=== PATIENT | male | born 1935 | race Caucasian/White ===

== ENCOUNTER 2016-06-03 16:39 | Inpatient (IN) | payer MEDICARE, OTHER ==
[2016-06-03] MEDS ORDERED: IPRATROPIUM-ALBUTEROL 3 ML NEB INHALATION STA (17:32)
[2016-06-03] MEDS ORDERED: methylPREDNISolone SOD SUCCI 125 MG/2 ML VIAL IV STA (17:32)
[2016-06-03] MEDS ORDERED: SODIUM CHLORIDE 0.9% 1,000 ML IV STA (17:32)
--- NOTE | 2016-06-03 17:37 | ED ---
General Adult HPI - General Chief complaint: Recheck/Abnormal Lab/Rx Stated complaint: ABNORMAL LABS Time Seen by Provider: 06/03/16 17:05 Source: patient, family, RN notes reviewed Mode of arrival: wheelchair Limitations: no limitations - History of Present Illness Initial comments: Patient is a pleasant 81-year-old male presenting to the emergency Department with dyspnea. Family did receive a call stating recent blood work showed abnormal potassium and red cells. Patient admits to being short of breath. Shortness of breath has been for some time however worse the past few days. Patient was recently discharged from [facility] with multiple breathing problems including COPD, CHF. Patient states symptoms are mild at rest but severe with exertion. Occasional cough. Patient does have leg swelling which is somewhat improved. Patient has been on Lasix. - Related Data Home Medications Medication Instructions Recorded Confirmed Metoprolol Tartrate [Metoprolol 50 mg PO BID 01/25/14 06/03/16 Tartrate] Ferrous Sulfate [Feosol] 325 mg PO DAILY 04/15/14 06/03/16 Glimepiride [Amaryl] 4 mg PO BID 10/07/15 06/03/16 Albuterol Inhaler [Ventolin Hfa 2 puff INHALATION RT-Q6H PRN 06/03/16 06/03/16 Inhaler] Aspirin 81 mg PO DAILY 06/03/16 06/03/16 Atorvastatin Calcium [Lipitor] 40 mg PO DAILY 06/03/16 06/03/16 Budesonide-Formot 160-4.5 Mcg 2 puff INHALATION RT-BID 06/03/16 06/03/16 [Symbicort 160-4.5 Mcg Inhaler] Cholecalciferol (Vitamin D3) 10,000 unit PO DAILY 06/03/16 06/03/16 [Vitamin D3] Ciprofloxacin HCl [Cipro] 500 mg PO Q12HR 06/03/16 06/03/16 Multivitamins, Thera [Multivitamin 1 tab PO DAILY 06/03/16 06/03/16 (formulary)] [place]-3 Acid Ethyl Esters [Lovaza] 2 gm PO BID 06/03/16 06/03/16 Oxybutynin Chloride [Ditropan] 5 mg PO BID 06/03/16 06/03/16 Pantoprazole Sodium [Protonix] 40 mg PO DAILY 06/03/16 06/03/16 Psyllium Husk 100% [Metamucil] 6 gm PO DAILY 06/03/16 06/03/16 hydrALAZINE HCL [Apresoline] 50 mg PO Q12H 06/03/16 06/03/16 sitaGLIPtin [Januvia] 25 mg PO DAILY 06/03/16 06/03/16 Allergies Allergy/AdvReac Type Severity Reaction Status Date / Time No Known Allergies Allergy Verified 06/03/16 17:57 Review of Systems ROS Statement: Those systems with pertinent positive or pertinent negative responses have been documented in the HPI. ROS Other: All systems not noted in ROS Statement are negative. Constitutional: Denies: fever Eyes: Denies: eye pain ENT: Denies: ear pain Respiratory: Reports: dyspnea Cardiovascular: Denies: chest pain Endocrine: Reports: fatigue Gastrointestinal: Denies: abdominal pain Genitourinary: Denies: dysuria Musculoskeletal: Denies: back pain Skin: Denies: rash Neurological: Denies: headache Past Medical History Past Medical History: Coronary Artery Disease (CAD), Heart Failure, COPD, Hyperlipidemia Additional Past Medical History / Comment(s): macular degeneration History of Any Multi-Drug Resistant Organisms: None Reported Past Surgical History: Bowel Resection Additional Past Surgical History / Comment(s): CABG-triple bypass, lt hip with cristina and 3 screws Past Anesthesia/Blood Transfusion Reactions: No Reported Reaction Past Psychological History: No Psychological Hx Reported Smoking Status: Former smoker Past Alcohol Use History: None Reported Past Drug Use History: None Reported - Past Family History Mother Additional Family Medical History / Comment(s): bowel obstruction Father Family Medical History: Liver Disease General Exam Limitations: no limitations General appearance: alert, in no apparent distress Head exam: Present: atraumatic Eye exam: Present: normal appearance, PERRL ENT exam: Present: normal oropharynx Neck exam: Present: normal inspection Respiratory exam: Present: decreased breath sounds Cardiovascular Exam: Present: regular rate, normal rhythm GI/Abdominal exam: Present: soft. Absent: tenderness Extremities exam: Present: pedal edema. Absent: calf tenderness Neurological exam: Present: alert Psychiatric exam: Present: normal affect, normal mood Skin exam: Absent: rash Course Vital Signs 06/03/16 06/03/16 06/03/16 16:48 17:48 17:59 Temperature 97.9 F 97.8 F Pulse Rate 86 84 76 Respiratory 24 26 H Rate Blood Pressure 150/67 161/75 O2 Sat by Pulse 74 L 86 L Oximetry 06/03/16 06/03/16 18:09 18:15 Temperature Pulse Rate 79 80 Respiratory 25 H Rate Blood Pressure 159/73 O2 Sat by Pulse 91 L Oximetry Medical Decision Making - Medical Decision Making Patient reevaluated and improved with BiPAP. Patient updated on results and plan. Case discussed with practitioner Pooja, covering with Dr. Burgos, covering for Dr. Mercado who will admit. - Lab Data Result diagrams: 06/03/16 17:36 06/03/16 17:36 Lab Results 06/03/16 06/03/16 06/03/16 Range/Units 17:36 17:36 17:36 WBC 16.0 H (3.8-10.6) k/uL RBC 3.69 L (4.30-5.90) m/uL Hgb 8.6 L (13.0-17.5) gm/dL Hct 29.0 L (39.0-53.0) % MCV 78.7 L (80.0-100.0) fL MCH 23.4 L (25.0-35.0) pg MCHC 29.7 L (31.0-37.0) g/dL RDW 19.6 H (11.5-15.5) % Plt Count 301 (150-450) k/uL Neutrophils % 89 % Lymphocytes % 2 % Monocytes % 5 % Eosinophils % 0 % Basophils % 1 % Neutrophils # 14.2 H (1.3-7.7) k/uL Lymphocytes # 0.3 L (1.0-4.8) k/uL Monocytes # 0.8 (0-1.0) k/uL Eosinophils # 0.0 (0-0.7) k/uL Basophils # 0.1 (0-0.2) k/uL Hypochromasia Marked Poikilocytosis Slight Anisocytosis Slight Microcytosis Slight PT (9.0-12.0) sec INR (<1.1) APTT (22.0-30.0) sec Sample Site ABG pH (7.35-7.45) ABG pCO2 (35-45) mmHg ABG pO2 (83-108) mmHg ABG HCO3 (21-25) mmol/L ABG Total CO2 (19-24) mmol/L ABG O2 Saturation (94-97) % ABG Base Excess mmol/L FiO2 % Sodium 142 (137-145) mmol/L Potassium 5.2 H (3.5-5.1) mmol/L Chloride 109 H (98-107) mmol/L Carbon Dioxide 23 (22-30) mmol/L Anion Gap 10 mmol/L BUN 75 H (9-20) mg/dL Creatinine 1.70 H (0.66-1.25) mg/dL Est GFR (MDRD) Af Amer 47 (>60 ml/min/1.73 sqM) Est GFR (MDRD) Non-Af 39 (>60 ml/min/1.73 sqM) Glucose 161 H (74-99) mg/dL Calcium 8.4 (8.4-10.2) mg/dL Total Bilirubin 0.7 (0.2-1.3) mg/dL AST 47 (17-59) U/L ALT 88 H (21-72) U/L Alkaline Phosphatase 113 (38-126) U/L Total Creatine Kinase 41 L (55-170) U/L CK-MB (CK-2) 2.3 (0.0-2.4) ng/mL CK-MB (CK-2) Rel Index 5.6 Troponin I 0.148 H* (0.000-0.034) ng/mL NT-Pro-B Natriuret Pep pg/mL Total Protein 6.0 L (6.3-8.2) g/dL Albumin 3.3 L (3.5-5.0) g/dL 06/03/16 06/03/16 06/03/16 Range/Units 17:36 17:36 17:44 WBC (3.8-10.6) k/uL RBC (4.30-5.90) m/uL Hgb (13.0-17.5) gm/dL Hct (39.0-53.0) % MCV (80.0-100.0) fL MCH (25.0-35.0) pg MCHC (31.0-37.0) g/dL RDW (11.5-15.5) % Plt Count (150-450) k/uL Neutrophils % % Lymphocytes % % Monocytes % % Eosinophils % % Basophils % % Neutrophils # (1.3-7.7) k/uL Lymphocytes # (1.0-4.8) k/uL Monocytes # (0-1.0) k/uL Eosinophils # (0-0.7) k/uL Basophils # (0-0.2) k/uL Hypochromasia Poikilocytosis Anisocytosis Microcytosis PT 11.4 (9.0-12.0) sec INR 1.1 (<1.1) APTT 23.7 (22.0-30.0) sec Sample Site rrad ABG pH 7.40 (7.35-7.45) ABG pCO2 35 (35-45) mmHg ABG pO2 56 L (83-108) mmHg ABG HCO3 21 (21-25) mmol/L ABG Total CO2 22 (19-24) mmol/L ABG O2 Saturation 89.0 L (94-97) % ABG Base Excess -3.2 mmol/L FiO2 36 % Sodium (137-145) mmol/L Potassium (3.5-5.1) mmol/L Chloride (98-107) mmol/L Carbon Dioxide (22-30) mmol/L Anion Gap mmol/L BUN (9-20) mg/dL Creatinine (0.66-1.25) mg/dL Est GFR (MDRD) Af Amer (>60 ml/min/1.73 sqM) Est GFR (MDRD) Non-Af (>60 ml/min/1.73 sqM) Glucose (74-99) mg/dL Calcium (8.4-10.2) mg/dL Total Bilirubin (0.2-1.3) mg/dL AST (17-59) U/L ALT (21-72) U/L Alkaline Phosphatase (38-126) U/L Total Creatine Kinase (55-170) U/L CK-MB (CK-2) (0.0-2.4) ng/mL CK-MB (CK-2) Rel Index Troponin I (0.000-0.034) ng/mL NT-Pro-B Natriuret Pep 03060 pg/mL Total Protein (6.3-8.2) g/dL Albumin (3.5-5.0) g/dL - Radiology Data Interpreted by me: Chest x-ray shows cardiomegaly, postoperative changes and CHF. Critical Care Time Critical Care Time: Yes Total Critical Care Time: 33 Disposition Clinical Impression: CHF (congestive heart failure), Respiratory failure Disposition: ADMITTED IP TO THIS HOSP Condition: Serious
[2016-06-03 17:51] LABS: Anisocytosis Slight; Basophils # (A) 0.1 k/uL (0-0.2); Basophils % (A) 1 %; CH 23.7; CHCM 30.4; Eosinophils % (A) 0 %; HDW 3.53; HGB 8.6 gm/dL (13.0-17.5); Hypochromasia Marked; Luc # (Auto) 0.48; Luc % (Auto) 3; Lymphocytes # (A) 0.3 k/uL (1.0-4.8); Lymphocytes % (A) 2 %; MCH 23.4 pg (25.0-35.0); MCHC 29.7 g/dL (31.0-37.0); MCV 78.7 fL (80.0-100.0); Mean Platelet Volume 9.7; Microcytosis Slight; Monocytes # (A) 0.8 k/uL (0-1.0); Monocytes % (A) 5 %; Neutrophils # (A) 14.2 k/uL (1.3-7.7); Neutrophils % (A) 89 %; Poikilocytosis Slight; RBC 3.69 m/uL (4.30-5.90); RDW 19.6 % (11.5-15.5); WBC (Perox) 16.34
[2016-06-03 17:55] LABS: Calcium 8.4 mg/dL (8.4-10.2); INR 1.1 (<1.1); Partial Thromboplastin Time 23.7 sec (22.0-30.0); Potassium 5.2 mmol/L (3.5-5.1); Prothrombin Time 11.4 sec (9.0-12.0); Total Bilirubin 0.7 mg/dL (0.2-1.3)
[2016-06-03 18:09] LABS: ABG PCO2 35 mmHg (35-45); ABG PO2 56 mmHg (83-108)
[2016-06-03 18:10] LABS: ABG Base Excess -3.2 mmol/L; ABG HCO3 21 mmol/L (21-25); ABG TCO2 22 mmol/L (19-24)
[2016-06-03 18:17] LABS: Creatine Kinase MB 2.3 ng/mL (0.0-2.4)
[2016-06-03 18:21] LABS: Troponin I 0.148 ng/mL (0.000-0.034)
[2016-06-03] MEDS ORDERED: ASPIRIN 325 MG TAB PO STA (18:51)
[2016-06-03] MEDS ORDERED: HEPARIN SODIUM,PORCINE 5,000 UNIT/ML 1 ML VIAL IV ONE (18:55)
[2016-06-03] MEDS ORDERED: IPRATROPIUM-ALBUTEROL 3 ML NEB INHALATION PRN (18:55)
[2016-06-03] MEDS ORDERED: HEPARIN SODIUM,PORCINE 5,000 UNIT/ML 1 ML VIAL IV PRN (18:55)
[2016-06-03] MEDS ORDERED: HEPARIN SODIUM,PORCINE/D5W PMX 25,000 UNIT in DEXTROSE/WATER 1 500ML.BAG IV SCH (19:00)
--- NOTE | 2016-06-03 19:31 | XR ---
EXAMINATION TYPE: XR chest 1V portable DATE OF EXAM: 06/03/2016 6:32 PM COMPARISON: February 03, 2016 HISTORY: Cough and dyspnea TECHNIQUE: Single frontal view of the chest is obtained. FINDINGS: There is marked obscuration of the pulmonary vasculature bilaterally and symmetrically, by a fine reticular pattern of increased density reaching the periphery of septal lines and with zones of coalescent opacity in the lung bases, and with a relatively small right pleural effusion tracking upward into the interlobar fissure. No abnormal gas collections. Mild moderately enlarged critics silhouette with sternal sutures and mediastinal clips noted. IMPRESSION: RADIOGRAPHIC FINDINGS ARE CONSISTENT WITH ADVANCED CARDIOGENIC INTERSTITIAL PHASE PULMONARY EDEMA WIT H AREAS OF ALVEOLAR PHASE PULMONARY EDEMA. ASSOCIATED RIGHT PLEURAL EFFUSION.
[2016-06-03] MEDS: IPRATROPIUM-ALBUTEROL 3 ML NEB INHALATION SCH (22:48)
[2016-06-03] MEDS: FUROSEMIDE 10 MG/ML 4 ML VIAL IV SCH (23:41)
[2016-06-04] MEDS: NITROGLYCERIN OINT 1 INCH/GM PACKET TOPICAL SCH ×4 (00:09→11:37)
[2016-06-04] MEDS: FUROSEMIDE 10 MG/ML 4 ML VIAL IV SCH ×3 (03:07→19:50)
[2016-06-04 06:16] LABS: Glucose,Whole Blood 349 mg/dL (75-99)
[2016-06-04] MEDS: INSULIN LISPRO (humaLOG) 300 UNIT/3 ML VIAL SQ SCH ×4 (06:17→21:10)
[2016-06-04 06:21] LABS: Anisocytosis Slight; Basophils % (A) 0 %; CHCM 28.5; Eosinophils % (A) 0 %; HCT 25.9 % (39.0-53.0); HDW 3.22; HGB 7.6 gm/dL (13.0-17.5); Hypochromasia Marked; Luc # (Auto) 0.06; Luc % (Auto) 1; Lymphocytes # (A) 0.2 k/uL (1.0-4.8); Lymphocytes % (A) 3 %; MCH 23.9 pg (25.0-35.0); MCHC 29.4 g/dL (31.0-37.0); MCV 81.2 fL (80.0-100.0); Mean Platelet Volume 8.8; Microcytosis Slight; Monocytes # (A) 0.2 k/uL (0-1.0); Monocytes % (A) 3 %; Neutrophils # (A) 8.1 k/uL (1.3-7.7); Neutrophils % (A) 94 %; RBC 3.19 m/uL (4.30-5.90); RDW 18.7 % (11.5-15.5); WBC 8.7 k/uL (3.8-10.6); WBC (Perox) 9.36
[2016-06-04] MEDS: IPRATROPIUM-ALBUTEROL 3 ML NEB INHALATION SCH ×4 (08:19→20:40)
[2016-06-04] MEDS ORDERED: ASPIRIN 325 MG TAB PO SCH (09:00)
--- NOTE | 2016-06-04 11:49 | P.CRDCN ---
History of Present Illness Consult date: 06/04/16 Requesting physician: Stevo Mercado Consult reason: congestive heart failure Chief complaint: Shortness of breath History of present illness: This is a pleasant 81-year-old gentleman who follows regularly with Dr. Schwartz in the office. He has a known history of diabetes, hypertension, hyperlipidemia, coronary artery disease with prior bypass surgery in 2007 where he underwent a COLLINS to the LAD, saphenous vein graft to the RCA, saphenous vein graft to the diagonal. Most recent Jennifer scan was performed in June of last year which was reported to be normal. Most of the history was obtained from the medical record, patient is unsure of where he is alone why he is here. According to the chart, patient was admitted to the hospital with symptoms of shortness of breath, he had apparently just recently been at [facility] with similar symptoms. Chest x-ray on admission here revealed findings consistent with advanced cardiogenic interstitial pulmonary edema with areas of alveolar pulmonary edema and a right sided pleural effusion. White blood cell count on admission 16,000, 8.7 this morning. Hemoglobin on admission 8.6, 7.6 this morning. Potassium 5.2, BUN 75, creatinine 1.7, BNP level 17, 800.Troponins 0.14, 0.18, .14. Blood pressure 150/60, heart rate in the 80s, 74 % on 4 L on admission. He is currently on a Ventimask satting 93%. Blood pressure this morning 176/82. EKG on admission shows a normal sinus rhythm with right bundle branch block pattern. The patient was initiated on IV Lasix in the emergency room, continues to diurese. He is also on a heparin drip because of mildly abnormal troponins. Past Medical History Past Medical History: Coronary Artery Disease (CAD), Heart Failure, COPD, Diabetes Mellitus, Hyperlipidemia, Hypertension Additional Past Medical History / Comment(s): macular degeneration History of Any Multi-Drug Resistant Organisms: None Reported Past Surgical History: Bowel Resection, Coronary Bypass/CABG, Heart Catheterization Additional Past Surgical History / Comment(s): CABG-triple bypass, lt hip with cristina and 3 screws Past Anesthesia/Blood Transfusion Reactions: No Reported Reaction Past Psychological History: No Psychological Hx Reported Smoking Status: Former smoker Past Alcohol Use History: None Reported Past Drug Use History: None Reported - Past Family History Mother Additional Family Medical History / Comment(s): bowel obstruction Father Family Medical History: Liver Disease Medications and Allergies Home Medications Medication Instructions Recorded Confirmed Type Metoprolol Tartrate [Metoprolol 50 mg PO BID 01/25/14 06/03/16 History Tartrate] Ferrous Sulfate [Feosol] 325 mg PO DAILY 04/15/14 06/03/16 History Glimepiride [Amaryl] 4 mg PO BID 10/07/15 06/03/16 History Albuterol Inhaler [Ventolin Hfa 2 puff INHALATION RT-Q6H PRN 06/03/16 06/03/16 History Inhaler] Aspirin 81 mg PO DAILY 06/03/16 06/03/16 History Atorvastatin Calcium [Lipitor] 40 mg PO DAILY 06/03/16 06/03/16 History Budesonide-Formot 160-4.5 Mcg 2 puff INHALATION RT-BID 06/03/16 06/03/16 History [Symbicort 160-4.5 Mcg Inhaler] Cholecalciferol (Vitamin D3) 10,000 unit PO DAILY 06/03/16 06/03/16 History [Vitamin D3] Ciprofloxacin HCl [Cipro] 500 mg PO Q12HR 06/03/16 06/03/16 History Multivitamins, Thera [Multivitamin 1 tab PO DAILY 06/03/16 06/03/16 History (formulary)] [place]-3 Acid Ethyl Esters [Lovaza] 2 gm PO BID 06/03/16 06/03/16 History Oxybutynin Chloride [Ditropan] 5 mg PO BID 06/03/16 06/03/16 History Pantoprazole Sodium [Protonix] 40 mg PO DAILY 06/03/16 06/03/16 History Psyllium Husk 100% [Metamucil] 6 gm PO DAILY 06/03/16 06/03/16 History hydrALAZINE HCL [Apresoline] 50 mg PO Q12H 06/03/16 06/03/16 History sitaGLIPtin [Januvia] 25 mg PO DAILY 06/03/16 06/03/16 History Allergies Allergy/AdvReac Type Severity Reaction Status Date / Time No Known Allergies Allergy Verified 06/03/16 17:57 Physical Exam Vitals: Vital Signs Temp Pulse Pulse Resp BP BP Pulse Ox 06/04/16 08:30 96 06/04/16 08:19 91 06/04/16 08:00 97.6 F 72 20 176/82 93 L 06/04/16 04:00 97.7 F 82 18 129/63 90 L 06/03/16 22:50 96.9 F L 80 22 171/74 95 06/03/16 22:27 98.3 F 76 23 153/72 96 06/03/16 21:46 96.8 F L 83 18 183/79 95 Intake and Output 06/03/16 06/04/16 06/04/16 22:59 06:59 14:59 Intake Total 246.824 Output Total 700 1600 Balance -453.176 -1600 Intake: Intake, IV Titration 246.824 Amount Heparin Sodium,Porcine/ 126.824 D5w Pmx 25,000 unit In Dextrose/Water 1 500ml. bag @ 12 UNITS/KG/HR 19. 92 mls/hr IV .Q24H JENA Rx #:[id number] Sodium Chloride 0.9% 1, 120 000 ml @ 20 mls/hr IV . Q24H STA Rx#:[id number] Oral 0 Output: Urine 700 1600 Other: Weight 88.8 kg 88.9 kg 88.9 kg Patient Weight 06/05/16 06:59 Weight 88.9 kg PHYSICAL EXAMINATION: HEENT: Head is atraumatic, normocephalic. Pupils equal, round. Neck is supple. There is no elevated jugular venous pressure. HEART EXAMINATION: Heart S1 and S2 systolic ejection murmur is heard. CHEST EXAMINATION: Lungs reveal scattered coarse wheezes and rhonchi throughout ABDOMEN: Soft, nontender. Bowel sounds are heard. No organomegaly noted. EXTREMITIES: 1+ peripheral pulses with 1+ evidence of peripheral edema and no calf tenderness noted. Evidence of chronic venous stasis NEUROLOGIC patient is awake, confused . Results 06/04/16 05:24 06/03/16 17:36 Cardiac Enzymes 06/04/16 06/04/16 Range/Units 00:31 05:24 Troponin I 0.180 H* 0.145 H* (0.000-0.034) ng/mL Coagulation 06/04/16 06/04/16 Range/Units 00:31 07:18 APTT 31.2 H 34.0 H (22.0-30.0) sec CBC 06/04/16 Range/Units 05:24 WBC 8.7 (3.8-10.6) k/uL RBC 3.19 L (4.30-5.90) m/uL Hgb 7.6 L (13.0-17.5) gm/dL Hct 25.9 L (39.0-53.0) % Plt Count 228 (150-450) k/uL Current Medications Generic Name Dose Route Start Last Admin Trade Name Freq PRN Reason Stop Dose Admin Albuterol/Ipratropium 3 ml 06/03/16 20:00 06/04/16 08:19 Duoneb 0.5 Mg-3 Mg/3 Ml Soln INHALATION 3 ml RT-QID JENA Administration Albuterol/Ipratropium 3 ml 06/03/16 18:55 Duoneb 0.5 Mg-3 Mg/3 Ml Soln INHALATION RT-QID PRN Shortness Of Breath Or Wheezing Aspirin 325 mg 06/04/16 09:00 06/04/16 08:10 Aspirin PO 325 mg DAILY JENA Administration Furosemide 40 mg 06/03/16 19:00 06/04/16 03:07 Lasix IV 40 mg Q8H JENA Administration Heparin Sodium (Porcine) 0 unit 06/03/16 18:55 06/04/16 01:46 Heparin IV 4,000 unit PER PROTOCOL PRN Administration Low PTT Protocol Sodium Chloride 1,000 mls @ 20 mls/hr 06/03/16 17:32 06/03/16 18:05 Saline 0.9% IV 06/04/16 17:31 20 mls/hr .Q24H STA Administration Heparin Sodium/Dextrose 25,000 500 mls @ 19.92 mls/hr 06/03/16 19:00 01:46 unit/ IV Solution IV 15 units/kg/hr .Q24H JENA 24.9 mls/hr Protocol Titration 12 UNITS/KG/HR Insulin Human Lispro 0 unit 06/04/16 07:30 06/04/16 06:17 Humalog SQ 6 unit ACHS JENA Administration Protocol Nitroglycerin 1 inch 06/03/16 19:00 06/04/16 08:10 Nitro-Bid Oint TOPICAL 1 inch QID JENA Administration Sodium Chloride 10 ml 06/03/16 21:00 06/04/16 08:10 Saline Flush IV 10 ml BID JENA Administration Intake and Output 06/03/16 06/04/16 06/04/16 22:59 06:59 14:59 Intake Total 246.824 Output Total 700 1600 Balance -453.176 -1600 Intake: Intake, IV Titration 246.824 Amount Heparin Sodium,Porcine/ 126.824 D5w Pmx 25,000 unit In Dextrose/Water 1 500ml. bag @ 12 UNITS/KG/HR 19. 92 mls/hr IV .Q24H JENA Rx #:[id number] Sodium Chloride 0.9% 1, 120 000 ml @ 20 mls/hr IV . Q24H STA Rx#:[id number] Oral 0 Output: Urine 700 1600 Other: Weight 88.8 kg 88.9 kg 88.9 kg Patient Weight 06/05/16 06:59 Weight 88.9 kg 06/04/16 05:24 EKG Interpretations (text) EKG shows a normal sinus rhythm with a right bundle branch block pattern. Assessment and Plan Plan: Assessment and Plan #1 ingested heart failure, likely diastolic in nature, patient's most recent echo was performed in the office in 2013 which revealed an ejection fraction at that time of 50% #2 known history of coronary artery disease with prior coronary artery bypass grafting surgery in 2007 at which time patient underwent the LAD, saphenous vein graft to the right coronary artery, saphenous vein graft to the diuretic. #3 diabetes #4 hypertension #5 hyperlipidemia #6 COPD #7 dementia Plan We will obtain an echocardiogram with Doppler study. Decrease aspirin to 81 mg daily. Continue IV Lasix. Discontinue IV heparin. Discontinue Nitropaste. Resume metoprolol tartrate, resume hydralazine, add Imdur, resume Lipitor. Obtain records from recent visit to [facility]. Further recommendations to follow. DNP note has been reviewed, I agree with a documented findings and plan of care. Patient was seen and examined.
[2016-06-04 11:57] LABS: Glucose,Whole Blood 217 mg/dL (75-99)
[2016-06-04] MEDS ORDERED: LEVOFLOXACIN 500MG-D5W PMX 500 MG in DEXTROSE/WATER 1 100ML.BAG IVPB ONE (13:45)
[2016-06-04] MEDS: PANTOPRAZOLE 40 MG TABLET PO SCH (14:09)
[2016-06-04] MEDS: OXYBUTYNIN CHLORIDE 5 MG TAB PO SCH ×2 (14:09→21:21)
[2016-06-04] MEDS: LINAGLIPTIN 5 MG TABLET PO SCH (14:09)
[2016-06-04] MEDS: hydrALAZINE HCL 50 MG TAB PO SCH ×2 (14:10→21:21)
[2016-06-04] MEDS: GLIMEPIRIDE 4 MG TAB PO SCH ×2 (14:10→21:19)
[2016-06-04] MEDS: ISOSORBIDE MONONITRATE ER 30 MG TAB.ER.24H PO SCH (14:10)
[2016-06-04 14:53] LABS: Hemoglobin A1C 6.4 % (4.2-6.1)
--- NOTE | 2016-06-04 16:14 | HP ---
DATE OF ADMISSION: I am covering for Dr. Stevo Mercado. This 81-year-old gentleman with a past medical history of multiple medical problems including CAD, history of COPD, CHF, diabetes mellitus, hypertension, hyperlipidemia, macular degeneration, history of CAD, CABG being followed by Dr. Stevo Mercado in the outpatient setting was admitted to [facility] with complaints of shortness of breath. The shortness of breath was thought to be multifactorial because of COPD and more of CHF. The patient is also seen by Cardiology on a regular basis. The most recent stress test on the outpatient setting was found to be negative. The patient also had change in mental status, patient confused and unable to offer a coherent history. Most of the history of taken from my discussed with staff and as well as review of the chart at this time. Patient apparently was admitted to [facility] recently with the same problems including shortness of breath, again thought to be multifactorial secondary to COPD and CHF. There is no history of trauma. PAST MEDICAL HISTORY: History of CAD, CHF, COPD, diabetes mellitus, hypertension, hyperlipidemia, macular degeneration, bowel resection, CAD, CABG. Medications prior to admission include: 1. Cipro 500 mg p.o. b.i.d. 2. Januvia 25 mg p.o. daily. 3. Apresoline 50 mg b.i.d. 4. Metamucil 6 grams p.o. daily. 5. Protonix 40 mg p.o. daily. 6. Ditropan 5 mg p.o. b.i.d. 7. Lovaza 2 grams p.o. b.i.d. 8. Multivitamins 1 p.o. daily. 9. Metoprolol 50 mg p.o. b.i.d. 10. Amaryl 4 mg p.o. b.i.d. 11. Iron sulfate 325 mg p.o. daily. 12. Vitamin D3, 10,000 daily. 13. Symbicort 160/4.5 two puffs b.i.d. 14. Lipitor 40 mg daily. 15. Aspirin 81 mg daily. 16. Albuterol 2 puffs q.6 p.r.n. ALLERGIES: None. FAMILY HISTORY: History of liver disease and bowel obstruction in the family. SOCIAL HISTORY: Previous history of smoking, No history of alcohol intake. REVIEW OF SYSTEMS: Could not be taken because the patient is confused at this time. PHYSICAL EXAMINATION: Patient is conscious, confused, oriented x1. Pulse 91, blood pressure 163/74, respirations 20, temperature 96.6, pulse ox 92% on 15 Ventimask. HEENT: Conjunctivae normal. Oral mucosa moist. NECK: No jugular venous distention. No carotid bruit. No lymph node enlargement. CARDIOVASCULAR: S1 and S2, muffled. No S3, no S4. RESPIRATORY: Breath sounds diminished at the bases. Bilateral scattered rhonchi, expiratory wheezing and crackles were heard. ABDOMEN: Soft, nontender. No mass palpable. LEGS: No edema, no swelling. NERVOUS SYSTEM: Diffusely weak. LABS: WBC 8.7, hemoglobin 7.6. Troponin 0.145. Accu-Cheks 217. WBC was 16. ASSESSMENT: 1. Shortness of breath, possibly multifactorial. 2. Congestive heart failure, acute exacerbation, ejection fraction unknown with chronic obstructive pulmonary disease acute exacerbation, with acute purulent tracheobronchitis. 3. Increased WBC. 4. Anemia, microcytic. 5. Change in mental status, metabolic encephalopathy, multifactorial. 6. Increased potassium. 7. Increased creatinine with possibly chronic kidney disease, stage III. 8. Diabetes mellitus type 2. 9. Increased ALT, possible mild hepatitis. 10. Troponin 0.148, indeterminate. 11. Hypoalbuminemia with mild to moderate protein calorie malnutrition. 12. Gait dysfunction. 13. History of chronic obstructive pulmonary disease. 14. History of coronary artery disease, coronary artery bypass grafting. 15. Hypertension. 16. Hyperlipidemia. 17. History of macular degeneration. 18. History of bowel obstruction and resection. 19. Remote history of nicotine dependence. 20. FULL CODE. 21. Acute hypoxic respiratory failure. The ABG showed pH of 7.40, pCO2 of 35 and pO2 of 56. RECOMMENDATIONS AND DISCUSSION: This 81-year-old gentleman who presented with multiple complex medical issues as mentioned earlier. At this time, will monitor the patient closely. Continue the current medications. Continue symptomatic treatment. Patient was started on IV Lasix. I would recommend cardiology and pulmonology consultations and monitor fluid electrolyte balance closely. Otherwise, continue with bronchodilators. I would also use empiric antibiotics also this time. Other than that, we will continue with mental status monitoring, which could be multifactorial. Would also recommend a social service consultation, PT, OT evaluation once the patient is slightly better to evaluate the home situation. A 2-D echo has been ordered. Further recommendations to follow. MTDD
[2016-06-04 17:19] LABS: Glucose,Whole Blood 129 mg/dL (75-99)
--- NOTE | 2016-06-04 18:16 | ECHOF ---
Referral Reason:chf MEASUREMENTS -------- HEIGHT: 182.9 cm WEIGHT: 88.5 kg BP: RVIDd: 3.2 cm (< 3.3) IVSd: 1.3 cm (0.6 - 1.1) LVIDd: 4.2 cm (3.9 - 5.3) LVPWd: 1.2 cm (0.6 - 1.1) IVSs: 1.6 cm LVIDs: 3.3 cm LVPWs: 1.6 cm LA Diam: 4.3 cm (2.7 - 3.8) LAESV Index (A-L): 35.25 ml/m Ao Diam: 3.5 cm (2.0 - 3.7) AV Cusp: 1.7 cm (1.5 - 2.6) LA Diam: 4.4 cm (2.7 - 3.8) MV EXCURSION: 19.089 mm (> 18.000) MV EF SLOPE: 116 mm/s (70 - 150) EPSS: 0.4 cm MV E Niko: 0.96 m/s MV DecT: 176 ms MV A Niko: 0.82 m/s MV E/A Ratio: 1.17 RAP: 5.00 mmHg RVSP: 51.92 mmHg FINDINGS -------- Undetermined rhythm. This was a technically adequate study. The left ventricular size is normal. There is mild concentric left ventricular hypertrophy. Overall left ventricular systolic function is normal with, an EF between 55 - 60 %. The right ventricle is normal in size. LA is moderately dilated 34-39 ml/m2 The right atrial size is normal. There is mild aortic valve sclerosis. There is no evidence of aortic regurgitation. Mild mitral annular calcification present. [id number] mitral regurgitation is present. Mild tricuspid regurgitation present. There is moderate pulmonary hypertension. The right ventricular systolic pressure, as measured by Doppler, is 51.92mmHg. Trace/mild (physiologic) pulmonic regurgitation. The aortic root size is normal. There is no pericardial effusion. CONCLUSIONS -------- 1. This was a technically adequate study. 2. There is no pericardial effusion. 3. There is mild concentric left ventricular hypertrophy. 4. LA is moderately dilated 34-39 ml/m2 5. There is mild aortic valve sclerosis. 6. Mild mitral annular calcification present. 7. Mild tricuspid regurgitation present. 8. There is moderate pulmonary hypertension. 9. The right ventricular systolic pressure, as measured by Doppler, is 51.92mmHg. 10. Trace/mild (physiologic) pulmonic regurgitation. SNACK BAR CASHIER: Alem Zamora RDCS
[2016-06-04] MEDS: BUDESONIDE 1 MG/2 ML NEBU INHALATION SCH (20:40)
[2016-06-04] MEDS: FORMOTEROL FUMARATE 20 MCG/2 ML NEBU INHALATION SCH (20:40)
[2016-06-04 21:10] LABS: Glucose,Whole Blood 118 mg/dL (75-99)
[2016-06-04] MEDS: METOPROLOL TARTRATE 50 MG TAB PO SCH (21:21)
[2016-06-05] MEDS: FUROSEMIDE 10 MG/ML 4 ML VIAL IV SCH ×3 (03:05→18:29)
[2016-06-05 05:53] LABS: Glucose,Whole Blood 139 mg/dL (75-99)
[2016-06-05] MEDS: PANTOPRAZOLE 40 MG TABLET PO SCH (06:35)
[2016-06-05] MEDS: INSULIN LISPRO (humaLOG) 300 UNIT/3 ML VIAL SQ SCH ×4 (06:35→21:10)
[2016-06-05 06:52] LABS: Anisocytosis Slight; Basophils % (A) 0 %; CH 23.2; Eosinophils % (A) 0 %; HCT 27.2 % (39.0-53.0); HDW 3.39; HGB 8.1 gm/dL (13.0-17.5); Hypochromasia Marked; Luc # (Auto) 0.46; Luc % (Auto) 3; Lymphocytes # (A) 0.5 k/uL (1.0-4.8); Lymphocytes % (A) 3 %; MCH 23.9 pg (25.0-35.0); MCHC 29.6 g/dL (31.0-37.0); MCV 80.6 fL (80.0-100.0); Mean Platelet Volume 7.5; Microcytosis Slight; Monocytes % (A) 7 %; Neutrophils # (A) 12.1 k/uL (1.3-7.7); Neutrophils % (A) 86 %; RBC 3.37 m/uL (4.30-5.90); RDW 19.4 % (11.5-15.5); WBC 14.1 k/uL (3.8-10.6); WBC (Perox) 14.16
[2016-06-05 07:05] LABS: Calcium 9.1 mg/dL (8.4-10.2); Potassium 5.2 mmol/L (3.5-5.1)
[2016-06-05] MEDS: LINAGLIPTIN 5 MG TABLET PO SCH (08:18)
[2016-06-05] MEDS: METOPROLOL TARTRATE 50 MG TAB PO SCH ×2 (08:18→21:12)
[2016-06-05] MEDS: hydrALAZINE HCL 50 MG TAB PO SCH ×2 (08:18→21:12)
[2016-06-05] MEDS: GLIMEPIRIDE 4 MG TAB PO SCH ×2 (08:18→21:12)
[2016-06-05] MEDS: FERROUS SULFATE 325 MG TAB PO SCH (08:19)
[2016-06-05] MEDS: ASPIRIN 81 MG CHEW PO SCH (08:19)
[2016-06-05] MEDS: OXYBUTYNIN CHLORIDE 5 MG TAB PO SCH ×2 (08:19→21:12)
[2016-06-05] MEDS: ISOSORBIDE MONONITRATE ER 30 MG TAB.ER.24H PO SCH (08:19)
[2016-06-05] MEDS: ATORVASTATIN 40 MG TAB PO SCH (08:19)
[2016-06-05] MEDS: LEVOFLOXACIN 250MG-D5W PMX 250 MG in DEXTROSE/WATER 1 50ML.BAG IVPB SCH (08:24)
[2016-06-05] MEDS ORDERED: ASPIRIN 81 MG CHEW PO SCH (09:00)
[2016-06-05 11:32] LABS: Glucose,Whole Blood 220 mg/dL (75-99)
[2016-06-05] MEDS: FORMOTEROL FUMARATE 20 MCG/2 ML NEBU INHALATION SCH (12:06)
[2016-06-05] MEDS: IPRATROPIUM-ALBUTEROL 3 ML NEB INHALATION SCH ×4 (12:06→21:02)
[2016-06-05] MEDS: BUDESONIDE 1 MG/2 ML NEBU INHALATION SCH (12:06)
[2016-06-05] MEDS: THIAMINE 100 MG TAB PO SCH (12:08)
[2016-06-05] MEDS: FOLIC ACID 1 MG TAB PO SCH (12:08)
[2016-06-05] MEDS: MULTIVITAMINS, THERA 1 EACH TAB PO SCH (12:08)
--- NOTE | 2016-06-05 12:46 | P.CNPUL ---
History of Present Illness Consult date: 06/05/16 Reason for consult: dyspnea, pleural effusion, abnormal CXR/CT Chief complaint: Shortness of breath History of present illness: 81-year-old male who was admitted with complaints of shortness of breath. The patient has been having shortness of breath for at least a couple days prior to admission. It been getting worse. Recently discharged from [facility] with a COPD exacerbation as well as CHF exacerbation. Shortness of breath at rest. Worse with exertion. Minimal cough. No phlegm production. Weight gain. Orthopnea. Lower extremity edema. The patient is a very poor historian. Mostly sleepy. Did not want to wake up to speak to me. Review of Systems ROS unobtainable: due to mental status (The patient was a very poor historian and did not want to really wake up to speak to me. I had to drag the information out from him.) Past Medical History Past Medical History: Coronary Artery Disease (CAD), Heart Failure, COPD, Diabetes Mellitus, Hyperlipidemia, Hypertension Additional Past Medical History / Comment(s): macular degeneration History of Any Multi-Drug Resistant Organisms: None Reported Past Surgical History: Bowel Resection, Coronary Bypass/CABG, Heart Catheterization Additional Past Surgical History / Comment(s): CABG-triple bypass, lt hip with cristina and 3 screws Past Anesthesia/Blood Transfusion Reactions: No Reported Reaction Past Psychological History: No Psychological Hx Reported Smoking Status: Former smoker Past Alcohol Use History: None Reported Past Drug Use History: None Reported - Past Family History Mother Additional Family Medical History / Comment(s): bowel obstruction Father Family Medical History: Liver Disease Medications and Allergies Home Medications Medication Instructions Recorded Confirmed Type Metoprolol Tartrate [Metoprolol 50 mg PO BID 01/25/14 06/03/16 History Tartrate] Ferrous Sulfate [Feosol] 325 mg PO DAILY 04/15/14 06/03/16 History Glimepiride [Amaryl] 4 mg PO BID 10/07/15 06/03/16 History Albuterol Inhaler [Ventolin Hfa 2 puff INHALATION RT-Q6H PRN 06/03/16 06/03/16 History Inhaler] Aspirin 81 mg PO DAILY 06/03/16 06/03/16 History Atorvastatin Calcium [Lipitor] 40 mg PO DAILY 06/03/16 06/03/16 History Budesonide-Formot 160-4.5 Mcg 2 puff INHALATION RT-BID 06/03/16 06/03/16 History [Symbicort 160-4.5 Mcg Inhaler] Cholecalciferol (Vitamin D3) 10,000 unit PO DAILY 06/03/16 06/03/16 History [Vitamin D3] Ciprofloxacin HCl [Cipro] 500 mg PO Q12HR 06/03/16 06/03/16 History Multivitamins, Thera [Multivitamin 1 tab PO DAILY 06/03/16 06/03/16 History (formulary)] [place]-3 Acid Ethyl Esters [Lovaza] 2 gm PO BID 06/03/16 06/03/16 History Oxybutynin Chloride [Ditropan] 5 mg PO BID 06/03/16 06/03/16 History Pantoprazole Sodium [Protonix] 40 mg PO DAILY 06/03/16 06/03/16 History Psyllium Husk 100% [Metamucil] 6 gm PO DAILY 06/03/16 06/03/16 History hydrALAZINE HCL [Apresoline] 50 mg PO Q12H 06/03/16 06/03/16 History sitaGLIPtin [Januvia] 25 mg PO DAILY 06/03/16 06/03/16 History Allergies Allergy/AdvReac Type Severity Reaction Status Date / Time No Known Allergies Allergy Verified 06/03/16 17:57 Physical Exam Osteopathic Statement: *. No significant issues noted on an osteopathic structural exam other than those noted in the History and Physical/Consult. Vitals: Vital Signs Temp Pulse Pulse Resp BP Pulse Ox 06/05/16 11:04 76 20 06/05/16 11:03 97.0 F L 76 20 143/66 94 L 06/05/16 08:00 96.6 F L 93 22 179/73 97 06/05/16 04:00 97.7 F 84 18 142/64 93 L 06/04/16 23:55 96.9 F L 92 20 133/58 93 L 06/04/16 21:05 98 06/04/16 20:52 98 06/04/16 20:51 98 06/04/16 20:40 98 06/04/16 20:00 96.8 F L 98 20 155/70 95 06/04/16 17:16 100 06/04/16 17:01 100 92 L 06/04/16 16:00 96.2 F L 98 20 160/72 98 Intake and Output 06/04/16 06/05/16 06/05/16 22:59 06:59 14:59 Intake Total 370 0 Output Total 2290 1150 400 Balance -[id number] Intake: Intake, IV Titration 250 Amount Levofloxacin 250Mg-D5w 50 Pmx 250 mg In Dextrose/ Water 1 50ml.bag @ 50 mls /hr IVPB Q24HR JENA Rx#: [id number] Sodium Chloride 0.9% 1, 200 000 ml @ 20 mls/hr IV . Q24H STA Rx#:[id number] Oral 120 0 Output: Urine 2290 1150 400 Other: # Voids 2 Weight 83.3 kg No acute distress, laying nearly flat. No respiratory distress. O2 in place. H EENT HEENT examination is grossly unremarkable. Neck supple. Full range of motion. No adenopathy. No comment neck vein distention. Cardiovascular examination reveals distant heart sounds. S1-S2 normal. No distinct murmur noted. Lungs reveal some bibasilar crackles. No wheezes. No rhonchi. Breath sounds are diminished. Abdomen soft bowel sounds are heard. Extremities reveal some mild edema. Results - Laboratory Findings CBC and BMP: 06/05/16 06:11 06/05/16 06:11 ABG ABG pH 7.40 (7.35-7.45) 06/03/16 17:44 ABG pCO2 35 mmHg (35-45) 06/03/16 17:44 ABG pO2 56 mmHg (83-108) L 06/03/16 17:44 ABG O2 Saturation 89.0 % (94-97) L 06/03/16 17:44 PT/INR, D-dimer PT 11.4 sec (9.0-12.0) 06/03/16 17:36 INR 1.1 (<1.1) 06/03/16 17:36 Abnormal lab findings: Abnormal Labs 06/04/16 06/04/16 06/04/16 00:31 00:31 05:24 WBC RBC Hgb Hct MCH MCHC RDW Neutrophils # Lymphocytes # APTT 31.2 H Potassium Chloride BUN Creatinine Glucose POC Glucose (mg/dL) Hemoglobin A1c Troponin I 0.180 H* 0.145 H* 06/04/16 06/04/16 06/04/16 05:24 05:24 06:10 WBC RBC 3.19 L Hgb 7.6 L Hct 25.9 L MCH 23.9 L MCHC 29.4 L RDW 18.7 H Neutrophils # 8.1 H Lymphocytes # 0.2 L APTT Potassium Chloride BUN Creatinine Glucose POC Glucose (mg/dL) 349 H Hemoglobin A1c 6.4 H Troponin I 06/04/16 06/04/16 06/04/16 07:18 11:51 17:14 WBC RBC Hgb Hct MCH MCHC RDW Neutrophils # Lymphocytes # APTT 34.0 H Potassium Chloride BUN Creatinine Glucose POC Glucose (mg/dL) 217 H 129 H Hemoglobin A1c Troponin I 06/04/16 06/05/16 06/05/16 21:03 05:51 06:11 WBC 14.1 H RBC 3.37 L Hgb 8.1 L Hct 27.2 L MCH 23.9 L MCHC 29.6 L RDW 19.4 H Neutrophils # 12.1 H Lymphocytes # 0.5 L APTT Potassium Chloride BUN Creatinine Glucose POC Glucose (mg/dL) 118 H 139 H Hemoglobin A1c Troponin I 06/05/16 06/05/16 06:11 11:31 WBC RBC Hgb Hct MCH MCHC RDW Neutrophils # Lymphocytes # APTT Potassium 5.2 H Chloride 108 H BUN 66 H Creatinine 1.50 H Glucose 129 H POC Glucose (mg/dL) 220 H Hemoglobin A1c Troponin I - Diagnostic Findings Chest x-ray: image reviewed (Chest x-ray labs and medications are reviewed.) Assessment and Plan (1) COPD (chronic obstructive pulmonary disease) Status: Acute (2) CAD (coronary artery disease) Status: Acute (3) Hyperlipidemia Status: Acute (4) CHF (congestive heart failure) Status: Acute (5) Respiratory failure Status: Acute (6) Diabetes Status: Acute Plan: Plan dated 06/05/2016 Patient's chest x-ray labs and medications are reviewed. I'll focus on his pulmonary issues. The patient seemed relatively stable this time. Chest x-ray was reviewed and showed evidence of heart failure. Additional recommendations suggestions are forthcoming. His home medications are reviewed Time with Patient: Greater than 30
--- NOTE | 2016-06-05 15:13 | PN ---
Mr. Wang Caba is an 81-year-old male with a known history of heart disease, status post coronary artery bypass grafting, who presented with symptoms of progressive dyspnea as well as peripheral edema. He is feeling better today. He is denying any chest pain. He is diuresing nicely. He denies any dizziness, palpitation. He denies any nausea. He denies any cough. He continues to be at this time on Lasix 40 mg IV q.8 hours, aspirin once a day, Lipitor 40 mg daily, insulin, isosorbide mononitrate 30 mg daily, metoprolol tartrate 50 mg twice and hydralazine 50 mg q.12 hours. PHYSICAL EXAMINATION: Blood pressure 140/60 with a heart in the 70s. LUNGS: No rales or wheezes. HEART: Regular rate and rhythm. S1, S2, no S3, with systolic murmur at the base. ABDOMEN: Soft, nontender. EXTREMITIES: With 1+ edema, nabila wrapping in place. Lab data revealed a hemoglobin of 8.1. BUN and creatinine 66 and 1.5, improved compared with yesterday. Potassium 5.2. IMPRESSION: 1. Symptoms of congestive heart failure with severe diastolic dysfunction. 2. History of coronary artery disease, status post coronary artery bypass grafting. 3. Chronic kidney disease. 4. Chronic obstructive lung disease. RECOMMENDATION: We will continue IV diuretic for another 24 hours, follow his renal function and depending on his progress, probably switch him to oral diuretics tomorrow.
--- NOTE | 2016-06-05 16:08 | PN ---
I am covering for Dr. Stevo Mercado. This 81-year-old gentleman who was admitted with shortness of breath, possible multifactorial, CHF acute exacerbation, history of COPD exacerbation is being closely monitored. The breathing appears to be slightly better. The patient is still confused, slightly more alert today. Multiple consultants are following the patient closely. PAST MEDICAL HISTORY: Reviewed. REVIEW OF SYSTEMS: CARDIOVASCULAR: No angina or palpitations. RESPIRATORY: As mentioned earlier. GASTROINTESTINAL: As mentioned earlier. GENITOURINARY: No dysuria. CENTRAL NERVOUS SYSTEM: As mentioned earlier. Current medications are reviewed and include: 1. DuoNeb q.i.d. and p.r.n. 2. Aspirin 81 mg daily. 3. Lipitor 40 mg daily. 4. Symbicort 160/4.5 two puffs b.i.d. 5. Iron sulfate 320 mg daily. 6. Folic acid 1 mg daily. 7. Lasix 40 mg IV q.8. 8. Amaryl 4 mg p.o. b.i.d. 9. Apresoline 50 mg b.i.d. 10. Imdur 30 mg p.o. daily. 11. Levaquin 500 mg q.24h. 12. Tradjenta 5 mg p.o. daily. 13. Lopressor 50 mg p.o. b.i.d. 14. Multivitamins. 15. Ditropan 5 mg p.o. b.i.d. 16. Protonix 40 mg daily. PHYSICAL EXAMINATION: The patient is alert and oriented times two. Pulse 88, blood pressure is 143/66, respirations 20, temperature 97 degrees, pulse ox 94% on 15 liters. HEENT: Conjunctivae normal. Oral mucosa moist. NECK: No jugular venous distention. No carotid bruit. No lymph node enlargement. CARDIOVASCULAR: S1, S2 muffled. RESPIRATORY: Breath sounds diminished at the bases. A few scattered rhonchi and crackles. ABDOMEN: Soft, nontender. No mass palpable. LEGS: No edema. No swelling. CENTRAL NERVOUS SYSTEM: Higher functions as mentioned earlier. Moves all four limbs. Mild diffuse weakness. LYMPHATICS: No lymph nodes palpable in the neck, axillae or groin. SKIN: No ulcer, rash or bleeding. LABS: WBC 14.1, hemoglobin is 8.1 and creatinine is 1.50. ASSESSMENT: 1. Shortness of breath, possible multifactorial with congestive heart failure, acute exacerbation, ejection fraction unknown with chronic obstructive pulmonary disease acute exacerbation, with acute purulent tracheobronchitis. 2. Increased WBC. 3. Anemia, microcytic. 4. Change in mental status, metabolic encephalopathy multifactorial. 5. Gait dysfunction. 6. Increased potassium. 7. Increased creatinine with possible chronic kidney disease stage III. 8. Diabetes type 2. 9. Increased ALT, possible mild hepatitis. 10. Troponin 0.142, indeterminate. 11. Hypoalbuminemia with mild to moderate protein calorie malnutrition. 12. Gait dysfunction. 13. History of chronic obstructive pulmonary disease. 14. History of coronary artery disease, coronary artery bypass grafting. 15. Hypertension, essential. 16. Hyperlipidemia. 17. History of macular degeneration. 18. History of bowel obstruction and resection. 19. Remote history of nicotine dependence. 20. Acute hypoxic respiratory failure. ABG showed pH of 7.4, pCO2 35, pO2 56. 21. FULL CODE. RECOMMENDATIONS AND DISCUSSION: In this 81-year-old gentleman who presented with multiple complex medical issues, we will monitor the patient closely. Otherwise, I would recommend continue the intensive bronchodilator treatment, as well as continue the rest of medications, bronchodilators. Monitor blood sugars closely. Guarded prognosis because of multiple complex medical issues. Closely follow with Dr. Gomez. Further recommendations to follow. Dr. Stevo Mercado is the primary physician. ELISA
[2016-06-05 16:51] LABS: Glucose,Whole Blood 195 mg/dL (75-99)
[2016-06-05] MEDS: SYMBICORT 160-4.5 MCG INHALER INHALATION SCH (21:02)
[2016-06-05 21:12] LABS: Glucose,Whole Blood 74 mg/dL (75-99)
[2016-06-06] MEDS: FUROSEMIDE 10 MG/ML 4 ML VIAL IV SCH ×3 (04:39→17:57)
[2016-06-06] MEDS: PANTOPRAZOLE 40 MG TABLET PO SCH (06:44)
[2016-06-06] MEDS: INSULIN LISPRO (humaLOG) 300 UNIT/3 ML VIAL SQ SCH ×4 (06:45→20:50)
[2016-06-06 06:55] LABS: Calcium 8.7 mg/dL (8.4-10.2); Potassium 5.3 mmol/L (3.5-5.1)
[2016-06-06 07:00] LABS: Glucose,Whole Blood 145 mg/dL (75-99)
[2016-06-06 07:52] LABS: Anisocytosis Slight; Basophils % (A) 0 %; CH 23.1; CHCM 28.5; Eosinophils # (A) 0.1 k/uL (0-0.7); Eosinophils % (A) 1 %; HDW 3.24; HGB 7.7 gm/dL (13.0-17.5); Hypochromasia Marked; Luc # (Auto) 0.49; Luc % (Auto) 4; Lymphocytes # (A) 0.4 k/uL (1.0-4.8); Lymphocytes % (A) 4 %; MCH 23.4 pg (25.0-35.0); MCHC 28.7 g/dL (31.0-37.0); MCV 81.6 fL (80.0-100.0); Mean Platelet Volume 9.5; Microcytosis Slight; Monocytes # (A) 0.9 k/uL (0-1.0); Monocytes % (A) 8 %; Neutrophils # (A) 9.5 k/uL (1.3-7.7); Neutrophils % (A) 84 %; RBC 3.31 m/uL (4.30-5.90); RDW 18.9 % (11.5-15.5); WBC 11.4 k/uL (3.8-10.6); WBC (Perox) 11.97
[2016-06-06] MEDS: ASPIRIN 81 MG CHEW PO SCH (08:13)
[2016-06-06] MEDS: LEVOFLOXACIN 250MG-D5W PMX 250 MG in DEXTROSE/WATER 1 50ML.BAG IVPB SCH (08:13)
[2016-06-06] MEDS: FERROUS SULFATE 325 MG TAB PO SCH (08:13)
[2016-06-06] MEDS: hydrALAZINE HCL 50 MG TAB PO SCH ×2 (08:13→20:52)
[2016-06-06] MEDS: OXYBUTYNIN CHLORIDE 5 MG TAB PO SCH ×2 (08:13→20:51)
[2016-06-06] MEDS: ATORVASTATIN 40 MG TAB PO SCH (08:14)
[2016-06-06] MEDS: METOPROLOL TARTRATE 50 MG TAB PO SCH ×2 (08:14→20:52)
[2016-06-06] MEDS: GLIMEPIRIDE 4 MG TAB PO SCH ×2 (08:14→20:51)
[2016-06-06] MEDS: LINAGLIPTIN 5 MG TABLET PO SCH (08:14)
[2016-06-06] MEDS: ISOSORBIDE MONONITRATE ER 30 MG TAB.ER.24H PO SCH (08:14)
[2016-06-06] MEDS: IPRATROPIUM-ALBUTEROL 3 ML NEB INHALATION SCH ×4 (08:45→20:26)
[2016-06-06] MEDS: SYMBICORT 160-4.5 MCG INHALER INHALATION SCH ×2 (08:45→20:27)
[2016-06-06] MEDS: THIAMINE 100 MG TAB PO SCH (10:37)
[2016-06-06] MEDS: MULTIVITAMINS, THERA 1 EACH TAB PO SCH (10:37)
[2016-06-06] MEDS: FOLIC ACID 1 MG TAB PO SCH (10:38)
[2016-06-06 11:51] LABS: Anisocytosis Slight; CH 23.3; CHCM 28.9; HDW 3.31; HGB 7.2 gm/dL (13.0-17.5); Hypochromasia Marked; MCH 23.5 pg (25.0-35.0); MCV 80.9 fL (80.0-100.0); Mean Platelet Volume 8.8; Microcytosis Slight; RBC 3.08 m/uL (4.30-5.90); RDW 18.8 % (11.5-15.5)
[2016-06-06 12:05] LABS: Glucose,Whole Blood 129 mg/dL (75-99)
--- NOTE | 2016-06-06 14:20 | XR ---
EXAMINATION TYPE: XR chest 2V DATE OF EXAM: 06/06/2016 2:14 PM COMPARISON: Prior chest x-ray June 03, 2016 HISTORY: History of COPD and CHF presents with shortness of breath TECHNIQUE: Frontal and lateral views of the chest are obtained. FINDINGS: Sternal wires are redemonstrated. There is cardiomegaly with bilateral hilar prominence sug gesting underlying pulmonary artery hypertension. There is chronic reticular interstitial changes yovana aterally. Underlying emphysematous change is present. There are tiny bilateral pleural effusions. The re is more patchy right basilar atelectasis and/or infiltrate. Upper lungs are clear without pneumoth orax. Osseous structures are demineralized. IMPRESSION: Cardiomegaly and chronic emphysematous change with reticular interstitial fibrosis and/ or edema and tiny bilateral pleural effusions with more patchy right basilar atelectasis and/or infil trate all redemonstrated. No new infiltrate is seen.
--- NOTE | 2016-06-06 15:43 | P.PN ---
Subjective Principal diagnosis: Shortness of breath This is a pleasant 81-year-old gentleman with known history of coronary artery disease and prior bypass grafting, hypertension, diabetes, hyperlipidemia, who presented to the hospital with symptoms of progressively worsening dyspnea as well as peripheral edema. Patient was seen and examined today, feeling much better overall. Continues to diurese well. His weight today is down 2 pounds, creatinine is 1.4. Edema has improved significantly, he still has approximately one plus edema bilaterally. He continues to be on IV Lasix. Objective - Vital Signs Vital signs: Vital Signs Temp 98.3 F 06/06/16 11:49 Pulse 78 06/06/16 12:00 Resp 20 06/06/16 12:00 BP 138/62 06/06/16 11:49 Pulse Ox 95 06/06/16 11:49 Intake & Output 06/05/16 06/06/16 06/06/16 18:59 06:59 18:59 Intake Total 650 240 Output Total 625 475 Balance 25 -235 Weight 81.3 kg 81.3 kg Intake: Intake, IV Titration 290 Amount Levofloxacin 250Mg-D5w 50 Pmx 250 mg In Dextrose/ Water 1 50ml.bag @ 50 mls /hr IVPB Q24HR JENA Rx#: [id number] Sodium Chloride 0.9% 1, 240 000 ml @ 20 mls/hr IV . Q24H STA Rx#:[id number] Oral 360 240 Output: Urine 625 475 Other: Voiding Method Toilet Toilet # Voids 1 1 4 # Bowel Movements 1 1 - Exam PHYSICAL EXAMINATION: HEENT: Head is atraumatic, normocephalic. Pupils equal, round. Neck is supple. There is no elevated jugular venous pressure. HEART EXAMINATION: S1 and S2 systolic murmur is heard. CHEST EXAMINATION: reveal coarse crackles bilaterally. ABDOMEN: Soft, nontender. Bowel sounds are heard. No organomegaly noted. EXTREMITIES: 2+ peripheral pulses with trace to 1+ evidence of peripheral edema , no calf tenderness noted. NEUROLOGIC patient is awake, alert and oriented -3. . - Labs CBC & Chem 7: 06/06/16 11:13 06/06/16 05:50 Labs: Abnormal Lab Results - Last 24 Hours (Table) 06/05/16 06/05/16 06/06/16 Range/Units 16:43 20:54 05:50 WBC 11.4 H (3.8-10.6) k/uL RBC 3.31 L (4.30-5.90) m/uL Hgb 7.7 L (13.0-17.5) gm/dL Hct 27.0 L (39.0-53.0) % MCH 23.4 L (25.0-35.0) pg MCHC 28.7 L (31.0-37.0) g/dL RDW 18.9 H (11.5-15.5) % Neutrophils # 9.5 H (1.3-7.7) k/uL Lymphocytes # 0.4 L (1.0-4.8) k/uL Potassium (3.5-5.1) mmol/L BUN (9-20) mg/dL Creatinine (0.66-1.25) mg/dL Glucose (74-99) mg/dL POC Glucose (mg/dL) 195 H 74 L (75-99) mg/dL 06/06/16 06/06/16 06/06/16 Range/Units 05:50 06:43 11:13 WBC (3.8-10.6) k/uL RBC 3.08 L (4.30-5.90) m/uL Hgb 7.2 L (13.0-17.5) gm/dL Hct 25.0 L (39.0-53.0) % MCH 23.5 L (25.0-35.0) pg MCHC 29.0 L (31.0-37.0) g/dL RDW 18.8 H (11.5-15.5) % Neutrophils # (1.3-7.7) k/uL Lymphocytes # (1.0-4.8) k/uL Potassium 5.3 H (3.5-5.1) mmol/L BUN 61 H (9-20) mg/dL Creatinine 1.40 H (0.66-1.25) mg/dL Glucose 132 H (74-99) mg/dL POC Glucose (mg/dL) 145 H (75-99) mg/dL 06/06/16 Range/Units 11:41 WBC (3.8-10.6) k/uL RBC (4.30-5.90) m/uL Hgb (13.0-17.5) gm/dL Hct (39.0-53.0) % MCH (25.0-35.0) pg MCHC (31.0-37.0) g/dL RDW (11.5-15.5) % Neutrophils # (1.3-7.7) k/uL Lymphocytes # (1.0-4.8) k/uL Potassium (3.5-5.1) mmol/L BUN (9-20) mg/dL Creatinine (0.66-1.25) mg/dL Glucose (74-99) mg/dL POC Glucose (mg/dL) 129 H (75-99) mg/dL Assessment and Plan Plan: Assessment and Plan #1 diastolic congestive heart failure acute on chronic #2 known history of coronary artery disease with prior coronary artery bypass grafting surgery in 2007 at which time patient underwent the LAD, saphenous vein graft to the right coronary artery, saphenous vein graft to the diuretic. #3 diabetes #4 hypertension #5 hyperlipidemia #6 COPD #7 dementia Plan Cardiology's perspective, we'll continue current dose of IV Lasix. We will also repeat a chest x-ray today. Check lytes BUN and creatinine in the morning. DNP note has been reviewed, I agree with a documented findings and plan of care. Patient was seen and examined.
[2016-06-06 16:30] LABS: Glucose,Whole Blood 189 mg/dL (75-99)
--- NOTE | 2016-06-06 17:41 | P.PN ---
Subjective This is a pleasant 81-year-old gentleman who has a known history of diabetes, hypertension, hyperlipidemia, coronary artery disease with prior bypass surgery in 2007 where he underwent a COLLINS to the LAD, saphenous vein graft to the RCA, saphenous vein graft to the diagonal. Most recent Jennifer scan was performed in June of last year which was reported to be normal. Most of the history was obtained from the medical record, patient is unsure of where he is alone why he is here. According to the chart, patient was admitted to the hospital with symptoms of shortness of breath, he had apparently just recently been at [facility] with similar symptoms. Chest x-ray on admission here revealed findings consistent with advanced cardiogenic interstitial pulmonary edema with areas of alveolar pulmonary edema and a right sided pleural effusion. White blood cell count on admission 16,000, 8.7 this morning. Hemoglobin on admission 8.6, 7.6 this morning. Potassium 5.2, BUN 75 , creatinine 1.7, BNP level 17,800.Troponins 0.14, 0.18, .14. Blood pressure 150/60, heart rate in the 80s, 74% on 4 L on admission.The patient was initially on a Ventimask and he was admitted to the telemetry unit for further monitoring and treatment. Over the past 24 hours, the patient was treated for a combination of COPD and CHF exacerbation. I think is predominantly in CHF. He is still making good urine output. He is on 40 mg of IV Lasix every 8 hours and he is in a negative fluid balance. They lower extremity edema is improving. The patient is currently on oral Levaquin to 50 mg by mouth daily. He is also receiving DuoNeb about treatments around the clock and Symbicort maintenance. The echocardiogram was completed and showed a left ventricle systolic ejection fraction of around 55-60%. The LAD was moderately dilated. The patient had a right ventricular systolic pressure of 51 mmHg. This was consistent with moderate to severe pulmonary hypertension. He also has a mild concentric left ventricular hypertrophy. Objective - Vital Signs Vital signs: Vital Signs Temp 98.8 F 06/06/16 16:00 Pulse 72 06/06/16 16:00 Resp 18 06/06/16 16:00 BP 140/65 06/06/16 16:00 Pulse Ox 94 L 06/06/16 16:00 Intake & Output 04/04/2206/06/16 06/06/16 18:59 06:59 18:59 Intake Total 650 240 Output Total 625 475 Balance 25 -235 Weight 81.3 kg 81.3 kg Intake: Intake, IV Titration 290 Amount Levofloxacin 250Mg-D5w 50 Pmx 250 mg In Dextrose/ Water 1 50ml.bag @ 50 mls /hr IVPB Q24HR JENA Rx#: [id number] Sodium Chloride 0.9% 1, 240 000 ml @ 20 mls/hr IV . Q24H STA Rx#:[id number] Oral 360 240 Output: Urine 625 475 Other: Voiding Method Toilet Toilet # Voids 1 1 4 # Bowel Movements 1 1 - Exam Head exam was generally normal. There was no scleral icterus or corneal arcus. Mucous membranes were moist.Neck was supple and without jugular venous distension, thyromegaly, or carotid bruits. Carotids were easily palpable bilaterally. There was no adenopathy. Lung sounds are diminished bilaterally along with some bibasilar crackles. Few scattered external wheeze.Cardiac exam revealed the PMI to be normally situated and sized. The rhythm was regular and no extrasystoles were noted during several minutes of auscultation. The first and second heart sounds were normal and physiologic splitting of the second heart sound was noted. There were no murmurs, rubs, clicks, or gallops.Abdominal exam revealed normal bowel sounds. The abdomen was soft, non- tender, and without masses, organomegaly, or appreciable enlargement of the abdominal aorta.Examination of the extremities revealed easily palpable radial, femoral and pedal pulses. There was no cyanosis, clubbing or edema. - Labs CBC & Chem 7: 06/06/16 11:13 06/06/16 05:50 Labs: Abnormal Lab Results - Last 24 Hours (Table) 06/05/16 06/06/16 06/06/16 Range/Units 20:54 05:50 05:50 WBC 11.4 H (3.8-10.6) k/uL RBC 3.31 L (4.30-5.90) m/uL Hgb 7.7 L (13.0-17.5) gm/dL Hct 27.0 L (39.0-53.0) % MCH 23.4 L (25.0-35.0) pg MCHC 28.7 L (31.0-37.0) g/dL RDW 18.9 H (11.5-15.5) % Neutrophils # 9.5 H (1.3-7.7) k/uL Lymphocytes # 0.4 L (1.0-4.8) k/uL Potassium 5.3 H (3.5-5.1) mmol/L BUN 61 H (9-20) mg/dL Creatinine 1.40 H (0.66-1.25) mg/dL Glucose 132 H (74-99) mg/dL POC Glucose (mg/dL) 74 L (75-99) mg/dL 06/06/16 06/06/16 06/06/16 Range/Units 06:43 11:13 11:41 WBC (3.8-10.6) k/uL RBC 3.08 L (4.30-5.90) m/uL Hgb 7.2 L (13.0-17.5) gm/dL Hct 25.0 L (39.0-53.0) % MCH 23.5 L (25.0-35.0) pg MCHC 29.0 L (31.0-37.0) g/dL RDW 18.8 H (11.5-15.5) % Neutrophils # (1.3-7.7) k/uL Lymphocytes # (1.0-4.8) k/uL Potassium (3.5-5.1) mmol/L BUN (9-20) mg/dL Creatinine (0.66-1.25) mg/dL Glucose (74-99) mg/dL POC Glucose (mg/dL) 145 H 129 H (75-99) mg/dL 06/06/16 Range/Units 16:29 WBC (3.8-10.6) k/uL RBC (4.30-5.90) m/uL Hgb (13.0-17.5) gm/dL Hct (39.0-53.0) % MCH (25.0-35.0) pg MCHC (31.0-37.0) g/dL RDW (11.5-15.5) % Neutrophils # (1.3-7.7) k/uL Lymphocytes # (1.0-4.8) k/uL Potassium (3.5-5.1) mmol/L BUN (9-20) mg/dL Creatinine (0.66-1.25) mg/dL Glucose (74-99) mg/dL POC Glucose (mg/dL) 189 H (75-99) mg/dL Assessment and Plan Plan: Assessment 1 acute hypoxic respiratory failure/shortness of breath, multifactorial 2 acute CHF exacerbation. The patient has a component of diastolic heart failure with acute decompensation with secondary pulmonary edema 3 COPD 4 coronary artery disease with previous bypass surgery 2007 5 diabetes mellitus 6 hypertension 7 hyperlipidemia 8 pulmonary hypertension which is essentially of a secondary in nature with moderately elevated PA pressures 9 chronic normocytic/microcytic anemia 10 chronic renal insufficiency Plan The patient is currently on diuretics. He is improving significantly. He is off the BiPAP he has the FiO2 has been weaned down. Continue Lasix 40 mg IV every 8 hours. Continue Levaquin as an empiric antibiotic coverage. Monitor renal function. Monitor sugars. Wean off FiO2 as tolerated. Echocardiogram was noted. We'll continue to follow.
--- NOTE | 2016-06-06 18:36 | PN ---
DATE OF SERVICE: 06/06/2016 This 81-year-old gentleman who was admitted with shortness of breath which is secondary to CHF and COPD is being closely monitored at this time. The most recent chest x-ray shows changes. The patient is still significantly hypoxic. Seen and evaluated the patient along with the nurse practitioner. Please refer to the nurse practitioner's notes and impressions documented as a scribe for further information. Prognosis guarded. PT and OT evaluation also recommended. Possible ECF rehab. Further recommendations to follow. MTDD
--- NOTE | 2016-06-06 18:37 | P.PN ---
Subjective Date of service 06/06/2016. Progress note being dictated for Dr. Valentin. Interval history: This is an 81-year-old gentleman admitted with acute shortness of breath, multifactorial, acute exacerbation CHF, in a patient with history of COPD and multiple other medical issues. Maintained on IV push Lasix with 24-hour I&O reflecting a negative fluid balance. Edema improving, creatinine 1.4. Mild confusion, persists. Oxygen weaned down to 10 m, maintaining O2 sats of 96% .Hemoglobin 7.7, potassium 5.3. Review of systems: HEENT: Denies headache or focal deficits. Denies any dizziness or lightheadedness. Respiratory: shortness of breath with exertion. Cardiac: Denies any chest pain, palpitations. GI: Denies any nausea, vomiting, or diarrhea. Denies any abdominal tenderness. : Denies any dysuria. Psychiatry: Denies any anxiety or depression. Active Medications Albuterol/Ipratropium (Duoneb 0.5 Mg-3 Mg/3 Ml Soln) 3 ml INHALATION RT-QID [facility] Last Admin: 06/06/16 14:01 Dose: Not Given Albuterol/Ipratropium (Duoneb 0.5 Mg-3 Mg/3 Ml Soln) 3 ml INHALATION RT-QID PRN PRN Reason: Shortness Of Breath Or Wheezing Aspirin (Aspirin) 81 mg PO DAILY [facility] Last Admin: 06/06/16 08:13 Dose: 81 mg Atorvastatin Calcium (Lipitor) 40 mg PO DAILY [facility] Last Admin: 06/06/16 08:14 Dose: 40 mg Budesonide/Formoterol Fumarate (Symbicort 160-4.5 Mcg Inhaler) 2 puff INHALATION RT-BID [facility] Last Admin: 06/06/16 08:45 Dose: 2 puff Ferrous Sulfate (Feosol) 325 mg PO DAILY [facility] Last Admin: 06/06/16 08:13 Dose: 325 mg Folic Acid (Folic Acid) 1 mg PO DAILY@1200 [facility] Last Admin: 06/06/16 10:38 Dose: 1 mg Furosemide (Lasix) 40 mg IV Q8H [facility] Last Admin: 06/06/16 17:57 Dose: 40 mg Glimepiride (Amaryl) 4 mg PO BID [facility] Last Admin: 06/06/16 08:14 Dose: 4 mg Hydralazine HCl (Apresoline) 50 mg PO Q12HR [facility] Last Admin: 06/06/16 08:13 Dose: 50 mg Insulin Human Lispro (Humalog) 0 unit SQ ACHS [facility] PRN Reason: Protocol Last Admin: 06/06/16 17:17 Dose: 2 unit Isosorbide Mononitrate (Imdur) 30 mg PO DAILY [facility] Last Admin: 06/06/16 08:14 Dose: 30 mg Levofloxacin (Levaquin) 250 mg PO DAILY [facility] Linagliptin (Tradjenta) 5 mg PO DAILY [facility] Last Admin: 06/06/16 08:14 Dose: 5 mg Metoprolol Tartrate (Lopressor) 50 mg PO BID [facility] Last Admin: 06/06/16 08:14 Dose: 50 mg Multivitamins (Theragran) 1 each PO DAILY@1200 [facility] Last Admin: 06/06/16 10:37 Dose: 1 each Oxybutynin Chloride (Ditropan) 5 mg PO BID [facility] Last Admin: 06/06/16 08:13 Dose: 5 mg Pantoprazole Sodium (Protonix) 40 mg PO DAILY@0730 [facility] Last Admin: 06/06/16 06:44 Dose: 40 mg Sodium Chloride (Saline Flush) 10 ml IV BID [facility] Last Admin: 06/06/16 08:12 Dose: 10 ml Thiamine HCl (Vitamin B-1) 100 mg PO DAILY@1200 [facility] Last Admin: 06/06/16 10:37 Dose: 100 mg Objective - Vital Signs Vital signs: Vital Signs Temp 98.8 F 06/06/16 16:00 Pulse 72 06/06/16 16:00 Resp 18 06/06/16 16:00 BP 140/65 06/06/16 16:00 Pulse Ox 94 L 06/06/16 16:00 Intake & Output 06/05/16 06/06/16 06/06/16 18:59 06:59 18:59 Intake Total 650 240 Output Total 625 1075 Balance 25 -835 Weight 81.3 kg 81.3 kg Intake: Intake, IV Titration 290 Amount Levofloxacin 250Mg-D5w 50 Pmx 250 mg In Dextrose/ Water 1 50ml.bag @ 50 mls /hr IVPB Q24HR [facility] Rx#: [id number] Sodium Chloride 0.9% 1, 240 000 ml @ 20 mls/hr IV . Q24H [facility] Rx#:[id number] Oral 360 240 Output: Urine 625 1075 Other: Voiding Method Toilet Toilet # Voids 1 1 2 # Bowel Movements 1 1 - Exam PHYSICAL EXAM: VITAL SIGNS: As above GENERAL: [Sitting up in bed, pleasantly confused, On 10 L nasal cannula HEENT: [Pupils equal conjunctiva normal. Oral mucosa moist] NECK: [Supple, no JVD, no lymph node enlargement] RESPIRATORY EFFORT:[Increased] LUNGS: [Bilateral bases diminished, scattered rhonchi and crackles, and fine expiratory wheezing] CARDIOVASCULAR[regular S1 and S2, positive systolic murmur, mild edema ,] GI: [Abdomen soft, nontender, positive bowel sounds.] PSYCH: [Alert and oriented -2, pleasantly confused, cooperative] NEURO: No focal deficits, moves all 4 extremities with generalized diffuse weakness. - Labs CBC & Chem 7: 06/06/16 11:13 06/06/16 05:50 Labs: Abnormal Lab Results - Last 24 Hours (Table) 06/05/16 06/06/16 06/06/16 Range/Units 20:54 05:50 05:50 WBC 11.4 H (3.8-10.6) k/uL RBC 3.31 L (4.30-5.90) m/uL Hgb 7.7 L (13.0-17.5) gm/dL Hct 27.0 L (39.0-53.0) % MCH 23.4 L (25.0-35.0) pg MCHC 28.7 L (31.0-37.0) g/dL RDW 18.9 H (11.5-15.5) % Neutrophils # 9.5 H (1.3-7.7) k/uL Lymphocytes # 0.4 L (1.0-4.8) k/uL Potassium 5.3 H (3.5-5.1) mmol/L BUN 61 H (9-20) mg/dL Creatinine 1.40 H (0.66-1.25) mg/dL Glucose 132 H (74-99) mg/dL POC Glucose (mg/dL) 74 L (75-99) mg/dL 06/06/16 06/06/16 06/06/16 Range/Units 06:43 11:13 11:41 WBC (3.8-10.6) k/uL RBC 3.08 L (4.30-5.90) m/uL Hgb 7.2 L (13.0-17.5) gm/dL Hct 25.0 L (39.0-53.0) % MCH 23.5 L (25.0-35.0) pg MCHC 29.0 L (31.0-37.0) g/dL RDW 18.8 H (11.5-15.5) % Neutrophils # (1.3-7.7) k/uL Lymphocytes # (1.0-4.8) k/uL Potassium (3.5-5.1) mmol/L BUN (9-20) mg/dL Creatinine (0.66-1.25) mg/dL Glucose (74-99) mg/dL POC Glucose (mg/dL) 145 H 129 H (75-99) mg/dL 06/06/16 Range/Units 16:29 WBC (3.8-10.6) k/uL RBC (4.30-5.90) m/uL Hgb (13.0-17.5) gm/dL Hct (39.0-53.0) % MCH (25.0-35.0) pg MCHC (31.0-37.0) g/dL RDW (11.5-15.5) % Neutrophils # (1.3-7.7) k/uL Lymphocytes # (1.0-4.8) k/uL Potassium (3.5-5.1) mmol/L BUN (9-20) mg/dL Creatinine (0.66-1.25) mg/dL Glucose (74-99) mg/dL POC Glucose (mg/dL) 189 H (75-99) mg/dL Assessment and Plan Plan: 1. Shortness of breath, multifactorial with acute on chronic exacerbation of CHF, diastolic dysfunction EF 55-60% with secondary pulmonary edema, acute COPD exacerbation with acute purulent tracheobronchitis. 2. [Leukocytosis]. 3. [Anemia, microcytic]. 4. [Change in mental status, acute metabolic encephalopathy, multifactorial]. 5. [Gait dysfunction]. 6. [Hyperkalemia]. 7. [Acute on chronic kidney disease, stage III]. 8. Diabetes mellitus type 2 9. Possible mild hepatitis with increased ALT 10. Troponin 0.142, indeterminate 11. Hypoalbuminemia with mild to moderate protein calorie malnutrition 12. Gait dysfunction 13. History of COPD 14. CAD with history of CABG 15. Essential hypertension 16. Hyperlipidemia 17. Macular degeneration 18. Remote history of nicotine dependence 19. Acute hypoxic respiratory failure 20. Moderate pulmonary hypertension 21. Mild to moderate mitral regurgitation Plan: Continue with current medication regime , Levaquin, nebulized bronchodilators monitoring and symptomatic treatment. Close monitoring of hemoglobin, electrolytes and renal function with repeat labs ordered for a.m. diet modified to low potassium. Follow closely with multiple consults. Continue PT/OT. Subacute rehab recommended at discharge as per PT. prognosis guarded given multiple complex medical issues. Further recommendations to follow. The impression and plan of care has been dictated as directed. : I performed a H&P examination of this patient and discussed the same with the dictator. I agree with the dictator's note. Any additional findings/opinions/ etc. will be noted.
[2016-06-06 20:50] LABS: Glucose,Whole Blood 71 mg/dL (75-99)
[2016-06-07] MEDS: FUROSEMIDE 10 MG/ML 4 ML VIAL IV SCH ×3 (03:30→18:35)
[2016-06-07 06:17] LABS: Anisocytosis Slight; Basophils % (A) 0 %; CH 23.3; CHCM 29.3; Eosinophils # (A) 0.1 k/uL (0-0.7); Eosinophils % (A) 1 %; HCT 26.5 % (39.0-53.0); HDW 3.36; HGB 7.8 gm/dL (13.0-17.5); Hypochromasia Marked; Luc # (Auto) 0.36; Luc % (Auto) 4; Lymphocytes # (A) 0.4 k/uL (1.0-4.8); Lymphocytes % (A) 5 %; MCH 23.5 pg (25.0-35.0); MCHC 29.4 g/dL (31.0-37.0); Mean Platelet Volume 9.5; Microcytosis Slight; Monocytes # (A) 0.8 k/uL (0-1.0); Monocytes % (A) 10 %; Neutrophils # (A) 6.7 k/uL (1.3-7.7); Neutrophils % (A) 80 %; RBC 3.31 m/uL (4.30-5.90); RDW 18.8 % (11.5-15.5); WBC 8.4 k/uL (3.8-10.6)
[2016-06-07 06:27] LABS: Glucose,Whole Blood 88 mg/dL (75-99)
[2016-06-07] MEDS: INSULIN LISPRO (humaLOG) 300 UNIT/3 ML VIAL SQ SCH ×4 (06:42→21:22)
[2016-06-07] MEDS: PANTOPRAZOLE 40 MG TABLET PO SCH (06:46)
[2016-06-07 07:09] LABS: Calcium 8.4 mg/dL (8.4-10.2); Potassium 4.8 mmol/L (3.5-5.1)
[2016-06-07] MEDS: IPRATROPIUM-ALBUTEROL 3 ML NEB INHALATION SCH ×4 (07:59→20:01)
[2016-06-07] MEDS: SYMBICORT 160-4.5 MCG INHALER INHALATION SCH ×2 (08:03→20:01)
[2016-06-07] MEDS: FERROUS SULFATE 325 MG TAB PO SCH (09:00)
[2016-06-07] MEDS: LEVOFLOXACIN 250 MG TAB PO SCH (09:00)
[2016-06-07] MEDS: THIAMINE 100 MG TAB PO SCH (09:00)
[2016-06-07] MEDS: FOLIC ACID 1 MG TAB PO SCH (09:00)
[2016-06-07] MEDS: ATORVASTATIN 40 MG TAB PO SCH (09:00)
[2016-06-07] MEDS: hydrALAZINE HCL 50 MG TAB PO SCH ×2 (09:00→22:03)
[2016-06-07] MEDS: LINAGLIPTIN 5 MG TABLET PO SCH (09:00)
[2016-06-07] MEDS: ISOSORBIDE MONONITRATE ER 30 MG TAB.ER.24H PO SCH (09:01)
[2016-06-07] MEDS: ASPIRIN 81 MG CHEW PO SCH (09:01)
[2016-06-07] MEDS: METOPROLOL TARTRATE 50 MG TAB PO SCH ×2 (09:01→22:02)
[2016-06-07] MEDS: OXYBUTYNIN CHLORIDE 5 MG TAB PO SCH ×2 (09:01→22:03)
[2016-06-07] MEDS: GLIMEPIRIDE 4 MG TAB PO SCH ×2 (09:02→22:00)
[2016-06-07 11:36] LABS: Glucose,Whole Blood 91 mg/dL (75-99)
--- NOTE | 2016-06-07 11:52 | P.PN ---
Subjective This is a pleasant 81-year-old gentleman who has a known history of diabetes, hypertension, hyperlipidemia, coronary artery disease with prior bypass surgery in 2007 where he underwent a COLLINS to the LAD, saphenous vein graft to the RCA, saphenous vein graft to the diagonal. Most recent Jennifer scan was performed in June of last year which was reported to be normal. Most of the history was obtained from the medical record, patient is unsure of where he is alone why he is here. According to the chart, patient was admitted to the hospital with symptoms of shortness of breath, he had apparently just recently been at [facility] with similar symptoms. Chest x-ray on admission here revealed findings consistent with advanced cardiogenic interstitial pulmonary edema with areas of alveolar pulmonary edema and a right sided pleural effusion. White blood cell count on admission 16,000, 8.7 this morning. Hemoglobin on admission 8.6, 7.6 this morning. Potassium 5.2, BUN 75 , creatinine 1.7, BNP level 17,800.Troponins 0.14, 0.18, .14. Blood pressure 150/60, heart rate in the 80s, 74% on 4 L on admission.The patient was initially on a Ventimask and he was admitted to the telemetry unit for further monitoring and treatment. Over the past 24 hours, the patient was treated for a combination of COPD and CHF exacerbation. I think is predominantly in CHF. He is still making good urine output. He is on 40 mg of IV Lasix every 8 hours and he is in a negative fluid balance. They lower extremity edema is improving. The patient is currently on oral Levaquin to 50 mg by mouth daily. He is also receiving DuoNeb about treatments around the clock and Symbicort maintenance. The echocardiogram was completed and showed a left ventricle systolic ejection fraction of around 55-60%. The LAD was moderately dilated. The patient had a right ventricular systolic pressure of 51 mmHg. This was consistent with moderate to severe pulmonary hypertension. He also has a mild concentric left ventricular hypertrophy. On 06/07/2016 the patient is feeling better. The patient is less short of breath. We were able to wean down the FiO2 down to 6 L of oxygen nasal cannula and when the process of weaning it further as long as the pulse ox remained above 90%. He has no chest pain. No significant cough or sputum production. Lower extremity edema is also improving. Objective - Vital Signs Vital signs: Vital Signs Temp 96.7 F L 06/07/16 08:00 Pulse 77 06/07/16 08:11 Resp 18 06/07/16 08:00 BP 133/63 06/07/16 08:00 Pulse Ox 100 06/07/16 08:00 Intake & Output 06/06/16 06/07/16 06/07/16 18:59 06:59 18:59 Intake Total 240 Output Total 1075 840 300 Balance -835 -840 -300 Weight 81.3 kg 87.3 kg 87.3 kg Intake: Oral 240 Output: Urine 1075 840 300 Other: Voiding Method Toilet Toilet Toilet Urinal Urinal # Voids 2 1 1 # Bowel Movements 1 1 - Exam Head exam was generally normal. There was no scleral icterus or corneal arcus. Mucous membranes were moist.Neck was supple and without jugular venous distension, thyromegaly, or carotid bruits. Carotids were easily palpable bilaterally. There was no adenopathy. Lung sounds are diminished bilaterally along with some bibasilar crackles. Few scattered external wheeze.Cardiac exam revealed the PMI to be normally situated and sized. The rhythm was regular and no extrasystoles were noted during several minutes of auscultation. The first and second heart sounds were normal and physiologic splitting of the second heart sound was noted. There were no murmurs, rubs, clicks, or gallops.Abdominal exam revealed normal bowel sounds. The abdomen was soft, non- tender, and without masses, organomegaly, or appreciable enlargement of the abdominal aorta.Examination of the extremities revealed easily palpable radial, femoral and pedal pulses. There was no cyanosis, clubbing or edema. - Labs CBC & Chem 7: 06/07/16 06:00 06/07/16 06:00 Labs: Abnormal Lab Results - Last 24 Hours (Table) 06/06/16 06/06/16 06/06/16 Range/Units 11:13 11:41 16:29 RBC 3.08 L (4.30-5.90) m/uL Hgb 7.2 L (13.0-17.5) gm/dL Hct 25.0 L (39.0-53.0) % MCH 23.5 L (25.0-35.0) pg MCHC 29.0 L (31.0-37.0) g/dL RDW 18.8 H (11.5-15.5) % Lymphocytes # (1.0-4.8) k/uL BUN (9-20) mg/dL Creatinine (0.66-1.25) mg/dL POC Glucose (mg/dL) 129 H 189 H (75-99) mg/dL 06/06/16 06/07/16 06/07/16 Range/Units 20:40 06:00 06:00 RBC 3.31 L (4.30-5.90) m/uL Hgb 7.8 L (13.0-17.5) gm/dL Hct 26.5 L (39.0-53.0) % MCH 23.5 L (25.0-35.0) pg MCHC 29.4 L (31.0-37.0) g/dL RDW 18.8 H (11.5-15.5) % Lymphocytes # 0.4 L (1.0-4.8) k/uL BUN 56 H (9-20) mg/dL Creatinine 1.49 H (0.66-1.25) mg/dL POC Glucose (mg/dL) 71 L (75-99) mg/dL Assessment and Plan Plan: Assessment 1 acute hypoxic respiratory failure/shortness of breath, multifactorial, improving and the patient's oxygenation has improved and the FiO2 is down to 6 L of oxygen nasal cannula 2 acute CHF exacerbation. The patient has a component of diastolic heart failure with acute decompensation with secondary pulmonary edema 3 COPD 4 coronary artery disease with previous bypass surgery 2007 5 diabetes mellitus 6 hypertension 7 hyperlipidemia 8 pulmonary hypertension which is essentially of a secondary in nature with moderately elevated PA pressures 9 chronic normocytic/microcytic anemia 10 chronic renal insufficiency Plan Weaned FiO2. Diuretics. Bronchodilators. Action therapy. We'll follow. S x- ray from yesterday showed cardiomegaly and COPD along with some increased interstitial markings and small bilateral pleural effusions. We'll repeat a chest x-ray in a.m.
[2016-06-07 13:01] LABS: Anisocytosis Slight; CHCM 29.7; HCT 24.9 % (39.0-53.0); HDW 3.34; HGB 7.6 gm/dL (13.0-17.5); Hypochromasia Marked; MCH 23.9 pg (25.0-35.0); MCHC 30.7 g/dL (31.0-37.0); MCV 77.8 fL (80.0-100.0); Mean Platelet Volume 8.2; Microcytosis Slight; RDW 18.6 % (11.5-15.5); WBC 8.1 k/uL (3.8-10.6)
--- NOTE | 2016-06-07 14:10 | P.PN ---
Subjective Principal diagnosis: Shortness of breath This is a pleasant 81-year-old gentleman with known history of coronary artery disease and prior bypass grafting, hypertension, diabetes, hyperlipidemia, who presented to the hospital with symptoms of progressively worsening dyspnea as well as peripheral edema. Patient was seen and examined today, feeling much better overall. Continues to diurese well. A shunt is putting out good urine, weight an accurate today. Hemoglobin 7.6 today, creatinine 1.4, BUN 56. Patient has been up ambulating in the room, we will have physical therapy ambulate him in the hallway today. Objective - Vital Signs Vital signs: Vital Signs Temp 98.6 F 06/07/16 11:35 Pulse 80 06/07/16 11:50 Resp 16 06/07/16 11:35 BP 134/66 06/07/16 11:35 Pulse Ox 98 06/07/16 11:35 Intake & Output 06/06/16 06/07/16 06/07/16 18:59 06:59 18:59 Intake Total 240 120 Output Total 1075 840 300 Balance -835 -840 -180 Weight 81.3 kg 87.3 kg 87.3 kg Intake: Oral 240 120 Output: Urine 1075 840 300 Other: Voiding Method Toilet Toilet Toilet Urinal Urinal # Voids 2 1 1 # Bowel Movements 1 1 - Exam PHYSICAL EXAMINATION: HEENT: Head is atraumatic, normocephalic. Pupils equal, round. Neck is supple. There is no elevated jugular venous pressure. HEART EXAMINATION: S1 and S2 systolic murmur is heard. CHEST EXAMINATION: reveal coarse crackles bilaterally. ABDOMEN: Soft, nontender. Bowel sounds are heard. No organomegaly noted. EXTREMITIES: 2+ peripheral pulses with trace to evidence of peripheral edema, no calf tenderness noted. NEUROLOGIC patient is awake, alert and oriented -3. . - Labs CBC & Chem 7: 06/07/16 12:29 06/07/16 06:00 Labs: Abnormal Lab Results - Last 24 Hours (Table) 06/06/16 06/06/16 06/07/16 Range/Units 16:29 20:40 06:00 RBC 3.31 L (4.30-5.90) m/uL Hgb 7.8 L (13.0-17.5) gm/dL Hct 26.5 L (39.0-53.0) % MCV (80.0-100.0) fL MCH 23.5 L (25.0-35.0) pg MCHC 29.4 L (31.0-37.0) g/dL RDW 18.8 H (11.5-15.5) % Lymphocytes # 0.4 L (1.0-4.8) k/uL BUN (9-20) mg/dL Creatinine (0.66-1.25) mg/dL POC Glucose (mg/dL) 189 H 71 L (75-99) mg/dL 06/07/16 06/07/16 Range/Units 06:00 12:29 RBC 3.20 L (4.30-5.90) m/uL Hgb 7.6 L (13.0-17.5) gm/dL Hct 24.9 L (39.0-53.0) % MCV 77.8 L (80.0-100.0) fL MCH 23.9 L (25.0-35.0) pg MCHC 30.7 L (31.0-37.0) g/dL RDW 18.6 H (11.5-15.5) % Lymphocytes # (1.0-4.8) k/uL BUN 56 H (9-20) mg/dL Creatinine 1.49 H (0.66-1.25) mg/dL POC Glucose (mg/dL) (75-99) mg/dL Assessment and Plan Plan: Assessment and Plan #1 diastolic congestive heart failure acute on chronic #2 known history of coronary artery disease with prior coronary artery bypass grafting surgery in 2007 at which time patient underwent the LAD, saphenous vein graft to the right coronary artery, saphenous vein graft to the diuretic. #3 diabetes #4 hypertension #5 hyperlipidemia #6 COPD #7 dementia Plan Cardiology's perspective, we'll continue current dose of IV Lasix. Check lytes BUN and creatinine in the morning. DNP note has been reviewed, I agree with a documented findings and plan of care. Patient was seen and examined.
--- NOTE | 2016-06-07 15:26 | XR ---
EXAMINATION TYPE: XR chest 2V DATE OF EXAM: 06/07/2016 1:54 PM COMPARISON: 06/06/2016 HISTORY: 81-year-old male follow-up CHF TECHNIQUE: Frontal and lateral views FINDINGS: The heart remains upper limits of normal in size. Atherosclerotic arch calcifications. Diffuse inters titial densities show some interval improvement. Hyperinflation with flattening of the hemidiaphragms . Patchy right lower lung opacity remains but also shows some improvement. Median sternotomy wires wi th post-CABG changes along the mediastinum. IMPRESSION: 1. Correlate for COPD with improving CHF now with residual interstitial pulmonary edema. 2. Confluent edema or infiltrate at the right base also shows partial improvement.
[2016-06-07 17:00] LABS: Glucose,Whole Blood 101 mg/dL (75-99)
--- NOTE | 2016-06-07 17:15 | P.PN ---
Subjective Patient sitting at bedside on visit. States of improvement. Noted to be discerning time Objective - Vital Signs Vital signs: Vital Signs Temp 96.8 F L 06/07/16 15:56 Pulse 84 06/07/16 16:41 Resp 16 06/07/16 15:56 BP 129/63 06/07/16 15:56 Pulse Ox 99 06/07/16 15:56 Intake & Output 06/06/16 06/07/16 06/07/16 18:59 06:59 18:59 Intake Total 240 900 Output Total 1075 840 300 Balance -835 -840 600 Weight 81.3 kg 87.3 kg 87.3 kg Intake: Oral 240 900 Output: Urine 1075 840 300 Other: Voiding Method Toilet Toilet Toilet Urinal Urinal # Voids 2 1 3 # Bowel Movements 1 1 - Constitutional General appearance: Present: mild distress - EENT Eyes: Present: PERRLA Ears: bilateral: normal - Respiratory Respiratory: bilateral: rales - Cardiovascular Rhythm: regular - Gastrointestinal General gastrointestinal: Present: soft - Integumentary Integumentary: Present: normal - Neurologic Neurologic: Present: CNII-XII intact - Psychiatric Psychiatric Comment(s): Patient assigned at the time. States he is in the hospital - Labs CBC & Chem 7: 06/07/16 12:29 06/07/16 06:00 Labs: Abnormal Lab Results - Last 24 Hours (Table) 06/06/16 06/07/16 06/07/16 Range/Units 20:40 06:00 06:00 RBC 3.31 L (4.30-5.90) m/uL Hgb 7.8 L (13.0-17.5) gm/dL Hct 26.5 L (39.0-53.0) % MCV (80.0-100.0) fL MCH 23.5 L (25.0-35.0) pg MCHC 29.4 L (31.0-37.0) g/dL RDW 18.8 H (11.5-15.5) % Lymphocytes # 0.4 L (1.0-4.8) k/uL BUN 56 H (9-20) mg/dL Creatinine 1.49 H (0.66-1.25) mg/dL POC Glucose (mg/dL) 71 L (75-99) mg/dL 06/07/16 06/07/16 Range/Units 12:29 16:53 RBC 3.20 L (4.30-5.90) m/uL Hgb 7.6 L (13.0-17.5) gm/dL Hct 24.9 L (39.0-53.0) % MCV 77.8 L (80.0-100.0) fL MCH 23.9 L (25.0-35.0) pg MCHC 30.7 L (31.0-37.0) g/dL RDW 18.6 H (11.5-15.5) % Lymphocytes # (1.0-4.8) k/uL BUN (9-20) mg/dL Creatinine (0.66-1.25) mg/dL POC Glucose (mg/dL) 101 H (75-99) mg/dL - Imaging and Cardiology Chest x-ray: report reviewed Assessment and Plan Plan: Assessment congestive heart failure diastolic dysfunction pulmonary edema pulmonary hypertension leukocytosis acute hypoxic respiratory failure anemia macrocytic metabolic encephalopathy multifactorial change in mental status gait dysfunction hyperkalemia chronic kidney disease stage III diabetes type II mild moderate protein calorie malnutrition hypo LB anemia history of COPD history of coronary disease hypertension hyperlipidemia Plan continue consultation with cardiology and pulmonology continue bronchodilators Levaquin
[2016-06-07 21:12] LABS: Glucose,Whole Blood 69 mg/dL (75-99)
[2016-06-07 22:10] LABS: Glucose,Whole Blood 93 mg/dL (75-99)
[2016-06-08] MEDS: FUROSEMIDE 10 MG/ML 4 ML VIAL IV SCH ×2 (03:34→10:42)
[2016-06-08 06:13] LABS: Glucose,Whole Blood 53 mg/dL (75-99)
[2016-06-08 06:13] LABS: Glucose,Whole Blood 49 mg/dL (75-99)
[2016-06-08] MEDS: INSULIN LISPRO (humaLOG) 300 UNIT/3 ML VIAL SQ SCH ×4 (06:21→20:07)
[2016-06-08] MEDS: PANTOPRAZOLE 40 MG TABLET PO SCH (06:23)
[2016-06-08 06:30] LABS: Glucose,Whole Blood 50 mg/dL (75-99)
[2016-06-08] MEDS ORDERED: DEXTROSE 50%-WATER 50 ML SYRINGE IVP ONE (06:33)
[2016-06-08 06:52] LABS: Anisocytosis Slight; Basophils % (A) 0 %; CH 22.9; CHCM 28.8; Eosinophils # (A) 0.1 k/uL (0-0.7); Eosinophils % (A) 1 %; HCT 24.6 % (39.0-53.0); HDW 3.32; HGB 7.5 gm/dL (13.0-17.5); Hypochromasia Marked; Luc # (Auto) 0.31; Luc % (Auto) 4; Lymphocytes # (A) 0.4 k/uL (1.0-4.8); Lymphocytes % (A) 6 %; MCH 24.5 pg (25.0-35.0); MCHC 30.6 g/dL (31.0-37.0); Mean Platelet Volume 7.5; Microcytosis Slight; Monocytes # (A) 0.6 k/uL (0-1.0); Monocytes % (A) 8 %; Neutrophils # (A) 6.2 k/uL (1.3-7.7); Neutrophils % (A) 82 %; RBC 3.07 m/uL (4.30-5.90); RDW 18.6 % (11.5-15.5); WBC 7.7 k/uL (3.8-10.6); WBC (Perox) 8.04
[2016-06-08 06:57] LABS: Glucose,Whole Blood 117 mg/dL (75-99)
[2016-06-08 07:05] LABS: Calcium 8.3 mg/dL (8.4-10.2); Potassium 4.8 mmol/L (3.5-5.1)
[2016-06-08] MEDS: ASPIRIN 81 MG CHEW PO SCH (08:12)
[2016-06-08] MEDS: ATORVASTATIN 40 MG TAB PO SCH (08:12)
[2016-06-08] MEDS: LEVOFLOXACIN 250 MG TAB PO SCH (08:13)
[2016-06-08] MEDS: ISOSORBIDE MONONITRATE ER 30 MG TAB.ER.24H PO SCH (08:13)
[2016-06-08] MEDS: FERROUS SULFATE 325 MG TAB PO SCH (08:13)
[2016-06-08] MEDS: hydrALAZINE HCL 50 MG TAB PO SCH ×2 (08:13→20:07)
[2016-06-08] MEDS: GLIMEPIRIDE 4 MG TAB PO SCH ×2 (08:14→20:07)
[2016-06-08] MEDS: OXYBUTYNIN CHLORIDE 5 MG TAB PO SCH ×2 (08:14→20:07)
[2016-06-08] MEDS: LINAGLIPTIN 5 MG TABLET PO SCH (08:14)
[2016-06-08] MEDS: METOPROLOL TARTRATE 50 MG TAB PO SCH ×2 (08:15→20:07)
[2016-06-08] MEDS: SYMBICORT 160-4.5 MCG INHALER INHALATION SCH ×2 (09:08→20:29)
[2016-06-08] MEDS: IPRATROPIUM-ALBUTEROL 3 ML NEB INHALATION SCH ×4 (09:08→20:29)
[2016-06-08 10:28] LABS: Glucose,Whole Blood 173 mg/dL (75-99)
[2016-06-08] MEDS ORDERED: FUROSEMIDE 10 MG/ML 2 ML VIAL IV ONE (12:13)
--- NOTE | 2016-06-08 12:22 | P.PN ---
Subjective Principal diagnosis: patient sitting at side of bed states his improvement. Hemoglobin noted to be 7.5 Dr. Mercado is ordered 2 units for transfusion. Discussed with cardiology Objective - Vital Signs Vital signs: Vital Signs Temp 97.6 F 06/08/16 11:58 Pulse 73 06/08/16 11:58 Resp 16 06/08/16 11:58 BP 134/60 06/08/16 11:58 Pulse Ox 93 L 06/08/16 11:58 Intake & Output 06/07/16 06/08/16 06/08/16 18:59 06:59 18:59 Intake Total 900 300 460 Output Total 300 150 Balance 600 150 460 Weight 81.3 kg 82.2 kg Intake: Oral 900 300 460 Blood Product 0 Rc As-1 Unit 0 [id number] Output: Urine 300 150 Other: Voiding Method Toilet Toilet Toilet Urinal Urinal Urinal # Voids 1 1 2 # Bowel Movements 1 - Constitutional General appearance: Present: obese - EENT Eyes: Present: PERRLA Ears: bilateral: normal - Neck Neck: Present: normal ROM - Respiratory Respiratory: bilateral: CTA - Cardiovascular Rhythm: regular - Integumentary Integumentary: Present: normal - Neurologic Neurologic: Present: CNII-XII intact - Musculoskeletal Musculoskeletal: Present: generalized weakness - Psychiatric Psychiatric: Present: appropriate affect - Labs CBC & Chem 7: 06/08/16 06:04 06/08/16 06:04 Labs: Abnormal Lab Results - Last 24 Hours (Table) 06/07/16 06/07/16 06/07/16 Range/Units 12:29 16:53 21:09 RBC 3.20 L (4.30-5.90) m/uL Hgb 7.6 L (13.0-17.5) gm/dL Hct 24.9 L (39.0-53.0) % MCV 77.8 L (80.0-100.0) fL MCH 23.9 L (25.0-35.0) pg MCHC 30.7 L (31.0-37.0) g/dL RDW 18.6 H (11.5-15.5) % Lymphocytes # (1.0-4.8) k/uL BUN (9-20) mg/dL Creatinine (0.66-1.25) mg/dL Glucose (74-99) mg/dL POC Glucose (mg/dL) 101 H 69 L (75-99) mg/dL Calcium (8.4-10.2) mg/dL Crossmatch 06/08/16 06/08/16 06/08/16 Range/Units 06:04 06:04 06:08 RBC 3.07 L (4.30-5.90) m/uL Hgb 7.5 L (13.0-17.5) gm/dL Hct 24.6 L (39.0-53.0) % MCV (80.0-100.0) fL MCH 24.5 L (25.0-35.0) pg MCHC 30.6 L (31.0-37.0) g/dL RDW 18.6 H (11.5-15.5) % Lymphocytes # 0.4 L (1.0-4.8) k/uL BUN 56 H (9-20) mg/dL Creatinine 1.59 H (0.66-1.25) mg/dL Glucose 42 L* (74-99) mg/dL POC Glucose (mg/dL) 49 L (75-99) mg/dL Calcium 8.3 L (8.4-10.2) mg/dL Crossmatch 06/08/16 06/08/16 06/08/16 Range/Units 06:10 06:28 06:54 RBC (4.30-5.90) m/uL Hgb (13.0-17.5) gm/dL Hct (39.0-53.0) % MCV (80.0-100.0) fL MCH (25.0-35.0) pg MCHC (31.0-37.0) g/dL RDW (11.5-15.5) % Lymphocytes # (1.0-4.8) k/uL BUN (9-20) mg/dL Creatinine (0.66-1.25) mg/dL Glucose (74-99) mg/dL POC Glucose (mg/dL) 53 L 50 L 117 H (75-99) mg/dL Calcium (8.4-10.2) mg/dL Crossmatch 06/08/16 06/08/16 Range/Units 08:46 10:25 RBC (4.30-5.90) m/uL Hgb (13.0-17.5) gm/dL Hct (39.0-53.0) % MCV (80.0-100.0) fL MCH (25.0-35.0) pg MCHC (31.0-37.0) g/dL RDW (11.5-15.5) % Lymphocytes # (1.0-4.8) k/uL BUN (9-20) mg/dL Creatinine (0.66-1.25) mg/dL Glucose (74-99) mg/dL POC Glucose (mg/dL) 173 H (75-99) mg/dL Calcium (8.4-10.2) mg/dL Crossmatch See Detail Assessment and Plan Plan: assessment Congestive heart failure diastolic with pulmonary edema pulmonary hypertension Acute hypoxic respiratory failure with purulent tracheobronchitis Leukocytosis Anemia microcytic Change in mental status metabolic encephalopathy multifactorial Gait dysfunction weakness Elevated potassium Possible chronic renal disease stage III diabetes type 2 Hypoalbuminemia with mild to moderate protein calorie malnutrition History of COPD History of coronary diseaseWith bypass Hypertension Hyperlipidemia Macular degeneration Plan Continue bronchodilators Levaquin Continue consultation with cardiology and pulmonology Transferred to units of packed red blood cells
[2016-06-08 12:23] LABS: Glucose,Whole Blood 177 mg/dL (75-99)
[2016-06-08] MEDS: FOLIC ACID 1 MG TAB PO SCH (12:23)
[2016-06-08] MEDS: THIAMINE 100 MG TAB PO SCH (12:23)
[2016-06-08] MEDS: MULTIVITAMINS, THERA 1 EACH TAB PO SCH (12:23)
--- NOTE | 2016-06-08 13:54 | P.PN ---
Subjective Principal diagnosis: Shortness of breath This is a pleasant 81-year-old gentleman with known history of coronary artery disease and prior bypass grafting, hypertension, diabetes, hyperlipidemia, who presented to the hospital with symptoms of progressively worsening dyspnea as well as peripheral edema. Patient was seen and examined today, feeling much better overall. Continues to diurese well. Patient is putting out good urine, weight down. Hemoglobin 7.5 today, creatinine 1.5, BUN 56. we will discontinue the IV Lasix today. Patient is also scheduled to receive 2 units of packed red blood cells today. Objective - Vital Signs Vital signs: Vital Signs Temp 97.8 F 06/08/16 12:27 Pulse 74 06/08/16 12:27 Resp 16 06/08/16 12:27 BP 154/64 06/08/16 12:27 Pulse Ox 92 L 06/08/16 12:27 Intake & Output 06/07/16 06/08/16 06/08/16 18:59 06:59 18:59 Intake Total 900 300 460 Output Total 300 150 Balance 600 150 460 Weight 81.3 kg 82.2 kg Intake: Oral 900 300 460 Blood Product 0 Rc As-1 Unit 0 [id number] Output: Urine 300 150 Other: Voiding Method Toilet Toilet Toilet Urinal Urinal Urinal # Voids 1 1 2 # Bowel Movements 1 - Exam PHYSICAL EXAMINATION: HEENT: Head is atraumatic, normocephalic. Pupils equal, round. Neck is supple. There is no elevated jugular venous pressure. HEART EXAMINATION: S1 and S2 systolic murmur is heard. CHEST EXAMINATION: reveal coarse crackles bilaterally. ABDOMEN: Soft, nontender. Bowel sounds are heard. No organomegaly noted. EXTREMITIES: 2+ peripheral pulses with trace evidence of peripheral edema, no calf tenderness noted. NEUROLOGIC patient is awake, alert and oriented -3. . - Labs CBC & Chem 7: 06/08/16 06:04 06/08/16 06:04 Labs: Abnormal Lab Results - Last 24 Hours (Table) 06/07/16 06/07/16 06/08/16 Range/Units 16:53 21:09 06:04 RBC 3.07 L (4.30-5.90) m/uL Hgb 7.5 L (13.0-17.5) gm/dL Hct 24.6 L (39.0-53.0) % MCH 24.5 L (25.0-35.0) pg MCHC 30.6 L (31.0-37.0) g/dL RDW 18.6 H (11.5-15.5) % Lymphocytes # 0.4 L (1.0-4.8) k/uL BUN (9-20) mg/dL Creatinine (0.66-1.25) mg/dL Glucose (74-99) mg/dL POC Glucose (mg/dL) 101 H 69 L (75-99) mg/dL Calcium (8.4-10.2) mg/dL Crossmatch 06/08/16 06/08/16 06/08/16 Range/Units 06:04 06:08 06:10 RBC (4.30-5.90) m/uL Hgb (13.0-17.5) gm/dL Hct (39.0-53.0) % MCH (25.0-35.0) pg MCHC (31.0-37.0) g/dL RDW (11.5-15.5) % Lymphocytes # (1.0-4.8) k/uL BUN 56 H (9-20) mg/dL Creatinine 1.59 H (0.66-1.25) mg/dL Glucose 42 L* (74-99) mg/dL POC Glucose (mg/dL) 49 L 53 L (75-99) mg/dL Calcium 8.3 L (8.4-10.2) mg/dL Crossmatch 06/08/16 06/08/16 06/08/16 Range/Units 06:28 06:54 08:46 RBC (4.30-5.90) m/uL Hgb (13.0-17.5) gm/dL Hct (39.0-53.0) % MCH (25.0-35.0) pg MCHC (31.0-37.0) g/dL RDW (11.5-15.5) % Lymphocytes # (1.0-4.8) k/uL BUN (9-20) mg/dL Creatinine (0.66-1.25) mg/dL Glucose (74-99) mg/dL POC Glucose (mg/dL) 50 L 117 H (75-99) mg/dL Calcium (8.4-10.2) mg/dL Crossmatch See Detail 06/08/16 06/08/16 Range/Units 10:25 12:21 RBC (4.30-5.90) m/uL Hgb (13.0-17.5) gm/dL Hct (39.0-53.0) % MCH (25.0-35.0) pg MCHC (31.0-37.0) g/dL RDW (11.5-15.5) % Lymphocytes # (1.0-4.8) k/uL BUN (9-20) mg/dL Creatinine (0.66-1.25) mg/dL Glucose (74-99) mg/dL POC Glucose (mg/dL) 173 H 177 H (75-99) mg/dL Calcium (8.4-10.2) mg/dL Crossmatch Assessment and Plan Plan: Assessment and Plan #1 diastolic congestive heart failure acute on chronic #2 known history of coronary artery disease with prior coronary artery bypass grafting surgery in 2007 at which time patient underwent the LAD, saphenous vein graft to the right coronary artery, saphenous vein graft to the diuretic. #3 diabetes #4 hypertension #5 hyperlipidemia #6 COPD #7 dementia #8 anemia Plan we will discontinue the IV Lasix today and start the patient on oral diuretics. Patient also will receive blood transfusion today. We will check lytes BUN creatinine CBC in the morning. We will also add losartan 25 mg one tablet by mouth daily to the medication regime. DNP note has been reviewed, I agree with a documented findings and plan of care. Patient was seen and examined.
[2016-06-08] MEDS ORDERED: FUROSEMIDE 40 MG TAB PO SCH (16:00)
--- NOTE | 2016-06-08 18:52 | CT ---
EXAMINATION TYPE: CT chest wo con DATE OF EXAM: 06/08/2016 6:03 PM COMPARISON: NONE HISTORY: Patient complains of difficulty breathing. CT DLP: 677 mGycm Automated exposure control for dose reduction was used. FINDINGS: There are moderate bilateral pleural effusions. Heart is enlarged. Thoracic aorta is atheromatous. Th ere is coarse reticular interstitial pulmonary infiltrate throughout the lungs. There are emphysemato us changes in the upper lobes. Interstitial infiltrates are worse in the upper lobes. There is some m ild coalescent density at the lung bases. There are mediastinal multiple lymph nodes that measure up to 1.5 cm. There are no hilar masses. The bony thorax is intact. There is degenerative spurring in the thoracic spine. There is no compression fracture. IMPRESSION: CARDIOMEGALY AND BILATERAL PLEURAL EFFUSIONS. THIS COULD RELATE TO CONGESTIVE HEART FAILURE. EXTENSIVE PULMONARY INTERSTITIAL INFILTRATES AND EMPHYSEMA. THE INFILTRATES ARE NOT THE TYPICAL PATTE RN OF INTERSTITIAL IdiopathIC FIBROSIS. SOME OF THE INTERSTITIAL INFILTRATES COULD RELATE TO EDEMA DU E TO HEART FAILURE. THERE IS MILD MEDIASTINAL ADENOPATHY. ATHEROSCLEROTIC VASCULAR DISEASE.
--- NOTE | 2016-06-08 19:48 | P.PN ---
Subjective This is a pleasant 81-year-old gentleman who has a known history of diabetes, hypertension, hyperlipidemia, coronary artery disease with prior bypass surgery in 2007 where he underwent a COLLINS to the LAD, saphenous vein graft to the RCA, saphenous vein graft to the diagonal. Most recent Jennifer scan was performed in June of last year which was reported to be normal. Most of the history was obtained from the medical record, patient is unsure of where he is alone why he is here. According to the chart, patient was admitted to the hospital with symptoms of shortness of breath, he had apparently just recently been at [facility] with similar symptoms. Chest x-ray on admission here revealed findings consistent with advanced cardiogenic interstitial pulmonary edema with areas of alveolar pulmonary edema and a right sided pleural effusion. White blood cell count on admission 16,000, 8.7 this morning. Hemoglobin on admission 8.6, 7.6 this morning. Potassium 5.2, BUN 75 , creatinine 1.7, BNP level 17,800.Troponins 0.14, 0.18, .14. Blood pressure 150/60, heart rate in the 80s, 74% on 4 L on admission.The patient was initially on a Ventimask and he was admitted to the telemetry unit for further monitoring and treatment. Over the past 24 hours, the patient was treated for a combination of COPD and CHF exacerbation. I think is predominantly in CHF. He is still making good urine output. He is on 40 mg of IV Lasix every 8 hours and he is in a negative fluid balance. They lower extremity edema is improving. The patient is currently on oral Levaquin to 50 mg by mouth daily. He is also receiving DuoNeb about treatments around the clock and Symbicort maintenance. The echocardiogram was completed and showed a left ventricle systolic ejection fraction of around 55-60%. The LAD was moderately dilated. The patient had a right ventricular systolic pressure of 51 mmHg. This was consistent with moderate to severe pulmonary hypertension. He also has a mild concentric left ventricular hypertrophy. On 06/07/2016 the patient is feeling better. The patient is less short of breath. We were able to wean down the FiO2 down to 6 L of oxygen nasal cannula and when the process of weaning it further as long as the pulse ox remained above 90%. He has no chest pain. No significant cough or sputum production. Lower extremity edema is also improving. The patient is seen again today 2016 in follow-up on the regular medical floor. He is awake and alert in no acute distress. He is still having issues with oxygen desaturations. He had been on 4 L throughout the evening until earlier this morning he had dropped his sats in the 70s just while sitting at rest. He is currently on 8 L of high flow nasal cannula again. A computed tomography scan of the chest was ordered and revealed extensive pulmonary interstitial infiltrates and emphysema. Most likely congestive heart failure versus fibrosis as his previous chest x-ray did not reveal any evidence of fibrosis. Objective - Vital Signs Vital signs: Vital Signs Temp 97.6 F 06/08/16 16:04 Pulse 69 06/08/16 16:04 Resp 16 06/08/16 16:04 BP 151/68 06/08/16 16:04 Pulse Ox 98 06/08/16 16:04 Intake & Output 06/08/16 06/08/16 06/09/16 06:59 18:59 06:59 Intake Total 300 1260 Output Total 150 Balance 150 1260 Weight 82.2 kg Intake: Oral 300 640 Blood Product 620 Rc As-1 Unit 310 [id number] Rc As-1 Unit 310 [id number] Output: Urine 150 Other: Voiding Method Toilet Toilet Urinal Urinal # Voids 1 2 - Exam Head exam was generally normal. There was no scleral icterus or corneal arcus. Mucous membranes were moist.Neck was supple and without jugular venous distension, thyromegaly, or carotid bruits. Carotids were easily palpable bilaterally. There was no adenopathy. Lung sounds are diminished bilaterally along with some bibasilar crackles. Few scattered external wheeze.Cardiac exam revealed the PMI to be normally situated and sized. The rhythm was regular and no extrasystoles were noted during several minutes of auscultation. The first and second heart sounds were normal and physiologic splitting of the second heart sound was noted. There were no murmurs, rubs, clicks, or gallops.Abdominal exam revealed normal bowel sounds. The abdomen was soft, non- tender, and without masses, organomegaly, or appreciable enlargement of the abdominal aorta.Examination of the extremities revealed easily palpable radial, femoral and pedal pulses. There was no cyanosis, clubbing or edema. - Labs CBC & Chem 7: 06/08/16 06:04 06/08/16 06:04 Labs: Abnormal Lab Results - Last 24 Hours (Table) 06/07/16 06/08/16 06/08/16 Range/Units 21:09 06:04 06:04 RBC 3.07 L (4.30-5.90) m/uL Hgb 7.5 L (13.0-17.5) gm/dL Hct 24.6 L (39.0-53.0) % MCH 24.5 L (25.0-35.0) pg MCHC 30.6 L (31.0-37.0) g/dL RDW 18.6 H (11.5-15.5) % Lymphocytes # 0.4 L (1.0-4.8) k/uL BUN 56 H (9-20) mg/dL Creatinine 1.59 H (0.66-1.25) mg/dL Glucose 42 L* (74-99) mg/dL POC Glucose (mg/dL) 69 L (75-99) mg/dL Calcium 8.3 L (8.4-10.2) mg/dL Crossmatch 06/08/16 06/08/16 06/08/16 Range/Units 06:08 06:10 06:28 RBC (4.30-5.90) m/uL Hgb (13.0-17.5) gm/dL Hct (39.0-53.0) % MCH (25.0-35.0) pg MCHC (31.0-37.0) g/dL RDW (11.5-15.5) % Lymphocytes # (1.0-4.8) k/uL BUN (9-20) mg/dL Creatinine (0.66-1.25) mg/dL Glucose (74-99) mg/dL POC Glucose (mg/dL) 49 L 53 L 50 L (75-99) mg/dL Calcium (8.4-10.2) mg/dL Crossmatch 06/08/16 06/08/16 06/08/16 Range/Units 06:54 08:46 10:25 RBC (4.30-5.90) m/uL Hgb (13.0-17.5) gm/dL Hct (39.0-53.0) % MCH (25.0-35.0) pg MCHC (31.0-37.0) g/dL RDW (11.5-15.5) % Lymphocytes # (1.0-4.8) k/uL BUN (9-20) mg/dL Creatinine (0.66-1.25) mg/dL Glucose (74-99) mg/dL POC Glucose (mg/dL) 117 H 173 H (75-99) mg/dL Calcium (8.4-10.2) mg/dL Crossmatch See Detail 06/08/16 Range/Units 12:21 RBC (4.30-5.90) m/uL Hgb (13.0-17.5) gm/dL Hct (39.0-53.0) % MCH (25.0-35.0) pg MCHC (31.0-37.0) g/dL RDW (11.5-15.5) % Lymphocytes # (1.0-4.8) k/uL BUN (9-20) mg/dL Creatinine (0.66-1.25) mg/dL Glucose (74-99) mg/dL POC Glucose (mg/dL) 177 H (75-99) mg/dL Calcium (8.4-10.2) mg/dL Crossmatch Assessment and Plan Plan: Assessment 1 acute hypoxic respiratory failure/shortness of breath, multifactorial, improving and the patient's oxygenation has improved and the FiO2 is down to 8 L of oxygen nasal cannula 2 acute CHF exacerbation. The patient has a component of diastolic heart failure with acute decompensation with secondary pulmonary edema 3 COPD 4 coronary artery disease with previous bypass surgery 2007 5 diabetes mellitus 6 hypertension 7 hyperlipidemia 8 pulmonary hypertension which is essentially of a secondary in nature with moderately elevated PA pressures 9 chronic normocytic/microcytic anemia 10 chronic renal insufficiency Plan: The patient was seen and evaluated by Dr. Gaona. The computed tomography scan of the chest was reviewed. There is evidence of significant emphysema along with extensive interstitial edema most likely secondary to diastolic congestive heart failure. There is also bilateral pleural effusions. Doubt pulmonary fibrosis as the patient's previous chest x-rays did not reveal any evidence of IPF. We will increase the patient's diuretics. We'll repeat a chest x-ray in the a.m. We'll continue to follow.
[2016-06-08 20:07] LABS: Glucose,Whole Blood 91 mg/dL (75-99)
[2016-06-09] MEDS: FUROSEMIDE 10 MG/ML 4 ML VIAL IV SCH ×4 (00:59→23:45)
[2016-06-09 07:31] LABS: Glucose,Whole Blood 138 mg/dL (75-99)
[2016-06-09 07:58] LABS: Anion Gap 11 mmol/L; Blood Urea Nitrogen 48 mg/dL (9-20); Calcium 8.2 mg/dL (8.4-10.2); Carbon Dioxide 31 mmol/L (22-30); Chloride 100 mmol/L (98-107); Glucose 125 mg/dL (74-99); Non-African American GFR(MDRD) 50 (>60 ml/min/1.73 sqM); Potassium 4.7 mmol/L (3.5-5.1); Sodium 142 mmol/L (137-145)
[2016-06-09] MEDS: PANTOPRAZOLE 40 MG TABLET PO SCH (08:08)
[2016-06-09] MEDS: OXYBUTYNIN CHLORIDE 5 MG TAB PO SCH ×2 (08:08→20:33)
[2016-06-09] MEDS: METOPROLOL TARTRATE 50 MG TAB PO SCH ×2 (08:08→20:33)
[2016-06-09] MEDS: GLIMEPIRIDE 4 MG TAB PO SCH ×2 (08:08→20:33)
[2016-06-09] MEDS: ASPIRIN 81 MG CHEW PO SCH (08:08)
[2016-06-09] MEDS: hydrALAZINE HCL 50 MG TAB PO SCH ×2 (08:08→20:33)
[2016-06-09] MEDS: FERROUS SULFATE 325 MG TAB PO SCH (08:08)
[2016-06-09] MEDS: LEVOFLOXACIN 250 MG TAB PO SCH (08:08)
[2016-06-09] MEDS: LOSARTAN 25 MG TAB PO SCH (08:08)
[2016-06-09] MEDS: LINAGLIPTIN 5 MG TABLET PO SCH (08:08)
[2016-06-09] MEDS: ATORVASTATIN 40 MG TAB PO SCH (08:08)
[2016-06-09] MEDS: INSULIN LISPRO (humaLOG) 300 UNIT/3 ML VIAL SQ SCH ×4 (08:10→20:46)
[2016-06-09] MEDS: ISOSORBIDE MONONITRATE ER 30 MG TAB.ER.24H PO SCH (08:12)
[2016-06-09 08:29] LABS: Anisocytosis Slight; CH 24.2; CHCM 29.8; HCT 28.9 % (39.0-53.0); HDW 3.81; Hypochromasia Marked; MCH 26.1 pg (25.0-35.0); MCV 81.6 fL (80.0-100.0); Mean Platelet Volume 8.1; Poikilocytosis Slight; RBC 3.55 m/uL (4.30-5.90); RDW 18.1 % (11.5-15.5); WBC 8.2 k/uL (3.8-10.6); WBC (Perox) 8.64
[2016-06-09] MEDS: SYMBICORT 160-4.5 MCG INHALER INHALATION SCH ×2 (08:33→20:36)
[2016-06-09] MEDS: IPRATROPIUM-ALBUTEROL 3 ML NEB INHALATION SCH ×4 (08:33→20:36)
[2016-06-09 08:35] LABS: HGB 9.3 gm/dL (13.0-17.5)
--- NOTE | 2016-06-09 08:39 | XR ---
EXAMINATION TYPE: XR chest 1V portable DATE OF EXAM: 06/09/2016 8:32 AM HISTORY: CHF. REFERENCE: Previous study dated 06/07/2016. FINDINGS: There has been a midline sternotomy. The lungs are overinflated. Heart size is upper limits of normal. There is diffuse interstitial rojas e. There is mild vascular congestion. There are small bilateral effusions. IMPRESSION: RESOLVING CHANGES OF PULMONARY EDEMA.
[2016-06-09 08:58] LABS: Add Differential Manual Differential
[2016-06-09 09:01] LABS: Nucleated Red Blood Cells 0 /100 WBC (0-0); Total Cells Counted 200
[2016-06-09 09:02] LABS: Manual Review Performed
[2016-06-09 11:40] LABS: Glucose,Whole Blood 162 mg/dL (75-99)
[2016-06-09] MEDS: THIAMINE 100 MG TAB PO SCH (11:44)
[2016-06-09] MEDS: MULTIVITAMINS, THERA 1 EACH TAB PO SCH (11:44)
[2016-06-09] MEDS: FOLIC ACID 1 MG TAB PO SCH (11:44)
--- NOTE | 2016-06-09 12:44 | P.PN ---
Subjective Principal diagnosis: Noted improvement. Hemoglobin 9.3 posttransfusion Objective - Vital Signs Vital signs: Vital Signs Temp 97.6 F 06/09/16 07:00 Pulse 82 06/09/16 11:31 Resp 16 06/09/16 07:19 BP 148/69 06/09/16 07:00 Pulse Ox 96 06/09/16 08:35 Intake & Output 06/08/16 06/09/16 06/09/16 18:59 06:59 18:59 Intake Total 1260 200 Output Total 3 Balance 1260 197 Weight 82.2 kg Intake: Oral 640 200 Blood Product 620 Rc As-1 Unit 310 [id number] Rc As-1 Unit 310 [id number] Output: Urine 3 Other: Voiding Method Toilet Toilet Toilet Urinal Urinal Urinal # Voids 2 280 - Constitutional General appearance: Present: obese - EENT Eyes: Present: PERRLA Ears: bilateral: normal - Neck Neck: Present: normal ROM - Respiratory Respiratory: bilateral: diminished - Cardiovascular Rhythm: regular - Gastrointestinal General gastrointestinal: Present: soft - Integumentary Integumentary: Present: normal - Neurologic Neurologic: Present: CNII-XII intact - Musculoskeletal Musculoskeletal: Present: generalized weakness - Psychiatric Psychiatric: Present: A&O x's 3, appropriate affect, intact judgment & insight - Labs CBC & Chem 7: 06/09/16 07:02 06/09/16 07:02 Labs: Abnormal Lab Results - Last 24 Hours (Table) 06/08/16 06/09/16 06/09/16 Range/Units 08:46 07:02 07:02 RBC 3.55 L (4.30-5.90) m/uL Hgb 9.3 L D (13.0-17.5) gm/dL Hct 28.9 L (39.0-53.0) % RDW 18.1 H (11.5-15.5) % Plt Count 143 L (150-450) k/uL Lymphocytes # (Manual) 0.2 L (1.0-4.8) k/uL Carbon Dioxide 31 H (22-30) mmol/L BUN 48 H (9-20) mg/dL Creatinine 1.38 H (0.66-1.25) mg/dL Glucose 125 H (74-99) mg/dL POC Glucose (mg/dL) (75-99) mg/dL Calcium 8.2 L (8.4-10.2) mg/dL Crossmatch See Detail 06/09/16 06/09/16 Range/Units 07:10 11:21 RBC (4.30-5.90) m/uL Hgb (13.0-17.5) gm/dL Hct (39.0-53.0) % RDW (11.5-15.5) % Plt Count (150-450) k/uL Lymphocytes # (Manual) (1.0-4.8) k/uL Carbon Dioxide (22-30) mmol/L BUN (9-20) mg/dL Creatinine (0.66-1.25) mg/dL Glucose (74-99) mg/dL POC Glucose (mg/dL) 138 H 162 H (75-99) mg/dL Calcium (8.4-10.2) mg/dL Crossmatch - Imaging and Cardiology Chest x-ray: report reviewed Assessment and Plan Plan: Assessment Shortness of breath multifactorial with congestive heart failure acute on chronic diastolic dysfunction pulmonary edema pulmonary hypertension Acute on chronic COPD with exacerbation acute hypoxic respiratory failure Anemia microcytic Posttransfusion 2 units Mental status changes metabolic encephalopathy multifactorial Gait dysfunction Diabetes type 2 Hypoalbuminemia mild to moderate protein calorie malnutrition Coronary artery disease with history of bypass Hypertension Macular degeneration Plan Continue consultation with pulmonology patient on Levaquin continue consultation with cardiology
[2016-06-09 16:48] LABS: Glucose,Whole Blood 120 mg/dL (75-99)
--- NOTE | 2016-06-09 17:30 | P.PN ---
Subjective This is a pleasant 81-year-old gentleman who has a known history of diabetes, hypertension, hyperlipidemia, coronary artery disease with prior bypass surgery in 2007 where he underwent a COLLINS to the LAD, saphenous vein graft to the RCA, saphenous vein graft to the diagonal. Most recent Jennifer scan was performed in June of last year which was reported to be normal. Most of the history was obtained from the medical record, patient is unsure of where he is alone why he is here. According to the chart, patient was admitted to the hospital with symptoms of shortness of breath, he had apparently just recently been at [facility] with similar symptoms. Chest x-ray on admission here revealed findings consistent with advanced cardiogenic interstitial pulmonary edema with areas of alveolar pulmonary edema and a right sided pleural effusion. White blood cell count on admission 16,000, 8.7 this morning. Hemoglobin on admission 8.6, 7.6 this morning. Potassium 5.2, BUN 75 , creatinine 1.7, BNP level 17,800.Troponins 0.14, 0.18, .14. Blood pressure 150/60, heart rate in the 80s, 74% on 4 L on admission.The patient was initially on a Ventimask and he was admitted to the telemetry unit for further monitoring and treatment. Over the past 24 hours, the patient was treated for a combination of COPD and CHF exacerbation. I think is predominantly in CHF. He is still making good urine output. He is on 40 mg of IV Lasix every 8 hours and he is in a negative fluid balance. They lower extremity edema is improving. The patient is currently on oral Levaquin to 50 mg by mouth daily. He is also receiving DuoNeb about treatments around the clock and Symbicort maintenance. The echocardiogram was completed and showed a left ventricle systolic ejection fraction of around 55-60%. The LAD was moderately dilated. The patient had a right ventricular systolic pressure of 51 mmHg. This was consistent with moderate to severe pulmonary hypertension. He also has a mild concentric left ventricular hypertrophy. On 06/07/2016 the patient is feeling better. The patient is less short of breath. We were able to wean down the FiO2 down to 6 L of oxygen nasal cannula and when the process of weaning it further as long as the pulse ox remained above 90%. He has no chest pain. No significant cough or sputum production. Lower extremity edema is also improving. The patient is seen again today 2016 in follow-up on the regular medical floor. He is awake and alert in no acute distress. He is still having issues with oxygen desaturations. He had been on 4 L throughout the evening until earlier this morning he had dropped his sats in the 70s just while sitting at rest. He is currently on 8 L of high flow nasal cannula again. A computed tomography scan of the chest was ordered and revealed extensive pulmonary interstitial infiltrates and emphysema. Most likely congestive heart failure versus fibrosis as his previous chest x-ray did not reveal any evidence of fibrosis. The patient is seen again today 06/09/2016 in follow-up. His chest x-ray shows improvement of the pulmonary edema. He was maintained on Lasix 40 mg IV every 8 hours the past 24 hours. He is more awake and alert in no acute distress. He is down to 6 L of high flow nasal cannula to maintain O2 saturations in the 90s. He is afebrile. His creatinine is stable at 1.38. His hemoglobin is stable at 9.3. Objective - Vital Signs Vital signs: Vital Signs Temp 97.8 F 06/09/16 15:00 Pulse 78 06/09/16 16:40 Resp 16 06/09/16 16:00 BP 149/68 06/09/16 15:00 Pulse Ox 90 L 06/09/16 15:00 Intake & Output 06/08/16 06/09/16 06/09/16 18:59 06:59 18:59 Intake Total 1260 200 500 Output Total 3 3 Balance 1260 197 497 Weight 82.2 kg Intake: Oral 640 200 500 Blood Product 620 As-1 Unit 310 [id number] As-1 Unit 310 [id number] Output: Urine 3 3 Other: Voiding Method Toilet Toilet Toilet Urinal Urinal Urinal # Voids 2 280 2 # Bowel Movements 1 - Exam Head exam was generally normal. There was no scleral icterus or corneal arcus. Mucous membranes were moist.Neck was supple and without jugular venous distension, thyromegaly, or carotid bruits. Carotids were easily palpable bilaterally. There was no adenopathy. Lung sounds are diminished bilaterally along with some bibasilar crackles. Few scattered external wheeze.Cardiac exam revealed the PMI to be normally situated and sized. The rhythm was regular and no extrasystoles were noted during several minutes of auscultation. The first and second heart sounds were normal and physiologic splitting of the second heart sound was noted. There were no murmurs, rubs, clicks, or gallops.Abdominal exam revealed normal bowel sounds. The abdomen was soft, non- tender, and without masses, organomegaly, or appreciable enlargement of the abdominal aorta.Examination of the extremities revealed easily palpable radial, femoral and pedal pulses. There was no cyanosis, clubbing or edema. - Labs CBC & Chem 7: 06/09/16 07:02 06/09/16 07:02 Labs: Abnormal Lab Results - Last 24 Hours (Table) 06/09/16 06/09/16 06/09/16 Range/Units 07:02 07:02 07:10 RBC 3.55 L (4.30-5.90) m/uL Hgb 9.3 L D (13.0-17.5) gm/dL Hct 28.9 L (39.0-53.0) % RDW 18.1 H (11.5-15.5) % Plt Count 143 L (150-450) k/uL Lymphocytes # (Manual) 0.2 L (1.0-4.8) k/uL Carbon Dioxide 31 H (22-30) mmol/L BUN 48 H (9-20) mg/dL Creatinine 1.38 H (0.66-1.25) mg/dL Glucose 125 H (74-99) mg/dL POC Glucose (mg/dL) 138 H (75-99) mg/dL Calcium 8.2 L (8.4-10.2) mg/dL 06/09/16 06/09/16 Range/Units 11:21 16:43 RBC (4.30-5.90) m/uL Hgb (13.0-17.5) gm/dL Hct (39.0-53.0) % RDW (11.5-15.5) % Plt Count (150-450) k/uL Lymphocytes # (Manual) (1.0-4.8) k/uL Carbon Dioxide (22-30) mmol/L BUN (9-20) mg/dL Creatinine (0.66-1.25) mg/dL Glucose (74-99) mg/dL POC Glucose (mg/dL) 162 H 120 H (75-99) mg/dL Calcium (8.4-10.2) mg/dL Assessment and Plan Plan: Assessment 1 acute hypoxic respiratory failure/shortness of breath, multifactorial, improving and the patient's oxygenation has improved and the FiO2 is down to 6 L of oxygen nasal cannula 2 acute exacerbation of diastolic CHF. He was resumed on IV Lasix yesterday and today's chest x-ray shows improvement of the pulmonary edema. 3 COPD 4 coronary artery disease with previous bypass surgery 2007 5 diabetes mellitus 6 hypertension 7 hyperlipidemia 8 pulmonary hypertension which is essentially of a secondary in nature with moderately elevated PA pressures 9 chronic normocytic/microcytic anemia 10 chronic renal insufficiency Plan: The patient was seen and evaluated by Dr. Gaona. His chest x-ray and labs were reviewed. We'll continue with diuretics another 24 hours. We'll continue his other medications. We'll continue to titrate down the FiO2 well maintaining O2 saturations greater than 90% We'll increase his activity as tolerated. We'll continue to follow.
[2016-06-09 20:47] LABS: Glucose,Whole Blood 150 mg/dL (75-99)
[2016-06-10 06:53] LABS: Glucose,Whole Blood 183 mg/dL (75-99)
[2016-06-10] MEDS: INSULIN LISPRO (humaLOG) 300 UNIT/3 ML VIAL SQ SCH ×4 (08:08→21:25)
[2016-06-10] MEDS: LOSARTAN 25 MG TAB PO SCH (08:09)
[2016-06-10] MEDS: OXYBUTYNIN CHLORIDE 5 MG TAB PO SCH ×2 (08:09→21:25)
[2016-06-10] MEDS: ATORVASTATIN 40 MG TAB PO SCH (08:09)
[2016-06-10] MEDS: LINAGLIPTIN 5 MG TABLET PO SCH (08:09)
[2016-06-10] MEDS: METOPROLOL TARTRATE 50 MG TAB PO SCH ×2 (08:09→21:27)
[2016-06-10] MEDS: ASPIRIN 81 MG CHEW PO SCH (08:09)
[2016-06-10] MEDS: GLIMEPIRIDE 4 MG TAB PO SCH ×2 (08:10→21:26)
[2016-06-10] MEDS: FUROSEMIDE 10 MG/ML 4 ML VIAL IV SCH ×3 (08:10→23:43)
[2016-06-10] MEDS: hydrALAZINE HCL 50 MG TAB PO SCH ×2 (08:10→21:27)
[2016-06-10] MEDS: LEVOFLOXACIN 250 MG TAB PO SCH (08:10)
[2016-06-10] MEDS: PANTOPRAZOLE 40 MG TABLET PO SCH (08:10)
[2016-06-10] MEDS: FERROUS SULFATE 325 MG TAB PO SCH (08:10)
[2016-06-10] MEDS: ISOSORBIDE MONONITRATE ER 30 MG TAB.ER.24H PO SCH (08:10)
[2016-06-10] MEDS: FOLIC ACID 1 MG TAB PO SCH (08:11)
[2016-06-10] MEDS: THIAMINE 100 MG TAB PO SCH (08:11)
[2016-06-10] MEDS: MULTIVITAMINS, THERA 1 EACH TAB PO SCH (08:11)
[2016-06-10] MEDS: SYMBICORT 160-4.5 MCG INHALER INHALATION SCH ×2 (09:00→18:54)
[2016-06-10] MEDS: IPRATROPIUM-ALBUTEROL 3 ML NEB INHALATION SCH ×4 (09:00→18:54)
[2016-06-10 11:22] LABS: Glucose,Whole Blood 86 mg/dL (75-99)
[2016-06-10 12:40] LABS: Potassium 4.4 mmol/L (3.5-5.1)
[2016-06-10 13:39] VITALS: BMI 24.5
--- NOTE | 2016-06-10 14:02 | P.PN ---
Subjective This is a pleasant 81-year-old gentleman who has a known history of diabetes, hypertension, hyperlipidemia, coronary artery disease with prior bypass surgery in 2007 where he underwent a COLLINS to the LAD, saphenous vein graft to the RCA, saphenous vein graft to the diagonal. Most recent Jennifer scan was performed in June of last year which was reported to be normal. Most of the history was obtained from the medical record, patient is unsure of where he is alone why he is here. According to the chart, patient was admitted to the hospital with symptoms of shortness of breath, he had apparently just recently been at [facility] with similar symptoms. Chest x-ray on admission here revealed findings consistent with advanced cardiogenic interstitial pulmonary edema with areas of alveolar pulmonary edema and a right sided pleural effusion. White blood cell count on admission 16,000, 8.7 this morning. Hemoglobin on admission 8.6, 7.6 this morning. Potassium 5.2, BUN 75 , creatinine 1.7, BNP level 17,800.Troponins 0.14, 0.18, .14. Blood pressure 150/60, heart rate in the 80s, 74% on 4 L on admission.The patient was initially on a Ventimask and he was admitted to the telemetry unit for further monitoring and treatment. Over the past 24 hours, the patient was treated for a combination of COPD and CHF exacerbation. I think is predominantly in CHF. He is still making good urine output. He is on 40 mg of IV Lasix every 8 hours and he is in a negative fluid balance. They lower extremity edema is improving. The patient is currently on oral Levaquin to 50 mg by mouth daily. He is also receiving DuoNeb about treatments around the clock and Symbicort maintenance. The echocardiogram was completed and showed a left ventricle systolic ejection fraction of around 55-60%. The LAD was moderately dilated. The patient had a right ventricular systolic pressure of 51 mmHg. This was consistent with moderate to severe pulmonary hypertension. He also has a mild concentric left ventricular hypertrophy. On 06/07/2016 the patient is feeling better. The patient is less short of breath. We were able to wean down the FiO2 down to 6 L of oxygen nasal cannula and when the process of weaning it further as long as the pulse ox remained above 90%. He has no chest pain. No significant cough or sputum production. Lower extremity edema is also improving. The patient is seen again today 2016 in follow-up on the regular medical floor. He is awake and alert in no acute distress. He is still having issues with oxygen desaturations. He had been on 4 L throughout the evening until earlier this morning he had dropped his sats in the 70s just while sitting at rest. He is currently on 8 L of high flow nasal cannula again. A computed tomography scan of the chest was ordered and revealed extensive pulmonary interstitial infiltrates and emphysema. Most likely congestive heart failure versus fibrosis as his previous chest x-ray did not reveal any evidence of fibrosis. The patient is seen again today 06/09/2016 in follow-up. His chest x-ray shows improvement of the pulmonary edema. He was maintained on Lasix 40 mg IV every 8 hours the past 24 hours. He is more awake and alert in no acute distress. He is down to 6 L of high flow nasal cannula to maintain O2 saturations in the 90s. He is afebrile. His creatinine is stable at 1.38. His hemoglobin is stable at 9.3. The patient is seen again today 06/10/2016 in follow-up on the regular medical floor. He is resting comfortably in bed. He was actually laying flat without any acute pulmonary distress. He is still requiring 6 L of high flow nasal cannula. Once it was decreased to 5 or 4 he was into the 70s on his saturations. His x-ray did show resolving changes of pulmonary edema. Labs are pending. Objective - Vital Signs Vital signs: Vital Signs Temp 97.0 F L 06/10/16 07:00 Pulse 76 06/10/16 12:06 Resp 18 06/10/16 08:00 BP 172/78 06/10/16 07:00 Pulse Ox 92 L 06/10/16 09:02 Intake & Output 06/09/16 06/10/16 06/10/16 18:59 06:59 18:59 Intake Total 500 240 Output Total 3 1800 100 Balance 497 -1560 -100 Weight 82.2 kg 82.2 kg Intake: Oral 500 240 Output: Urine 3 1800 100 Other: Voiding Method Toilet Toilet Toilet Urinal Urinal Urinal # Voids 2 2 # Bowel Movements 1 - Exam Head exam was generally normal. There was no scleral icterus or corneal arcus. Mucous membranes were moist.Neck was supple and without jugular venous distension, thyromegaly, or carotid bruits. Carotids were easily palpable bilaterally. There was no adenopathy. Lung sounds are diminished bilaterally along with some bibasilar crackles. Few scattered external wheeze.Cardiac exam revealed the PMI to be normally situated and sized. The rhythm was regular and no extrasystoles were noted during several minutes of auscultation. The first and second heart sounds were normal and physiologic splitting of the second heart sound was noted. There were no murmurs, rubs, clicks, or gallops.Abdominal exam revealed normal bowel sounds. The abdomen was soft, non- tender, and without masses, organomegaly, or appreciable enlargement of the abdominal aorta.Examination of the extremities revealed easily palpable radial, femoral and pedal pulses. There was no cyanosis, clubbing or edema. - Labs CBC & Chem 7: 06/09/16 07:02 06/10/16 12:17 Labs: Abnormal Lab Results - Last 24 Hours (Table) 06/09/16 06/09/16 06/10/16 Range/Units 16:43 20:45 06:51 Carbon Dioxide (22-30) mmol/L POC Glucose (mg/dL) 120 H 150 H 183 H (75-99) mg/dL 06/10/16 Range/Units 12:17 Carbon Dioxide 31 H (22-30) mmol/L POC Glucose (mg/dL) (75-99) mg/dL Assessment and Plan Plan: Assessment 1 acute hypoxic respiratory failure/shortness of breath, multifactorial, improving and the patient's oxygenation has improved and the FiO2 is down to 6 L of oxygen nasal cannula 2 acute exacerbation of diastolic CHF. He was resumed on IV Lasix yesterday and today's chest x-ray shows improvement of the pulmonary edema. 3 COPD 4 coronary artery disease with previous bypass surgery 2007 5 diabetes mellitus 6 hypertension 7 hyperlipidemia 8 pulmonary hypertension which is essentially of a secondary in nature with moderately elevated PA pressures 9 chronic normocytic/microcytic anemia 10 chronic renal insufficiency Plan: The patient was seen and evaluated by Dr. Gaona. The patient's chest x-ray did receive by mouth resolving congestive heart failure. However, the patient still requires at least 6 L of high flow nasal cannula to maintain O2 saturations greater than 90%. We'll continue with IV diuretics another 24 hours. We'll repeat his chest x-ray and labs in the a.m. We'll continue to follow.
[2016-06-10 14:26] LABS: Blood Urea Nitrogen 44 mg/dL (9-20); Non-African American GFR(MDRD) 51 (>60 ml/min/1.73 sqM)
[2016-06-10 17:08] LABS: Glucose,Whole Blood 126 mg/dL (75-99)
--- NOTE | 2016-06-10 19:35 | PN ---
DATE OF SERVICE: 06/10/2016 I am covering for Dr. Stevo Mercado. This 81-year-old gentleman was admitted with shortness of breath, possible multifactorial with congestive heart failure, acute exacerbation as well as acute on chronic diastolic dysfunction, pulmonary edema and COPD acute exacerbation complains of generalized tiredness and weakness also. The patient also had a chest CT. Pulmonary is following the patient closely. Chest CT showed extensive pulmonary interstitial infiltrate and emphysema and as well as possibly idiopathic fibrosis as well as mild mediastinal adenopathy, cardiomegaly with bilateral pleural effusion also noted. The patient was also seen by Dr. Gaona as mentioned earlier and Dr. Gaona thought the shortness of breath was possibly multifactorial and recommended continue with bronchodilators and high flow nasal cannula and the patient is also complaining of tiredness and weakness. Past medical history reviewed. REVIEW OF SYSTEMS: ENT: Diminishing hearing, diminished vision. CARDIOVASCULAR: As mentioned earlier. RESPIRATORY: As mentioned earlier. GI: No nausea. : No dysuria. Nervous system: No numbness or weakness. Current medications are reviewed and include: 1. DuoNeb q.i.d. and p.r.n. 2. Aspirin 81 mg daily. 3. Lipitor 40 mg daily. 4. Symbicort 160/4.5 2 puffs. 5. Iron sulfate 320 mg daily. 6. Folic acid 1 mg daily. 7. Lasix 40 mg IV q.8. 8. Amaryl 4 mg p.o. b.i.d. 9. Humalog. 10. Imdur. 11. Levaquin. 12. Tradjenta. 13. Cozaar. 14. Lopressor. 15. Multivitamins. 16. Ditropan 5 mg p.o. b.i.d. 17. Protonix 40 mg daily. 18. Thiamine 100 mg daily. PHYSICAL EXAMINATION: The patient is alert and oriented times three. Pulse is 99, blood pressure 117/74, respirations 18, temperature 98.2, pulse ox 87% on 10 liters. HEENT: Conjunctivae normal. Oral mucosal moist. NECK: No jugular venous distention. No carotid bruit. No lymph node enlargement. CARDIOVASCULAR: S1, S2 muffled. RESPIRATORY: Breath sounds diminished at the bases. Bilateral scattered rhonchi and crackles. ABDOMEN: Soft, nontender. Legs: Minimal edema and erythema. CENTRAL NERVOUS SYSTEM: Diffusely weak. Labs at this time shows: Sodium 140, potassium 4.4, creatinine is 1.35. ASSESSMENT: 1. Shortness of breath multifactorial, possible chronic obstructive pulmonary disease exacerbation as well as congestive heart failure acute exacerbation, with acute on chronic diastolic dysfunction, ejection fraction about 55 to 60%. 2. Mild valvular abnormalities. 3. History of chronic obstructive pulmonary disease. 4. History of CAPD chronic obstructive pulmonary disease. 5. History of coronary artery disease, coronary artery bypass grafting. 6. History of diabetes type 2. 7. Hypertension. 8. Hyperlipidemia. 9. Macular degeneration. 10. Bowel obstruction. 11. Remote history of nicotine dependence. 12. Change in mental status, metabolic encephalopathy, multifactorial. 13. Increased creatinine with renal failure. 14. Anemia, normocytic anemia of chronic disease. 15. Hypoglycemia. RECOMMENDATIONS AND DISCUSSION: In this 81-year-old gentleman who presented with multiple complex medical issues, we will monitor the patient closely, continue the current medications. Continue symptomatic treatment. Continue bronchodilators. Continue the rest of the medications. I would also get PT/OT evaluation. Continue antibiotics. Evaluate for possible ECF rehab. Guarded prognosis because of multiple complex medical issues. Further recommendations to follow. MTDD
[2016-06-10 21:15] LABS: Glucose,Whole Blood 220 mg/dL (75-99)
--- NOTE | 2016-06-11 07:28 | XR ---
EXAMINATION TYPE: XR chest 1V portable DATE OF EXAM: 06/11/2016 6:58 AM Comparison: 06/09/2016 Clinical History: 81-year-old male CHF Findings: Median sternotomy wires. Heart remains upper limits of normal in size. Interstitial opacities and yevgeniy e Chay B lines. Some areas of opacity are slightly more confluent as compared to prior exam such as at the left base and peripheral right mid lung. There may be a trace left pleural effusion. Impression: Findings suggest CHF with interstitial pulmonary edema, stable to slightly worsened.
[2016-06-11 07:31] LABS: Anisocytosis Slight; Basophils % (A) 0 %; CH 24.5; Eosinophils % (A) 0 %; HCT 27.3 % (39.0-53.0); HDW 3.46; HGB 8.6 gm/dL (13.0-17.5); Hypochromasia Marked; Luc # (Auto) 0.23; Luc % (Auto) 3; Lymphocytes # (A) 0.3 k/uL (1.0-4.8); Lymphocytes % (A) 4 %; MCH 25.8 pg (25.0-35.0); MCHC 31.5 g/dL (31.0-37.0); MCV 81.9 fL (80.0-100.0); Mean Platelet Volume 9.6; Microcytosis Slight; Monocytes # (A) 0.5 k/uL (0-1.0); Monocytes % (A) 7 %; Neutrophils % (A) 85 %; Poikilocytosis Slight; RBC 3.34 m/uL (4.30-5.90); RDW 18.5 % (11.5-15.5); WBC 7.1 k/uL (3.8-10.6); WBC (Perox) 7.01
[2016-06-11 07:51] LABS: Calcium 8.1 mg/dL (8.4-10.2); Potassium 4.1 mmol/L (3.5-5.1)
[2016-06-11 08:04] LABS: Glucose,Whole Blood 155 mg/dL (75-99)
[2016-06-11] MEDS: INSULIN LISPRO (humaLOG) 300 UNIT/3 ML VIAL SQ SCH ×4 (08:28→21:28)
[2016-06-11] MEDS: LOSARTAN 25 MG TAB PO SCH (08:29)
[2016-06-11] MEDS: FUROSEMIDE 10 MG/ML 4 ML VIAL IV SCH ×3 (08:29→22:59)
[2016-06-11] MEDS: hydrALAZINE HCL 50 MG TAB PO SCH ×2 (08:29→21:22)
[2016-06-11] MEDS: PANTOPRAZOLE 40 MG TABLET PO SCH (08:29)
[2016-06-11] MEDS: ASPIRIN 81 MG CHEW PO SCH (08:29)
[2016-06-11] MEDS: GLIMEPIRIDE 4 MG TAB PO SCH ×2 (08:30→21:21)
[2016-06-11] MEDS: LINAGLIPTIN 5 MG TABLET PO SCH (08:30)
[2016-06-11] MEDS: LEVOFLOXACIN 250 MG TAB PO SCH (08:30)
[2016-06-11] MEDS: FERROUS SULFATE 325 MG TAB PO SCH (08:30)
[2016-06-11] MEDS: ISOSORBIDE MONONITRATE ER 30 MG TAB.ER.24H PO SCH (08:30)
[2016-06-11] MEDS: ATORVASTATIN 40 MG TAB PO SCH (08:30)
[2016-06-11] MEDS: METOPROLOL TARTRATE 50 MG TAB PO SCH ×2 (08:31→21:21)
[2016-06-11] MEDS: OXYBUTYNIN CHLORIDE 5 MG TAB PO SCH ×2 (08:31→21:22)
[2016-06-11] MEDS: IPRATROPIUM-ALBUTEROL 3 ML NEB INHALATION SCH ×4 (09:13→21:40)
[2016-06-11] MEDS: SYMBICORT 160-4.5 MCG INHALER INHALATION SCH ×2 (09:13→21:40)
[2016-06-11 12:16] LABS: Glucose,Whole Blood 137 mg/dL (75-99)
--- NOTE | 2016-06-11 13:07 | P.PN ---
Subjective This is a pleasant 81-year-old gentleman who has a known history of diabetes, hypertension, hyperlipidemia, coronary artery disease with prior bypass surgery in 2007 where he underwent a COLLINS to the LAD, saphenous vein graft to the RCA, saphenous vein graft to the diagonal. Most recent Jennifer scan was performed in June of last year which was reported to be normal. Most of the history was obtained from the medical record, patient is unsure of where he is alone why he is here. According to the chart, patient was admitted to the hospital with symptoms of shortness of breath, he had apparently just recently been at [facility] with similar symptoms. Chest x-ray on admission here revealed findings consistent with advanced cardiogenic interstitial pulmonary edema with areas of alveolar pulmonary edema and a right sided pleural effusion. White blood cell count on admission 16,000, 8.7 this morning. Hemoglobin on admission 8.6, 7.6 this morning. Potassium 5.2, BUN 75 , creatinine 1.7, BNP level 17,800.Troponins 0.14, 0.18, .14. Blood pressure 150/60, heart rate in the 80s, 74% on 4 L on admission.The patient was initially on a Ventimask and he was admitted to the telemetry unit for further monitoring and treatment. Over the past 24 hours, the patient was treated for a combination of COPD and CHF exacerbation. I think is predominantly in CHF. He is still making good urine output. He is on 40 mg of IV Lasix every 8 hours and he is in a negative fluid balance. They lower extremity edema is improving. The patient is currently on oral Levaquin to 50 mg by mouth daily. He is also receiving DuoNeb about treatments around the clock and Symbicort maintenance. The echocardiogram was completed and showed a left ventricle systolic ejection fraction of around 55-60%. The LAD was moderately dilated. The patient had a right ventricular systolic pressure of 51 mmHg. This was consistent with moderate to severe pulmonary hypertension. He also has a mild concentric left ventricular hypertrophy. On 06/07/2016 the patient is feeling better. The patient is less short of breath. We were able to wean down the FiO2 down to 6 L of oxygen nasal cannula and when the process of weaning it further as long as the pulse ox remained above 90%. He has no chest pain. No significant cough or sputum production. Lower extremity edema is also improving. The patient is seen again today 2016 in follow-up on the regular medical floor. He is awake and alert in no acute distress. He is still having issues with oxygen desaturations. He had been on 4 L throughout the evening until earlier this morning he had dropped his sats in the 70s just while sitting at rest. He is currently on 8 L of high flow nasal cannula again. A computed tomography scan of the chest was ordered and revealed extensive pulmonary interstitial infiltrates and emphysema. Most likely congestive heart failure versus fibrosis as his previous chest x-ray did not reveal any evidence of fibrosis. The patient is seen again today 06/09/2016 in follow-up. His chest x-ray shows improvement of the pulmonary edema. He was maintained on Lasix 40 mg IV every 8 hours the past 24 hours. He is more awake and alert in no acute distress. He is down to 6 L of high flow nasal cannula to maintain O2 saturations in the 90s. He is afebrile. His creatinine is stable at 1.38. His hemoglobin is stable at 9.3. The patient is seen again today 06/10/2016 in follow-up on the regular medical floor. He is resting comfortably in bed. He was actually laying flat without any acute pulmonary distress. He is still requiring 6 L of high flow nasal cannula. Once it was decreased to 5 or 4 he was into the 70s on his saturations. His x-ray did show resolving changes of pulmonary edema. Labs are pending. The patient was seen again today 06/11/2016 in follow-up on the regular medical floor. Upon our arrival to the room the patient's oxygen was off and he was quite hypoxic. His saturation was 42% on room air. He was quickly placed back on high flow nasal cannula at 4 L and his saturations were is back up in the 90s. He does get quite dyspneic on minimal exertion. He has a dry nonproductive cough. His chest x-ray continues to show evidence of interstitial edema though an atypical pneumonia is not entirely excluded nor is postinfectious ARDS. He has been slow to improve but is now tolerating less oxygen requirements. He remains on diuretics. Current creatinine 1.51. Objective - Vital Signs Vital signs: Vital Signs Temp 98.7 F 06/11/16 07:00 Pulse 98 06/11/16 09:26 Resp 20 06/11/16 07:00 BP 132/73 06/11/16 07:00 Pulse Ox 93 L 06/11/16 09:13 Intake & Output 06/10/16 06/11/16 06/11/16 18:59 06:59 18:59 Intake Total 650 240 Output Total 700 Balance -50 240 Weight 82.2 kg Intake: Oral 650 240 Output: Urine 700 Other: Voiding Method Toilet Toilet Urinal Urinal # Voids 600 3 # Bowel Movements 0 - Exam Head exam was generally normal. There was no scleral icterus or corneal arcus. Mucous membranes were moist.Neck was supple and without jugular venous distension, thyromegaly, or carotid bruits. Carotids were easily palpable bilaterally. There was no adenopathy. Lung sounds are diminished bilaterally along with some bibasilar crackles. Few scattered external wheeze.Cardiac exam revealed the PMI to be normally situated and sized. The rhythm was regular and no extrasystoles were noted during several minutes of auscultation. The first and second heart sounds were normal and physiologic splitting of the second heart sound was noted. There were no murmurs, rubs, clicks, or gallops.Abdominal exam revealed normal bowel sounds. The abdomen was soft, non- tender, and without masses, organomegaly, or appreciable enlargement of the abdominal aorta.Examination of the extremities revealed easily palpable radial, femoral and pedal pulses. There was no cyanosis, clubbing or edema. - Labs CBC & Chem 7: 06/11/16 06:55 06/11/16 06:55 Labs: Abnormal Lab Results - Last 24 Hours (Table) 06/10/16 06/10/16 06/10/16 Range/Units 12:17 17:03 21:14 RBC (4.30-5.90) m/uL Hgb (13.0-17.5) gm/dL Hct (39.0-53.0) % RDW (11.5-15.5) % Plt Count (150-450) k/uL Lymphocytes # (1.0-4.8) k/uL Carbon Dioxide (22-30) mmol/L BUN 44 H (9-20) mg/dL Creatinine 1.35 H (0.66-1.25) mg/dL Glucose (74-99) mg/dL POC Glucose (mg/dL) 126 H 220 H (75-99) mg/dL Calcium (8.4-10.2) mg/dL 06/11/16 06/11/16 06/11/16 Range/Units 06:55 06:55 07:31 RBC 3.34 L (4.30-5.90) m/uL Hgb 8.6 L (13.0-17.5) gm/dL Hct 27.3 L (39.0-53.0) % RDW 18.5 H (11.5-15.5) % Plt Count 116 L (150-450) k/uL Lymphocytes # 0.3 L (1.0-4.8) k/uL Carbon Dioxide 31 H (22-30) mmol/L BUN 46 H (9-20) mg/dL Creatinine 1.51 H (0.66-1.25) mg/dL Glucose 151 H (74-99) mg/dL POC Glucose (mg/dL) 155 H (75-99) mg/dL Calcium 8.1 L (8.4-10.2) mg/dL 06/11/16 Range/Units 12:12 RBC (4.30-5.90) m/uL Hgb (13.0-17.5) gm/dL Hct (39.0-53.0) % RDW (11.5-15.5) % Plt Count (150-450) k/uL Lymphocytes # (1.0-4.8) k/uL Carbon Dioxide (22-30) mmol/L BUN (9-20) mg/dL Creatinine (0.66-1.25) mg/dL Glucose (74-99) mg/dL POC Glucose (mg/dL) 137 H (75-99) mg/dL Calcium (8.4-10.2) mg/dL Assessment and Plan Plan: Assessment 1 acute hypoxic respiratory failure/shortness of breath, multifactorial, improving and the patient's oxygenation has improved and the FiO2 is down to 4 L of oxygen nasal cannula 2 acute exacerbation of diastolic CHF. He was resumed on IV Lasix yesterday and today's chest x-ray shows improvement of the pulmonary edema. 3 COPD 4 coronary artery disease with previous bypass surgery 2007 5 diabetes mellitus 6 hypertension 7 hyperlipidemia 8 pulmonary hypertension which is essentially of a secondary in nature with moderately elevated PA pressures 9 chronic normocytic/microcytic anemia 10 chronic renal insufficiency Plan: The patient was seen and evaluated by Dr. Gaona. Chest x-ray does show continued interstitial edema however atypical pneumonia and post infectious ARDS remains in the differential. However, the patient still requires at least 4 L of high flow nasal cannula to maintain O2 saturations greater than 90%. We' ll continue with IV diuretics another 24 hours. We'll continue to follow.
[2016-06-11] MEDS: FOLIC ACID 1 MG TAB PO SCH (13:20)
[2016-06-11] MEDS: THIAMINE 100 MG TAB PO SCH (13:20)
[2016-06-11] MEDS: MULTIVITAMINS, THERA 1 EACH TAB PO SCH (13:20)
[2016-06-11 17:25] LABS: Glucose,Whole Blood 74 mg/dL (75-99)
[2016-06-11 21:43] LABS: Glucose,Whole Blood 65 mg/dL (75-99)
[2016-06-11 22:02] LABS: Glucose,Whole Blood 65 mg/dL (75-99)
[2016-06-11 22:02] LABS: Glucose,Whole Blood 97 mg/dL (75-99)
[2016-06-12] MEDS: IPRATROPIUM-ALBUTEROL 3 ML NEB INHALATION SCH ×4 (07:10→19:59)
[2016-06-12] MEDS: SYMBICORT 160-4.5 MCG INHALER INHALATION SCH ×2 (07:10→19:59)
[2016-06-12 07:21] LABS: Anisocytosis Slight; Aty Lym Flag Slight; Basophils % (A) 0 %; CH 24.8; CHCM 30.1; Eosinophils % (A) 1 %; HCT 27.3 % (39.0-53.0); HDW 3.34; HGB 8.1 gm/dL (13.0-17.5); Hypochromasia Marked; Luc % (Auto) 5; Lymphocytes # (A) 0.4 k/uL (1.0-4.8); Lymphocytes % (A) 7 %; MCH 24.7 pg (25.0-35.0); MCHC 29.8 g/dL (31.0-37.0); MCV 82.8 fL (80.0-100.0); Mean Platelet Volume 9.7; Monocytes # (A) 0.6 k/uL (0-1.0); Monocytes % (A) 9 %; Neutrophils % (A) 79 %; RBC 3.29 m/uL (4.30-5.90); RDW 18.7 % (11.5-15.5); WBC 6.3 k/uL (3.8-10.6); WBC (Perox) 6.63
[2016-06-12 07:31] LABS: Glucose,Whole Blood 51 mg/dL (75-99)
[2016-06-12 07:52] LABS: Glucose,Whole Blood 69 mg/dL (75-99)
[2016-06-12 07:54] LABS: Calcium 7.9 mg/dL (8.4-10.2); Potassium 4.2 mmol/L (3.5-5.1)
[2016-06-12 08:18] LABS: Ovalocytes Present; Polychromasia Present; Stomatocytes Present
[2016-06-12 08:33] LABS: Glucose,Whole Blood 130 mg/dL (75-99)
[2016-06-12 08:33] LABS: Glucose,Whole Blood 148 mg/dL (75-99)
[2016-06-12] MEDS: ISOSORBIDE MONONITRATE ER 30 MG TAB.ER.24H PO SCH (08:51)
[2016-06-12] MEDS: LEVOFLOXACIN 250 MG TAB PO SCH (08:51)
[2016-06-12] MEDS: hydrALAZINE HCL 50 MG TAB PO SCH ×2 (08:51→21:47)
[2016-06-12] MEDS: LINAGLIPTIN 5 MG TABLET PO SCH (08:51)
[2016-06-12] MEDS: OXYBUTYNIN CHLORIDE 5 MG TAB PO SCH ×2 (08:51→21:47)
[2016-06-12] MEDS: METOPROLOL TARTRATE 50 MG TAB PO SCH ×2 (08:51→21:48)
[2016-06-12] MEDS: FERROUS SULFATE 325 MG TAB PO SCH (08:52)
[2016-06-12] MEDS: PANTOPRAZOLE 40 MG TABLET PO SCH (08:52)
[2016-06-12] MEDS: FUROSEMIDE 10 MG/ML 4 ML VIAL IV SCH (08:52)
[2016-06-12] MEDS: ASPIRIN 81 MG CHEW PO SCH (08:52)
[2016-06-12] MEDS: INSULIN LISPRO (humaLOG) 300 UNIT/3 ML VIAL SQ SCH ×4 (08:52→20:49)
[2016-06-12] MEDS: GLIMEPIRIDE 4 MG TAB PO SCH (08:52)
[2016-06-12] MEDS: ATORVASTATIN 40 MG TAB PO SCH (08:53)
[2016-06-12] MEDS: LOSARTAN 25 MG TAB PO SCH (08:53)
--- NOTE | 2016-06-12 10:27 | PN ---
DATE OF SERVICE: 06/11/2016 I am covering for Dr. Stevo Mercado. This 81-year-old gentleman who was admitted with shortness of breath as well as congestive heart failure acute exacerbation is being closely monitored. The most recent chest x-ray done today showed congestive heart failure with interstitial pulmonary edema possibly slightly worsen. Pulmonary is following the patient closely. IV Lasix resumed today and the patient being closely monitored at this time. Patient is mildly confused. The patient also weak and tired and ECF rehab is also an option. Patient is being worked up for the same. PT/OT is following the patient. Past medical history reviewed. REVIEW OF SYSTEMS: CARDIOVASCULAR: No angina or palpitations. RESPIRATORY: As mentioned earlier. GI: No nausea. : No dysuria. CENTRAL NERVOUS SYSTEM: No numbness, weakness. Current medications are reviewed and include: 1. Duoneb q.i.d. and p.r.n. 2. Aspirin 81 mg daily. 3. Lipitor 40 mg daily. 4. Symbicort 160/4.5 2 puffs b.i.d. 5. Iron sulfate 320 mg. 6. Folic acid 1 mg p.o. daily. 7. Lasix 40 mg IV every 8 hours. 8. Amaryl 4 mg p.o. b.i.d. 9. Apresoline 50 mg b.i.d. 11. Imdur 30 mg daily. 12. Levaquin 250 mg p.o. daily. 13. Tradjenta 5 mg p.o. daily. 14. Cozaar 25 mg p.o. daily. 15. Lopressor 50 mg p.o. daily. 16. Multivitamins one p.o. daily. 17. Ditropan 5 mg p.o. b.i.d. 18. Protonix 40 mg p.o. daily. 19. Vitamin B 100 mg p.o. daily. PHYSICAL EXAMINATION: The patient is alert and oriented x3, pulse 76, blood pressure 110/59 and respiratory rate 16, temperature 97.4, pulse ox 100% on 15 L high flow. HEENT: Conjunctivae normal. NECK: No jugular venous distention. CARDIOVASCULAR: S1, S2 muffled. RESPIRATORY: Breath sounds diminished at the bases. Bilateral scattered rhonchi and wheezing. ABDOMEN: Soft, nontender. EXTREMITIES: Legs no edema. CLINICAL TRIAL EDUCATOR: Diffusely weak. LABS: CO2 31, creatinine is 1.51. ASSESSMENT: 1. Shortness of breath possibly multifactorial congestive heart failure acute exacerbation with acute on chronic diastolic dysfunction, ejection fraction 50% to 60% with chronic obstructive pulmonary disease acute exacerbation, with acute hypoxic hypercarbic respiratory failure. 2. Mild valvular abnormalities. 3. History of chronic obstructive pulmonary disease. 4. History of coronary artery disease, coronary artery bypass grafting. 5. Diabetes mellitus type 2. 6. Hypertension. 7. Hyperlipidemia. 8. History of macular degeneration. 9. History of bowel obstruction. 11. Nicotine dependence. 12. Change in mental status, metabolic encephalopathy, multifactorial, acute on chronic. 13. Increased creatinine with renal failure. 14. Anemia, normocytic anemia of chronic disease. 15. Hypoglycemia. 16. FULL CODE. RECOMMENDATIONS AND DISCUSSION: In this 81-year-old gentleman who presented with multiple complex medical issues, we will monitor the patient closely, continue the current medications, continue symptomatic treatment. Otherwise, continue with IV diuretics. Monitor fluid and electrolytes balance closely. Continue the rest of the medications. Bronchodilators and empiric antibiotics. Closely follow with Dr. Gaona. PT/OT evaluation. Further recommendations to follow. MTDD
[2016-06-12 11:46] LABS: Glucose,Whole Blood 176 mg/dL (75-99)
[2016-06-12] MEDS: THIAMINE 100 MG TAB PO SCH (13:56)
[2016-06-12] MEDS: FOLIC ACID 1 MG TAB PO SCH (13:56)
[2016-06-12] MEDS: methylPREDNISolone SOD SUCCI 40 MG/ML 1 ML VIAL IV SCH ×3 (13:56→23:17)
[2016-06-12] MEDS: MULTIVITAMINS, THERA 1 EACH TAB PO SCH (13:56)
[2016-06-12 14:31] LABS: Hemoglobin A1C 6.1 % (4.2-6.1)
--- NOTE | 2016-06-12 15:57 | P.PN ---
Subjective This is a pleasant 81-year-old gentleman who has a known history of diabetes, hypertension, hyperlipidemia, coronary artery disease with prior bypass surgery in 2007 where he underwent a COLLINS to the LAD, saphenous vein graft to the RCA, saphenous vein graft to the diagonal. Most recent Jennifer scan was performed in June of last year which was reported to be normal. Most of the history was obtained from the medical record, patient is unsure of where he is alone why he is here. According to the chart, patient was admitted to the hospital with symptoms of shortness of breath, he had apparently just recently been at [facility] with similar symptoms. Chest x-ray on admission here revealed findings consistent with advanced cardiogenic interstitial pulmonary edema with areas of alveolar pulmonary edema and a right sided pleural effusion. White blood cell count on admission 16,000, 8.7 this morning. Hemoglobin on admission 8.6, 7.6 this morning. Potassium 5.2, BUN 75 , creatinine 1.7, BNP level 17,800.Troponins 0.14, 0.18, .14. Blood pressure 150/60, heart rate in the 80s, 74% on 4 L on admission.The patient was initially on a Ventimask and he was admitted to the telemetry unit for further monitoring and treatment. Over the past 24 hours, the patient was treated for a combination of COPD and CHF exacerbation. I think is predominantly in CHF. He is still making good urine output. He is on 40 mg of IV Lasix every 8 hours and he is in a negative fluid balance. They lower extremity edema is improving. The patient is currently on oral Levaquin to 50 mg by mouth daily. He is also receiving DuoNeb about treatments around the clock and Symbicort maintenance. The echocardiogram was completed and showed a left ventricle systolic ejection fraction of around 55-60%. The LAD was moderately dilated. The patient had a right ventricular systolic pressure of 51 mmHg. This was consistent with moderate to severe pulmonary hypertension. He also has a mild concentric left ventricular hypertrophy. On 06/07/2016 the patient is feeling better. The patient is less short of breath. We were able to wean down the FiO2 down to 6 L of oxygen nasal cannula and when the process of weaning it further as long as the pulse ox remained above 90%. He has no chest pain. No significant cough or sputum production. Lower extremity edema is also improving. The patient is seen again today 2016 in follow-up on the regular medical floor. He is awake and alert in no acute distress. He is still having issues with oxygen desaturations. He had been on 4 L throughout the evening until earlier this morning he had dropped his sats in the 70s just while sitting at rest. He is currently on 8 L of high flow nasal cannula again. A computed tomography scan of the chest was ordered and revealed extensive pulmonary interstitial infiltrates and emphysema. Most likely congestive heart failure versus fibrosis as his previous chest x-ray did not reveal any evidence of fibrosis. The patient is seen again today 06/09/2016 in follow-up. His chest x-ray shows improvement of the pulmonary edema. He was maintained on Lasix 40 mg IV every 8 hours the past 24 hours. He is more awake and alert in no acute distress. He is down to 6 L of high flow nasal cannula to maintain O2 saturations in the 90s. He is afebrile. His creatinine is stable at 1.38. His hemoglobin is stable at 9.3. The patient is seen again today 06/10/2016 in follow-up on the regular medical floor. He is resting comfortably in bed. He was actually laying flat without any acute pulmonary distress. He is still requiring 6 L of high flow nasal cannula. Once it was decreased to 5 or 4 he was into the 70s on his saturations. His x-ray did show resolving changes of pulmonary edema. Labs are pending. The patient was seen again today 06/11/2016 in follow-up on the regular medical floor. Upon our arrival to the room the patient's oxygen was off and he was quite hypoxic. His saturation was 42% on room air. He was quickly placed back on high flow nasal cannula at 4 L and his saturations were is back up in the 90s. He does get quite dyspneic on minimal exertion. He has a dry nonproductive cough. His chest x-ray continues to show evidence of interstitial edema though an atypical pneumonia is not entirely excluded nor is postinfectious ARDS. He has been slow to improve but is now tolerating less oxygen requirements. He remains on diuretics. Current creatinine 1.51. On 06/12/2016 the patient continues to be hypoxic. After some ability to wean down the FiO2, the patient overnight became hypoxic again and this morning was placed on 15 L. The chest x-ray is showing increased pulmonary vascular markings although I'm suspicious that this may be also a noncardiogenic pulmonary edema and this raises the suspicion for a postinfectious ARDS and for that reason I'm going to add systemic steroids. I noted the patient may becoming prerenal and for that reason I'm going to drop down his IV Lasix dose. Objective - Vital Signs Vital signs: Vital Signs Temp 97.3 F L 06/12/16 15:00 Pulse 90 06/12/16 15:00 Resp 20 06/12/16 15:00 BP 120/54 06/12/16 15:00 Pulse Ox 93 L 06/12/16 15:00 Intake & Output 06/11/16 06/12/16 06/12/16 18:59 06:59 18:59 Intake Total 400 240 Output Total 250 1275 1000 Balance 150 -1275 -760 Weight 82.2 kg Intake: Oral 400 240 Output: Urine 250 1275 1000 Other: Voiding Method Toilet Toilet Toilet Urinal Urinal Urinal # Voids 1 1 - Exam Head exam was generally normal. There was no scleral icterus or corneal arcus. Mucous membranes were moist.Neck was supple and without jugular venous distension, thyromegaly, or carotid bruits. Carotids were easily palpable bilaterally. There was no adenopathy. Lung sounds are diminished bilaterally along with some bibasilar crackles. Few scattered external wheeze.Cardiac exam revealed the PMI to be normally situated and sized. The rhythm was regular and no extrasystoles were noted during several minutes of auscultation. The first and second heart sounds were normal and physiologic splitting of the second heart sound was noted. There were no murmurs, rubs, clicks, or gallops.Abdominal exam revealed normal bowel sounds. The abdomen was soft, non- tender, and without masses, organomegaly, or appreciable enlargement of the abdominal aorta.Examination of the extremities revealed easily palpable radial, femoral and pedal pulses. There was no cyanosis, clubbing or edema. - Labs CBC & Chem 7: 06/12/16 07:03 06/12/16 07:03 Labs: Abnormal Lab Results - Last 24 Hours (Table) 06/11/16 06/11/16 06/11/16 Range/Units 17:23 21:26 21:44 RBC (4.30-5.90) m/uL Hgb (13.0-17.5) gm/dL Hct (39.0-53.0) % MCH (25.0-35.0) pg MCHC (31.0-37.0) g/dL RDW (11.5-15.5) % Plt Count (150-450) k/uL Lymphocytes # (1.0-4.8) k/uL BUN (9-20) mg/dL Creatinine (0.66-1.25) mg/dL Glucose (74-99) mg/dL POC Glucose (mg/dL) 74 L 65 L 65 L (75-99) mg/dL Calcium (8.4-10.2) mg/dL 06/12/16 06/12/16 06/12/16 Range/Units 07:03 07:03 07:29 RBC 3.29 L (4.30-5.90) m/uL Hgb 8.1 L (13.0-17.5) gm/dL Hct 27.3 L (39.0-53.0) % MCH 24.7 L (25.0-35.0) pg MCHC 29.8 L (31.0-37.0) g/dL RDW 18.7 H (11.5-15.5) % Plt Count 104 L (150-450) k/uL Lymphocytes # 0.4 L (1.0-4.8) k/uL BUN 45 H (9-20) mg/dL Creatinine 1.54 H (0.66-1.25) mg/dL Glucose 45 L* (74-99) mg/dL POC Glucose (mg/dL) 51 L (75-99) mg/dL Calcium 7.9 L (8.4-10.2) mg/dL 06/12/16 06/12/16 06/12/16 Range/Units 07:50 08:18 08:32 RBC (4.30-5.90) m/uL Hgb (13.0-17.5) gm/dL Hct (39.0-53.0) % MCH (25.0-35.0) pg MCHC (31.0-37.0) g/dL RDW (11.5-15.5) % Plt Count (150-450) k/uL Lymphocytes # (1.0-4.8) k/uL BUN (9-20) mg/dL Creatinine (0.66-1.25) mg/dL Glucose (74-99) mg/dL POC Glucose (mg/dL) 69 L 130 H 148 H (75-99) mg/dL Calcium (8.4-10.2) mg/dL 06/12/16 Range/Units 11:45 RBC (4.30-5.90) m/uL Hgb (13.0-17.5) gm/dL Hct (39.0-53.0) % MCH (25.0-35.0) pg MCHC (31.0-37.0) g/dL RDW (11.5-15.5) % Plt Count (150-450) k/uL Lymphocytes # (1.0-4.8) k/uL BUN (9-20) mg/dL Creatinine (0.66-1.25) mg/dL Glucose (74-99) mg/dL POC Glucose (mg/dL) 176 H (75-99) mg/dL Calcium (8.4-10.2) mg/dL Assessment and Plan Plan: Assessment 1 acute hypoxic respiratory failure/shortness of breath, multifactorial, After some limited improvement in the patient's oxygenation, we are back to high flow oxygen 10 L per minute nasal cannula. Earlier this morning he was on 15 L. As such I'm considering noncardiogenic pulmonary edema causing diffuse breath and pulmonary infiltrates and increased interstitial pulmonary markings. This may be potentially postinfectious in nature. The patient also has small bilateral pleural effusions for which she was diuresed aggressively without much improvement in his oxygenation. As such, cut down the IV Lasix and start the patient IV Solu Medrol. Keep same antibiotic coverage. Monitor the oxygenation. 2 acute CHF exacerbation. The patient has a component of diastolic heart failure 3 COPD 4 coronary artery disease with previous bypass surgery 2007 5 diabetes mellitus 6 hypertension 7 hyperlipidemia 8 pulmonary hypertension which is essentially of a secondary in nature with moderately elevated PA pressures 9 chronic normocytic/microcytic anemia 10 chronic renal insufficiency , creatinine stable at 1.5 Plan Weaned FiO2. Diuretics and cut down the Lasix dose to 40 mg IV every 24 hours.. Bronchodilators. Use incentive spirometer. Start the patient on systemic steroids. Keep same antibiotic coverage. Repeat chest x-ray with the next 24 hours. We'll continue to follow.
[2016-06-12 17:00] LABS: Glucose,Whole Blood 84 mg/dL (75-99)
[2016-06-12 20:21] LABS: Glucose,Whole Blood 100 mg/dL (75-99)
[2016-06-13] MEDS: methylPREDNISolone SOD SUCCI 40 MG/ML 1 ML VIAL IV SCH ×4 (05:15→23:22)
[2016-06-13 07:21] LABS: Glucose,Whole Blood 281 mg/dL (75-99)
[2016-06-13] MEDS: SYMBICORT 160-4.5 MCG INHALER INHALATION SCH ×2 (07:36→19:15)
[2016-06-13] MEDS: IPRATROPIUM-ALBUTEROL 3 ML NEB INHALATION SCH ×4 (07:36→19:15)
[2016-06-13 08:20] LABS: Potassium 4.7 mmol/L (3.5-5.1)
[2016-06-13 08:42] LABS: Anisocytosis Slight; Basophils % (A) 0 %; CH 24.1; CHCM 29.9; Eosinophils % (A) 0 %; HCT 28.9 % (39.0-53.0); HDW 3.44; HGB 9.1 gm/dL (13.0-17.5); Hypochromasia Marked; Luc # (Auto) 0.06; Luc % (Auto) 1; Lymphocytes # (A) 0.3 k/uL (1.0-4.8); Lymphocytes % (A) 5 %; MCH 25.5 pg (25.0-35.0); MCHC 31.5 g/dL (31.0-37.0); Mean Platelet Volume 9.9; Microcytosis Slight; Monocytes # (A) 0.2 k/uL (0-1.0); Monocytes % (A) 3 %; Neutrophils # (A) 5.5 k/uL (1.3-7.7); Neutrophils % (A) 91 %; Poikilocytosis Slight; RBC 3.57 m/uL (4.30-5.90); RDW 18.2 % (11.5-15.5); WBC 6.1 k/uL (3.8-10.6); WBC (Perox) 6.33
--- NOTE | 2016-06-13 08:48 | XR ---
EXAMINATION TYPE: XR chest 2V DATE OF EXAM: 06/13/2016 7:16 AM COMPARISON: 06/11/2016 INDICATION: Hypoxia previous abnormal chest TECHNIQUE: Single frontal view of the chest is obtained. FINDINGS: The heart size is normal. The pulmonary vasculature is prominent. There is increasing infiltrate present bilaterally. Correlate for pulmonary edema. Small left pleural effusion is present. Minimal right pleural effusion is likely present. Sternotomy wires are in the midline. IMPRESSION: 1. Clinical correlation recommended for pulmonary edema. Findings are worsening from yesterday.
[2016-06-13] MEDS: ISOSORBIDE MONONITRATE ER 30 MG TAB.ER.24H PO SCH (08:56)
[2016-06-13] MEDS: ASPIRIN 81 MG CHEW PO SCH (08:56)
[2016-06-13] MEDS: FERROUS SULFATE 325 MG TAB PO SCH (08:56)
[2016-06-13] MEDS: hydrALAZINE HCL 50 MG TAB PO SCH ×2 (08:56→20:33)
[2016-06-13] MEDS: LEVOFLOXACIN 250 MG TAB PO SCH (08:56)
[2016-06-13] MEDS: OXYBUTYNIN CHLORIDE 5 MG TAB PO SCH ×2 (08:56→20:33)
[2016-06-13] MEDS: PANTOPRAZOLE 40 MG TABLET PO SCH (08:57)
[2016-06-13] MEDS: METOPROLOL TARTRATE 50 MG TAB PO SCH ×2 (08:57→20:33)
[2016-06-13] MEDS: LOSARTAN 25 MG TAB PO SCH (08:57)
[2016-06-13] MEDS: ATORVASTATIN 40 MG TAB PO SCH (08:57)
[2016-06-13] MEDS: PSYLLIUM HUSK 100% 6 GM PACKET PO SCH (08:59)
[2016-06-13] MEDS ORDERED: FUROSEMIDE 10 MG/ML 4 ML VIAL IV SCH (09:00)
[2016-06-13] MEDS: INSULIN LISPRO (humaLOG) 300 UNIT/3 ML VIAL SQ SCH ×4 (09:02→20:33)
[2016-06-13 10:44] LABS: Manual Review Performed
--- NOTE | 2016-06-13 12:02 | PN ---
This 81-year-old gentleman admitted with congestive heart failure exacerbation had some worsening failure on the most recent chest x-ray. The patient is on IV diuretics. The patient is being closely monitored. No chest pain. No palpitations. On exam, alert and oriented times two. Pulse 90, blood pressure 122/( ). Respiratory rate 20. Temperature 97.3. Pulse ox 93% on 15 L nasal cannula high flow. HEENT: Conjunctivae normal. NECK: No jugular venous distention. CARDIOVASCULAR: S1, S2 muffled. RESPIRATORY: Breath sounds diminished at the bases. Bilateral scattered rhonchi and crackles. ABDOMEN: Soft, nontender. LEGS: No edema. No swelling. CENTRAL NERVOUS SYSTEM: No focal deficit. LABS: Hemoglobin 8.1. Glucose 45. ASSESSMENT: 1. Shortness of breath with possibly multifactorial with congestive heart failure exacerbation, acute on chronic diastolic dysfunction, ejection fraction 50 to 60% with chronic obstructive pulmonary disease acute exacerbation, with acute hypoxic hypercarbic respiratory failure. 2. History of multiple mild valvular abnormalities. 3. History of chronic obstructive pulmonary disease. 4. History of coronary artery disease, coronary artery bypass grafting. 5. Diabetes mellitus type 2. 6. Hypertension. 7. Hypoglycemic episodes. 8. Hyperlipidemia. 9. History of macular degeneration. 10. History of bowel obstruction. 11. Change in mental status metabolic encephalopathy, multifactorial, acute on chronic. 12. History of nicotine dependence. 13. Increased creatinine with renal failure. 14. Anemia, normocytic anemia of chronic disease. 15. FULL CODE. RECOMMENDATIONS AND DISCUSSION: In this 81-year-old gentleman who presented with multiple complex medical issues, we will monitor the patient closely. Continue the current medications and continue symptomatic treatment. Continue with IV diuresis. Otherwise, I would recommend hold the diabetic medications and ensure p.o. food and Accu-Cheks a.c. and at bedtime scale. Otherwise, continue to monitor. Guarded prognosis. Further recommendations to follow. IV steroids. Closely follow with Dr. Gaona. Guarded prognosis. Further recommendations to follow.
[2016-06-13 12:10] LABS: Glucose,Whole Blood 274 mg/dL (75-99)
[2016-06-13] MEDS: MULTIVITAMINS, THERA 1 EACH TAB PO SCH (13:04)
[2016-06-13] MEDS: THIAMINE 100 MG TAB PO SCH (13:04)
[2016-06-13] MEDS: FOLIC ACID 1 MG TAB PO SCH (13:04)
--- NOTE | 2016-06-13 14:44 | P.PN ---
Subjective Principal diagnosis: Acute hypoxic respiratory failure secondary to noncardiogenic pulmonary edema. This is a pleasant 81-year-old gentleman who has a known history of diabetes, hypertension, hyperlipidemia, coronary artery disease with prior bypass surgery in 2007 where he underwent a COLLINS to the LAD, saphenous vein graft to the RCA, saphenous vein graft to the diagonal. Most recent Jennifer scan was performed in June of last year which was reported to be normal. Most of the history was obtained from the medical record, patient is unsure of where he is alone why he is here. According to the chart, patient was admitted to the hospital with symptoms of shortness of breath, he had apparently just recently been at [facility] with similar symptoms. Chest x-ray on admission here revealed findings consistent with advanced cardiogenic interstitial pulmonary edema with areas of alveolar pulmonary edema and a right sided pleural effusion. White blood cell count on admission 16,000, 8.7 this morning. Hemoglobin on admission 8.6, 7.6 this morning. Potassium 5.2, BUN 75 , creatinine 1.7, BNP level 17,800.Troponins 0.14, 0.18, .14. Blood pressure 150/60, heart rate in the 80s, 74% on 4 L on admission.The patient was initially on a Ventimask and he was admitted to the telemetry unit for further monitoring and treatment. Over the past 24 hours, the patient was treated for a combination of COPD and CHF exacerbation. I think is predominantly in CHF. He is still making good urine output. He is on 40 mg of IV Lasix every 8 hours and he is in a negative fluid balance. They lower extremity edema is improving. The patient is currently on oral Levaquin to 50 mg by mouth daily. He is also receiving DuoNeb about treatments around the clock and Symbicort maintenance. The echocardiogram was completed and showed a left ventricle systolic ejection fraction of around 55-60%. The LAD was moderately dilated. The patient had a right ventricular systolic pressure of 51 mmHg. This was consistent with moderate to severe pulmonary hypertension. He also has a mild concentric left ventricular hypertrophy. On 06/07/2016 the patient is feeling better. The patient is less short of breath. We were able to wean down the FiO2 down to 6 L of oxygen nasal cannula and when the process of weaning it further as long as the pulse ox remained above 90%. He has no chest pain. No significant cough or sputum production. Lower extremity edema is also improving. The patient is seen again today 2016 in follow-up on the regular medical floor. He is awake and alert in no acute distress. He is still having issues with oxygen desaturations. He had been on 4 L throughout the evening until earlier this morning he had dropped his sats in the 70s just while sitting at rest. He is currently on 8 L of high flow nasal cannula again. A computed tomography scan of the chest was ordered and revealed extensive pulmonary interstitial infiltrates and emphysema. Most likely congestive heart failure versus fibrosis as his previous chest x-ray did not reveal any evidence of fibrosis. The patient is seen again today 06/09/2016 in follow-up. His chest x-ray shows improvement of the pulmonary edema. He was maintained on Lasix 40 mg IV every 8 hours the past 24 hours. He is more awake and alert in no acute distress. He is down to 6 L of high flow nasal cannula to maintain O2 saturations in the 90s. He is afebrile. His creatinine is stable at 1.38. His hemoglobin is stable at 9.3. The patient is seen again today 06/10/2016 in follow-up on the regular medical floor. He is resting comfortably in bed. He was actually laying flat without any acute pulmonary distress. He is still requiring 6 L of high flow nasal cannula. Once it was decreased to 5 or 4 he was into the 70s on his saturations. His x-ray did show resolving changes of pulmonary edema. Labs are pending. The patient was seen again today 06/11/2016 in follow-up on the regular medical floor. Upon our arrival to the room the patient's oxygen was off and he was quite hypoxic. His saturation was 42% on room air. He was quickly placed back on high flow nasal cannula at 4 L and his saturations were is back up in the 90s. He does get quite dyspneic on minimal exertion. He has a dry nonproductive cough. His chest x-ray continues to show evidence of interstitial edema though an atypical pneumonia is not entirely excluded nor is postinfectious ARDS. He has been slow to improve but is now tolerating less oxygen requirements. He remains on diuretics. Current creatinine 1.51. On 06/12/2016 the patient continues to be hypoxic. After some ability to wean down the FiO2, the patient overnight became hypoxic again and this morning was placed on 15 L. The chest x-ray is showing increased pulmonary vascular markings although I'm suspicious that this may be also a noncardiogenic pulmonary edema and this raises the suspicion for a postinfectious ARDS and for that reason I'm going to add systemic steroids. I noted the patient may becoming prerenal and for that reason I'm going to drop down his IV Lasix dose. On 06/13/2016, patient remains hypoxic, however we were able to taper down the FiO2 to 5 L nasal cannula. Chest x-ray continues to show evidence of interstitial edema, and the patient remains on steroids and on diuretics as well as antibiotics. He is feeling better, and he is wondering if he could be discharged home anytime soon. Objective - Vital Signs Vital signs: Vital Signs Temp 97.6 F 06/13/16 07:00 Pulse 84 06/13/16 11:22 Resp 16 06/13/16 07:00 BP 154/72 06/13/16 07:00 Pulse Ox 98 06/13/16 10:27 Intake & Output 06/12/16 06/13/16 06/13/16 18:59 06:59 18:59 Intake Total 240 240 Output Total 1800 300 Balance -1560 240 -300 Weight 82.2 kg 82.2 kg Intake: Oral 240 240 Output: Urine 1800 300 Other: Voiding Method Toilet Toilet Urinal Urinal # Voids 1 2 - Exam Head exam was generally normal. There was no scleral icterus or corneal arcus. Mucous membranes were moist.Neck was supple and without jugular venous distension, thyromegaly, or carotid bruits. Carotids were easily palpable bilaterally. There was no adenopathy. Lung sounds are diminished bilaterally along with some bibasilar crackles. Few scattered external wheeze.Cardiac exam revealed the PMI to be normally situated and sized. The rhythm was regular and no extrasystoles were noted during several minutes of auscultation. The first and second heart sounds were normal and physiologic splitting of the second heart sound was noted. There were no murmurs, rubs, clicks, or gallops.Abdominal exam revealed normal bowel sounds. The abdomen was soft, non- tender, and without masses, organomegaly, or appreciable enlargement of the abdominal aorta.Examination of the extremities revealed easily palpable radial, femoral and pedal pulses. There was no cyanosis, clubbing or edema. - Labs CBC & Chem 7: 06/13/16 07:19 06/13/16 07:19 Labs: Abnormal Lab Results - Last 24 Hours (Table) 06/12/16 06/13/16 06/13/16 Range/Units 20:19 07:19 07:19 RBC 3.57 L (4.30-5.90) m/uL Hgb 9.1 L (13.0-17.5) gm/dL Hct 28.9 L (39.0-53.0) % RDW 18.2 H (11.5-15.5) % Plt Count 98 L (150-450) k/uL Lymphocytes # 0.3 L (1.0-4.8) k/uL BUN 49 H (9-20) mg/dL Creatinine 1.45 H (0.66-1.25) mg/dL Glucose 254 H (74-99) mg/dL POC Glucose (mg/dL) 100 H (75-99) mg/dL Calcium 8.0 L (8.4-10.2) mg/dL 06/13/16 06/13/16 Range/Units 07:19 12:09 RBC (4.30-5.90) m/uL Hgb (13.0-17.5) gm/dL Hct (39.0-53.0) % RDW (11.5-15.5) % Plt Count (150-450) k/uL Lymphocytes # (1.0-4.8) k/uL BUN (9-20) mg/dL Creatinine (0.66-1.25) mg/dL Glucose (74-99) mg/dL POC Glucose (mg/dL) 281 H 274 H (75-99) mg/dL Calcium (8.4-10.2) mg/dL Assessment and Plan Plan: 1 acute hypoxic respiratory failure/shortness of breath, multifactorial, After some limited improvement in the patient's oxygenation, we are back to high flow oxygen 10 L per minute nasal cannula. Earlier this morning he was on 15 L. As such I'm considering noncardiogenic pulmonary edema causing diffuse breath and pulmonary infiltrates and increased interstitial pulmonary markings. This may be potentially postinfectious in nature. The patient also has small bilateral pleural effusions for which she was diuresed aggressively without much improvement in his oxygenation. As such, cut down the IV Lasix and start the patient IV Solu Medrol. Keep same antibiotic coverage. Monitor the oxygenation. 2 acute CHF exacerbation. The patient has a component of diastolic heart failure 3 COPD 4 coronary artery disease with previous bypass surgery 2007 5 diabetes mellitus 6 hypertension 7 hyperlipidemia 8 pulmonary hypertension which is essentially of a secondary in nature with moderately elevated PA pressures 9 chronic normocytic/microcytic anemia 10 chronic renal insufficiency , creatinine stable at 1.5 Recommendation: Continue diuretics, steroids, bronchodilators, continue to taper the FiO2 down, and hopefully consider discharge planning in the next 24- 48 hours. Time with Patient: Less than 30
[2016-06-13 16:55] LABS: Glucose,Whole Blood 189 mg/dL (75-99)
[2016-06-13] MEDS: FUROSEMIDE 10 MG/ML 4 ML VIAL IV SCH (17:33)
[2016-06-13 20:03] LABS: Glucose,Whole Blood 259 mg/dL (75-99)
--- NOTE | 2016-06-13 23:29 | PN ---
DATE OF SERVICE: 06/13/2016 This 81-year-old gentleman who was admitted with CHF, acute exacerbation, also worsening on the chest x-ray. The most recent chest x-ray shows bilateral CHF. Dr. Garcia is following the patient closely. Lasix dose has been increased. The patient complains of tiredness and weakness. ECF rehab is also a possibility. PHYSICAL EXAMINATION: Patient is alert and oriented x2. Pulse 84, blood pressure 150/73, respiration 18, temperature 97.3, pulse ox 100% on 6 L. HEENT: Conjunctivae normal. NECK: No jugular venous distention. CARDIOVASCULAR SYSTEM: S1, S2 muffled. RESPIRATORY SYSTEM: Breath sounds diminished at the bases. Bilateral scattered rhonchi and crackles. ABDOMEN: Soft, non-tender. No mass palpable. LEGS: No edema. No swelling. NERVOUS SYSTEM: Diffusely weak. LABS: WBC 6.1, hemoglobin 9.1. Creatinine is 1.45. ASSESSMENT: 1. Shortness of breath which is probably multifactorial with congestive heart failure, acute exacerbation, with acute on chronic diastolic dysfunction, ejection fraction 50% to 60% with chronic obstructive pulmonary disease, acute exacerbation, with acute hypoxic hypercarbic respiratory failure. 2. History of multiple mild valvular abnormalities. 3. History of chronic obstructive pulmonary disease. 4. History of coronary artery disease, coronary artery bypass grafting. 5. Diabetes mellitus, type 2. 6. Hypertension. 7. Hypoglycemic episode. 8. Hyperlipidemia. 9. History of macular degeneration. 10. History of bowel obstruction. 11. Change in mental status, metabolic encephalopathy, multifactorial, acute on chronic, present on admission. 12. History of nicotine dependence. 13. Increased creatinine with chronic kidney disease, stage III. 14. Anemia, normocytic; anemia of chronic disease. 15. FULL CODE. RECOMMENDATIONS AND DISCUSSION: I recommend to continue with the current medications. I recommend increasing the Lasix to twice and continue to monitor. Otherwise, closely follow with Dr. Garcia. Monitor fluid/electrolyte balance closely. Further recommendations to follow. Prognosis guarded. Dr. Stevo Mercado will follow.
[2016-06-14] MEDS: methylPREDNISolone SOD SUCCI 40 MG/ML 1 ML VIAL IV SCH ×4 (05:30→23:12)
[2016-06-14 07:09] LABS: Glucose,Whole Blood 323 mg/dL (75-99)
[2016-06-14] MEDS: IPRATROPIUM-ALBUTEROL 3 ML NEB INHALATION SCH ×4 (07:26→21:30)
[2016-06-14] MEDS: SYMBICORT 160-4.5 MCG INHALER INHALATION SCH ×2 (07:26→21:30)
[2016-06-14] MEDS: PANTOPRAZOLE 40 MG TABLET PO SCH (07:43)
[2016-06-14] MEDS: INSULIN LISPRO (humaLOG) 300 UNIT/3 ML VIAL SQ SCH ×4 (07:44→21:43)
[2016-06-14] MEDS: FERROUS SULFATE 325 MG TAB PO SCH (07:44)
[2016-06-14] MEDS: ATORVASTATIN 40 MG TAB PO SCH (07:44)
[2016-06-14] MEDS: ASPIRIN 81 MG CHEW PO SCH (07:44)
[2016-06-14] MEDS: FUROSEMIDE 10 MG/ML 4 ML VIAL IV SCH ×2 (07:44→16:26)
[2016-06-14] MEDS: LEVOFLOXACIN 250 MG TAB PO SCH (07:45)
[2016-06-14] MEDS: hydrALAZINE HCL 50 MG TAB PO SCH ×2 (07:45→21:41)
[2016-06-14] MEDS: ISOSORBIDE MONONITRATE ER 30 MG TAB.ER.24H PO SCH (07:45)
[2016-06-14] MEDS: LOSARTAN 25 MG TAB PO SCH (07:45)
[2016-06-14] MEDS: OXYBUTYNIN CHLORIDE 5 MG TAB PO SCH ×2 (07:46→21:43)
[2016-06-14] MEDS: METOPROLOL TARTRATE 50 MG TAB PO SCH ×2 (07:46→21:42)
[2016-06-14] MEDS: PSYLLIUM HUSK 100% 6 GM PACKET PO SCH (07:47)
[2016-06-14 08:53] LABS: Anisocytosis Slight; Basophils % (A) 0 %; CH 24.2; CHCM 29.2; Eosinophils % (A) 0 %; HCT 28.1 % (39.0-53.0); HDW 3.29; HGB 8.6 gm/dL (13.0-17.5); Hypochromasia Marked; Luc # (Auto) 0.04; Luc % (Auto) 1; Lymphocytes # (A) 0.3 k/uL (1.0-4.8); Lymphocytes % (A) 8 %; MCH 25.4 pg (25.0-35.0); MCHC 30.6 g/dL (31.0-37.0); Mean Platelet Volume 10.3; Monocytes # (A) 0.1 k/uL (0-1.0); Monocytes % (A) 3 %; Neutrophils % (A) 88 %; RBC 3.38 m/uL (4.30-5.90); RDW 18.2 % (11.5-15.5); WBC 3.4 k/uL (3.8-10.6); WBC (Perox) 3.55
[2016-06-14 09:12] LABS: Calcium 8.5 mg/dL (8.4-10.2); Potassium 4.6 mmol/L (3.5-5.1)
[2016-06-14] MEDS ORDERED: INSULIN LISPRO (humaLOG) 300 UNIT/3 ML VIAL SQ ONE ×3 (09:31→19:46)
[2016-06-14 10:59] LABS: Glucose,Whole Blood 325 mg/dL (75-99)
--- NOTE | 2016-06-14 12:02 | P.PN ---
Subjective Principal diagnosis: Patient up ambulating to the bathroom without difficulty patient states he wants to go home and does have home O2 set up. We'll discuss with family on able and willing to assist him with activities of daily living. Patient does become hypoxic with pulse oximetry of 70% without oxygen awaiting continue consultation with Dr. aGrcia regarding safety of him going home Objective - Vital Signs Vital signs: Vital Signs Temp 98.1 F 06/14/16 07:00 Pulse 86 06/14/16 11:52 Resp 18 06/14/16 07:00 BP 144/72 06/14/16 07:00 Pulse Ox 98 06/14/16 07:28 Intake & Output 06/13/16 06/14/16 06/14/16 18:59 06:59 18:59 Intake Total 200 Output Total 300 375 Balance -300 -175 Intake: Oral 200 Output: Urine 300 375 Other: Voiding Method Toilet Toilet Urinal Urinal - Constitutional General appearance: Present: obese - EENT Eyes: Present: PERRLA Ears: bilateral: normal - Neck Neck: Present: normal ROM - Respiratory Respiratory: bilateral: CTA - Cardiovascular Rhythm: regular - Gastrointestinal General gastrointestinal: Present: soft - Neurologic Neurologic: Present: CNII-XII intact - Musculoskeletal Musculoskeletal: Present: gait normal - Psychiatric Psychiatric: Present: A&O x's 3, appropriate affect, intact judgment & insight - Labs CBC & Chem 7: 06/14/16 08:15 06/14/16 08:15 Labs: Abnormal Lab Results - Last 24 Hours (Table) 06/13/16 06/13/16 06/13/16 Range/Units 12:09 16:54 20:01 WBC (3.8-10.6) k/uL RBC (4.30-5.90) m/uL Hgb (13.0-17.5) gm/dL Hct (39.0-53.0) % MCHC (31.0-37.0) g/dL RDW (11.5-15.5) % Plt Count (150-450) k/uL Lymphocytes # (1.0-4.8) k/uL BUN (9-20) mg/dL Creatinine (0.66-1.25) mg/dL Glucose (74-99) mg/dL POC Glucose (mg/dL) 274 H 189 H 259 H (75-99) mg/dL 06/14/16 06/14/16 06/14/16 Range/Units 07:01 08:15 08:15 WBC 3.4 L (3.8-10.6) k/uL RBC 3.38 L (4.30-5.90) m/uL Hgb 8.6 L (13.0-17.5) gm/dL Hct 28.1 L (39.0-53.0) % MCHC 30.6 L (31.0-37.0) g/dL RDW 18.2 H (11.5-15.5) % Plt Count 100 L (150-450) k/uL Lymphocytes # 0.3 L (1.0-4.8) k/uL BUN 62 H (9-20) mg/dL Creatinine 1.48 H (0.66-1.25) mg/dL Glucose 316 H (74-99) mg/dL POC Glucose (mg/dL) 323 H (75-99) mg/dL 06/14/16 Range/Units 10:58 WBC (3.8-10.6) k/uL RBC (4.30-5.90) m/uL Hgb (13.0-17.5) gm/dL Hct (39.0-53.0) % MCHC (31.0-37.0) g/dL RDW (11.5-15.5) % Plt Count (150-450) k/uL Lymphocytes # (1.0-4.8) k/uL BUN (9-20) mg/dL Creatinine (0.66-1.25) mg/dL Glucose (74-99) mg/dL POC Glucose (mg/dL) 325 H (75-99) mg/dL - Imaging and Cardiology Chest x-ray: report reviewed Assessment and Plan Plan: Assessment 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
[2016-06-14] MEDS: FOLIC ACID 1 MG TAB PO SCH (12:51)
[2016-06-14] MEDS: MULTIVITAMINS, THERA 1 EACH TAB PO SCH (12:51)
[2016-06-14] MEDS: THIAMINE 100 MG TAB PO SCH (12:52)
--- NOTE | 2016-06-14 13:07 | P.PN ---
Subjective This is a pleasant 81-year-old gentleman who has a known history of diabetes, hypertension, hyperlipidemia, coronary artery disease with prior bypass surgery in 2007 where he underwent a COLLINS to the LAD, saphenous vein graft to the RCA, saphenous vein graft to the diagonal. Most recent Jennifer scan was performed in June of last year which was reported to be normal. Most of the history was obtained from the medical record, patient is unsure of where he is alone why he is here. According to the chart, patient was admitted to the hospital with symptoms of shortness of breath, he had apparently just recently been at [facility] with similar symptoms. Chest x-ray on admission here revealed findings consistent with advanced cardiogenic interstitial pulmonary edema with areas of alveolar pulmonary edema and a right sided pleural effusion. White blood cell count on admission 16,000, 8.7 this morning. Hemoglobin on admission 8.6, 7.6 this morning. Potassium 5.2, BUN 75 , creatinine 1.7, BNP level 17,800.Troponins 0.14, 0.18, .14. Blood pressure 150/60, heart rate in the 80s, 74% on 4 L on admission.The patient was initially on a Ventimask and he was admitted to the telemetry unit for further monitoring and treatment. Over the past 24 hours, the patient was treated for a combination of COPD and CHF exacerbation. I think is predominantly in CHF. He is still making good urine output. He is on 40 mg of IV Lasix every 8 hours and he is in a negative fluid balance. They lower extremity edema is improving. The patient is currently on oral Levaquin to 50 mg by mouth daily. He is also receiving DuoNeb about treatments around the clock and Symbicort maintenance. The echocardiogram was completed and showed a left ventricle systolic ejection fraction of around 55-60%. The LAD was moderately dilated. The patient had a right ventricular systolic pressure of 51 mmHg. This was consistent with moderate to severe pulmonary hypertension. He also has a mild concentric left ventricular hypertrophy. On 06/07/2016 the patient is feeling better. The patient is less short of breath. We were able to wean down the FiO2 down to 6 L of oxygen nasal cannula and when the process of weaning it further as long as the pulse ox remained above 90%. He has no chest pain. No significant cough or sputum production. Lower extremity edema is also improving. The patient is seen again today 2016 in follow-up on the regular medical floor. He is awake and alert in no acute distress. He is still having issues with oxygen desaturations. He had been on 4 L throughout the evening until earlier this morning he had dropped his sats in the 70s just while sitting at rest. He is currently on 8 L of high flow nasal cannula again. A computed tomography scan of the chest was ordered and revealed extensive pulmonary interstitial infiltrates and emphysema. Most likely congestive heart failure versus fibrosis as his previous chest x-ray did not reveal any evidence of fibrosis. The patient is seen again today 06/09/2016 in follow-up. His chest x-ray shows improvement of the pulmonary edema. He was maintained on Lasix 40 mg IV every 8 hours the past 24 hours. He is more awake and alert in no acute distress. He is down to 6 L of high flow nasal cannula to maintain O2 saturations in the 90s. He is afebrile. His creatinine is stable at 1.38. His hemoglobin is stable at 9.3. The patient is seen again today 06/10/2016 in follow-up on the regular medical floor. He is resting comfortably in bed. He was actually laying flat without any acute pulmonary distress. He is still requiring 6 L of high flow nasal cannula. Once it was decreased to 5 or 4 he was into the 70s on his saturations. His x-ray did show resolving changes of pulmonary edema. Labs are pending. The patient was seen again today 06/11/2016 in follow-up on the regular medical floor. Upon our arrival to the room the patient's oxygen was off and he was quite hypoxic. His saturation was 42% on room air. He was quickly placed back on high flow nasal cannula at 4 L and his saturations were is back up in the 90s. He does get quite dyspneic on minimal exertion. He has a dry nonproductive cough. His chest x-ray continues to show evidence of interstitial edema though an atypical pneumonia is not entirely excluded nor is postinfectious ARDS. He has been slow to improve but is now tolerating less oxygen requirements. He remains on diuretics. Current creatinine 1.51. On 06/12/2016 the patient continues to be hypoxic. After some ability to wean down the FiO2, the patient overnight became hypoxic again and this morning was placed on 15 L. The chest x-ray is showing increased pulmonary vascular markings although I'm suspicious that this may be also a noncardiogenic pulmonary edema and this raises the suspicion for a postinfectious ARDS and for that reason I'm going to add systemic steroids. I noted the patient may becoming prerenal and for that reason I'm going to drop down his IV Lasix dose. On 06/13/2016, patient remains hypoxic, however we were able to taper down the FiO2 to 5 L nasal cannula. Chest x-ray continues to show evidence of interstitial edema, and the patient remains on steroids and on diuretics as well as antibiotics. He is feeling better, and he is wondering if he could be discharged home anytime soon. The patient is seen again today 06/14/2016 in follow-up on the regular medical floor. He is awake and alert in no acute distress. He continues to require 4-5 L of high flow nasal cannula to maintain O2 saturations in the 90s. He has been treated with antibiotics, steroids and diuretics without significant change in the chest x-ray. We still feel this may be postinfectious ARDS, possible noncardiogenic pulmonary edema or atypical pneumonia. He is overall improved as far as his activity tolerance and oxygen requirements. There is no leukocytosis. Creatinine stable at 1.48. He is somewhat agitated regarding his fluid restriction and the fact he still in the hospital. His daughter remains at the bedside. Objective - Vital Signs Vital signs: Vital Signs Temp 98.1 F 06/14/16 07:00 Pulse 86 06/14/16 11:52 Resp 18 06/14/16 07:00 BP 144/72 06/14/16 07:00 Pulse Ox 98 06/14/16 07:28 Intake & Output 06/13/16 06/14/16 06/14/16 18:59 06:59 18:59 Intake Total 200 Output Total 300 375 Balance -300 -175 Intake: Oral 200 Output: Urine 300 375 Other: Voiding Method Toilet Toilet Urinal Urinal - Exam Head exam was generally normal. There was no scleral icterus or corneal arcus. Mucous membranes were moist.Neck was supple and without jugular venous distension, thyromegaly, or carotid bruits. Carotids were easily palpable bilaterally. There was no adenopathy. Lung sounds are diminished bilaterally along with some bibasilar crackles. Few scattered external wheeze.Cardiac exam revealed the PMI to be normally situated and sized. The rhythm was regular and no extrasystoles were noted during several minutes of auscultation. The first and second heart sounds were normal and physiologic splitting of the second heart sound was noted. There were no murmurs, rubs, clicks, or gallops.Abdominal exam revealed normal bowel sounds. The abdomen was soft, non- tender, and without masses, organomegaly, or appreciable enlargement of the abdominal aorta.Examination of the extremities revealed easily palpable radial, femoral and pedal pulses. There was no cyanosis, clubbing or edema. - Labs CBC & Chem 7: 06/14/16 08:15 06/14/16 08:15 Labs: Abnormal Lab Results - Last 24 Hours (Table) 06/13/16 06/13/16 06/14/16 Range/Units 16:54 20:01 07:01 WBC (3.8-10.6) k/uL RBC (4.30-5.90) m/uL Hgb (13.0-17.5) gm/dL Hct (39.0-53.0) % MCHC (31.0-37.0) g/dL RDW (11.5-15.5) % Plt Count (150-450) k/uL Lymphocytes # (1.0-4.8) k/uL BUN (9-20) mg/dL Creatinine (0.66-1.25) mg/dL Glucose (74-99) mg/dL POC Glucose (mg/dL) 189 H 259 H 323 H (75-99) mg/dL 06/14/16 06/14/16 06/14/16 Range/Units 08:15 08:15 10:58 WBC 3.4 L (3.8-10.6) k/uL RBC 3.38 L (4.30-5.90) m/uL Hgb 8.6 L (13.0-17.5) gm/dL Hct 28.1 L (39.0-53.0) % MCHC 30.6 L (31.0-37.0) g/dL RDW 18.2 H (11.5-15.5) % Plt Count 100 L (150-450) k/uL Lymphocytes # 0.3 L (1.0-4.8) k/uL BUN 62 H (9-20) mg/dL Creatinine 1.48 H (0.66-1.25) mg/dL Glucose 316 H (74-99) mg/dL POC Glucose (mg/dL) 325 H (75-99) mg/dL Assessment and Plan Plan: Assessment 1 acute hypoxic respiratory failure/shortness of breath, multifactorial, improving and the patient's oxygenation has improved and the FiO2 is down to 4 L of oxygen nasal cannula 2 acute exacerbation of diastolic CHF. He was resumed on IV Lasix yesterday and today's chest x-ray shows improvement of the pulmonary edema. 3 COPD 4 coronary artery disease with previous bypass surgery 2007 5 diabetes mellitus 6 hypertension 7 hyperlipidemia 8 pulmonary hypertension which is essentially of a secondary in nature with moderately elevated PA pressures 9 chronic normocytic/microcytic anemia 10 chronic renal insufficiency Plan: The patient was seen and evaluated by Dr. Garcia. Chest x-ray does show continued interstitial edema however atypical pneumonia and post infectious ARDS remains in the differential. He would benefit from an open lung biopsy for diagnosis however he would not tolerate any procedures or intervention at this point. He still requires at least 4 L of high flow nasal cannula to maintain O2 saturations greater than 90%. We will increase his activity as tolerated. He could possibly be discharged home tomorrow knowing that he needs to have his oxygen on 26/09. He should follow-up in our office in 1 week and we' ll repeat a chest x-ray then. He'll complete his course of antibiotics. He'll remain on bronchodilators and Symbicort along with the prednisone taper. He and his daughter are again educated regarding the importance of his need to continually wear his oxygen as he does desaturate quickly without it. They both verbalized understanding.
[2016-06-14 17:29] LABS: Glucose,Whole Blood 317 mg/dL (75-99)
[2016-06-14 19:49] LABS: Glucose,Whole Blood 295 mg/dL (75-99)
[2016-06-14 21:44] LABS: Glucose,Whole Blood 201 mg/dL (75-99)
[2016-06-15] MEDS: methylPREDNISolone SOD SUCCI 40 MG/ML 1 ML VIAL IV SCH ×2 (05:41→12:43)
[2016-06-15 06:58] LABS: Glucose,Whole Blood 348 mg/dL (75-99)
[2016-06-15] MEDS ORDERED: INSULIN LISPRO (humaLOG) 300 UNIT/3 ML VIAL SQ ONE ×2 (08:09→12:05)
[2016-06-15 08:16] VITALS: BP 151/67; RESP 16; TEMP 97.9
[2016-06-15] MEDS: OXYBUTYNIN CHLORIDE 5 MG TAB PO SCH (08:17)
[2016-06-15] MEDS: METOPROLOL TARTRATE 50 MG TAB PO SCH (08:17)
[2016-06-15] MEDS: hydrALAZINE HCL 50 MG TAB PO SCH (08:18)
[2016-06-15] MEDS: FERROUS SULFATE 325 MG TAB PO SCH (08:18)
[2016-06-15] MEDS: LOSARTAN 25 MG TAB PO SCH (08:18)
[2016-06-15] MEDS: LEVOFLOXACIN 250 MG TAB PO SCH (08:18)
[2016-06-15] MEDS: ISOSORBIDE MONONITRATE ER 30 MG TAB.ER.24H PO SCH (08:18)
[2016-06-15] MEDS: FUROSEMIDE 10 MG/ML 4 ML VIAL IV SCH (08:19)
[2016-06-15] MEDS: PANTOPRAZOLE 40 MG TABLET PO SCH (08:19)
[2016-06-15] MEDS: INSULIN LISPRO (humaLOG) 300 UNIT/3 ML VIAL SQ SCH ×2 (08:19→12:23)
[2016-06-15] MEDS: ATORVASTATIN 40 MG TAB PO SCH (08:19)
[2016-06-15] MEDS: ASPIRIN 81 MG CHEW PO SCH (08:19)
[2016-06-15] MEDS: SYMBICORT 160-4.5 MCG INHALER INHALATION SCH (08:28)
[2016-06-15] MEDS: IPRATROPIUM-ALBUTEROL 3 ML NEB INHALATION SCH ×2 (08:28→12:20)
[2016-06-15 08:52] LABS: Anisocytosis Slight; Basophils % (A) 0 %; CH 24.3; CHCM 28.9; Eosinophils % (A) 0 %; HCT 28.2 % (39.0-53.0); HDW 3.28; HGB 8.3 gm/dL (13.0-17.5); Hypochromasia Marked; Luc # (Auto) 0.07; Luc % (Auto) 2; Lymphocytes # (A) 0.3 k/uL (1.0-4.8); Lymphocytes % (A) 6 %; MCH 24.7 pg (25.0-35.0); MCHC 29.3 g/dL (31.0-37.0); MCV 84.5 fL (80.0-100.0); Mean Platelet Volume 9.7; Monocytes # (A) 0.2 k/uL (0-1.0); Monocytes % (A) 4 %; Neutrophils # (A) 4.1 k/uL (1.3-7.7); Neutrophils % (A) 89 %; RBC 3.34 m/uL (4.30-5.90); RDW 18.1 % (11.5-15.5); WBC 4.6 k/uL (3.8-10.6); WBC (Perox) 5.12
[2016-06-15 09:01] LABS: Calcium 8.7 mg/dL (8.4-10.2); Potassium 4.5 mmol/L (3.5-5.1)
[2016-06-15] MEDS: PSYLLIUM HUSK 100% 6 GM PACKET PO SCH (09:08)
[2016-06-15 11:20] LABS: Glucose,Whole Blood 269 mg/dL (75-99)
--- NOTE | 2016-06-15 12:19 | P.PN ---
Subjective This is a pleasant 81-year-old gentleman who has a known history of diabetes, hypertension, hyperlipidemia, coronary artery disease with prior bypass surgery in 2007 where he underwent a COLLINS to the LAD, saphenous vein graft to the RCA, saphenous vein graft to the diagonal. Most recent Jennifer scan was performed in June of last year which was reported to be normal. Most of the history was obtained from the medical record, patient is unsure of where he is alone why he is here. According to the chart, patient was admitted to the hospital with symptoms of shortness of breath, he had apparently just recently been at [facility] with similar symptoms. Chest x-ray on admission here revealed findings consistent with advanced cardiogenic interstitial pulmonary edema with areas of alveolar pulmonary edema and a right sided pleural effusion. White blood cell count on admission 16,000, 8.7 this morning. Hemoglobin on admission 8.6, 7.6 this morning. Potassium 5.2, BUN 75 , creatinine 1.7, BNP level 17,800.Troponins 0.14, 0.18, .14. Blood pressure 150/60, heart rate in the 80s, 74% on 4 L on admission.The patient was initially on a Ventimask and he was admitted to the telemetry unit for further monitoring and treatment. Over the past 24 hours, the patient was treated for a combination of COPD and CHF exacerbation. I think is predominantly in CHF. He is still making good urine output. He is on 40 mg of IV Lasix every 8 hours and he is in a negative fluid balance. They lower extremity edema is improving. The patient is currently on oral Levaquin to 50 mg by mouth daily. He is also receiving DuoNeb about treatments around the clock and Symbicort maintenance. The echocardiogram was completed and showed a left ventricle systolic ejection fraction of around 55-60%. The LAD was moderately dilated. The patient had a right ventricular systolic pressure of 51 mmHg. This was consistent with moderate to severe pulmonary hypertension. He also has a mild concentric left ventricular hypertrophy. On 06/07/2016 the patient is feeling better. The patient is less short of breath. We were able to wean down the FiO2 down to 6 L of oxygen nasal cannula and when the process of weaning it further as long as the pulse ox remained above 90%. He has no chest pain. No significant cough or sputum production. Lower extremity edema is also improving. The patient is seen again today 2016 in follow-up on the regular medical floor. He is awake and alert in no acute distress. He is still having issues with oxygen desaturations. He had been on 4 L throughout the evening until earlier this morning he had dropped his sats in the 70s just while sitting at rest. He is currently on 8 L of high flow nasal cannula again. A computed tomography scan of the chest was ordered and revealed extensive pulmonary interstitial infiltrates and emphysema. Most likely congestive heart failure versus fibrosis as his previous chest x-ray did not reveal any evidence of fibrosis. The patient is seen again today 06/09/2016 in follow-up. His chest x-ray shows improvement of the pulmonary edema. He was maintained on Lasix 40 mg IV every 8 hours the past 24 hours. He is more awake and alert in no acute distress. He is down to 6 L of high flow nasal cannula to maintain O2 saturations in the 90s. He is afebrile. His creatinine is stable at 1.38. His hemoglobin is stable at 9.3. The patient is seen again today 06/10/2016 in follow-up on the regular medical floor. He is resting comfortably in bed. He was actually laying flat without any acute pulmonary distress. He is still requiring 6 L of high flow nasal cannula. Once it was decreased to 5 or 4 he was into the 70s on his saturations. His x-ray did show resolving changes of pulmonary edema. Labs are pending. The patient was seen again today 06/11/2016 in follow-up on the regular medical floor. Upon our arrival to the room the patient's oxygen was off and he was quite hypoxic. His saturation was 42% on room air. He was quickly placed back on high flow nasal cannula at 4 L and his saturations were is back up in the 90s. He does get quite dyspneic on minimal exertion. He has a dry nonproductive cough. His chest x-ray continues to show evidence of interstitial edema though an atypical pneumonia is not entirely excluded nor is postinfectious ARDS. He has been slow to improve but is now tolerating less oxygen requirements. He remains on diuretics. Current creatinine 1.51. On 06/12/2016 the patient continues to be hypoxic. After some ability to wean down the FiO2, the patient overnight became hypoxic again and this morning was placed on 15 L. The chest x-ray is showing increased pulmonary vascular markings although I'm suspicious that this may be also a noncardiogenic pulmonary edema and this raises the suspicion for a postinfectious ARDS and for that reason I'm going to add systemic steroids. I noted the patient may becoming prerenal and for that reason I'm going to drop down his IV Lasix dose. On 06/13/2016, patient remains hypoxic, however we were able to taper down the FiO2 to 5 L nasal cannula. Chest x-ray continues to show evidence of interstitial edema, and the patient remains on steroids and on diuretics as well as antibiotics. He is feeling better, and he is wondering if he could be discharged home anytime soon. The patient is seen again today 06/14/2016 in follow-up on the regular medical floor. He is awake and alert in no acute distress. He continues to require 4-5 L of high flow nasal cannula to maintain O2 saturations in the 90s. He has been treated with antibiotics, steroids and diuretics without significant change in the chest x-ray. We still feel this may be postinfectious ARDS, possible noncardiogenic pulmonary edema or atypical pneumonia. He is overall improved as far as his activity tolerance and oxygen requirements. There is no leukocytosis. Creatinine stable at 1.48. He is somewhat agitated regarding his fluid restriction and the fact he still in the hospital. His daughter remains at the bedside. The patient is seen again today 06/15/2016 in follow-up on the regular medical floor. He is awake and alert in no acute distress. He is more cooperative and comprehending his situation regards to home oxygen. This is already been arranged as has visiting nurses. The patient is anxious to go home. He denies any worsening shortness of breath, cough or congestion. Objective - Vital Signs Vital signs: Vital Signs Temp 97.9 F 06/15/16 07:00 Pulse 88 06/15/16 08:40 Resp 16 06/15/16 07:00 BP 151/67 06/15/16 07:00 Pulse Ox 94 L 06/15/16 07:00 Intake & Output 06/14/16 06/15/16 06/15/16 18:59 06:59 18:59 Intake Total 240 Output Total 200 Balance 40 Intake: Oral 240 Output: Urine 200 Other: Voiding Method Toilet Toilet Toilet Urinal Urinal Urinal # Voids 2 2 - Exam Head exam was generally normal. There was no scleral icterus or corneal arcus. Mucous membranes were moist.Neck was supple and without jugular venous distension, thyromegaly, or carotid bruits. Carotids were easily palpable bilaterally. There was no adenopathy. Lung sounds are diminished bilaterally with faint crackles in the posterior bases. Cardiac exam revealed the PMI to be normally situated and sized. The rhythm was regular and no extrasystoles were noted during several minutes of auscultation. The first and second heart sounds were normal and physiologic splitting of the second heart sound was noted. There were no murmurs, rubs, clicks, or gallops.Abdominal exam revealed normal bowel sounds. The abdomen was soft, non-tender, and without masses, organomegaly, or appreciable enlargement of the abdominal aorta.Examination of the extremities revealed easily palpable radial, femoral and pedal pulses. There was no cyanosis, clubbing or edema. - Labs CBC & Chem 7: 06/15/16 07:50 06/15/16 07:50 Labs: Abnormal Lab Results - Last 24 Hours (Table) 06/14/16 06/14/16 06/14/16 Range/Units 17:27 19:38 21:42 RBC (4.30-5.90) m/uL Hgb (13.0-17.5) gm/dL Hct (39.0-53.0) % MCH (25.0-35.0) pg MCHC (31.0-37.0) g/dL RDW (11.5-15.5) % Plt Count (150-450) k/uL Lymphocytes # (1.0-4.8) k/uL BUN (9-20) mg/dL Creatinine (0.66-1.25) mg/dL Glucose (74-99) mg/dL POC Glucose (mg/dL) 317 H 295 H 201 H (75-99) mg/dL 06/15/16 06/15/16 06/15/16 Range/Units 06:57 07:50 07:50 RBC 3.34 L (4.30-5.90) m/uL Hgb 8.3 L (13.0-17.5) gm/dL Hct 28.2 L (39.0-53.0) % MCH 24.7 L (25.0-35.0) pg MCHC 29.3 L (31.0-37.0) g/dL RDW 18.1 H (11.5-15.5) % Plt Count 103 L (150-450) k/uL Lymphocytes # 0.3 L (1.0-4.8) k/uL BUN 64 H (9-20) mg/dL Creatinine 1.52 H (0.66-1.25) mg/dL Glucose 333 H (74-99) mg/dL POC Glucose (mg/dL) 348 H (75-99) mg/dL 06/15/16 Range/Units 11:19 RBC (4.30-5.90) m/uL Hgb (13.0-17.5) gm/dL Hct (39.0-53.0) % MCH (25.0-35.0) pg MCHC (31.0-37.0) g/dL RDW (11.5-15.5) % Plt Count (150-450) k/uL Lymphocytes # (1.0-4.8) k/uL BUN (9-20) mg/dL Creatinine (0.66-1.25) mg/dL Glucose (74-99) mg/dL POC Glucose (mg/dL) 269 H (75-99) mg/dL Assessment and Plan Plan: Assessment 1 acute hypoxic respiratory failure/shortness of breath, multifactorial, improving and the patient's oxygenation has improved and the FiO2 is down to 4 L of oxygen nasal cannula 2 acute exacerbation of diastolic CHF. He was resumed on IV Lasix yesterday and today's chest x-ray shows improvement of the pulmonary edema. 3 COPD 4 coronary artery disease with previous bypass surgery 2007 5 diabetes mellitus 6 hypertension 7 hyperlipidemia 8 pulmonary hypertension which is essentially of a secondary in nature with moderately elevated PA pressures 9 chronic normocytic/microcytic anemia 10 chronic renal insufficiency Plan: The patient was seen and evaluated by Dr. Garcia. The patient is cleared for discharge from the pulmonary standpoint. He'll complete his course of antibiotics and prednisone taper. Home oxygen and visiting nurses have been arranged. He'll follow up with Dr. Gaona in our office in 1 week we can repeat a chest x-ray done. He and his family are encouraged however to call sooner with any recurrence of symptoms or other questions or concerns.
[2016-06-15 12:36] VITALS: PULSE 84
[2016-06-15] MEDS: THIAMINE 100 MG TAB PO SCH (12:43)
[2016-06-15] MEDS: MULTIVITAMINS, THERA 1 EACH TAB PO SCH (12:43)
[2016-06-15] MEDS: FOLIC ACID 1 MG TAB PO SCH (12:43)
--- NOTE | 2016-06-15 12:50 | P.DS ---
Providers Date of admission: 06/03/16 18:53 Expected date of discharge: 06/15/16 Attending physician: Stevo Mercado Consults: 06/04/16 13:34 Consult Physician Routine Consulting Provider: Mason Gomez Consult Reason/Comments: resp failure Do you want consulting provider notified?: Yes Primary care physician: Stevo Mercado Hospital Course: 81-year-old male was admitted to the emergency room with complaints of shortness of breath patient was treated for congestive heart failure COPD patient had consultation with cardiology and pulmonology neurology patient was transfused with 2 units of blood for anemia patient is now stabilized. Patient needs to be on home O2 4 L. Assessment Shortness of breath multifactorial with congestive heart failure acute exacerbation diastolic dysfunction Pulmonary hypertension pulmonary edema Acute hypoxic respiratory failure Hyperglycemia secondary to steroid Anemia microcytic Change in mental status metabolic encephalopathy multifactorial Gait dysfunction Chronic kidney disease stage III Diabetes type 2 Hypoalbuminemia anemia with mild to moderate protein calorie malnutrition Hypertension hyperlipidemia Plan Discharged home with home care Family willing to take patient home Needs 24-hour oxygen 4 L Patient Condition at Discharge: Serious Plan - Discharge Summary New Discharge Prescriptions: Furosemide [Lasix] 40 mg PO DAILY #30 tablet Ipratropium-Albuterol Nebulize [Duoneb 0.5 mg-3 mg/3 ml Soln] 3 ml INHALATION RT -QID #120 ampul.neb Isosorbide Mononitrate ER [Imdur] 30 mg PO DAILY #30 tab.er.24h Levofloxacin [Levaquin] 250 mg PO DAILY #2 tab Losartan [Cozaar] 25 mg PO DAILY #30 tab predniSONE 10 mg PO DAILY #40 tab Discharge Medication List Metoprolol Tartrate 50 mg PO BID 01/25/14 [History] Ferrous Sulfate [Feosol] 325 mg PO DAILY 04/15/14 [History] Glimepiride [Amaryl] 4 mg PO BID 10/07/15 [History] Albuterol Inhaler [Ventolin Hfa Inhaler] 2 puff INHALATION RT-Q6H PRN 06/03/16 [ History] Aspirin 81 mg PO DAILY 06/03/16 [History] Atorvastatin Calcium [Lipitor] 40 mg PO DAILY 06/03/16 [History] Budesonide-Formot 160-4.5 Mcg [Symbicort 160-4.5 Mcg Inhaler] 2 puff INHALATION RT-BID 06/03/16 [History] Cholecalciferol (Vitamin D3) [Vitamin D3] 10,000 unit PO DAILY 06/03/16 [History ] Multivitamins, Thera [Multivitamin (formulary)] 1 tab PO DAILY 06/03/16 [History ] [place]-3 Acid Ethyl Esters [Lovaza] 2 gm PO BID 06/03/16 [History] Oxybutynin Chloride [Ditropan] 5 mg PO BID 06/03/16 [History] Pantoprazole Sodium [Protonix] 40 mg PO DAILY 06/03/16 [History] Psyllium Husk 100% [Metamucil Packet] 6 gm PO DAILY 06/03/16 [History] hydrALAZINE HCL [Apresoline] 50 mg PO Q12H 06/03/16 [History] sitaGLIPtin [Januvia] 25 mg PO DAILY 06/03/16 [History] Furosemide [Lasix] 40 mg PO DAILY #30 tablet 06/15/16 [Rx] Ipratropium-Albuterol Nebulize [Duoneb 0.5 mg-3 mg/3 ml Soln] 3 ml INHALATION RT -QID #120 ampul.neb 06/15/16 [Rx] Isosorbide Mononitrate ER [Imdur] 30 mg PO DAILY #30 tab.er.24h 06/15/16 [Rx] Levofloxacin [Levaquin] 250 mg PO DAILY #2 tab 06/15/16 [Rx] Losartan [Cozaar] 25 mg PO DAILY #30 tab 06/15/16 [Rx] predniSONE 10 mg PO DAILY #40 tab 06/15/16 [Rx] Follow up Appointment(s)/Referral(s): Stevo Mercado MD [Primary Care Provider] - 1-2 days [facility] Visiting Nurse, [NON-STAFF] - Activity/Diet/Wound Care/Special Instructions: Home Oxygen/Nebulizer - has at home
== END 2016-06-15 16:05 | disposition home health service (06) | DRG 291 ==
LOC: EC 16:39 → 6SEL 18:53 → 5MS5E 06-08 18:11
PROVIDERS: ADMIT Family Medicine; ATTEND Family Medicine
PROC: 30233N1 Transfusion of Nonautologous Red Blood Cells into Peripheral Vein, Percutaneous Approach (ICD-10-PCS; principal; 2016-06-08)
DX: I13.0 Hypertensive heart and chronic kidney disease with heart failure and stage 1 through stage 4 chronic kidney disease, or unspecified chronic kidney disease (principal); I50.33 Acute on chronic diastolic (congestive) heart failure; J96.01 Acute respiratory failure with hypoxia; G93.41 Metabolic encephalopathy; E44.0 Moderate protein-calorie malnutrition; J96.02 Acute respiratory failure with hypercapnia; J44.0 Chronic obstructive pulmonary disease with (acute) lower respiratory infection; N18.3 Chronic kidney disease, stage 3 (moderate); K75.9 Inflammatory liver disease, unspecified; J44.1 Chronic obstructive pulmonary disease with (acute) exacerbation; I27.2 Other secondary pulmonary hypertension; E87.5 Hyperkalemia; E11.65 Type 2 diabetes mellitus with hyperglycemia; E11.649 Type 2 diabetes mellitus with hypoglycemia without coma; E11.22 Type 2 diabetes mellitus with diabetic chronic kidney disease; I45.10 Unspecified right bundle-branch block; D63.8 Anemia in other chronic diseases classified elsewhere; F03.90 Unspecified dementia, unspecified severity, without behavioral disturbance, psychotic disturbance, mood disturbance, and anxiety; D53.9 Nutritional anemia, unspecified; I34.0 Nonrheumatic mitral (valve) insufficiency; I25.10 Atherosclerotic heart disease of native coronary artery without angina pectoris; T38.0X5A Adverse effect of glucocorticoids and synthetic analogues, initial encounter; H35.30 Unspecified macular degeneration; E78.5 Hyperlipidemia, unspecified; D50.9 Iron deficiency anemia, unspecified; R26.9 Unspecified abnormalities of gait and mobility; Z95.1 Presence of aortocoronary bypass graft; Z79.899 Other long term (current) drug therapy; Z79.51 Long term (current) use of inhaled steroids; Z79.84 Long term (current) use of oral hypoglycemic drugs; Z79.82 Long term (current) use of aspirin
CPT/HCPCS: 36415; 36600; 71010; 71020; 71250; 80048; 80051; 80053; 82272; 82550; 82553; 82565; 82607; 82728; 82746; 82747; 82805; 83036; 83540; 83550; 83880; 84484; 84520; 85025; 85027; 85045; 85610; 85730; 86850; 86900; 86901; 86920; 93306; 94640; 94660; 94760; 96365; 96366; 96375; 96376; 99291

== ENCOUNTER 2016-08-03 08:37 | Inpatient (IN) | payer MEDICARE, OTHER ==
[2016-08-03] MEDS ORDERED: PIPERACILLIN-TAZOBACTAM 3.375 GM in DEXTROSE/WATER 1 50ML.BAG IVPB STA (08:44)
--- NOTE | 2016-08-03 08:48 | ED ---
General Adult HPI - General Stated complaint: Abnormal Labs Time Seen by Provider: 08/03/16 08:37 Source: RN notes reviewed - History of Present Illness Initial comments: This is an 81-year-old male who presents emergency Department from a half-way they sent the patient in because his white count was elevated and he has an open wound in his right inguinal region. That areas erythematous and the patient is already on antibiotics. Patient has a fever according to the half-way staff. Patient himself was not of much help other than to tell me that that area is painful. Patient also has a history of anemia. Patient denies any headache patient denies chest pain or palpitations or difficulty breathing. Patient denies abdominal pain patient denies nausea vomiting diarrhea. Patient denies any recent injury or trauma. Patient is a very poor historian. - Related Data Home Medications Medication Instructions Recorded Confirmed Metoprolol Tartrate 50 mg PO BID 01/25/14 08/03/16 Ferrous Sulfate [Feosol] 325 mg PO DAILY 04/15/14 08/03/16 Aspirin 81 mg PO DAILY 06/03/16 08/03/16 Atorvastatin Calcium [Lipitor] 40 mg PO HS 06/03/16 08/03/16 Cholecalciferol (Vitamin D3) 10,000 unit PO DAILY@1700 06/03/16 08/03/16 [Vitamin D3] Multivitamins, Thera [Multivitamin 1 tab PO DAILY@1700 06/03/16 08/03/16 (formulary)] Oxybutynin Chloride [Ditropan] 5 mg PO BID@0800,1700 06/03/16 08/03/16 Pantoprazole Sodium [Protonix] 40 mg PO DAILY@0600 06/03/16 08/03/16 Psyllium Husk 100% [Metamucil 6 gm PO DAILY 06/03/16 08/03/16 Packet] Acetaminophen Tab [Tylenol] 650 mg PO Q4H PRN 08/03/16 08/03/16 Ammonium Lactate Cream [Lac-Hydrin 1 applic TOPICAL BID 08/03/16 08/03/16 12% Cream] Bisacodyl [Dulcolax] 10 mg RECTAL DAILY PRN 08/03/16 08/03/16 Furosemide [Lasix] 40 mg PO BID@0800,1700 08/03/16 08/03/16 Glucerna Shake 1 can PO TID-W/MEALS 08/03/16 08/03/16 INSULIN LISPRO (humaLOG) [HumaLOG] See Protocol SQ ACHS 08/03/16 08/03/16 Insulin Detemir [Levemir] 25 unit SQ DAILY 08/03/16 08/03/16 Ipratropium-Albuterol Nebulize 3 ml INHALATION RT-Q6H PRN 08/03/16 08/03/16 [Duoneb 0.5 mg-3 mg/3 ml Soln] Losartan [Cozaar] 50 mg PO DAILY 08/03/16 08/03/16 Magnesium Hydroxide [Milk of 2,400 mg PO DAILY PRN 08/03/16 08/03/16 Magnesia] Metolazone [Zaroxolyn] 2.5 mg PO Q48H 08/03/16 08/03/16 Na Phos,M-B/Na Phos,Di-Ba [Fleet 133 ml RECTAL DAILY PRN 08/03/16 08/03/16 Adult] [place]-3 Acid Ethyl Esters [Lovaza] 2 gm PO BID@0800,1700 08/03/16 08/03/16 Potassium Chloride [Klor-Con 10] 10 meq PO DAILY@1700 08/03/16 08/03/16 Sulfamethox-Tmp 800-160Mg [Bactrim 1 tab PO BID@0800,2100 08/03/16 08/03/16 DS 800-160 mg] Zinc Oxide [Desitin] 1 applic TOPICAL BID PRN 08/03/16 08/03/16 Previous Rx's Medication Instructions Recorded Ipratropium-Albuterol Nebulize 3 ml INHALATION RT-QID #120 06/15/16 [Duoneb 0.5 mg-3 mg/3 ml Soln] ampul.neb Isosorbide Mononitrate ER [Imdur] 30 mg PO DAILY #30 tab.er.24h 06/15/16 Levofloxacin [Levaquin] 250 mg PO DAILY #2 tab 06/15/16 Allergies Allergy/AdvReac Type Severity Reaction Status Date / Time No Known Allergies Allergy Verified 08/03/16 09:10 Review of Systems ROS Statement: Those systems with pertinent positive or pertinent negative responses have been documented in the HPI. ROS Other: All systems not noted in ROS Statement are negative. Past Medical History Past Medical History: Coronary Artery Disease (CAD), Heart Failure, COPD, Diabetes Mellitus, Hyperlipidemia, Hypertension Additional Past Medical History / Comment(s): macular degeneration History of Any Multi-Drug Resistant Organisms: None Reported Past Surgical History: Bowel Resection, Coronary Bypass/CABG, Heart Catheterization Additional Past Surgical History / Comment(s): CABG-triple bypass, lt hip with cristina and 3 screws Past Anesthesia/Blood Transfusion Reactions: No Reported Reaction Past Psychological History: No Psychological Hx Reported Smoking Status: Former smoker Past Alcohol Use History: None Reported Past Drug Use History: None Reported - Past Family History Mother Additional Family Medical History / Comment(s): bowel obstruction Father Family Medical History: Liver Disease General Exam - General Exam Comments Initial Comments: GENERAL: Patient is well-developed and well-nourished. Patient is nontoxic and well- hydrated and is in mild distress. ENT: Neck is soft and supple. No significant lymphadenopathy is noted. Oropharynx is clear. Moist mucous membranes. Neck has full range of motion without eliciting any pain. EYES: The sclera were anicteric and conjunctiva were pink and moist. Extraocular movements were intact and pupils were equal round and reactive to light. Eyelids were unremarkable. PULMONARY: Unlabored respirations. Good breath sounds bilaterally. No audible rales rhonchi or wheezing was noted. CARDIOVASCULAR: There is a regular rate and rhythm without any murmurs gallops or rubs. ABDOMEN: Soft and nontender with normal bowel sounds. No palpable organomegaly was noted. There is no palpable pulsatile mass. SKIN: There is a large open wound in the right inguinal region. The wound itself is approximately 6 cm in diameter and erythema reaches out to about 10 cm in diameter. There is very tender to palpation. NEUROLOGIC: Patient is alert and oriented 2. Cranial nerves II through XII are grossly intact. Motor and sensory are also intact. Normal speech, volume and content. Symmetrical smile. MUSCULOSKELETAL: Normal extremities with adequate strength and full range of motion. LYMPHATICS: No significant lymphadenopathy is noted PSYCHIATRIC: Normal psychiatric evaluation. Normal interpersonal interactions appears functionally intact in deals appropriately with others. No signs of depression. No signs of anxiety. Course Vital Signs 08/03/16 08/03/16 08:45 12:18 Temperature 99.7 F H 97.0 F L Pulse Rate 87 82 Respiratory 17 18 Rate Blood Pressure 145/66 155/69 O2 Sat by Pulse 94 L 94 L Oximetry Medical Decision Making - Medical Decision Making EKG shows normal sinus rhythm 82 bpm FL interval is 146 QRS is under 44 QT interval 420 QTC is 490. Patient's EKG shows a right bundle branch block which is consistent with an old EKG. Patient received Zosyn as well as ankle in the emergency department. I spoke with Dr. Becerra admitted the patient for right groin lesion and cellulitis. - Lab Data Result diagrams: 08/03/16 08:58 08/03/16 08:58 Lab Results 08/03/16 08/03/16 08/03/16 Range/Units 08:58 08:58 08:58 WBC 13.3 H (3.8-10.6) k/uL RBC 3.07 L (4.30-5.90) m/uL Hgb 7.4 L (13.0-17.5) gm/dL Hct 24.1 L (39.0-53.0) % MCV 78.6 L (80.0-100.0) fL MCH 24.1 L (25.0-35.0) pg MCHC 30.7 L (31.0-37.0) g/dL RDW 17.5 H (11.5-15.5) % Plt Count 357 (150-450) k/uL Neutrophils % 89 % Lymphocytes % 4 % Monocytes % 4 % Eosinophils % 0 % Basophils % 0 % Neutrophils # 11.8 H (1.3-7.7) k/uL Lymphocytes # 0.5 L (1.0-4.8) k/uL Monocytes # 0.6 (0-1.0) k/uL Eosinophils # 0.0 (0-0.7) k/uL Basophils # 0.0 (0-0.2) k/uL Hypochromasia Moderate Poikilocytosis Slight Anisocytosis Slight Microcytosis Slight PT (9.0-12.0) sec INR (<1.1) APTT (22.0-30.0) sec Sodium 133 L (137-145) mmol/L Potassium 4.3 (3.5-5.1) mmol/L Chloride 94 L (98-107) mmol/L Carbon Dioxide 28 (22-30) mmol/L Anion Gap 11 mmol/L BUN 62 H (9-20) mg/dL Creatinine 2.39 H (0.66-1.25) mg/dL Est GFR (MDRD) Af Amer 32 (>60 ml/min/1.73 sqM) Est GFR (MDRD) Non-Af 26 (>60 ml/min/1.73 sqM) Glucose 181 H (74-99) mg/dL Plasma Lactic Acid Gerhard 1.2 (0.7-2.0) mmol/L Calcium 8.4 (8.4-10.2) mg/dL Total Bilirubin 0.5 (0.2-1.3) mg/dL AST 19 (17-59) U/L ALT 34 (21-72) U/L Alkaline Phosphatase 128 H (38-126) U/L Total Protein 5.4 L (6.3-8.2) g/dL Albumin 2.6 L (3.5-5.0) g/dL Urine Color Urine Appearance (Clear) Urine pH (5.0-8.0) Ur Specific [place] (1.001-1.035) Urine Protein (Negative) Urine Glucose (UA) (Negative) Urine Ketones (Negative) Urine Blood (Negative) Urine Nitrite (Negative) Urine Bilirubin (Negative) Urine Urobilinogen (<2.0) mg/dL Ur Leukocyte Esterase (Negative) 08/03/16 08/03/16 Range/Units 08:58 09:35 WBC (3.8-10.6) k/uL RBC (4.30-5.90) m/uL Hgb (13.0-17.5) gm/dL Hct (39.0-53.0) % MCV (80.0-100.0) fL MCH (25.0-35.0) pg MCHC (31.0-37.0) g/dL RDW (11.5-15.5) % Plt Count (150-450) k/uL Neutrophils % % Lymphocytes % % Monocytes % % Eosinophils % % Basophils % % Neutrophils # (1.3-7.7) k/uL Lymphocytes # (1.0-4.8) k/uL Monocytes # (0-1.0) k/uL Eosinophils # (0-0.7) k/uL Basophils # (0-0.2) k/uL Hypochromasia Poikilocytosis Anisocytosis Microcytosis PT 12.7 H (9.0-12.0) sec INR 1.3 (<1.1) APTT 25.5 (22.0-30.0) sec Sodium (137-145) mmol/L Potassium (3.5-5.1) mmol/L Chloride (98-107) mmol/L Carbon Dioxide (22-30) mmol/L Anion Gap mmol/L BUN (9-20) mg/dL Creatinine (0.66-1.25) mg/dL Est GFR (MDRD) Af Amer (>60 ml/min/1.73 sqM) Est GFR (MDRD) Non-Af (>60 ml/min/1.73 sqM) Glucose (74-99) mg/dL Plasma Lactic Acid Gerhard (0.7-2.0) mmol/L Calcium (8.4-10.2) mg/dL Total Bilirubin (0.2-1.3) mg/dL AST (17-59) U/L ALT (21-72) U/L Alkaline Phosphatase (38-126) U/L Total Protein (6.3-8.2) g/dL Albumin (3.5-5.0) g/dL Urine Color Yellow Urine Appearance Clear (Clear) Urine pH 7.0 (5.0-8.0) Ur Specific [place] 1.014 (1.001-1.035) Urine Protein Trace H (Negative) Urine Glucose (UA) Negative (Negative) Urine Ketones Negative (Negative) Urine Blood Negative (Negative) Urine Nitrite Negative (Negative) Urine Bilirubin Negative (Negative) Urine Urobilinogen <2.0 (<2.0) mg/dL Ur Leukocyte Esterase Negative (Negative) Disposition Clinical Impression: Wound cellulitis, Renal insufficiency, Anemia Disposition: ADMITTED IP TO THIS [facility] Referrals: Melo Carlos DO [Primary Care Provider] - 1-2 days Time of Disposition: 12:35
[2016-08-03] MEDS ORDERED: IV VANCOMYCIN PER PHARMACY 1 EACH MISC MISCELLANE PRN (08:51)
[2016-08-03] MEDS: SODIUM CHLORIDE 0.9% 500 ML IV SCH ×2 (09:00→09:22)
[2016-08-03 09:14] LABS: Anisocytosis Slight; Basophils % (A) 0 %; CH 24.6; CHCM 31.3; Eosinophils % (A) 0 %; HCT 24.1 % (39.0-53.0); HDW 3.41; HGB 7.4 gm/dL (13.0-17.5); Hypochromasia Moderate; Luc # (Auto) 0.34; Luc % (Auto) 3; Lymphocytes # (A) 0.5 k/uL (1.0-4.8); Lymphocytes % (A) 4 %; MCH 24.1 pg (25.0-35.0); MCHC 30.7 g/dL (31.0-37.0); MCV 78.6 fL (80.0-100.0); Mean Platelet Volume 7.8; Microcytosis Slight; Monocytes # (A) 0.6 k/uL (0-1.0); Monocytes % (A) 4 %; Neutrophils # (A) 11.8 k/uL (1.3-7.7); Neutrophils % (A) 89 %; Poikilocytosis Slight; RBC 3.07 m/uL (4.30-5.90); RDW 17.5 % (11.5-15.5); WBC 13.3 k/uL (3.8-10.6); WBC (Perox) 13.37
[2016-08-03 09:24] LABS: Calcium 8.4 mg/dL (8.4-10.2); Potassium 4.3 mmol/L (3.5-5.1); Total Bilirubin 0.5 mg/dL (0.2-1.3); Total Protein 5.4 g/dL (6.3-8.2)
[2016-08-03 09:27] LABS: INR 1.3 (<1.1); Partial Thromboplastin Time 25.5 sec (22.0-30.0); Prothrombin Time 12.7 sec (9.0-12.0)
[2016-08-03] MEDS ORDERED: NITROGLYCERIN OINT 1 INCH/GM PACKET TOPICAL STA (09:27)
[2016-08-03] MEDS ORDERED: ASPIRIN 81 MG CHEW PO STA (09:27)
[2016-08-03 10:01] LABS: Appearance,Urine Clear (Clear); Bilirubin,Urine Negative (Negative); Glucose,Urine (UA) Negative (Negative); Ketones,Urine Negative (Negative); Leukocyte Esterase,Urine Negative (Negative); Nitrite,Urine Negative (Negative); Protein,Urine Trace (Negative); Specific Gravity,Urine 1.014 (1.001-1.035); UA Billing (MACRO vs. MICRO) CHEM; Urobilinogen,Urine <2.0 mg/dL (<2.0)
--- NOTE | 2016-08-03 10:53 | XR ---
EXAMINATION TYPE: XR chest 2V DATE OF EXAM: 08/03/2016 COMPARISON: Prior chest x-ray 06/13/2016 HISTORY: Fever TECHNIQUE: Frontal and lateral views of the chest are obtained on 3 images. FINDINGS: Prominent lung volume could be indicative of COPD. Interstitium is increased. Patient is p ost median sternotomy. Cardiomediastinal silhouette, pulmonary vascularity and eran are stable. No pn eumothorax or pleural effusion. IMPRESSION: There may be a component of pulmonary venous hypertension and interstitial edema, correl ate, follow-up as indicated.
[2016-08-03] MEDS ORDERED: SODIUM CHLORIDE 0.9% 1,000 ML IV ONE (12:36)
[2016-08-03] MEDS ORDERED: FUROSEMIDE 10 MG/ML 2 ML VIAL IV ONE (12:44)
[2016-08-03] MEDS ORDERED: VANCOMYCIN 2,000 MG in SODIUM CHLORIDE 0.9% 500 ML IVPB ONE (14:00)
[2016-08-03] MEDS: PIPERACILLIN-TAZOBACTAM 3.375 GM in DEXTROSE/WATER 1 50ML.BAG IVPB SCH ×2 (16:33→23:03)
[2016-08-03 17:07] LABS: Glucose,Whole Blood 253 mg/dL (75-99)
[2016-08-03] MEDS ORDERED: ACETAMINOPHEN TAB 325 MG TAB PO PRN (18:19)
[2016-08-03] MEDS ORDERED: BISACODYL 10 MG SUPP RECTAL PRN (18:19)
[2016-08-03] MEDS ORDERED: IPRATROPIUM-ALBUTEROL 3 ML NEB INHALATION PRN (18:19)
[2016-08-03] MEDS ORDERED: MELATONIN 5 MG TABLET PO PRN (18:24)
[2016-08-03] MEDS ORDERED: HYDROcodone/APAP 5-325MG 1 EACH TAB PO PRN (18:25)
[2016-08-03 19:56] LABS: Hemoglobin A1C 6.5 % (4.2-6.1)
[2016-08-03] MEDS: ATORVASTATIN 40 MG TAB PO SCH (20:26)
[2016-08-03] MEDS: AMMONIUM LACTATE 12% CREAM 140 GM TUBE TOPICAL SCH (20:26)
[2016-08-03] MEDS: METOPROLOL TARTRATE 50 MG TAB PO SCH (20:26)
[2016-08-03] MEDS: IPRATROPIUM-ALBUTEROL 3 ML NEB INHALATION SCH (20:36)
[2016-08-03 21:03] LABS: Glucose,Whole Blood 255 mg/dL (75-99)
[2016-08-03] MEDS: INSULIN LISPRO (humaLOG) 300 UNIT/3 ML VIAL SQ SCH (21:03)
[2016-08-04 06:23] LABS: Glucose,Whole Blood 211 mg/dL (75-99)
[2016-08-04] MEDS: INSULIN LISPRO (humaLOG) 300 UNIT/3 ML VIAL SQ SCH ×4 (06:28→21:04)
[2016-08-04 07:27] LABS: Anisocytosis Slight; Basophils % (A) 0 %; CH 24.3; CHCM 30.6; Eosinophils % (A) 0 %; HCT 23.5 % (39.0-53.0); HDW 3.41; HGB 7.2 gm/dL (13.0-17.5); Hypochromasia Marked; Luc # (Auto) 0.34; Luc % (Auto) 3; Lymphocytes # (A) 0.5 k/uL (1.0-4.8); Lymphocytes % (A) 4 %; MCH 24.3 pg (25.0-35.0); MCHC 30.5 g/dL (31.0-37.0); MCV 79.5 fL (80.0-100.0); Mean Platelet Volume 7.7; Microcytosis Slight; Monocytes # (A) 0.6 k/uL (0-1.0); Monocytes % (A) 5 %; Neutrophils # (A) 10.4 k/uL (1.3-7.7); Neutrophils % (A) 88 %; Poikilocytosis Slight; RBC 2.95 m/uL (4.30-5.90); RDW 17.4 % (11.5-15.5); WBC 11.8 k/uL (3.8-10.6); WBC (Perox) 13.19
[2016-08-04 07:29] LABS: Calcium 8.2 mg/dL (8.4-10.2)
[2016-08-04] MEDS ORDERED: NON-FORMULARY DRUG (Glucerna Shake 1 CAN) PO SCH (07:30)
[2016-08-04] MEDS: IPRATROPIUM-ALBUTEROL 3 ML NEB INHALATION SCH ×4 (07:36→20:35)
[2016-08-04] MEDS ORDERED: ENOXAPARIN 40 MG/0.4 ML SYRINGE SQ SCH (09:00)
[2016-08-04] MEDS: PIPERACILLIN-TAZOBACTAM 3.375 GM in DEXTROSE/WATER 1 50ML.BAG IVPB SCH ×2 (09:40→16:37)
[2016-08-04] MEDS: ASPIRIN 81 MG CHEW PO SCH (09:42)
[2016-08-04] MEDS: METOPROLOL TARTRATE 50 MG TAB PO SCH ×2 (09:42→21:05)
[2016-08-04] MEDS: FUROSEMIDE 40 MG TAB PO SCH ×3 (09:42→17:15)
[2016-08-04] MEDS: INSULIN DETEMIR 100 UNIT/ML 10 ML VIAL SQ SCH (09:42)
[2016-08-04] MEDS: OXYBUTYNIN CHLORIDE 5 MG TAB PO SCH ×3 (09:42→17:16)
[2016-08-04] MEDS: ISOSORBIDE MONONITRATE ER 30 MG TAB.ER.24H PO SCH (09:42)
[2016-08-04] MEDS: FERROUS SULFATE 325 MG TAB PO SCH (09:42)
[2016-08-04] MEDS: PSYLLIUM HUSK 100% 6 GM PACKET PO SCH (09:42)
[2016-08-04] MEDS: AMMONIUM LACTATE 12% CREAM 140 GM TUBE TOPICAL SCH ×2 (09:50→22:12)
--- NOTE | 2016-08-04 12:03 | CONS ---
DATE OF CONSULTATION: 08/04/16 Reason for consult is fever. HISTORY OF PRESENT ILLNESS: Patient is an 81-year-old male who was admitted to the hospital with complaints of cough, shortness of breath, not feeling well. He resides at the assisted and he was mainly sent over because of an open wound in his right groin area. He is feeling. He denies any nausea or vomiting, no significant urinary symptoms. No history of kidney diseases. Serum creatinine was at 2.04 mg/dL, creatinine yesterday was 2.39 and review of previous labs show serum creatinine about 1.2 to 1.4 mg/dL in the earlier part of July and all the way back to 2016. Blood pressure has not been low. Patient is maintained on IV fluids at 75 mL/h. I also see Lasix on his med list. Empiric antibiotics in the form of vancomycin and Zosyn are noted. PAST MEDICAL HISTORY: Hypertension, coronary artery disease, history of CHF, COPD, type 2 diabetes, hyperlipidemia, macular degeneration. PAST SURGICAL HISTORY: Bowel resection, coronary artery bypass surgery, cardiac catheterization, left hip surgery. SOCIAL HISTORY: Patient is an ex-smoker. No history of drug abuse or alcohol abuse. REVIEW OF SYSTEMS: As per HPI. Other systems negative. Medications at home prior to admission included metoprolol, iron, aspirin, Lipitor, vitamin D3, Ditropan, Protonix, Metamucil, Lasix, insulin, Zaroxolyn, Lovaza, potassium, Bactrim. ALLERGIES: None. ASSESSMENT: 1. Acute kidney injury, possibly acute tubular necrosis, currently nonoliguric. I did see Bactrim on his medications prior to admission. Currently patient is not on Bactrim but on Zosyn and vancomycin. Will need to monitor his levels closely. I will check an ultrasound of the kidneys if an imaging study has not been done recently. 2. Rule out chronic kidney disease. UA shows trace protein. Serum creatinine as low as 1.1 mg/dL early part of last month suggesting possible stage III secondary to nephrosclerosis. 3. Anemia with no active bleeding noted. Check iron studies. 4. Wound in the right inguinal area, maintained on vancomycin and Zosyn. 5. History of congestive heart failure, ejection fraction on an echocardiogram done in June 2016, before that 55% to 60% with moderate pulmonary hypertension. PLAN: May continue off of IV fluids, continue with the Lasix, check iron studies, repeat labs in a.m., monitor vancomycin levels. Currently patient does not appear to be significantly fluid overloaded. We can repeat another chest x-ray in 1 to 2 days' time. Thank you for this consultation. Will continue to follow this patient with you during his hospitalization. ELISA
[2016-08-04 12:10] LABS: Glucose,Whole Blood 249 mg/dL (75-99)
[2016-08-04 12:10] LABS: % Iron Saturation 7.8 % (20-50)
[2016-08-04 16:56] LABS: Glucose,Whole Blood 194 mg/dL (75-99)
[2016-08-04] MEDS: CHOLECALCIFEROL 1,000 UNIT TAB PO SCH ×2 (17:09→17:17)
[2016-08-04] MEDS: MULTIVITAMINS, THERA 1 EACH TAB PO SCH ×2 (17:09→17:17)
[2016-08-04] MEDS: POTASSIUM CHLORIDE ER 10 MEQ TAB.ER.PRT PO SCH ×2 (17:09→17:17)
[2016-08-04] MEDS ORDERED: VANCOMYCIN 1,250 MG in SODIUM CHLORIDE 0.9% 250 ML IVPB SCH (18:00)
[2016-08-04 21:00] LABS: Glucose,Whole Blood 91 mg/dL (75-99)
[2016-08-04] MEDS: VANCOMYCIN 1,250 MG in SODIUM CHLORIDE 0.9% 250 ML IVPB SCH (21:04)
[2016-08-04] MEDS: ATORVASTATIN 40 MG TAB PO SCH (21:05)
[2016-08-05] MEDS: PIPERACILLIN-TAZOBACTAM 3.375 GM in DEXTROSE/WATER 1 50ML.BAG IVPB SCH ×3 (01:03→16:27)
[2016-08-05] MEDS ORDERED: VANCOMYCIN 1,500 MG in SODIUM CHLORIDE 0.9% 250 ML IVPB SCH (06:00)
[2016-08-05] MEDS ORDERED: PANTOPRAZOLE 40 MG TABLET PO SCH (06:00)
[2016-08-05 06:09] LABS: Glucose,Whole Blood 146 mg/dL (75-99)
[2016-08-05] MEDS: INSULIN LISPRO (humaLOG) 300 UNIT/3 ML VIAL SQ SCH ×4 (06:38→20:57)
[2016-08-05 07:09] LABS: Anisocytosis Slight; Basophils % (A) 0 %; CH 24.5; CHCM 31.4; Eosinophils % (A) 0 %; HCT 23.6 % (39.0-53.0); HDW 3.52; HGB 7.4 gm/dL (13.0-17.5); Hypochromasia Moderate; Luc # (Auto) 0.48; Luc % (Auto) 4; Lymphocytes # (A) 0.6 k/uL (1.0-4.8); Lymphocytes % (A) 5 %; MCH 24.5 pg (25.0-35.0); MCHC 31.5 g/dL (31.0-37.0); Mean Platelet Volume 7.3; Microcytosis Slight; Monocytes # (A) 0.7 k/uL (0-1.0); Monocytes % (A) 6 %; Neutrophils # (A) 11.2 k/uL (1.3-7.7); Neutrophils % (A) 86 %; Poikilocytosis Slight; RBC 3.03 m/uL (4.30-5.90); RDW 17.1 % (11.5-15.5); WBC (Perox) 13.34
[2016-08-05 07:22] LABS: Calcium 8.1 mg/dL (8.4-10.2); Potassium 3.5 mmol/L (3.5-5.1)
--- NOTE | 2016-08-05 07:22 | HP ---
DATE OF ADMISSION: ATTENDING PHYSICIAN: Dr. Stevo Mercado REASON FOR ADMISSION: Fever. HISTORY OF PRESENT ILLNESS: This is an 81-year-old gentleman who well known to our service previously seen at [facility] comes into the hospital from a long-term with a fever. Patient apparently has had a wound in his right groin for the last week or so. States that it started as a pustule thereafter progressively got worse. It has been attempted to pursue some packing over the last few days. Patient was apparently given a dose of Bactrim at the other facility. Patient states that he has significant tenderness, has had chills in the recent time, hence was sent in to the hospital from the long-term as he has not been feeling himself in the recent time. Patient was evaluated in the emergency room, was noted to have clinical findings of infection in his groin; hence, was admitted to the hospital for empiric antibiotic coverage with vancomycin and Zosyn. Patient does have a history of diastolic dysfunction and chronic hypoxic respiratory failure, maintained on 4 liters of supplemental oxygen and renal dysfunction, which is close to his baseline. Patient also has a diagnosis of COPD. Currently denies having any diarrhea, urinary urgency or frequency or lower extremity edema. Denies having any chest pain, breathing difficulty, nausea, vomiting, or abdominal pain. Past medical history includes hypertension, CAD, diastolic heart failure, COPD, type 2 diabetes, hypertension, macular degeneration and chronic hypoxic respiratory failure. Past surgical history includes left hip surgery, cardiac catheterization, coronary artery bypass graft and bowel resection. SOCIAL HISTORY: Previous smoker. No ongoing drug use or alcohol use. REVIEW OF SYSTEMS: Fourteen-point review of systems was done; none pertinent than what was mentioned. Medications at home include metoprolol, iron, aspirin, Lipitor, vitamin D3, Ditropan, Protonix, Metamucil, Lasix 40 b.i.d., insulin, Zaroxolyn, Lovaza, potassium, and Bactrim. ALLERGIES: No known drug allergies. FAMILY HISTORY: Not pertinent to the current admission. PHYSICAL EXAM: VITALS: Temperature 97.1, heart rate is 84. Blood pressure is 142/64 and T-max of 99.7. GENERAL APPEARANCE: Alert, oriented x3, some distress is noted. Head is atraumatic, normocephalic. Pupils are equal, round, and react to light and accommodation. Neck is supple. No JVD. LUNGS: Good air movement. Clear to auscultation. No rhonchi, wheezing. HEART: S1, S2 heard. A systolic click is appreciated. ABDOMEN: Soft, nontender, no organomegaly. LOWER EXTREMITIES: Chronic skin changes. No significant edema. SKIN: A large wound is noted in the right inguinal region radiating to his groin with associated cellulitis, roughly measurement would be about 10 cm at the longest over 5 cm in width. No eschar noted. Severely tender to palpation. No expression of pus is appreciated. NEUROLOGIC: No focal motor or sensory deficits noted. Laboratory data include hemoglobin 7.2, hematocrit 23.5, white count of 11.8, platelets of 348. Sodium 135, potassium 4, chloride 100, bicarb 26, BUN 53, creatinine of 2.04. ASSESSMENT AND PLAN: 1. Sepsis likely secondary to cellulitis. 2. Chronic hypoxic respiratory failure secondary to chronic obstructive pulmonary disease. 3. Congestive heart failure with preserved ejection fraction that is chronic in nature. 4. Benign prostatic hypertrophy. 5. Iron deficiency anemia. 6. Vitamin D3 insufficiency. 7. Chronic kidney disease, stage III. 8. Diabetes mellitus, type 2. 9. Hypertension. 10. Coronary artery disease. PLAN: Empiric antibiotic therapy to be maintained. Aquacel will be applied on the right groin. Wound cultures have been sent. Blood cultures have been sent. We will consult infectious diseases. Nephrology has been consulted in the emergency room as well. Continue ongoing care at this time with Lasix 40 mg p.o. b.i.d. Urinalysis will be obtained. Maintain strict I&O. Unsure of the onset of the wound in the right groin. Will continue with the current therapy at this time. In the past admission the patient's CODE STATUS was a DO NOT RESUSCITATE. Will need to readdress the CODE STATUS again. Repeat labs in a.m. DVT prophylaxis to be ensured.
[2016-08-05] MEDS: IPRATROPIUM-ALBUTEROL 3 ML NEB INHALATION SCH ×4 (08:54→18:56)
[2016-08-05] MEDS ORDERED: ENOXAPARIN 30 MG/0.3 ML SYRINGE SQ SCH (09:00)
[2016-08-05] MEDS: POTASSIUM CHLORIDE ER 10 MEQ TAB.ER.PRT PO SCH (09:38)
[2016-08-05] MEDS: FUROSEMIDE 40 MG TAB PO SCH ×2 (09:38→16:28)
[2016-08-05] MEDS: OXYBUTYNIN CHLORIDE 5 MG TAB PO SCH ×2 (09:38→16:28)
[2016-08-05] MEDS: METOPROLOL TARTRATE 50 MG TAB PO SCH ×2 (09:39→20:18)
[2016-08-05] MEDS: ASPIRIN 81 MG CHEW PO SCH (09:40)
[2016-08-05] MEDS: FERROUS SULFATE 325 MG TAB PO SCH (09:40)
[2016-08-05] MEDS: ISOSORBIDE MONONITRATE ER 30 MG TAB.ER.24H PO SCH (09:41)
[2016-08-05] MEDS: INSULIN DETEMIR 100 UNIT/ML 10 ML VIAL SQ SCH (09:58)
[2016-08-05] MEDS: PSYLLIUM HUSK 100% 6 GM PACKET PO SCH (09:59)
[2016-08-05 11:53] LABS: Glucose,Whole Blood 206 mg/dL (75-99)
--- NOTE | 2016-08-05 15:38 | PN ---
Patient is seen for followup for acute kidney injury. He was admitted to the hospital with a right groin wound. Patient's serum creatinine was 2.39 mg/dL on initial admission. It is now down to 1.87. Patient does have CKD; however, his previous creatinine has been as low as 1.1 and 1.0 mg/dL on 07/19/2016. He is currently maintained on Lasix. Patient received IV fluids on initial admission. He has had good urine output. He voids in a urinal and diaper, and it is not accurately charted. Current antibiotics include vancomycin and Zosyn. On examination today, blood pressure is 158/70, heart rate 102 per minute. Patient is afebrile. EXAMINATION OF THE HEART: S1 and S2. EXAMINATION OF THE LUNGS: Decreased breath sounds at the bases. No crackles or wheezing heard. ABDOMEN: Soft, nontender. Draining wound is noted in his right groin. There is erythema noted around it as well. Examination of lower extremities shows trace edema bilaterally, chronic skin changes. [employer] exam is grossly intact. Patient is moving all 4 extremities. Labs reveal sodium 138, potassium 3.5, chloride 100, BUN 51, serum creatinine 1.87. Hemoglobin is 7.4 g/dL. ASSESSMENT: 1. Acute kidney injury, most likely acute tubular necrosis, currently improving. Patient is maintained on Lasix, which we can continue. His x-ray showed evidence of pulmonary venous hypertension and interstitial edema. Clinically, however, patient is fairly comfortable. He is lying flat with no complaints of shortness of breath. As long as his renal function continues to improve, we may continue with the Lasix at the current dose for now. 2. Hypertension, well controlled. 3. Right groin wound with drainage, maintained on vancomycin and Zosyn. His wound culture is presumptive MRSA. 4. Chronic kidney disease, NKF stage III, secondary to nephrosclerosis. Patient's previous creatinine was around 1.0 mg/dL. 5. Anemia with no active bleeding noted. Iron studies were ordered, and iron saturation was only 7.8%. Patient will be started on IV iron. PLAN: Continue current dose of Lasix. Start IV iron. Monitor vancomycin levels. Repeat labs in a.m.
--- NOTE | 2016-08-05 16:15 | P.PN ---
Subjective HISTORY OF PRESENT ILLNESS: This is an 81-year-old gentleman who well known to our service previously seen at [facility] comes into the hospital from a correction with a fever. Patient apparently has had a wound in his right groin for the last week or so. States that it started as a pustule thereafter progressively got worse. It has been attempted to pursue some packing over the last few days. Patient was apparently given a dose of Bactrim at the other facility. Patient states that he has significant tenderness, has had chills in the recent time, hence was sent in to the hospital from the correction as he has not been feeling himself in the recent time. Patient was evaluated in the emergency room, was noted to have clinical findings of infection in his groin; hence, was admitted to the hospital for empiric antibiotic coverage with vancomycin and Zosyn. Patient does have a history of diastolic dysfunction and chronic hypoxic respiratory failure, maintained on 4 liters of supplemental oxygen and renal dysfunction, which is close to his baseline. Patient also has a diagnosis of COPD. Currently denies having any diarrhea, urinary urgency or frequency or lower extremity edema. Denies having any chest pain, breathing difficulty, nausea, vomiting, or abdominal pain. 08/05/2016 States that his pain is about the same no significant improvement no chills nausea vomiting chest pain breathing is stable PHYSICAL EXAM: On 4 L of supplemental oxygen. GENERAL APPEARANCE: Alert, oriented x3, some distress is noted. Head is atraumatic, normocephalic. Pupils are equal, round, and react to light and accommodation. Neck is supple. No JVD. LUNGS: Good air movement. Clear to auscultation. No rhonchi, wheezing. HEART: S1, S2 heard. A systolic click is appreciated. ABDOMEN: Soft, nontender, no organomegaly. LOWER EXTREMITIES: Chronic skin changes. No significant edema. SKIN: A large wound is noted in the right inguinal region radiating to his groin with associated cellulitis, roughly measurement would be about 10 cm at the longest over 5 cm in width. No eschar noted. Severely tender to palpation. No expression of pus is appreciated. Improvement from the previous evaluation NEUROLOGIC: No focal motor or sensory deficits noted. Objective - Vital Signs Vital signs: Vital Signs Temp 97 F L 08/05/16 12:00 Pulse 94 06/02/17 15:59 Resp 16 08/05/16 12:00 BP 158/70 08/05/16 12:00 Pulse Ox 91 L 08/05/16 12:00 Intake & Output 08/04/16 08/05/16 08/05/16 18:59 06:59 18:59 Intake Total 1167 300 617 Output Total 4 2 5 Balance 1163 298 612 Weight 75.7 kg 76.3 kg Intake: IV 650 300 Piperacillin-Tazobactam 3 50 50 .375 gm In Dextrose/Water 1 50ml.bag @ 12.5 mls/hr IVPB Q8HR [facility] Rx#: [id number] Sodium Chloride 0.9% 1, 600 000 ml @ 75 mls/hr IV . [id number] Rx#:[id number] Vancomycin 1,250 mg In 250 Sodium Chloride 0.9% 250 ml @ 125 mls/hr IVPB Q24H [facility] Rx#:[id number] Oral 517 617 Output: Urine 2 Stool 2 5 Urine/Stool Mix 2 Other: Voiding Method Urinal Urinal Diaper Diaper # Voids 1 5 - Labs CBC & Chem 7: 08/05/16 06:20 08/05/16 06:20 Labs: Abnormal Lab Results - Last 24 Hours (Table) 08/04/16 08/05/16 08/05/16 Range/Units 16:42 06:08 06:20 WBC 13.0 H (3.8-10.6) k/uL RBC 3.03 L (4.30-5.90) m/uL Hgb 7.4 L (13.0-17.5) gm/dL Hct 23.6 L (39.0-53.0) % MCV 78.0 L (80.0-100.0) fL MCH 24.5 L (25.0-35.0) pg RDW 17.1 H (11.5-15.5) % Neutrophils # 11.2 H (1.3-7.7) k/uL Lymphocytes # 0.6 L (1.0-4.8) k/uL BUN (9-20) mg/dL Creatinine (0.66-1.25) mg/dL Glucose (74-99) mg/dL POC Glucose (mg/dL) 194 H 146 H (75-99) mg/dL Calcium (8.4-10.2) mg/dL 08/05/16 08/05/16 Range/Units 06:20 11:45 WBC (3.8-10.6) k/uL RBC (4.30-5.90) m/uL Hgb (13.0-17.5) gm/dL Hct (39.0-53.0) % MCV (80.0-100.0) fL MCH (25.0-35.0) pg RDW (11.5-15.5) % Neutrophils # (1.3-7.7) k/uL Lymphocytes # (1.0-4.8) k/uL BUN 51 H (9-20) mg/dL Creatinine 1.87 H (0.66-1.25) mg/dL Glucose 123 H (74-99) mg/dL POC Glucose (mg/dL) 206 H (75-99) mg/dL Calcium 8.1 L (8.4-10.2) mg/dL Microbiology - Last 24 Hours (Table) 08/03/16 08:58 Gram Stain - Preliminary Hip - Right Wound Culture - Preliminary Presumptive MRSA 08/03/16 08:58 Gram Stain - Preliminary Arm - Right Wound Culture - Preliminary Presumptive MRSA 08/03/16 08:58 Blood Culture - Preliminary Blood No Growth after 48 hours 08/03/16 09:35 Urine Culture - Final Urine,Catheterized Assessment and Plan Plan: ASSESSMENT AND PLAN: 1. Sepsis likely secondary to cellulitis. 2. Chronic hypoxic respiratory failure secondary to chronic obstructive pulmonary disease. 3. Congestive heart failure with preserved ejection fraction that is chronic in nature. 4. Benign prostatic hypertrophy. 5. Iron deficiency anemia. 6. Vitamin D3 insufficiency. 7. Chronic kidney disease, stage III. With an acute component slightly improved 8. Diabetes mellitus, type 2. 9. Hypertension. 10. Coronary artery disease. PLAN: Continue with empiric antibiotic therapy clinically slightly improved we'll await ID recommendations Wound care. At this time continue with the nonadhesive replaceable dressing thereafter made to consider Aquasol Renal function stable Continue with antibiotic therapy and Lasix at this time Incentive spirometer DVT prophylaxis.
[2016-08-05] MEDS: MULTIVITAMINS, THERA 1 EACH TAB PO SCH (16:27)
[2016-08-05] MEDS: AMMONIUM LACTATE 12% CREAM 140 GM TUBE TOPICAL SCH ×2 (16:27→20:18)
[2016-08-05] MEDS: CHOLECALCIFEROL 1,000 UNIT TAB PO SCH (16:28)
[2016-08-05 16:52] LABS: Glucose,Whole Blood 237 mg/dL (75-99)
[2016-08-05] MEDS: SODIUM FERRIC GLUCONAT-SUCROSE 125 MG in SODIUM CHLORIDE 0.9% 100 ML IVPB SCH (18:31)
--- NOTE | 2016-08-05 18:54 | P.CONS ---
History of Present Illness - Reason for Consult Consult date: 08/05/16 - Chief Complaint wounds - History of Present Illness 81-year-old male presents to Hospital from the extended care facility. It is related that he had been cared for at an outside hospital records transferred to extended care. He's having progressive weakness and failure. He has congestive heart failure with chronic diastolic dysfunction as well as chronic hypoxic respiratory failure requiring oxygen supplementation. With his feeling status was placed to extended care. Denies evidence of new ulceration to the right upper thigh area, right arm and some minimal erythema to the coccyx. With the ulcerations and patient was brought in the hospital. He is quite a poor historian. The daughter is helpful. He is fortunately not very short of breath at this time. He denies fevers chills or rigors. But has profound weakness. Review of Systems HEENT:Denies headache or acute visual change. Denies sinus or mouth discomforts. Denies neck stiffness or pain. Denies significant oral cavity pain. Denies difficulty on swallowing. Lungs: chrnic shortness of breath no hemoptysis Cardiovascular: no syncope but has dyspena and SOB Gastrointestinal:Denies nausea, vomiting, diarrhea, constipation, hematemesis, melena, hematochezia. No no significant change of bowel habit noticed. Musculoskeletal: denies significant myalgias or arthralgias. No new joint swelling. Denies new back pain. chronic weakness Skin: see HPI Neuro: Denies headache or visual change. Denies any new onset weakness or difficulty with ambulation. Denies falls or seizures. Psychiatric:Denies anxiety or depression. Endocrine: Denies significant fatigue, denies significant weight loss or weight gain. Past Medical History Past Medical History: Coronary Artery Disease (CAD), Heart Failure, COPD, Diabetes Mellitus, Eye Disorder, GERD/Reflux, Hyperlipidemia, Hypertension, Pneumonia, Prostate Disorder, Skin Disorder Additional Past Medical History / Comment(s): Dautghters state pt currently has a R inguinal area wound and a wound above his R elbow and raw/red skin perineum and buttocks, anemia, O2 at 2L/NC ATC, past R foot ulcers-seen in wound clinic by Dr. Quintanilla-healed, bilateral macular degeneration, occasional back pain, constipation, BPH. History of Any Multi-Drug Resistant Organisms: MRSA Year Discovered:: 08/02/16 MDRO Source:: GROIN Past Surgical History: Appendectomy, Bowel Resection, Coronary Bypass/CABG, Heart Catheterization, Orthopedic Surgery, Prostate Surgery Additional Past Surgical History / Comment(s): 02/2008 CABG-triple bypass, lt hip with cristina and 3 screws, bowel resection d/t kink/blockage/adhesion, multiple colonoscopies with polypectomies, bilateral cataract removal, bilateral eye injections, TURP, Past Anesthesia/Blood Transfusion Reactions: No Reported Reaction Additional Past Anesthesia/Blood Transfusion Reaction / Comm: Pt has recently received blood without reaction. Past Psychological History: No Psychological Hx Reported Additional Psychological History / Comment(s): Pt currently resides at [facility]. He periodically gets up in a wheelchair for meals. He is on O2 at 2L/ [place] ATC. He feeds himself. Smoking Status: Former smoker Past Alcohol Use History: None Reported Additional Past Alcohol Use History / Comment(s): Pt started smoking in 194 and quit in 2007 Past Drug Use History: None Reported - Past Family History Mother Additional Family Medical History / Comment(s): bowel obstruction Father Family Medical History: Liver Disease Medications and Allergies Home Medications and Allergies Comment(s): Microbiology Current Medications Acetaminophen (Tylenol Tab) 650 mg PO Q4H PRN PRN Reason: Pain or Fever > 100.5 Hydrocodone Bitart/Acetaminophen ([employer] 5-325) 1 each PO Q6HR PRN PRN Reason: Pain Albuterol/Ipratropium (Duoneb 0.5 Mg-3 Mg/3 Ml Soln) 3 ml INHALATION Q2H PRN PRN Reason: Shortness Of Breath Albuterol/Ipratropium (Duoneb 0.5 Mg-3 Mg/3 Ml Soln) 3 ml INHALATION RT-QID [facility] Last Admin: 08/05/16 15:39 Dose: 3 ml Aspirin (Aspirin) 81 mg PO DAILY [facility] Last Admin: 08/05/16 09:40 Dose: 81 mg Atorvastatin Calcium (Lipitor) 40 mg PO HS [facility] Last Admin: 08/04/16 21:05 Dose: 40 mg Bisacodyl (Dulcolax) 10 mg RECTAL DAILY PRN PRN Reason: Constipation Cholecalciferol (Vitamin D3) 10,000 unit PO DAILY@1700 [facility] Last Admin: 08/05/16 16:28 Dose: 10,000 unit Enoxaparin Sodium (Lovenox) 40 mg SQ DAILY [facility] Ferrous Sulfate (Feosol) 325 mg PO DAILY [facility] Last Admin: 08/05/16 09:40 Dose: 325 mg Furosemide (Lasix) 40 mg PO BID@0800,1700 [facility] Last Admin: 08/05/16 16:28 Dose: 40 mg Piperacillin/Tazobactam/ (Dextrose 3.375 gm/ IV Solution) 50 mls @ 12.5 mls/hr IVPB Q8HR [facility] Last Admin: 08/05/16 16:27 Dose: 12.5 mls/hr Vancomycin HCl 1,250 mg/ (Sodium Chloride) 250 mls @ 125 mls/hr IVPB Q24H [facility] Last Admin: 08/04/16 21:04 Dose: 125 mls/hr Ferric Sodium Gluconate 125 mg (/ Sodium Chloride) 110 mls @ 100 mls/hr IVPB DAILY [facility] Stop: 08/07/16 18:01 Last Admin: 08/05/16 18:31 Dose: 100 mls/hr Insulin Detemir (Levemir) 25 unit SQ DAILY [facility] Last Admin: 08/05/16 09:58 Dose: 25 unit Insulin Human Lispro (Humalog) 0 unit SQ ACHS [facility] PRN Reason: Protocol Last Admin: 08/05/16 17:58 Dose: 3 unit Isosorbide Mononitrate (Imdur) 30 mg PO DAILY [facility] Last Admin: 08/05/16 09:41 Dose: 30 mg Lactic Acid (Ammonium Lactate) 1 applic TOPICAL BID [facility] Last Admin: 08/05/16 16:27 Dose: Not Given Melatonin (Melatonin) 5 mg PO PRN PRN Reason: Insomnia Metoprolol Tartrate (Lopressor) 50 mg PO BID [facility] Last Admin: 08/05/16 09:39 Dose: 50 mg Multivitamins (Theragran) 1 each PO DAILY@1700 [facility] Last Admin: 08/05/16 16:27 Dose: 1 each Oxybutynin Chloride (Ditropan) 5 mg PO BID@0800,1700 [facility] Last Admin: 08/05/16 16:28 Dose: 5 mg Potassium Chloride (K-Dur 10) 10 meq PO DAILY@1700 [facility] Last Admin: 08/05/16 09:38 Dose: 10 meq Psyllium Hydrophilic Mucilloid (Metamucil) 6 gm PO DAILY [facility] Last Admin: 08/05/16 09:59 Dose: 6 gm Home Medications Medication Instructions Recorded Confirmed Type Metoprolol Tartrate 50 mg PO BID 01/25/14 08/03/16 History Ferrous Sulfate [Feosol] 325 mg PO DAILY 04/15/14 08/03/16 History Aspirin 81 mg PO DAILY 06/03/16 08/03/16 History Atorvastatin Calcium [Lipitor] 40 mg PO HS 06/03/16 08/03/16 History Cholecalciferol (Vitamin D3) 10,000 unit PO DAILY@1700 06/03/16 08/03/16 History [Vitamin D3] Multivitamins, Thera [Multivitamin 1 tab PO DAILY@1700 06/03/16 08/03/16 History (formulary)] Oxybutynin Chloride [Ditropan] 5 mg PO BID@0800,1700 06/03/16 08/03/16 History Pantoprazole Sodium [Protonix] 40 mg PO DAILY@0600 06/03/16 08/03/16 History Psyllium Husk 100% [Metamucil 6 gm PO DAILY 06/03/16 08/03/16 History Packet] Acetaminophen Tab [Tylenol] 650 mg PO Q4H PRN 08/03/16 08/03/16 History Ammonium Lactate Cream [Lac-Hydrin 1 applic TOPICAL BID 08/03/16 08/03/16 History 12% Cream] Bisacodyl [Dulcolax] 10 mg RECTAL DAILY PRN 08/03/16 08/03/16 History Furosemide [Lasix] 40 mg PO BID@0800,1700 08/03/16 08/03/16 History Glucerna Shake 1 can PO TID-W/MEALS 08/03/16 08/03/16 History INSULIN LISPRO (humaLOG) [HumaLOG] See Protocol SQ ACHS 08/03/16 08/03/16 History Insulin Detemir [Levemir] 25 unit SQ DAILY 08/03/16 08/03/16 History Ipratropium-Albuterol Nebulize 3 ml INHALATION RT-Q6H PRN 08/03/16 08/03/16 History [Duoneb 0.5 mg-3 mg/3 ml Soln] Losartan [Cozaar] 50 mg PO DAILY 08/03/16 08/03/16 History Magnesium Hydroxide [Milk of 2,400 mg PO DAILY PRN 08/03/16 08/03/16 History Magnesia] Metolazone [Zaroxolyn] 2.5 mg PO Q48H 08/03/16 08/03/16 History Na Phos,M-B/Na Phos,Di-Ba [Fleet 133 ml RECTAL DAILY PRN 08/03/16 08/03/16 History Adult] [place]-3 Acid Ethyl Esters [Lovaza] 2 gm PO BID@0800,1700 08/03/16 08/03/16 History Potassium Chloride [Klor-Con 10] 10 meq PO DAILY@1700 08/03/16 08/03/16 History Sulfamethox-Tmp 800-160Mg [Bactrim 1 tab PO BID@0800,2100 08/03/16 08/03/16 History DS 800-160 mg] Zinc Oxide [Desitin] 1 applic TOPICAL BID PRN 08/03/16 08/03/16 History Allergies Allergy/AdvReac Type Severity Reaction Status Date / Time No Known Allergies Allergy Verified 08/03/16 09:10 Physical Exam Vitals: Vital Signs Temp Pulse Pulse Resp BP Pulse Ox 08/05/16 16:00 98.4 F 100 20 159/72 91 L 08/05/16 15:59 94 08/05/16 15:39 90 08/05/16 12:00 97 F L 102 H 16 158/70 91 L 08/05/16 11:14 96 08/05/16 11:04 93 92 L 08/05/16 09:25 97.4 F L 93 20 170/67 90 L 08/05/16 04:00 97.3 F L 92 17 145/66 91 L 08/05/16 00:00 85 17 129/62 90 L 08/04/16 20:46 80 08/04/16 20:36 80 08/04/16 20:00 98.3 F 98 17 142/66 90 L Intake and Output 08/05/16 08/05/16 08/05/16 06:59 14:59 22:59 Intake Total 300 667 Output Total 2 5 Balance 298 667 -5 Intake: IV 300 50 Piperacillin-Tazobactam 3 50 50 .375 gm In Dextrose/Water 1 50ml.bag @ 12.5 mls/hr IVPB Q8HR [facility] Rx#: [id number] Vancomycin 1,250 mg In 250 Sodium Chloride 0.9% 250 ml @ 125 mls/hr IVPB Q24H [facility] Rx#:[id number] Oral 617 Output: Stool 5 Urine/Stool Mix 2 Other: Voiding Method Urinal Urinal Urinal Diaper Diaper Diaper # Voids 1 5 Weight 76.3 kg pleasant not in distress HEENT: Anicteric conjunctiva are pink and moist nasal mucosa grossly intact without significant lesions, there is no thrush. dentures Neck: The neck is supple without significant lymphadenopathy or thyromegaly. Lungs: symmetric air entry scattered wheezing. There is no significant bronchial sounds. There is no egophony or dullness. Heart: irRegular with an audible S1-S2, no S3 no S4. There is no significant murmur click or rub, PMI was nondisplaced. Abdomen: Positive bowel sounds soft and nontender without palpable masses or organomegaly. There was no guarding or rebound. Extremities: The upper extremities have excellent pulses they are symmetric, no significant petechiae or telangiectasia. No splinter hemorrhages were noted. The lower extremities trace edema, right upper thigh has large full thickness ulcer 8x6x0.2 cm surrounding erythema noted. Neuro: Awake alert oriented to person place follows simple commands Results CBC & Chem 7: 08/05/16 06:20 08/05/16 06:20 Labs: Abnormal Lab Results - Last 24 Hours (Table) 08/05/16 08/05/16 08/05/16 Range/Units 06:08 06:20 06:20 WBC 13.0 H (3.8-10.6) k/uL RBC 3.03 L (4.30-5.90) m/uL Hgb 7.4 L (13.0-17.5) gm/dL Hct 23.6 L (39.0-53.0) % MCV 78.0 L (80.0-100.0) fL MCH 24.5 L (25.0-35.0) pg RDW 17.1 H (11.5-15.5) % Neutrophils # 11.2 H (1.3-7.7) k/uL Lymphocytes # 0.6 L (1.0-4.8) k/uL BUN 51 H (9-20) mg/dL Creatinine 1.87 H (0.66-1.25) mg/dL Glucose 123 H (74-99) mg/dL POC Glucose (mg/dL) 146 H (75-99) mg/dL Calcium 8.1 L (8.4-10.2) mg/dL 08/05/16 08/05/16 Range/Units 11:45 16:44 WBC (3.8-10.6) k/uL RBC (4.30-5.90) m/uL Hgb (13.0-17.5) gm/dL Hct (39.0-53.0) % MCV (80.0-100.0) fL MCH (25.0-35.0) pg RDW (11.5-15.5) % Neutrophils # (1.3-7.7) k/uL Lymphocytes # (1.0-4.8) k/uL BUN (9-20) mg/dL Creatinine (0.66-1.25) mg/dL Glucose (74-99) mg/dL POC Glucose (mg/dL) 206 H 237 H (75-99) mg/dL Calcium (8.4-10.2) mg/dL Microbiology - Last 24 Hours (Table) 08/03/16 08:58 Gram Stain - Preliminary Hip - Right Wound Culture - Preliminary Presumptive MRSA 08/03/16 08:58 Gram Stain - Preliminary Arm - Right Wound Culture - Preliminary Presumptive MRSA 08/03/16 08:58 Blood Culture - Preliminary Blood No Growth after 48 hours Laboratory Results WBC 13.0 k/uL (3.8-10.6) H 08/05/16 06:20 RBC 3.03 m/uL (4.30-5.90) L 08/05/16 06:20 Hgb 7.4 gm/dL (13.0-17.5) L 08/05/16 06:20 Hct 23.6 % (39.0-53.0) L 08/05/16 06:20 MCV 78.0 fL (80.0-100.0) L 08/05/16 06:20 MCH 24.5 pg (25.0-35.0) L 08/05/16 06:20 MCHC 31.5 g/dL (31.0-37.0) 08/05/16 06:20 RDW 17.1 % (11.5-15.5) H 08/05/16 06:20 Plt Count 357 k/uL (150-450) 08/05/16 06:20 Neutrophils % 86 % 08/05/16 06:20 Lymphocytes % 5 % 08/05/16 06:20 Monocytes % 6 % 08/05/16 06:20 Eosinophils % 0 % 08/05/16 06:20 Basophils % 0 % 08/05/16 06:20 Neutrophils # 11.2 k/uL (1.3-7.7) H 08/05/16 06:20 Lymphocytes # 0.6 k/uL (1.0-4.8) L 08/05/16 06:20 Monocytes # 0.7 k/uL (0-1.0) 08/05/16 06:20 Eosinophils # 0.0 k/uL (0-0.7) 08/05/16 06:20 Basophils # 0.0 k/uL (0-0.2) 08/05/16 06:20 Hypochromasia Moderate 08/05/16 06:20 Poikilocytosis Slight 08/05/16 06:20 Anisocytosis Slight 08/05/16 06:20 Microcytosis Slight 08/05/16 06:20 PT 12.7 sec (9.0-12.0) H 08/03/16 08:58 INR 1.3 (<1.1) 08/03/16 08:58 APTT 25.5 sec (22.0-30.0) 08/03/16 08:58 Sodium 138 mmol/L (137-145) 08/05/16 06:20 Potassium 3.5 mmol/L (3.5-5.1) 08/05/16 06:20 Chloride 100 mmol/L (98-107) 08/05/16 06:20 Carbon Dioxide 27 mmol/L (22-30) 08/05/16 06:20 Anion Gap 11 mmol/L 08/05/16 06:20 BUN 51 mg/dL (9-20) H 08/05/16 06:20 Creatinine 1.87 mg/dL (0.66-1.25) H 08/05/16 06:20 Est GFR (MDRD) Af Amer 42 (>60 ml/min/1.73 sqM) 08/05/16 06:20 Est GFR (MDRD) Non-Af 35 (>60 ml/min/1.73 sqM) 08/05/16 06:20 Glucose 123 mg/dL (74-99) H 08/05/16 06:20 POC Glucose (mg/dL) 237 mg/dL (75-99) H 08/05/16 16:44 POC Glu Cpas Angela Pierce 08/05/16 16:[address] Glu mg/dL 140 mg/dL 08/03/16 08:58 Hemoglobin A1c 6.5 % (4.2-6.1) H 08/03/16 08:58 Plasma Lactic Acid Gerhard 1.2 mmol/L (0.7-2.0) 08/03/16 08:58 Calcium 8.1 mg/dL (8.4-10.2) L 08/05/16 06:20 Iron 14 ug/dL (49-181) L 08/04/16 06:06 TIBC 180 ug/dL (261-462) L 08/04/16 06:06 % Saturation 7.8 % (20-50) L 08/04/16 06:06 Total Bilirubin 0.5 mg/dL (0.2-1.3) 08/03/16 08:58 AST 19 U/L (17-59) 08/03/16 08:58 ALT 34 U/L (21-72) 08/03/16 08:58 Alkaline Phosphatase 128 U/L (38-126) H 08/03/16 08:58 Total Protein 5.4 g/dL (6.3-8.2) L 08/03/16 08:58 Albumin 2.6 g/dL (3.5-5.0) L 08/03/16 08:58 Urine Color Yellow 08/03/16 09:35 Urine Appearance Clear (Clear) 08/03/16 09:35 Urine pH 7.0 (5.0-8.0) 08/03/16 09:35 Ur Specific [place] 1.014 (1.001-1.035) 08/03/16 09:35 Urine Protein Trace (Negative) H 08/03/16 09:35 Urine Glucose (UA) Negative (Negative) 08/03/16 09:35 Urine Ketones Negative (Negative) 08/03/16 09:35 Urine Blood Negative (Negative) 08/03/16 09:35 Urine Nitrite Negative (Negative) 08/03/16 09:35 Urine Bilirubin Negative (Negative) 08/03/16 09:35 Urine Urobilinogen <2.0 mg/dL (<2.0) 08/03/16 09:35 Ur Leukocyte Esterase Negative (Negative) 08/03/16 09:35 Microbiology 08/03/16 08:58 Hip - Right Gram Stain - Preliminary 08/03/16 08:58 Hip - Right Wound Culture - Preliminary Presumptive MRSA 08/03/16 08:58 Arm - Right Gram Stain - Preliminary 08/03/16 08:58 Arm - Right Wound Culture - Preliminary Presumptive MRSA 08/03/16 08:58 Blood Blood Culture - Preliminary No Growth after 48 hours 08/03/16 09:35 Urine,Catheterized Urine Culture - Final Chest x-ray: report reviewed (copd no infiltrate) Assessment and Plan (1) Wound cellulitis Narrative/Plan: Pleasant 81-year-old male presents to Hospital from extended care due to new wounds. The patient is become uncomfortable due to these new ulcerations. And constantly was transferred to hospital. It is noted there is a large ulceration which is full-thickness on the right upper 5. There was a concern that this could be from pressure. However this is not nonpressure bearing site. He has appearance of either tissue loss from irritation from his brief and wetness or possibly from an accidental burn from spilled hot fluids. The patient does not recall any munson and consequently the irritation from the brief seems to be most likely. Is minimal erythema to the buttocks. Has an abscess on the right upper arm also. Both abscesses are now starting to show evidence of MRSA. We'll continue vancomycin therapy at this time. The Zosyn can be discontinued Local wound care to the arm is with the silver foam padding. Aquacel silver will be applied to the right groin area. Zinc cream to the buttocks will be utilized. He is on a new mattress interning should be continued. Cultures will determine the overall antibiotic course at discharge. Status: Acute
[2016-08-05] MEDS: ATORVASTATIN 40 MG TAB PO SCH (20:18)
[2016-08-05] MEDS: VANCOMYCIN 1,250 MG in SODIUM CHLORIDE 0.9% 250 ML IVPB SCH (20:18)
[2016-08-05 20:55] LABS: Glucose,Whole Blood 327 mg/dL (75-99)
[2016-08-06] MEDS: PIPERACILLIN-TAZOBACTAM 3.375 GM in DEXTROSE/WATER 1 50ML.BAG IVPB SCH ×3 (00:09→17:02)
[2016-08-06 02:08] LABS: Glucose,Whole Blood 223 mg/dL (75-99)
[2016-08-06 07:06] LABS: Glucose,Whole Blood 163 mg/dL (75-99)
[2016-08-06 07:33] LABS: Anisocytosis Slight; Basophils % (A) 0 %; CH 24.3; CHCM 30.3; Eosinophils % (A) 0 %; HCT 23.7 % (39.0-53.0); HDW 3.37; HGB 7.2 gm/dL (13.0-17.5); Hypochromasia Marked; Luc # (Auto) 0.36; Luc % (Auto) 3; Lymphocytes # (A) 0.6 k/uL (1.0-4.8); Lymphocytes % (A) 5 %; MCH 24.5 pg (25.0-35.0); MCHC 30.5 g/dL (31.0-37.0); MCV 80.4 fL (80.0-100.0); Mean Platelet Volume 7.5; Microcytosis Slight; Monocytes # (A) 0.7 k/uL (0-1.0); Monocytes % (A) 6 %; Neutrophils # (A) 9.5 k/uL (1.3-7.7); Neutrophils % (A) 85 %; RBC 2.94 m/uL (4.30-5.90); RDW 17.4 % (11.5-15.5); WBC 11.1 k/uL (3.8-10.6); WBC (Perox) 11.31
[2016-08-06] MEDS: IPRATROPIUM-ALBUTEROL 3 ML NEB INHALATION SCH ×5 (07:46→19:54)
[2016-08-06 07:54] LABS: Calcium 8.4 mg/dL (8.4-10.2); Potassium 3.7 mmol/L (3.5-5.1)
[2016-08-06] MEDS: AMMONIUM LACTATE 12% CREAM 140 GM TUBE TOPICAL SCH ×2 (08:17→20:59)
[2016-08-06] MEDS: OXYBUTYNIN CHLORIDE 5 MG TAB PO SCH ×2 (08:17→17:02)
[2016-08-06] MEDS: FUROSEMIDE 40 MG TAB PO SCH (08:17)
[2016-08-06] MEDS: INSULIN LISPRO (humaLOG) 300 UNIT/3 ML VIAL SQ SCH ×4 (08:17→21:04)
[2016-08-06] MEDS: METOPROLOL TARTRATE 50 MG TAB PO SCH ×2 (08:18→20:59)
[2016-08-06] MEDS: FERROUS SULFATE 325 MG TAB PO SCH (08:18)
[2016-08-06] MEDS: ISOSORBIDE MONONITRATE ER 30 MG TAB.ER.24H PO SCH (08:18)
[2016-08-06] MEDS: ASPIRIN 81 MG CHEW PO SCH (08:18)
[2016-08-06] MEDS: ENOXAPARIN 40 MG/0.4 ML SYRINGE SQ SCH (08:19)
[2016-08-06] MEDS: PSYLLIUM HUSK 100% 6 GM PACKET PO SCH (08:19)
[2016-08-06] MEDS: INSULIN DETEMIR 100 UNIT/ML 10 ML VIAL SQ SCH (08:20)
[2016-08-06] MEDS: SODIUM FERRIC GLUCONAT-SUCROSE 125 MG in SODIUM CHLORIDE 0.9% 100 ML IVPB SCH (08:25)
[2016-08-06 11:35] LABS: Glucose,Whole Blood 274 mg/dL (75-99)
--- NOTE | 2016-08-06 13:35 | P.PN ---
Subjective Principal diagnosis: 81-year-old male with acute kidney injury from cellulitis groin wound on the right side and chronic kidney disease with baseline creatinine of 1. He then long term resident. He is also known with chronic obstructive lung disease congestive heart failure BPH. Is known diabetic. Also known with coronary artery disease. This morning is complaining of pain at the site of the wound. Other than this he is denying any complaints. No nausea vomiting diarrhea abdominal pain no chest pain shortness of breath fever chills cough. Appetite is fair Objective - Vital Signs Vital signs: Vital Signs Temp 97.8 F 08/06/16 07:00 Pulse 71 08/06/16 08:00 Resp 18 08/06/16 08:00 BP 154/71 08/06/16 07:00 Pulse Ox 95 08/06/16 07:00 Intake & Output 08/05/16 08/06/16 08/06/16 18:59 06:59 18:59 Intake Total 667 300 Output Total 5 5 Balance 662 300 -5 Weight 76.3 kg Intake: IV 50 50 Piperacillin-Tazobactam 3 50 50 .375 gm In Dextrose/Water 1 50ml.bag @ 12.5 mls/hr IVPB Q8HR [facility] Rx#: [id number] Intake, IV Titration 250 Amount Vancomycin 1,250 mg In 250 Sodium Chloride 0.9% 250 ml @ 125 mls/hr IVPB Q24H [facility] Rx#:[id number] Oral 617 Output: Stool 5 5 Other: Voiding Method Urinal Urinal Urinal Diaper Diaper Diaper # Voids 5 4 1 # Bowel Movements 1 1 And examinations awake alert oriented. HEENT exam no JVP in neck is supple no facial asymmetry Lungs clear to auscultation percussion good air entry bilaterally. Heart sounds are unremarkable for any murmur rub gallop. Abdomen soft nontender Right groin has dressing Extremity exam was no edema Mildly reddened lower legs. Nontender. Neurologically awake alert oriented moves all his extremities. - Labs CBC & Chem 7: 08/06/16 07:14 08/06/16 07:14 Labs: Abnormal Lab Results - Last 24 Hours (Table) 08/05/16 08/05/16 08/06/16 Range/Units 16:44 20:53 02:06 WBC (3.8-10.6) k/uL RBC (4.30-5.90) m/uL Hgb (13.0-17.5) gm/dL Hct (39.0-53.0) % MCH (25.0-35.0) pg MCHC (31.0-37.0) g/dL RDW (11.5-15.5) % Neutrophils # (1.3-7.7) k/uL Lymphocytes # (1.0-4.8) k/uL BUN (9-20) mg/dL Creatinine (0.66-1.25) mg/dL Glucose (74-99) mg/dL POC Glucose (mg/dL) 237 H 327 H 223 H (75-99) mg/dL 08/06/16 08/06/16 08/06/16 Range/Units 07:05 07:14 07:14 WBC 11.1 H (3.8-10.6) k/uL RBC 2.94 L (4.30-5.90) m/uL Hgb 7.2 L (13.0-17.5) gm/dL Hct 23.7 L (39.0-53.0) % MCH 24.5 L (25.0-35.0) pg MCHC 30.5 L (31.0-37.0) g/dL RDW 17.4 H (11.5-15.5) % Neutrophils # 9.5 H (1.3-7.7) k/uL Lymphocytes # 0.6 L (1.0-4.8) k/uL BUN 48 H (9-20) mg/dL Creatinine 1.70 H (0.66-1.25) mg/dL Glucose 144 H (74-99) mg/dL POC Glucose (mg/dL) 163 H (75-99) mg/dL 08/06/16 Range/Units 11:33 WBC (3.8-10.6) k/uL RBC (4.30-5.90) m/uL Hgb (13.0-17.5) gm/dL Hct (39.0-53.0) % MCH (25.0-35.0) pg MCHC (31.0-37.0) g/dL RDW (11.5-15.5) % Neutrophils # (1.3-7.7) k/uL Lymphocytes # (1.0-4.8) k/uL BUN (9-20) mg/dL Creatinine (0.66-1.25) mg/dL Glucose (74-99) mg/dL POC Glucose (mg/dL) 274 H (75-99) mg/dL Microbiology - Last 24 Hours (Table) 08/03/16 08:58 Gram Stain - Final Arm - Right Wound Culture - Final Methicillin resist S. aureus 08/03/16 08:58 Blood Culture - Preliminary Blood No Growth after 72 hours 08/03/16 08:58 Gram Stain - Preliminary Hip - Right Wound Culture - Preliminary Presumptive MRSA Assessment and Plan Plan: Impression. 1. Acute kidney injury from septic syndrome with right groin wound starting with a pustule and possibly some exposure to warm food spilling. Creatinine is improved from 2.39-1.7 as of this morning. Urine output is not very clear as he is incontinent of urine. 2. History of chronic kidney disease, baseline creatinine 1.1 as of 07/19/2016 , trace proteinuria on July 2069 3. Anemia with hemoglobin of 7.2. His hemoglobin was 12.1 on 09/02/2015 and then down to 10.2 on 03/23/2016. Etiology is iron deficiency, with saturation of 17% dated 08/04/2016 off unclear cause. 4. History of BPH rule out urinary retention. 5. History of diabetes mellitus. Proteinuria only trace Recommendation. No changes in medications or management at this time patient is on by mouth ferrous sulfate will see how he responds. As his lungs are clear and is comfortable reduce the Lasix from 40 twice a day to 20 twice a day Bladder scan
[2016-08-06] MEDS: POTASSIUM CHLORIDE ER 10 MEQ TAB.ER.PRT PO SCH (17:02)
[2016-08-06] MEDS: MULTIVITAMINS, THERA 1 EACH TAB PO SCH (17:02)
[2016-08-06] MEDS: FUROSEMIDE 20 MG TAB PO SCH (17:02)
[2016-08-06] MEDS: CHOLECALCIFEROL 1,000 UNIT TAB PO SCH (17:02)
[2016-08-06 17:23] LABS: Glucose,Whole Blood 195 mg/dL (75-99)
--- NOTE | 2016-08-06 18:33 | P.PN ---
Subjective HISTORY OF PRESENT ILLNESS: This is an 81-year-old gentleman who well known to our service previously seen at [facility] comes into the hospital from a half-way with a fever. Patient apparently has had a wound in his right groin for the last week or so. States that it started as a pustule thereafter progressively got worse. It has been attempted to pursue some packing over the last few days. Patient was apparently given a dose of Bactrim at the other facility. Patient states that he has significant tenderness, has had chills in the recent time, hence was sent in to the hospital from the half-way as he has not been feeling himself in the recent time. Patient was evaluated in the emergency room, was noted to have clinical findings of infection in his groin; hence, was admitted to the hospital for empiric antibiotic coverage with vancomycin and Zosyn. Patient does have a history of diastolic dysfunction and chronic hypoxic respiratory failure, maintained on 4 liters of supplemental oxygen and renal dysfunction, which is close to his baseline. Patient also has a diagnosis of COPD. Currently denies having any diarrhea, urinary urgency or frequency or lower extremity edema. Denies having any chest pain, breathing difficulty, nausea, vomiting, or abdominal pain. 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 PHYSICAL EXAM: On 4 L of supplemental oxygen. GENERAL APPEARANCE: Alert, oriented x3, some distress is noted. Head is atraumatic, normocephalic. Pupils are equal, round, and react to light and accommodation. Neck is supple. No JVD. LUNGS: Good air movement. Clear to auscultation. No rhonchi, wheezing. HEART: S1, S2 heard. A systolic click is appreciated. ABDOMEN: Soft, nontender, no organomegaly. LOWER EXTREMITIES: Chronic skin changes. No significant edema. SKIN: A large wound is noted in the right inguinal region radiating to his groin with associated cellulitis, roughly measurement would be about 10 cm at the longest over 5 cm in width. No eschar noted. Area of cellulitis noted on the right upper arm 1 cm in diameter. Severely tender to palpation. No expression of pus is appreciated. Improvement from the previous evaluation NEUROLOGIC: No focal motor or sensory deficits noted. Objective - Vital Signs Vital signs: Vital Signs Temp 97.4 F L 08/06/16 15:00 Pulse 89 08/06/16 16:00 Resp 18 08/06/16 16:00 BP 149/69 08/06/16 15:00 Pulse Ox 94 L 08/06/16 15:00 Intake & Output 08/05/16 08/06/16 08/06/16 18:59 06:59 18:59 Intake Total 667 300 Output Total 5 11 Balance 662 300 -11 Weight 76.3 kg Intake: IV 50 50 Piperacillin-Tazobactam 3 50 50 .375 gm In Dextrose/Water 1 50ml.bag @ 12.5 mls/hr IVPB Q8HR [facility] Rx#: [id number] Intake, IV Titration 250 Amount Vancomycin 1,250 mg In 250 Sodium Chloride 0.9% 250 ml @ 125 mls/hr IVPB Q24H [facility] Rx#:[id number] Oral 617 Output: Urine 1 Stool 5 10 Other: Voiding Method Urinal Urinal Urinal Diaper Diaper Diaper # Voids 5 4 1 # Bowel Movements 1 1 - Labs CBC & Chem 7: 08/06/16 07:14 08/06/16 07:14 Labs: Abnormal Lab Results - Last 24 Hours (Table) 08/05/16 08/06/16 08/06/16 Range/Units 20:53 02:06 07:05 WBC (3.8-10.6) k/uL RBC (4.30-5.90) m/uL Hgb (13.0-17.5) gm/dL Hct (39.0-53.0) % MCH (25.0-35.0) pg MCHC (31.0-37.0) g/dL RDW (11.5-15.5) % Neutrophils # (1.3-7.7) k/uL Lymphocytes # (1.0-4.8) k/uL BUN (9-20) mg/dL Creatinine (0.66-1.25) mg/dL Glucose (74-99) mg/dL POC Glucose (mg/dL) 327 H 223 H 163 H (75-99) mg/dL 08/06/16 08/06/16 08/06/16 Range/Units 07:14 07:14 11:33 WBC 11.1 H (3.8-10.6) k/uL RBC 2.94 L (4.30-5.90) m/uL Hgb 7.2 L (13.0-17.5) gm/dL Hct 23.7 L (39.0-53.0) % MCH 24.5 L (25.0-35.0) pg MCHC 30.5 L (31.0-37.0) g/dL RDW 17.4 H (11.5-15.5) % Neutrophils # 9.5 H (1.3-7.7) k/uL Lymphocytes # 0.6 L (1.0-4.8) k/uL BUN 48 H (9-20) mg/dL Creatinine 1.70 H (0.66-1.25) mg/dL Glucose 144 H (74-99) mg/dL POC Glucose (mg/dL) 274 H (75-99) mg/dL 08/06/16 Range/Units 17:21 WBC (3.8-10.6) k/uL RBC (4.30-5.90) m/uL Hgb (13.0-17.5) gm/dL Hct (39.0-53.0) % MCH (25.0-35.0) pg MCHC (31.0-37.0) g/dL RDW (11.5-15.5) % Neutrophils # (1.3-7.7) k/uL Lymphocytes # (1.0-4.8) k/uL BUN (9-20) mg/dL Creatinine (0.66-1.25) mg/dL Glucose (74-99) mg/dL POC Glucose (mg/dL) 195 H (75-99) mg/dL Microbiology - Last 24 Hours (Table) 08/03/16 08:58 Gram Stain - Final Arm - Right Wound Culture - Final Methicillin resist S. aureus 08/03/16 08:58 Blood Culture - Preliminary Blood No Growth after 72 hours Assessment and Plan Plan: ASSESSMENT AND PLAN: 1. Sepsis likely secondary to cellulitis. with MRSA 2. Chronic hypoxic respiratory failure secondary to chronic obstructive pulmonary disease. 3. Congestive heart failure with preserved ejection fraction that is chronic in nature. 4. Benign prostatic hypertrophy. 5. Iron deficiency anemia. 6. Vitamin D3 insufficiency. 7. Chronic kidney disease, stage III. With an acute component slightly improved 8. Diabetes mellitus, type 2. 9. Hypertension. 10. Coronary artery disease. PLAN: Wound care. lasix 20mg bid dc zosyn iv vancomycin Incentive spirometer DVT prophylaxis.
[2016-08-06 20:20] LABS: Glucose,Whole Blood 233 mg/dL (75-99)
[2016-08-06] MEDS: ATORVASTATIN 40 MG TAB PO SCH (20:59)
[2016-08-06] MEDS: VANCOMYCIN 1,250 MG in SODIUM CHLORIDE 0.9% 250 ML IVPB SCH (21:06)
[2016-08-07] MEDS: PIPERACILLIN-TAZOBACTAM 3.375 GM in DEXTROSE/WATER 1 50ML.BAG IVPB SCH ×3 (01:28→15:07)
[2016-08-07 07:02] LABS: Glucose,Whole Blood 118 mg/dL (75-99)
[2016-08-07] MEDS: IPRATROPIUM-ALBUTEROL 3 ML NEB INHALATION SCH ×4 (07:14→21:09)
[2016-08-07 07:42] VITALS: RESP 18
[2016-08-07] MEDS: INSULIN LISPRO (humaLOG) 300 UNIT/3 ML VIAL SQ SCH ×4 (07:42→20:55)
[2016-08-07] MEDS: ENOXAPARIN 40 MG/0.4 ML SYRINGE SQ SCH (07:45)
[2016-08-07] MEDS: SODIUM FERRIC GLUCONAT-SUCROSE 125 MG in SODIUM CHLORIDE 0.9% 100 ML IVPB SCH (07:45)
[2016-08-07] MEDS: INSULIN DETEMIR 100 UNIT/ML 10 ML VIAL SQ SCH (07:46)
[2016-08-07] MEDS: ASPIRIN 81 MG CHEW PO SCH (07:47)
[2016-08-07] MEDS: OXYBUTYNIN CHLORIDE 5 MG TAB PO SCH ×2 (07:47→16:27)
[2016-08-07] MEDS: FUROSEMIDE 20 MG TAB PO SCH ×2 (07:47→16:27)
[2016-08-07] MEDS: FERROUS SULFATE 325 MG TAB PO SCH (07:47)
[2016-08-07] MEDS: ISOSORBIDE MONONITRATE ER 30 MG TAB.ER.24H PO SCH (07:47)
[2016-08-07] MEDS: METOPROLOL TARTRATE 50 MG TAB PO SCH ×2 (07:48→20:42)
[2016-08-07] MEDS: AMMONIUM LACTATE 12% CREAM 140 GM TUBE TOPICAL SCH ×2 (07:48→20:41)
[2016-08-07] MEDS: PSYLLIUM HUSK 100% 6 GM PACKET PO SCH (08:35)
[2016-08-07 11:33] LABS: Glucose,Whole Blood 217 mg/dL (75-99)
--- NOTE | 2016-08-07 13:13 | P.PN ---
Subjective Principal diagnosis: 81-year-old male with acute kidney injury from cellulitis groin wound on the right side and chronic kidney disease with baseline creatinine of 1. He then [facility]. He is also known with chronic obstructive lung disease congestive heart failure, BPH. He has also known diabetic with coronary artery disease. This morning is he says the pain in the right groin is resolved he has fair appetite no nausea vomiting fever chills cough shortness of breath. No diarrhea. Objective - Vital Signs Vital signs: Vital Signs Temp 98.4 F 08/07/16 07:00 Pulse 88 08/07/16 11:27 Resp 18 08/07/16 08:00 BP 155/69 08/07/16 07:00 Pulse Ox 97 08/07/16 07:15 Intake & Output 08/06/16 08/07/16 08/07/16 18:59 06:59 18:59 Intake Total 390 Output Total 11 6 Balance -11 390 -6 Weight 76.3 kg Intake: IV 50 Piperacillin-Tazobactam 3 50 .375 gm In Dextrose/Water 1 50ml.bag @ 12.5 mls/hr IVPB Q8HR [facility] Rx#: [id number] Oral 340 Output: Urine 1 1 Stool 10 5 Other: Voiding Method Urinal Urinal Urinal Diaper Diaper Diaper # Voids 1 2 1 # Bowel Movements 1 1 On examination there is no JVP neck is supple no facial asymmetry Lungs clear to auscultation percussion good air entry bilaterally. Heart sounds are unremarkable for any murmur rub gallop Abdomen soft nontender slightly protuberant Extremity exam reveals no edema Neurologically awake alert oriented. - Labs CBC & Chem 7: 08/06/16 07:14 08/06/16 07:14 Labs: Abnormal Lab Results - Last 24 Hours (Table) 08/06/16 08/06/16 08/07/16 Range/Units 17:21 20:18 07:01 POC Glucose (mg/dL) 195 H 233 H 118 H (75-99) mg/dL 08/07/16 Range/Units 11:30 POC Glucose (mg/dL) 217 H (75-99) mg/dL Microbiology - Last 24 Hours (Table) 08/03/16 08:58 Blood Culture - Preliminary Blood No Growth after 96 hours 08/03/16 08:58 Gram Stain - Final Hip - Right Wound Culture - Final Methicillin resist S. aureus 08/03/16 08:58 Gram Stain - Final Arm - Right Wound Culture - Final Methicillin resist S. aureus Assessment and Plan Plan: Impression. 1. Acute kidney injury from septic syndrome with right groin wound starting with a pustule and possibly some exposure to warm food spilling. Creatinine is improved from 2.39-1.7 as of 08/06/2016 yesterday. 2. History of chronic kidney disease, baseline creatinine 1.1 as of 07/19/2016 , trace proteinuria on UA July 2069 3. Anemia with hemoglobin of 7.2. His hemoglobin was 12.1 on 09/02/2015 and then down to 10.2 on 03/23/2016. Etiology is iron deficiency, with saturation of 17% dated 08/04/2016 off unclear cause. 4. History of BPH rule out urinary retention. 5. History of diabetes mellitus. Proteinuria only trace Recommendation. Repeat BMP tomorrow No changes in medications or management at this time patient. He is is on by mouth ferrous sulfate will see how he responds.
[2016-08-07] MEDS: CHOLECALCIFEROL 1,000 UNIT TAB PO SCH (16:27)
[2016-08-07] MEDS: MULTIVITAMINS, THERA 1 EACH TAB PO SCH (16:27)
[2016-08-07] MEDS: POTASSIUM CHLORIDE ER 10 MEQ TAB.ER.PRT PO SCH (16:27)
[2016-08-07 17:36] LABS: Glucose,Whole Blood 163 mg/dL (75-99)
--- NOTE | 2016-08-07 17:38 | P.PN ---
Subjective HISTORY OF PRESENT ILLNESS: This is an 81-year-old gentleman who well known to our service previously seen at [facility] comes into the hospital from a [facility] with a fever. Patient apparently has had a wound in his right groin for the last week or so. States that it started as a pustule thereafter progressively got worse. It has been attempted to pursue some packing over the last few days. Patient was apparently given a dose of Bactrim at the other facility. Patient states that he has significant tenderness, has had chills in the recent time, hence was sent in to the [facility] as he has not been feeling himself in the recent time. Patient was evaluated in the emergency room, was noted to have clinical findings of infection in his groin; hence, was admitted to the hospital for empiric antibiotic coverage with vancomycin and Zosyn. Patient does have a history of diastolic dysfunction and chronic hypoxic respiratory failure, maintained on 4 liters of supplemental oxygen and renal dysfunction, which is close to his baseline. Patient also has a diagnosis of COPD. Currently denies having any diarrhea, urinary urgency or frequency or lower extremity edema. Denies having any chest pain, breathing difficulty, nausea, vomiting, or abdominal pain. 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 08/07/16 doing well. states to be slightly improved no new overnight events pain is controlled in the groin no diarrhea, nausea, vomiting, chest pain. PHYSICAL EXAM: On 4 L of supplemental oxygen. GENERAL APPEARANCE: Alert, oriented x3, some distress is noted. Head is atraumatic, normocephalic. Pupils are equal, round, and react to light and accommodation. Neck is supple. No JVD. LUNGS: Good air movement. Clear to auscultation. No rhonchi, wheezing. HEART: S1, S2 heard. A systolic click is appreciated. ABDOMEN: Soft, nontender, no organomegaly. LOWER EXTREMITIES: Chronic skin changes. No significant edema. SKIN: A large wound is noted in the right inguinal region radiating to his groin with associated cellulitis, roughly measurement would be about 10 cm at the longest over 5 cm in width. No eschar noted. Area of cellulitis noted on the right upper arm 1 cm in diameter. Severely tender to palpation. No expression of pus is appreciated. Improvement from the previous evaluation NEUROLOGIC: No focal motor or sensory deficits noted. Objective - Vital Signs Vital signs: Vital Signs Temp 98.4 F 08/07/16 15:00 Pulse 94 08/07/16 16:00 Resp 18 08/07/16 16:00 BP 153/69 08/07/16 15:00 Pulse Ox 90 L 08/07/16 15:00 Intake & Output 08/06/16 08/07/16 08/07/16 18:59 06:59 18:59 Intake Total 390 1110 Output Total 11 12 Balance -11 390 1098 Weight 76.3 kg Intake: IV 50 50 Piperacillin-Tazobactam 3 50 50 .375 gm In Dextrose/Water 1 50ml.bag @ 12.5 mls/hr IVPB Q8HR [facility] Rx#: [id number] Intake, IV Titration 100 Amount Sodium Ferric Gluconat- 100 Sucrose 125 mg In Sodium Chloride 0.9% 100 ml @ 100 mls/hr IVPB DAILY [facility] Rx#:[id number] Oral 340 960 Output: Urine 1 2 Stool 10 10 Other: Voiding Method Urinal Urinal Urinal Diaper Diaper Diaper # Voids 1 2 3 # Bowel Movements 1 3 - Labs CBC & Chem 7: 08/06/16 07:14 08/06/16 07:14 Labs: Abnormal Lab Results - Last 24 Hours (Table) 08/06/16 08/07/16 08/07/16 Range/Units 20:18 07:01 11:30 POC Glucose (mg/dL) 233 H 118 H 217 H (75-99) mg/dL 08/07/16 Range/Units 17:26 POC Glucose (mg/dL) 163 H (75-99) mg/dL Microbiology - Last 24 Hours (Table) 08/03/16 08:58 Blood Culture - Preliminary Blood No Growth after 96 hours 08/03/16 08:58 Gram Stain - Final Hip - Right Wound Culture - Final Methicillin resist S. aureus Assessment and Plan Plan: ASSESSMENT AND PLAN: 1. Sepsis likely secondary to cellulitis. with MRSA 2. Chronic hypoxic respiratory failure secondary to chronic obstructive pulmonary disease. 3. Congestive heart failure with preserved ejection fraction that is chronic in nature. 4. Benign prostatic hypertrophy. 5. Iron deficiency anemia. 6. Vitamin D3 insufficiency. 7. Chronic kidney disease, stage III. With an acute component slightly improved 8. Diabetes mellitus, type 2. 9. Hypertension. 10. Coronary artery disease. PLAN: Wound care. repeat labs in the am iv vancomycin susceptibilities are noted will defer to ID for outpatient recommendations and wound care Incentive spirometer DVT prophylaxis.
[2016-08-07] MEDS ORDERED: VANCOMYCIN TROUGH DUE 1 EACH MISC MISCELLANE ONE (19:00)
[2016-08-07 20:32] LABS: Potassium 3.7 mmol/L (3.5-5.1)
[2016-08-07] MEDS: VANCOMYCIN 1,250 MG in SODIUM CHLORIDE 0.9% 250 ML IVPB SCH (20:41)
[2016-08-07] MEDS: ATORVASTATIN 40 MG TAB PO SCH (20:42)
[2016-08-07 20:53] LABS: Glucose,Whole Blood 165 mg/dL (75-99)
[2016-08-08] MEDS: PIPERACILLIN-TAZOBACTAM 3.375 GM in DEXTROSE/WATER 1 50ML.BAG IVPB SCH ×2 (00:18→07:42)
[2016-08-08] MEDS: IPRATROPIUM-ALBUTEROL 3 ML NEB INHALATION SCH ×3 (07:17→15:43)
[2016-08-08 07:31] LABS: Glucose,Whole Blood 85 mg/dL (75-99)
[2016-08-08] MEDS: INSULIN LISPRO (humaLOG) 300 UNIT/3 ML VIAL SQ SCH ×2 (07:33→12:10)
[2016-08-08 07:37] LABS: Anisocytosis Slight; Basophils % (A) 0 %; CH 24.1; Eosinophils # (A) 0.1 k/uL (0-0.7); Eosinophils % (A) 1 %; HDW 3.62; Hypochromasia Marked; Luc % (Auto) 2; Lymphocytes # (A) 0.6 k/uL (1.0-4.8); Lymphocytes % (A) 6 %; MCH 24.8 pg (25.0-35.0); MCHC 31.9 g/dL (31.0-37.0); MCV 77.9 fL (80.0-100.0); Mean Platelet Volume 7.5; Microcytosis Slight; Monocytes # (A) 0.5 k/uL (0-1.0); Monocytes % (A) 4 %; Neutrophils # (A) 8.7 k/uL (1.3-7.7); Neutrophils % (A) 87 %; Poikilocytosis Slight; RBC 2.82 m/uL (4.30-5.90); RDW 17.1 % (11.5-15.5); WBC (Perox) 10.83
[2016-08-08 08:28] LABS: ALT 26 U/L (21-72); AST 17 U/L (17-59); Alkaline Phosphatase 85 U/L (38-126); Anion Gap 9 mmol/L; Blood Urea Nitrogen 40 mg/dL (9-20); Calcium 8.4 mg/dL (8.4-10.2); Carbon Dioxide 27 mmol/L (22-30); Chloride 106 mmol/L (98-107); Glucose 79 mg/dL (74-99); Non-African American GFR(MDRD) 51 (>60 ml/min/1.73 sqM); Potassium 3.8 mmol/L (3.5-5.1); Sodium 142 mmol/L (137-145); Total Bilirubin 0.6 mg/dL (0.2-1.3); Total Protein 5.4 g/dL (6.3-8.2)
[2016-08-08] MEDS: INSULIN DETEMIR 100 UNIT/ML 10 ML VIAL SQ SCH (08:34)
[2016-08-08] MEDS: ISOSORBIDE MONONITRATE ER 30 MG TAB.ER.24H PO SCH (08:35)
[2016-08-08] MEDS: ENOXAPARIN 40 MG/0.4 ML SYRINGE SQ SCH (08:35)
[2016-08-08] MEDS: PSYLLIUM HUSK 100% 6 GM PACKET PO SCH (08:35)
[2016-08-08] MEDS: FUROSEMIDE 20 MG TAB PO SCH (08:35)
[2016-08-08] MEDS: ASPIRIN 81 MG CHEW PO SCH (08:35)
[2016-08-08] MEDS: OXYBUTYNIN CHLORIDE 5 MG TAB PO SCH (08:35)
[2016-08-08] MEDS: METOPROLOL TARTRATE 50 MG TAB PO SCH (08:35)
[2016-08-08] MEDS: FERROUS SULFATE 325 MG TAB PO SCH (08:35)
[2016-08-08] MEDS: AMMONIUM LACTATE 12% CREAM 140 GM TUBE TOPICAL SCH (08:47)
[2016-08-08 11:15] VITALS: PULSE 88
[2016-08-08 11:23] LABS: Glucose,Whole Blood 112 mg/dL (75-99)
[2016-08-08] MEDS ORDERED: DOXYCYCLINE 50 MG CAP PO SCH (12:00)
[2016-08-08 15:29] VITALS: BP 142/66; TEMP 98.2
--- NOTE | 2016-08-08 16:27 | PN ---
Patient is seen for follow-up for acute kidney injury. He was admitted to the hospital with a right inguinal wound infection, which grew MRSA. He is maintained on vancomycin. Renal function has been improving with creatinine down from 2.39 to 1.34 mg/dL now. Patient is currently awake, comfortable. He is not in any acute distress. Blood pressure is 158/78, heart rate 94 per minute. He is afebrile. Examination of the heart S1 and S2. Examination of the lungs: Bilateral breath sounds are heard. ABDOMEN: Soft, nontender. Examination of lower extremities shows trace edema bilaterally. 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 Labs show sodium 142, potassium 3.8, BUN 40 serum creatinine 1.34 mg/dL. ASSESSMENT: 1. Acute kidney injury, acute tubular necrosis, currently improved. 2. Right inguinal infected wound slowly improving. 3. Chronic kidney disease with previous creatinine as low as 1.1 mg/dL. 4. Anemia with no active bleeding noted. PLAN: Continue with oral iron and repeat labs as outpatient. Follow the hemoglobin as outpatient. The patient need GI work-up down the road. This could be done as outpatient.
--- NOTE | 2016-08-08 20:09 | P.DS ---
Providers Date of admission: 08/03/16 12:36 Attending physician: Stevo Mercado Consults: 08/03/16 18:23 Consult Physician Routine Consulting Provider: Aly Teague Consult Reason/Comments: Wounds, Do you want consulting provider notified?: Yes 08/03/16 18:26 Consult Physician Routine Consulting Provider: Bart Chan Consult Reason/Comments: Renal failure Do you want consulting provider notified?: Yes Primary care physician: [facility] Course: HISTORY OF PRESENT ILLNESS: This is an 81-year-old gentleman who well known to our service previously seen at [facility] comes into the hospital from a custodial with a fever. Patient apparently has had a wound in his right groin for the last week or so. States that it started as a pustule thereafter progressively got worse. It has been attempted to pursue some packing over the last few days. Patient was apparently given a dose of Bactrim at the other facility. Patient states that he has significant tenderness, has had chills in the recent time, hence was sent in to the hospital from the custodial as he has not been feeling himself in the recent time. Patient was evaluated in the emergency room, was noted to have clinical findings of infection in his groin; hence, was admitted to the hospital for empiric antibiotic coverage with vancomycin and Zosyn. Patient does have a history of diastolic dysfunction and chronic hypoxic respiratory failure, maintained on 4 liters of supplemental oxygen and renal dysfunction, which is close to his baseline. Patient also has a diagnosis of COPD. Currently denies having any diarrhea, urinary urgency or frequency or lower extremity edema. Denies having any chest pain, breathing difficulty, nausea, vomiting, or abdominal pain. 08/05/2016 States that his pain is about the same no significant improvement no chills nausea vomiting chest pain breathing is stable 08/06/16 states to have improved pain control, however punch box tender with movement no HIPOLITO, fevers, chills, nausea, vomiting noted. 08/07/16 doing well. states to be slightly improved no new overnight events pain is controlled in the groin no diarrhea, nausea, vomiting, chest pain. 08/08/16 doing well today received iv venofer during the hospitalization hb stable asymptomatic PHYSICAL EXAM: On 4 L of supplemental oxygen. GENERAL APPEARANCE: Alert, oriented x3, some distress is noted. Head is atraumatic, normocephalic. Pupils are equal, round, and react to light and accommodation. Neck is supple. No JVD. LUNGS: Good air movement. Clear to auscultation. No rhonchi, wheezing. HEART: S1, S2 heard. A systolic click is appreciated. ABDOMEN: Soft, nontender, no organomegaly. LOWER EXTREMITIES: Chronic skin changes. No significant edema. SKIN: overall improvement since admission NEUROLOGIC: No focal motor or sensory deficits noted. Assessment and Plan Plan: ASSESSMENT AND PLAN: 1. Sepsis likely secondary to cellulitis. with MRSA 2. Chronic hypoxic respiratory failure secondary to chronic obstructive pulmonary disease. 3. Congestive heart failure with preserved ejection fraction that is chronic in nature. 4. Benign prostatic hypertrophy. 5. Iron deficiency anemia. stable at 7gm/dl asymptomatic 6. Vitamin D3 insufficiency. 7. Chronic kidney disease, stage III. With an acute component slightly improved 8. Diabetes mellitus, type 2. 9. Hypertension. 10. Coronary artery disease. PLAN: Wound care. doxycycline as recommended by Dr Teague follow up dc back to [place] Plan - Discharge Summary New Discharge Prescriptions: New Doxycycline Hyclate 100 mg PO BID #20 tab Furosemide [Lasix] 20 mg PO BID@0900,1600 tab HYDROcodone/APAP 5-325MG [Hackberry 5-325] 1 each PO Q6HR PRN #30 tab PRN Reason: Pain Continue Metoprolol Tartrate 50 mg PO BID Ferrous Sulfate [Feosol] 325 mg PO DAILY Aspirin 81 mg PO DAILY Atorvastatin Calcium [Lipitor] 40 mg PO HS Cholecalciferol (Vitamin D3) [Vitamin D3] 10,000 unit PO DAILY@1700 Multivitamins, Thera [Multivitamin (formulary)] 1 tab PO DAILY@1700 Oxybutynin Chloride [Ditropan] 5 mg PO BID@0800,1700 Pantoprazole Sodium [Protonix] 40 mg PO DAILY@0600 Psyllium Husk 100% [Metamucil Packet] 6 gm PO DAILY Ipratropium-Albuterol Nebulize [Duoneb 0.5 mg-3 mg/3 ml Soln] 3 ml INHALATION RT-QID #120 ampul.neb Isosorbide Mononitrate ER [Imdur] 30 mg PO DAILY #30 tab.er.24h Na Phos,M-B/Na Phos,Di-Ba [Fleet Adult] 133 ml RECTAL DAILY PRN PRN Reason: Constipation Magnesium Hydroxide [Milk of Magnesia] 2,400 mg PO DAILY PRN PRN Reason: Constipation Ipratropium-Albuterol Nebulize [Duoneb 0.5 mg-3 mg/3 ml Soln] 3 ml INHALATION RT-Q6H PRN PRN Reason: Shortness Of Breath Bisacodyl [Dulcolax] 10 mg RECTAL DAILY PRN PRN Reason: Constipation Acetaminophen Tab [Tylenol] 650 mg PO Q4H PRN PRN Reason: Pain Or Fever > 100.5 Glucerna Shake 1 can PO TID-W/MEALS Carbon-3 Acid Ethyl Esters [Lovaza] 2 gm PO BID@0800,1700 Ammonium Lactate Cream [Lac-Hydrin 12% Cream] 1 applic TOPICAL BID Metolazone [Zaroxolyn] 2.5 mg PO Q48H Potassium Chloride [Klor-Con 10] 10 meq PO DAILY@1700 Insulin Detemir [Levemir] 25 unit SQ DAILY Losartan [Cozaar] 50 mg PO DAILY Zinc Oxide [Desitin] 1 applic TOPICAL BID PRN PRN Reason: INCONTINENCE Discontinued Levofloxacin [Levaquin] 250 mg PO DAILY #2 tab INSULIN LISPRO (humaLOG) [humaLOG (formulary)] See Protocol SQ ACHS Furosemide [Lasix] 40 mg PO BID@0800,1700 Sulfamethox-Tmp 800-160Mg [Bactrim DS 800-160 mg] 1 tab PO BID@0800,2100 Discharge Medication List Metoprolol Tartrate 50 mg PO BID 01/25/14 [History] Ferrous Sulfate [Feosol] 325 mg PO DAILY 04/15/14 [History] Aspirin 81 mg PO DAILY 06/03/16 [History] Atorvastatin Calcium [Lipitor] 40 mg PO HS 06/03/16 [History] Cholecalciferol (Vitamin D3) [Vitamin D3] 10,000 unit PO DAILY@1700 06/03/16 [ History] Multivitamins, Thera [Multivitamin (formulary)] 1 tab PO DAILY@1700 06/03/16 [ History] Oxybutynin Chloride [Ditropan] 5 mg PO BID@0800,1700 06/03/16 [History] Pantoprazole Sodium [Protonix] 40 mg PO DAILY@0600 06/03/16 [History] Psyllium Husk 100% [Metamucil Packet] 6 gm PO DAILY 06/03/16 [History] Ipratropium-Albuterol Nebulize [Duoneb 0.5 mg-3 mg/3 ml Soln] 3 ml INHALATION RT -QID #120 ampul.neb 06/15/16 [Rx] Isosorbide Mononitrate ER [Imdur] 30 mg PO DAILY #30 tab.er.24h 06/15/16 [Rx] Acetaminophen Tab [Tylenol] 650 mg PO Q4H PRN 08/03/16 [History] Ammonium Lactate Cream [Lac-Hydrin 12% Cream] 1 applic TOPICAL BID 08/03/16 [ History] Bisacodyl [Dulcolax] 10 mg RECTAL DAILY PRN 08/03/16 [History] Glucerna Shake 1 can PO TID-W/MEALS 08/03/16 [History] Insulin Detemir [Levemir] 25 unit SQ DAILY 08/03/16 [History] Ipratropium-Albuterol Nebulize [Duoneb 0.5 mg-3 mg/3 ml Soln] 3 ml INHALATION RT -Q6H PRN 08/03/16 [History] Losartan [Cozaar] 50 mg PO DAILY 08/03/16 [History] Magnesium Hydroxide [Milk of Magnesia] 2,400 mg PO DAILY PRN 08/03/16 [History] Metolazone [Zaroxolyn] 2.5 mg PO Q48H 08/03/16 [History] Na Phos,M-B/Na Phos,Di-Ba [Fleet Adult] 133 ml RECTAL DAILY PRN 08/03/16 [ History] Carbon-3 Acid Ethyl Esters [Lovaza] 2 gm PO BID@0800,1700 08/03/16 [History] Potassium Chloride [Klor-Con 10] 10 meq PO DAILY@1700 08/03/16 [History] Zinc Oxide [Desitin] 1 applic TOPICAL BID PRN 08/03/16 [History] Doxycycline Hyclate 100 mg PO BID #20 tab 08/08/16 [Rx] Furosemide [Lasix] 20 mg PO BID@0900,1600 tab 08/08/16 [Rx] HYDROcodone/APAP 5-325MG [Hackberry 5-325] 1 each PO Q6HR PRN #30 tab 08/08/16 [Rx] Follow up Appointment(s)/Referral(s): Rahel Fregoso MD [STAFF PHYSICIAN] - 3 Weeks ('s office will call [facility] to schedule patients appt;patient never seen in office need information) Melo Carlos DO [Primary Care Provider] - 1-2 days (patient not seen in office is custodial patient) Aly Teague MD [STAFF PHYSICIAN] - 1 Week Activity/Diet/Wound Care/Special Instructions: Hold ferrous sulfate while taking doxycycline. accreted home care - Discharge Disposition: HOME SELF-CARE
--- NOTE | 2016-08-08 20:14 | P.PN ---
Subjective Principal diagnosis: Wounds 81-year-old male presents to Hospital from the extended care facility. It is related that he had been cared for at an outside hospital records transferred to extended care. He's having progressive weakness and failure. He has congestive heart failure with chronic diastolic dysfunction as well as chronic hypoxic respiratory failure requiring oxygen supplementation. With his feeling status was placed to extended care. Denies evidence of new ulceration to the right upper thigh area, right arm and some minimal erythema to the coccyx. With the ulcerations and patient was brought in the hospital. He is quite a poor historian. The daughter is helpful. He is fortunately not very short of breath at this time. He denies fevers chills or rigors. But has profound weakness. Patient is improved. Our plans for him to go to the assisted living facility today. Wound care was requested. Objective - Vital Signs Vital signs: Vital Signs Temp 98.2 F 08/08/16 15:00 Pulse 88 08/08/16 16:00 Resp 18 08/08/16 16:00 BP 142/66 08/08/16 15:00 Pulse Ox 94 L 08/08/16 15:00 Intake & Output 08/08/16 08/08/16 08/09/16 06:59 18:59 06:59 Intake Total 290 830 Output Total 1000 1905 Balance -710 -1075 Intake: Intake, IV Titration 50 350 Amount Piperacillin-Tazobactam 3 50 .375 gm In Dextrose/Water 1 50ml.bag @ 12.5 mls/hr IVPB Q8HR JENA Rx#: [id number] Sodium Ferric Gluconat- 100 Sucrose 125 mg In Sodium Chloride 0.9% 100 ml @ 100 mls/hr IVPB DAILY JENA Rx#:[id number] Vancomycin 1,250 mg In 250 Sodium Chloride 0.9% 250 ml @ 125 mls/hr IVPB Q24H JENA Rx#:[id number] Oral 240 480 Output: Urine 1000 1900 Stool 5 Other: Voiding Method Urinal Diaper Diaper Incontinent # Voids 1 # Bowel Movements 1 - Exam pleasant not in distress HEENT: Anicteric conjunctiva are pink and moist nasal mucosa grossly intact without significant lesions, there is no thrush. dentures Neck: The neck is supple without significant lymphadenopathy or thyromegaly. Lungs: symmetric air entry scattered wheezing. There is no significant bronchial sounds. There is no egophony or dullness. Heart: irRegular with an audible S1-S2, no S3 no S4. There is no significant murmur click or rub, PMI was nondisplaced. Abdomen: Positive bowel sounds soft and nontender without palpable masses or organomegaly. There was no guarding or rebound. Extremities: The upper extremities have excellent pulses they are symmetric, no significant petechiae or telangiectasia. No splinter hemorrhages were noted. The lower extremities trace edema, right upper thigh has large full thickness ulcer 8x6x0.2 cm surrounding erythema noted. Neuro: Awake alert oriented to person place follows simple commands The rash of the skin is responding well to the current topical steroid therapy - Labs CBC & Chem 7: 08/08/16 07:03 08/08/16 07:03 Labs: Abnormal Lab Results - Last 24 Hours (Table) 08/07/16 08/07/16 08/08/16 Range/Units 19:41 20:51 07:03 RBC 2.82 L (4.30-5.90) m/uL Hgb 7.0 L* (13.0-17.5) gm/dL Hct 22.0 L (39.0-53.0) % MCV 77.9 L (80.0-100.0) fL MCH 24.8 L (25.0-35.0) pg RDW 17.1 H (11.5-15.5) % Neutrophils # 8.7 H (1.3-7.7) k/uL Lymphocytes # 0.6 L (1.0-4.8) k/uL BUN 42 H (9-20) mg/dL Creatinine 1.60 H (0.66-1.25) mg/dL Glucose 143 H (74-99) mg/dL POC Glucose (mg/dL) 165 H (75-99) mg/dL Calcium 8.0 L (8.4-10.2) mg/dL Total Protein (6.3-8.2) g/dL Albumin (3.5-5.0) g/dL 08/08/16 08/08/16 Range/Units 07:03 11:22 RBC (4.30-5.90) m/uL Hgb (13.0-17.5) gm/dL Hct (39.0-53.0) % MCV (80.0-100.0) fL MCH (25.0-35.0) pg RDW (11.5-15.5) % Neutrophils # (1.3-7.7) k/uL Lymphocytes # (1.0-4.8) k/uL BUN 40 H (9-20) mg/dL Creatinine 1.34 H (0.66-1.25) mg/dL Glucose (74-99) mg/dL POC Glucose (mg/dL) 112 H (75-99) mg/dL Calcium (8.4-10.2) mg/dL Total Protein 5.4 L (6.3-8.2) g/dL Albumin 2.5 L (3.5-5.0) g/dL Microbiology - Last 24 Hours (Table) 08/03/16 08:58 Blood Culture - Preliminary Blood No Growth after 120 hours Assessment and Plan (1) Wound cellulitis Narrative/Plan: Pleasant 81-year-old male presents to Hospital from extended care due to new wounds. The patient is become uncomfortable due to these new ulcerations. And constantly was transferred to hospital. It is noted there is a large ulceration which is full-thickness on the right upper 5. There was a concern that this could be from pressure. However this is not nonpressure bearing site. He has appearance of either tissue loss from irritation from his brief and wetness or possibly from an accidental burn from spilled hot fluids. The patient does not recall any munson and consequently the irritation from the brief seems to be most likely. Is minimal erythema to the buttocks. Has an abscess on the right upper arm also. Both abscesses are now starting to show evidence of MRSA. We'll continue vancomycin therapy at this time. The Zosyn can be discontinued Local wound care to the arm is with the silver foam padding. Aquacel silver will be applied to the right groin area. Zinc cream to the buttocks will be utilized. He is on a new mattress interning should be continued. MRSA was positive in the wound. Oral antibiotic therapy discharged with doxycycline has been given. Orders will be faxed to the [facility] for wound care. Status: Acute
== END 2016-08-08 18:45 | disposition home health service (06) | DRG 871 ==
LOC: EC 08:37 → 6SEL 12:36 → 5MS5E 08-05 21:35
PROVIDERS: ADMIT Family Medicine; ATTEND Family Medicine
DX: A41.02 Sepsis due to Methicillin resistant Staphylococcus aureus (principal); N17.0 Acute kidney failure with tubular necrosis; J96.11 Chronic respiratory failure with hypoxia; I13.0 Hypertensive heart and chronic kidney disease with heart failure and stage 1 through stage 4 chronic kidney disease, or unspecified chronic kidney disease; I50.32 Chronic diastolic (congestive) heart failure; L03.314 Cellulitis of groin; L02.413 Cutaneous abscess of right upper limb; L02.415 Cutaneous abscess of right lower limb; E11.22 Type 2 diabetes mellitus with diabetic chronic kidney disease; D50.9 Iron deficiency anemia, unspecified; E78.5 Hyperlipidemia, unspecified; H35.30 Unspecified macular degeneration; I25.10 Atherosclerotic heart disease of native coronary artery without angina pectoris; I27.2 Other secondary pulmonary hypertension; J44.9 Chronic obstructive pulmonary disease, unspecified; K21.9 Gastro-esophageal reflux disease without esophagitis; N18.3 Chronic kidney disease, stage 3 (moderate); N40.0 Benign prostatic hyperplasia without lower urinary tract symptoms; E55.9 Vitamin D deficiency, unspecified; Z79.82 Long term (current) use of aspirin; Z79.899 Other long term (current) drug therapy; Z79.4 Long term (current) use of insulin; Z95.1 Presence of aortocoronary bypass graft; Z87.891 Personal history of nicotine dependence
CPT/HCPCS: 36415; 71020; 80048; 80053; 80202; 81003; 83036; 83540; 83550; 83605; 85025; 85610; 85730; 87040; 87070; 87077; 87086; 87186; 87205; 93005; 94640; 94760; 96361; 96365; 96375; 99285

== ENCOUNTER 2016-08-18 09:46 | Emergency (ER) | payer MEDICARE ==
[2016-08-18 10:58] LABS: Anisocytosis Slight; Basophils % (A) 0 %; CH 25.4; CHCM 31.8; Eosinophils % (A) 1 %; HDW 3.66; Hypochromasia Moderate; Luc # (Auto) 0.11; Luc % (Auto) 1; Lymphocytes # (A) 0.6 k/uL (1.0-4.8); Lymphocytes % (A) 8 %; MCH 25.2 pg (25.0-35.0); MCHC 31.3 g/dL (31.0-37.0); MCV 80.4 fL (80.0-100.0); Mean Platelet Volume 7.3; Microcytosis Slight; Monocytes # (A) 0.3 k/uL (0-1.0); Monocytes % (A) 4 %; Neutrophils # (A) 6.5 k/uL (1.3-7.7); Neutrophils % (A) 86 %; Poikilocytosis Slight; RBC 2.74 m/uL (4.30-5.90); WBC 7.6 k/uL (3.8-10.6); WBC (Perox) 7.52
[2016-08-18 11:00] LABS: HGB 6.9 gm/dL (13.0-17.5)
[2016-08-18 11:01] LABS: ALT 24 U/L (21-72); AST 20 U/L (17-59); Alkaline Phosphatase 97 U/L (38-126); Anion Gap 11 mmol/L; Blood Urea Nitrogen 40 mg/dL (9-20); Calcium 8.6 mg/dL (8.4-10.2); Carbon Dioxide 29 mmol/L (22-30); Chloride 99 mmol/L (98-107); Glucose 158 mg/dL (74-99); Non-African American GFR(MDRD) 51 (>60 ml/min/1.73 sqM); Potassium 4.6 mmol/L (3.5-5.1); Sodium 139 mmol/L (137-145); Total Bilirubin 0.6 mg/dL (0.2-1.3); Total Protein 6.3 g/dL (6.3-8.2)
[2016-08-18] MEDS: HYDROcodone/APAP 5-325MG 1 EACH TAB PO STA (12:07)
--- NOTE | 2016-08-18 13:42 | ED ---
Recheck HPI - General Chief Complaint: Recheck/Abnormal Lab/Rx Stated Complaint: HEMOGLOBIN 6.5 Time Seen by Provider: 08/18/16 10:43 Source: patient, family, RN notes reviewed Mode of arrival: wheelchair Limitations: no limitations - History of Present Illness Initial Comments: This is a 81-year-old male who was brought in for evaluation for a low hemoglobin. He had laboratories drawn 2 days ago and shortly hemoglobin less than 7. Patient does have a history of anemia and blood transfusions per his caregiver his bone marrow does not make much blood anymore. He denies any headache dizziness blurry vision nausea vomiting sweats shortness of breath or other symptoms. No bleeding is reported. - Related Data Home Medications Medication Instructions Recorded Confirmed Metoprolol Tartrate 50 mg PO BID 01/25/14 08/18/16 Ferrous Sulfate [Feosol] 325 mg PO DAILY 04/15/14 08/18/16 Aspirin 81 mg PO DAILY 06/03/16 08/18/16 Atorvastatin Calcium [Lipitor] 40 mg PO HS 06/03/16 08/18/16 Multivitamins, Thera [Multivitamin 1 tab PO DAILY@1700 06/03/16 08/18/16 (formulary)] Oxybutynin Chloride [Ditropan] 5 mg PO BID@0800,1700 06/03/16 08/18/16 Pantoprazole Sodium [Protonix] 40 mg PO DAILY@0600 06/03/16 08/18/16 Psyllium Husk 100% [Metamucil 6 gm PO DAILY 06/03/16 08/18/16 Packet] Acetaminophen Tab [Tylenol] 650 mg PO Q4H PRN 08/03/16 08/18/16 Ammonium Lactate Cream [Lac-Hydrin 1 applic TOPICAL BID 08/03/16 08/18/16 12% Cream] Bisacodyl [Dulcolax] 10 mg RECTAL DAILY PRN 08/03/16 08/18/16 Glucerna Shake 1 can PO TID-W/MEALS 08/03/16 08/18/16 Insulin Detemir [Levemir] 25 unit SQ DAILY@199908/03/16 08/18/16 Ipratropium-Albuterol Nebulize 3 ml INHALATION RT-Q6H PRN 08/03/16 08/18/16 [Duoneb 0.5 mg-3 mg/3 ml Soln] Magnesium Hydroxide [Milk of 2,400 mg PO DAILY PRN 08/03/16 08/18/16 Magnesia] Metolazone [Zaroxolyn] 2.5 mg PO Q48H 08/03/16 08/18/16 Na Phos,M-B/Na Phos,Di-Ba [Fleet 133 ml RECTAL DAILY PRN 08/03/16 08/18/16 Adult] Potassium Chloride [Klor-Con 10] 10 meq PO DAILY@1700 08/03/16 08/18/16 Zinc Oxide [Desitin] 1 applic TOPICAL BID PRN 08/03/16 08/18/16 Cholecalciferol [Vitamin D3] 1,000 unit PO DAILY 08/18/16 08/18/16 HYDROcodone/APAP 5-325MG [[place] 1 tab PO Q6HR PRN 08/18/16 08/18/16 5-325] Losartan Potassium 50 mg PO DAILY 08/18/16 08/18/16 [place]-3 Fatty Acids/Fish Oil [Fish 1 cap PO BID 08/18/16 08/18/16 Oil 1,000 mg Capsule] Previous Rx's Medication Instructions Recorded Ipratropium-Albuterol Nebulize 3 ml INHALATION RT-QID #120 06/15/16 [Duoneb 0.5 mg-3 mg/3 ml Soln] ampul.neb Isosorbide Mononitrate ER [Imdur] 30 mg PO DAILY #30 tab.er.24h 06/15/16 Doxycycline Hyclate 100 mg PO BID #20 tab 08/08/16 Furosemide [Lasix] 20 mg PO BID@0900,1600 tab 08/08/16 Allergies Allergy/AdvReac Type Severity Reaction Status Date / Time No Known Allergies Allergy Verified 08/18/16 10:29 Review of Systems ROS Statement: Those systems with pertinent positive or pertinent negative responses have been documented in the HPI. ROS Other: All systems not noted in ROS Statement are negative. Past Medical History Past Medical History: Coronary Artery Disease (CAD), Heart Failure, COPD, Diabetes Mellitus, Eye Disorder, GERD/Reflux, Hyperlipidemia, Hypertension, Pneumonia, Prostate Disorder, Skin Disorder Additional Past Medical History / Comment(s): [place] state pt currently has a R inguinal area wound and a wound above his R elbow and raw/red skin perineum and buttocks, anemia, O2 at 2L/NC ATC, past R foot ulcers-seen in wound clinic by Dr. Quintanilla-healed, bilateral macular degeneration, occasional back pain, constipation, BPH. History of Any Multi-Drug Resistant Organisms: MRSA Date of last positivie culture/infection: 08/03/16 MDRO Source:: right leg wound Past Surgical History: Appendectomy, Bowel Resection, Coronary Bypass/CABG, Heart Catheterization, Orthopedic Surgery, Prostate Surgery Additional Past Surgical History / Comment(s): 02/2008 CABG-triple bypass, lt hip with cristina and 3 screws, bowel resection d/t kink/blockage/adhesion, multiple colonoscopies with polypectomies, bilateral cataract removal, bilateral eye injections, TURP, Past Anesthesia/Blood Transfusion Reactions: No Reported Reaction Additional Past Anesthesia/Blood Transfusion Reaction / Comment(s): Pt has recently received blood without reaction. Past Psychological History: No Psychological Hx Reported Smoking Status: Former smoker Past Alcohol Use History: None Reported Past Drug Use History: None Reported - Past Family History Mother Additional Family Medical History / Comment(s): bowel obstruction Father Family Medical History: Liver Disease General Exam - General Exam Comments Initial Comments: This is a well up well-nourished awake alert oriented 3 male Limitations: no limitations General appearance: alert, in no apparent distress Head exam: Present: atraumatic, normocephalic, normal inspection Eye exam: Present: normal appearance, PERRL, EOMI. Absent: scleral icterus, conjunctival injection, periorbital swelling ENT exam: Present: normal exam, mucous membranes moist Neck exam: Present: normal inspection. Absent: tenderness, meningismus, lymphadenopathy Respiratory exam: Present: normal lung sounds bilaterally. Absent: respiratory distress, wheezes, rales, rhonchi, stridor Cardiovascular Exam: Present: regular rate, normal rhythm, normal heart sounds. Absent: systolic murmur, diastolic murmur, rubs, gallop, clicks GI/Abdominal exam: Present: soft, normal bowel sounds. Absent: distended, tenderness, guarding, rebound, rigid Extremities exam: Present: normal inspection, full ROM, normal capillary refill. Absent: tenderness, pedal edema, joint swelling, calf tenderness Back exam: Present: normal inspection Neurological exam: Present: alert, oriented X3, CN II-XII intact Psychiatric exam: Present: normal affect, normal mood Skin exam: Present: warm, dry, intact, pallor. Absent: rash Course Vital Signs 08/18/16 08/18/16 08/18/16 09:59 11:26 12:12 Temperature 98.0 F Pulse Rate 78 79 70 Respiratory 18 18 16 Rate Blood Pressure 136/60 127/60 126/61 O2 Sat by Pulse 91 L 96 99 Oximetry 08/18/16 08/18/16 08/18/16 13:11 13:21 13:28 Temperature 97.6 F 97.5 F L 97.1 F L Pulse Rate 78 85 84 Respiratory 18 18 16 Rate Blood Pressure 132/63 138/65 140/65 O2 Sat by Pulse 97 96 Oximetry 08/18/16 08/18/16 08/18/16 13:34 14:04 15:29 Temperature 96.9 F L 97.7 F 96.9 F L Pulse Rate 82 83 86 Respiratory 18 18 18 Rate Blood Pressure 145/65 143/66 164/76 O2 Sat by Pulse 94 L 94 L 96 Oximetry Medical Decision Making - Medical Decision Making The patient she'll much improved this time he discharged I did discuss findings with him and his family. A repeat CBC will be performed on Monday which is 4 days. - Lab Data Result diagrams: 08/18/16 10:10 08/18/16 10:10 Lab Results 08/18/16 08/18/16 08/18/16 Range/Units 10:10 10:10 10:10 WBC 7.6 (3.8-10.6) k/uL RBC 2.74 L (4.30-5.90) m/uL Hgb 6.9 L* (13.0-17.5) gm/dL Hct 22.0 L (39.0-53.0) % MCV 80.4 (80.0-100.0) fL MCH 25.2 (25.0-35.0) pg MCHC 31.3 (31.0-37.0) g/dL RDW 20.0 H (11.5-15.5) % Plt Count 194 (150-450) k/uL Neutrophils % 86 % Lymphocytes % 8 % Monocytes % 4 % Eosinophils % 1 % Basophils % 0 % Neutrophils # 6.5 (1.3-7.7) k/uL Lymphocytes # 0.6 L (1.0-4.8) k/uL Monocytes # 0.3 (0-1.0) k/uL Eosinophils # 0.0 (0-0.7) k/uL Basophils # 0.0 (0-0.2) k/uL Hypochromasia Moderate Poikilocytosis Slight Anisocytosis Slight Microcytosis Slight Sodium 139 (137-145) mmol/L Potassium 4.6 (3.5-5.1) mmol/L Chloride 99 (98-107) mmol/L Carbon Dioxide 29 (22-30) mmol/L Anion Gap 11 mmol/L BUN 40 H (9-20) mg/dL Creatinine 1.35 H (0.66-1.25) mg/dL Est GFR (MDRD) Af Amer >60 (>60 ml/min/1.73 sqM) Est GFR (MDRD) Non-Af 51 (>60 ml/min/1.73 sqM) Glucose 158 H (74-99) mg/dL POC Glucose (mg/dL) (75-99) mg/dL POC Glu [employer] Manager ID Calcium 8.6 (8.4-10.2) mg/dL Total Bilirubin 0.6 (0.2-1.3) mg/dL AST 20 (17-59) U/L ALT 24 (21-72) U/L Alkaline Phosphatase 97 (38-126) U/L Total Protein 6.3 (6.3-8.2) g/dL Albumin 3.1 L (3.5-5.0) g/dL Blood Type O Positive Blood Type Recheck No Antibody Screen NEGATIVE Crossmatch See Detail Spec Expiration Date 08/21/2016 - 230908/18/16 Range/Units 15:25 WBC (3.8-10.6) k/uL RBC (4.30-5.90) m/uL Hgb (13.0-17.5) gm/dL Hct (39.0-53.0) % MCV (80.0-100.0) fL MCH (25.0-35.0) pg MCHC (31.0-37.0) g/dL RDW (11.5-15.5) % Plt Count (150-450) k/uL Neutrophils % % Lymphocytes % % Monocytes % % Eosinophils % % Basophils % % Neutrophils # (1.3-7.7) k/uL Lymphocytes # (1.0-4.8) k/uL Monocytes # (0-1.0) k/uL Eosinophils # (0-0.7) k/uL Basophils # (0-0.2) k/uL Hypochromasia Poikilocytosis Anisocytosis Microcytosis Sodium (137-145) mmol/L Potassium (3.5-5.1) mmol/L Chloride (98-107) mmol/L Carbon Dioxide (22-30) mmol/L Anion Gap mmol/L BUN (9-20) mg/dL Creatinine (0.66-1.25) mg/dL Est GFR (MDRD) Af Amer (>60 ml/min/1.73 sqM) Est GFR (MDRD) Non-Af (>60 ml/min/1.73 sqM) Glucose (74-99) mg/dL POC Glucose (mg/dL) 113 H (75-99) mg/dL POC Glu [employer] Manager ID Patricia [place] Calcium (8.4-10.2) mg/dL Total Bilirubin (0.2-1.3) mg/dL AST (17-59) U/L ALT (21-72) U/L Alkaline Phosphatase (38-126) U/L Total Protein (6.3-8.2) g/dL Albumin (3.5-5.0) g/dL Blood Type Blood Type Recheck Antibody Screen Crossmatch Spec Expiration Date - EKG Data -: EKG Interpreted by [facility] EKG shows normal: sinus rhythm (Sinus rhythm rate 77 appear of 56 QRS duration 136 daily since QTC of 450/509 right bundle-branch block nonspecific inferior changes) Disposition Clinical Impression: Chronic anemia, Transfusion history Disposition: HOME SELF-CARE Condition: Good Instructions: Anemia (ED) Referrals: Dm Bee MD [Primary Care Provider] - 1-2 days
[2016-08-18 13:54] VITALS: RESP 18
[2016-08-18 15:25] LABS: Glucose,Whole Blood 113 mg/dL (75-99)
[2016-08-18 15:30] VITALS: BP 164/76; PULSE 86; TEMP 96.9
== END 2016-08-18 15:51 | disposition home or self-care (01) ==
LOC: EC 09:46
DX: D64.9 Anemia, unspecified (principal); I45.10 Unspecified right bundle-branch block; E78.5 Hyperlipidemia, unspecified; I11.0 Hypertensive heart disease with heart failure; E11.9 Type 2 diabetes mellitus without complications; K21.9 Gastro-esophageal reflux disease without esophagitis; L98.9 Disorder of the skin and subcutaneous tissue, unspecified; Z87.891 Personal history of nicotine dependence; Z79.4 Long term (current) use of insulin; Z79.82 Long term (current) use of aspirin; Z79.899 Other long term (current) drug therapy; Z87.39 Personal history of other diseases of the musculoskeletal system and connective tissue
CPT/HCPCS: 36415; 93005; 86900; 86901; 80053; 85025; 86850; 86920; 99284; P9016

== ENCOUNTER 2016-08-23 15:57 | Inpatient (IN) | payer MEDICARE ==
[2016-08-23] MEDS ORDERED: IBUPROFEN 600 MG TAB PO STA (16:21)
[2016-08-23] MEDS ORDERED: ACETAMINOPHEN TAB 500 MG TAB PO STA (16:21)
--- NOTE | 2016-08-23 16:23 | ED ---
General Adult HPI - General Chief complaint: Altered Mental Status Stated complaint: lethargy Time Seen by Provider: 08/23/16 16:07 Source: patient, family, RN notes reviewed Mode of arrival: ambulatory - History of Present Illness Initial comments: Patient is a pleasant 81-year-old male presenting to the emergency Department with fever and weakness. Patient had cough starting yesterday. Cough has progressed since that time. Occasional yellow sputum. Patient had fever noted this morning. This did improve with Tylenol and then started to return. Patient is generally weak. Patient is a poor story majority of history is taken from the daughter. - Related Data Home Medications Medication Instructions Recorded Confirmed Metoprolol Tartrate 50 mg PO BID 01/25/14 08/23/16 Ferrous Sulfate [Feosol] 325 mg PO DAILY 04/15/14 08/23/16 Aspirin 81 mg PO DAILY 06/03/16 08/23/16 Atorvastatin Calcium [Lipitor] 40 mg PO HS 06/03/16 08/23/16 Oxybutynin Chloride [Ditropan] 5 mg PO BID@0800,1700 06/03/16 08/23/16 Pantoprazole Sodium [Protonix] 40 mg PO DAILY@0600 06/03/16 08/23/16 Psyllium Husk 100% [Metamucil 6 gm PO DAILY 06/03/16 08/23/16 Packet] Acetaminophen Tab [Tylenol] 650 mg PO Q4H PRN 08/03/16 08/23/16 Ammonium Lactate Cream [Lac-Hydrin 1 applic TOPICAL BID 08/03/16 08/23/16 12% Cream] Bisacodyl [Dulcolax] 10 mg RECTAL DAILY PRN 08/03/16 08/23/16 Insulin Detemir [Levemir] 25 unit SQ DAILY@199908/03/16 08/23/16 Ipratropium-Albuterol Nebulize 3 ml INHALATION RT-Q6H PRN 08/03/16 08/23/16 [Duoneb 0.5 mg-3 mg/3 ml Soln] Magnesium Hydroxide [Milk of 2,400 mg PO DAILY PRN 08/03/16 08/23/16 Magnesia] Metolazone [Zaroxolyn] 2.5 mg PO Q48H 08/03/16 08/23/16 Na Phos,M-B/Na Phos,Di-Ba [Fleet 133 ml RECTAL DAILY PRN 08/03/16 08/23/16 Adult] Zinc Oxide [Desitin] 1 applic TOPICAL BID PRN 08/03/16 08/23/16 Cholecalciferol [Vitamin D3] 1,000 unit PO DAILY@1700 08/18/16 08/23/16 HYDROcodone/APAP 5-325MG [[place] 1 tab PO Q6HR PRN 08/18/16 08/23/16 5-325] Losartan Potassium 50 mg PO DAILY 08/18/16 08/23/16 Christiana-3 Fatty Acids/Fish Oil [Fish 1 cap PO BID 08/18/16 08/23/16 Oil 1,000 mg Capsule] Folic Acid/Multivit-Min/Lutein 1 tab PO DAILY@1700 08/23/16 08/23/16 [Therapeutic-M Tablet] Potassium 198 mg PO BID 08/23/16 08/23/16 Previous Rx's Medication Instructions Recorded Ipratropium-Albuterol Nebulize 3 ml INHALATION RT-QID #120 06/15/16 [Duoneb 0.5 mg-3 mg/3 ml Soln] ampul.neb Isosorbide Mononitrate ER [Imdur] 30 mg PO DAILY #30 tab.er.24h 06/15/16 Furosemide [Lasix] 20 mg PO BID@0900,1600 tab 08/08/16 Allergies Allergy/AdvReac Type Severity Reaction Status Date / Time No Known Allergies Allergy Verified 08/23/16 16:24 Review of Systems ROS Statement: Those systems with pertinent positive or pertinent negative responses have been documented in the HPI. ROS Other: All systems not noted in ROS Statement are negative. Constitutional: Reports: fever, weakness Eyes: Denies: eye pain ENT: Denies: ear pain Respiratory: Reports: cough, dyspnea Cardiovascular: Denies: chest pain Endocrine: Reports: fatigue Gastrointestinal: Denies: abdominal pain Genitourinary: Denies: dysuria Musculoskeletal: Denies: back pain Skin: Reports: rash (Healing cellulitis bilateral legs and wound of the right anterior hip) Neurological: Reports: weakness (Generalized) Past Medical History Past Medical History: Coronary Artery Disease (CAD), Heart Failure, COPD, Diabetes Mellitus, Eye Disorder, GERD/Reflux, Hyperlipidemia, Hypertension, Pneumonia, Prostate Disorder, Skin Disorder Additional Past Medical History / Comment(s): [place] state pt currently has a R inguinal area wound and a wound above his R elbow and raw/red skin perineum and buttocks, anemia, O2 at 2L/NC ATC, past R foot ulcers-seen in wound clinic by Dr. Quintanilla-healed, bilateral macular degeneration, occasional back pain, constipation, BPH. History of Any Multi-Drug Resistant Organisms: MRSA Date of last positivie culture/infection: 08/03/16 MDRO Source:: right leg wound Past Surgical History: Appendectomy, Bowel Resection, Coronary Bypass/CABG, Heart Catheterization, Orthopedic Surgery, Prostate Surgery Additional Past Surgical History / Comment(s): 02/2008 CABG-triple bypass, lt hip with cristina and 3 screws, bowel resection d/t kink/blockage/adhesion, multiple colonoscopies with polypectomies, bilateral cataract removal, bilateral eye injections, TURP, Past Anesthesia/Blood Transfusion Reactions: No Reported Reaction Additional Past Anesthesia/Blood Transfusion Reaction / Comment(s): Pt has recently received blood without reaction. Past Psychological History: No Psychological Hx Reported Smoking Status: Former smoker Past Alcohol Use History: None Reported Past Drug Use History: None Reported - Past Family History Mother Additional Family Medical History / Comment(s): bowel obstruction Father Family Medical History: Liver Disease General Exam Limitations: no limitations General appearance: alert, in no apparent distress Head exam: Present: atraumatic Eye exam: Present: normal appearance, PERRL ENT exam: Present: normal oropharynx Neck exam: Present: normal inspection Respiratory exam: Present: normal lung sounds bilaterally Cardiovascular Exam: Present: tachycardia GI/Abdominal exam: Present: soft. Absent: tenderness Extremities exam: Absent: pedal edema Neurological exam: Present: alert Psychiatric exam: Present: normal affect, normal mood Skin exam: Present: erythema (Stage II ulcer right anterior hip. Mild erythema bilateral lower legs.) Course Vital Signs 08/23/16 08/23/16 08/23/16 16:00 16:15 16:30 Temperature 101.8 F H Pulse Rate 111 H 106 H 100 Respiratory 23 16 17 Rate Blood Pressure 125/56 140/65 133/63 O2 Sat by Pulse 80 L 93 L 93 L Oximetry 08/23/16 08/23/16 08/23/16 16:31 16:45 17:15 Temperature Pulse Rate 94 92 Respiratory 18 16 17 Rate Blood Pressure 139/61 131/62 O2 Sat by Pulse 96 95 Oximetry 08/23/16 08/23/16 08/23/16 17:30 17:45 18:00 Temperature Pulse Rate 92 90 80 Respiratory 17 16 17 Rate Blood Pressure 129/60 113/54 122/80 O2 Sat by Pulse 94 L 94 L 100 Oximetry 08/23/16 18:15 Temperature 98.7 F Pulse Rate 86 Respiratory 16 Rate Blood Pressure 121/58 O2 Sat by Pulse 100 Oximetry - Reevaluation(s) Reevaluation #1: 08/23/16 17:14 Patient does meet sepsis criteria diagnosed at 1714. IV antibiotics have been ordered. IV fluids provided. Lactic acid and blood cultures have been drawn. EKG Findings - EKG Comments: EKG Findings:: Sinus tachycardia 103. MA 154. QRS 140. QT 386. QTc 505. Normal axis. Right bundle branch block. Inferior Q waves with T wave inversion. No acute ST change. Medical Decision Making - Medical Decision Making Patient reexamined and resting comfortably in bed. Hemoglobin appears stable over the past couple of months. Renal function also appears stable over the past few months. Patient does meet sepsis criteria with evidence of urinary tract infection. Case was discussed in detail with practitioner Pooja, who will admit for Dr. Reynolds, covering for Dr. collier, who covers for Dr. Wagner. - Lab Data Result diagrams: 08/23/16 16:14 08/23/16 16:14 Lab Results 08/23/16 08/23/16 08/23/16 Range/Units 16:14 16:14 16:14 WBC 6.8 (3.8-10.6) k/uL RBC 2.77 L (4.30-5.90) m/uL Hgb 7.1 L (13.0-17.5) gm/dL Hct 22.6 L (39.0-53.0) % MCV 81.7 (80.0-100.0) fL MCH 25.7 (25.0-35.0) pg MCHC 31.4 (31.0-37.0) g/dL RDW 18.6 H (11.5-15.5) % Plt Count 147 L (150-450) k/uL Neutrophils % 83 % Lymphocytes % 7 % Monocytes % 7 % Eosinophils % 0 % Basophils % 0 % Neutrophils # 5.7 (1.3-7.7) k/uL Lymphocytes # 0.5 L (1.0-4.8) k/uL Monocytes # 0.5 (0-1.0) k/uL Eosinophils # 0.0 (0-0.7) k/uL Basophils # 0.0 (0-0.2) k/uL Hypochromasia Moderate Poikilocytosis Slight Anisocytosis Slight Microcytosis Slight PT (9.0-12.0) sec INR (<1.1) APTT (22.0-30.0) sec Sodium 133 L (137-145) mmol/L Potassium 4.5 (3.5-5.1) mmol/L Chloride 96 L (98-107) mmol/L Carbon Dioxide 27 (22-30) mmol/L Anion Gap 10 mmol/L BUN 45 H (9-20) mg/dL Creatinine 1.70 H (0.66-1.25) mg/dL Est GFR (MDRD) Af Amer 47 (>60 ml/min/1.73 sqM) Est GFR (MDRD) Non-Af 39 (>60 ml/min/1.73 sqM) Glucose 197 H (74-99) mg/dL Plasma Lactic Acid Gerhard 1.5 (0.7-2.0) mmol/L Calcium 8.1 L (8.4-10.2) mg/dL Total Bilirubin 0.7 (0.2-1.3) mg/dL AST 16 L (17-59) U/L ALT 22 (21-72) U/L Alkaline Phosphatase 93 (38-126) U/L Total Protein 5.6 L (6.3-8.2) g/dL Albumin 2.7 L (3.5-5.0) g/dL Urine Color Urine Appearance (Clear) Urine pH (5.0-8.0) Ur Specific [place] (1.001-1.035) Urine Protein (Negative) Urine Glucose (UA) (Negative) Urine Ketones (Negative) Urine Blood (Negative) Urine Nitrite (Negative) Urine Bilirubin (Negative) Urine Urobilinogen (<2.0) mg/dL Ur Leukocyte Esterase (Negative) Urine RBC (0-5) /hpf Urine WBC (0-5) /hpf Urine WBC Clumps (None) /hpf 08/23/16 08/23/16 Range/Units 16:14 16:14 WBC (3.8-10.6) k/uL RBC (4.30-5.90) m/uL Hgb (13.0-17.5) gm/dL Hct (39.0-53.0) % MCV (80.0-100.0) fL MCH (25.0-35.0) pg MCHC (31.0-37.0) g/dL RDW (11.5-15.5) % Plt Count (150-450) k/uL Neutrophils % % Lymphocytes % % Monocytes % % Eosinophils % % Basophils % % Neutrophils # (1.3-7.7) k/uL Lymphocytes # (1.0-4.8) k/uL Monocytes # (0-1.0) k/uL Eosinophils # (0-0.7) k/uL Basophils # (0-0.2) k/uL Hypochromasia Poikilocytosis Anisocytosis Microcytosis PT 12.7 H (9.0-12.0) sec INR 1.3 (<1.1) APTT 25.9 (22.0-30.0) sec Sodium (137-145) mmol/L Potassium (3.5-5.1) mmol/L Chloride (98-107) mmol/L Carbon Dioxide (22-30) mmol/L Anion Gap mmol/L BUN (9-20) mg/dL Creatinine (0.66-1.25) mg/dL Est GFR (MDRD) Af Amer (>60 ml/min/1.73 sqM) Est GFR (MDRD) Non-Af (>60 ml/min/1.73 sqM) Glucose (74-99) mg/dL Plasma Lactic Acid Gerhard (0.7-2.0) mmol/L Calcium (8.4-10.2) mg/dL Total Bilirubin (0.2-1.3) mg/dL AST (17-59) U/L ALT (21-72) U/L Alkaline Phosphatase (38-126) U/L Total Protein (6.3-8.2) g/dL Albumin (3.5-5.0) g/dL Urine Color Yellow Urine Appearance Turbid (Clear) Urine pH 6.5 (5.0-8.0) Ur Specific [place] 1.016 (1.001-1.035) Urine Protein 2+ H (Negative) Urine Glucose (UA) Negative (Negative) Urine Ketones Negative (Negative) Urine Blood Moderate H (Negative) Urine Nitrite Positive (Negative) Urine Bilirubin Negative (Negative) Urine Urobilinogen <2.0 (<2.0) mg/dL Ur Leukocyte Esterase Large H (Negative) Urine RBC 48 H (0-5) /hpf Urine WBC >182 H (0-5) /hpf Urine WBC Clumps Many H (None) /hpf - Radiology Data Radiology results: image reviewed (Chest x-ray shows pulmonary fibrosis. Possible mild heart failure) Critical Care Time Critical Care Time: Yes Total Critical Care Time: 33 Disposition Clinical Impression: Sepsis, Urinary tract infection Disposition: ADMITTED IP TO THIS HOSP Referrals: Dm Bee MD [Primary Care Provider] - 1-2 days Decision Time: 18:58
[2016-08-23 16:33] LABS: Anisocytosis Slight; Basophils % (A) 0 %; CH 25.6; CHCM 31.5; Eosinophils % (A) 0 %; HCT 22.6 % (39.0-53.0); HDW 3.66; HGB 7.1 gm/dL (13.0-17.5); Hypochromasia Moderate; Luc # (Auto) 0.15; Luc % (Auto) 2; Lymphocytes # (A) 0.5 k/uL (1.0-4.8); Lymphocytes % (A) 7 %; MCH 25.7 pg (25.0-35.0); MCHC 31.4 g/dL (31.0-37.0); MCV 81.7 fL (80.0-100.0); Mean Platelet Volume 8.9; Microcytosis Slight; Monocytes # (A) 0.5 k/uL (0-1.0); Monocytes % (A) 7 %; Neutrophils # (A) 5.7 k/uL (1.3-7.7); Neutrophils % (A) 83 %; Poikilocytosis Slight; RBC 2.77 m/uL (4.30-5.90); RDW 18.6 % (11.5-15.5); WBC 6.8 k/uL (3.8-10.6); WBC (Perox) 6.64
[2016-08-23 16:37] LABS: Appearance,Urine Turbid (Clear); Bilirubin,Urine Negative (Negative); Glucose,Urine (UA) Negative (Negative); Ketones,Urine Negative (Negative); Leukocyte Esterase,Urine Large (Negative); Nitrite,Urine Positive (Negative); PH, Urine 6.5 (5.0-8.0); Particle Count 18176; Protein,Urine 2+ (Negative); RBC,Urine 48 /hpf (0-5); Specific Gravity,Urine 1.016 (1.001-1.035); UA Billing (MACRO vs. MICRO) MICRO; Urobilinogen,Urine <2.0 mg/dL (<2.0); WBC,Urine >182 /hpf (0-5)
[2016-08-23 16:42] LABS: Calcium 8.1 mg/dL (8.4-10.2); Potassium 4.5 mmol/L (3.5-5.1); Total Bilirubin 0.7 mg/dL (0.2-1.3); Total Protein 5.6 g/dL (6.3-8.2)
[2016-08-23 16:43] LABS: INR 1.3 (<1.1); Partial Thromboplastin Time 25.9 sec (22.0-30.0); Prothrombin Time 12.7 sec (9.0-12.0)
[2016-08-23] MEDS: SODIUM CHLORIDE 0.9% 500 ML IV SCH ×3 (16:52→22:27)
--- NOTE | 2016-08-23 17:28 | XR ---
EXAMINATION TYPE: XR chest 2V DATE OF EXAM: 08/23/2016 COMPARISON: 08/03/2016 HISTORY: Altered mental status and weakness TECHNIQUE: Frontal and lateral views of the chest are obtained. FINDINGS: Heart is enlarged. There is pulmonary vascular congestion. There is coarse interstitial de nsity in both lungs. There is slight blunting of costophrenic angles. Bony thorax is intact. IMPRESSION: Pulmonary fibrosis. Mild heart failure with small pleural effusions. Pleural fluid is im proved compared to last exam.
[2016-08-23] MEDS ORDERED: NALOXONE 0.4 MG/ML 1 ML VIAL IV PRN (18:59)
[2016-08-23] MEDS ORDERED: IPRATROPIUM-ALBUTEROL 3 ML NEB INHALATION PRN (19:00)
[2016-08-23] MEDS: IPRATROPIUM-ALBUTEROL 3 ML NEB INHALATION SCH (21:25)
[2016-08-23 21:54] LABS: Glucose,Whole Blood 135 mg/dL (75-99)
[2016-08-23] MEDS ORDERED: ZINC OXIDE 20% OINT 28.4 GM TUBE TOPICAL PRN (21:58)
[2016-08-23] MEDS ORDERED: ONDANSETRON 4 MG/2 ML VIAL IVP PRN (22:11)
[2016-08-23] MEDS ORDERED: INSULIN DETEMIR 100 UNIT/ML 10 ML VIAL SQ ONE (22:25)
[2016-08-23] MEDS: METOPROLOL TARTRATE 50 MG TAB PO SCH (22:46)
[2016-08-23] MEDS: ATORVASTATIN 40 MG TAB PO SCH (22:46)
[2016-08-23] MEDS: SODIUM CHLORIDE 0.9% 1,000 ML IV SCH (22:47)
[2016-08-23] MEDS: INSULIN LISPRO (humaLOG) 300 UNIT/3 ML VIAL SQ SCH (22:48)
[2016-08-24 03:04] LABS: Glucose,Whole Blood 151 mg/dL (75-99)
[2016-08-24] MEDS: PANTOPRAZOLE 40 MG TABLET PO SCH (05:24)
[2016-08-24] MEDS: HYDROcodone/APAP 5-325MG 1 EACH TAB PO PRN ×2 (07:13→15:15)
[2016-08-24] MEDS: METOPROLOL TARTRATE 50 MG TAB PO SCH ×2 (07:34→20:37)
[2016-08-24] MEDS: IPRATROPIUM-ALBUTEROL 3 ML NEB INHALATION SCH ×4 (07:34→19:39)
[2016-08-24] MEDS: INSULIN LISPRO (humaLOG) 300 UNIT/3 ML VIAL SQ SCH ×4 (07:35→20:42)
[2016-08-24] MEDS: SODIUM CHLORIDE 0.9% 1,000 ML IV SCH (07:35)
[2016-08-24] MEDS: OXYBUTYNIN CHLORIDE 5 MG TAB PO SCH ×2 (07:35→15:15)
[2016-08-24 07:50] LABS: Glucose,Whole Blood 134 mg/dL (75-99)
[2016-08-24 09:26] LABS: Hemoglobin A1C 6.2 % (4.2-6.1)
[2016-08-24 12:06] LABS: Glucose,Whole Blood 230 mg/dL (75-99)
[2016-08-24] MEDS ORDERED: IPRATROPIUM-ALBUTEROL 3 ML NEB INHALATION PRN (12:51)
[2016-08-24] MEDS ORDERED: ACETAMINOPHEN TAB 325 MG TAB PO PRN (12:51)
[2016-08-24] MEDS: FUROSEMIDE 10 MG/ML 4 ML VIAL IV SCH ×2 (13:30→20:37)
[2016-08-24] MEDS: MULTIVITAMINS, THERA 1 EACH TAB PO SCH (15:15)
[2016-08-24] MEDS: ACETAMINOPHEN TAB 325 MG TAB PO PRN ×2 (16:06→22:39)
[2016-08-24 16:40] LABS: Glucose,Whole Blood 153 mg/dL (75-99)
[2016-08-24 16:51] LABS: ABG PH 7.43 (7.35-7.45)
[2016-08-24 16:52] LABS: ABG Base Excess -4.8 mmol/L; ABG HCO3 19 mmol/L (21-25); ABG PCO2 29 mmHg (35-45); ABG PO2 96 mmHg (83-108); ABG TCO2 20 mmol/L (19-24)
[2016-08-24 17:01] LABS: Anisocytosis Slight; Basophils % (A) 0 %; CH 25.7; CHCM 30.6; Eosinophils % (A) 0 %; HCT 24.2 % (39.0-53.0); HDW 3.56; HGB 7.7 gm/dL (13.0-17.5); Hypochromasia Marked; Luc # (Auto) 0.24; Luc % (Auto) 2; Lymphocytes # (A) 0.6 k/uL (1.0-4.8); Lymphocytes % (A) 6 %; MCH 26.7 pg (25.0-35.0); MCHC 31.7 g/dL (31.0-37.0); MCV 84.3 fL (80.0-100.0); Mean Platelet Volume 9.2; Monocytes # (A) 0.6 k/uL (0-1.0); Monocytes % (A) 6 %; Neutrophils # (A) 8.8 k/uL (1.3-7.7); Neutrophils % (A) 86 %; Poikilocytosis Slight; RBC 2.87 m/uL (4.30-5.90); RDW 18.6 % (11.5-15.5); WBC 10.2 k/uL (3.8-10.6); WBC (Perox) 10.94
[2016-08-24 17:10] LABS: Calcium 8.2 mg/dL (8.4-10.2); Total Bilirubin 0.8 mg/dL (0.2-1.3); Total Protein 5.7 g/dL (6.3-8.2)
--- NOTE | 2016-08-24 17:23 | XR ---
EXAMINATION TYPE: XR chest 1V portable DATE OF EXAM: 08/24/2016 COMPARISON: 08/23/2016 HISTORY: Short of breath TECHNIQUE: Single frontal view of the chest is obtained. FINDINGS: There is some pulmonary edema. Heart is enlarged. There are sternal wires. There are chest leads. There is a perspiration. IMPRESSION: Pulmonary edema and cardiomegaly consistent with congestive heart failure. Inspiration i s worse than yesterday. There is probably increasing atelectasis at the lung bases. Developing lower lobe pneumonia cannot be excluded.
[2016-08-24] MEDS ORDERED: INSULIN DETEMIR 100 UNIT/ML 10 ML VIAL SQ SCH (20:00)
[2016-08-24] MEDS: ATORVASTATIN 40 MG TAB PO SCH (20:37)
[2016-08-24 20:43] LABS: Glucose,Whole Blood 177 mg/dL (75-99)
[2016-08-24] MEDS: AMMONIUM LACTATE 12% CREAM 140 GM TUBE TOPICAL SCH (20:44)
--- NOTE | 2016-08-24 21:02 | P.CONS ---
History of Present Illness - Reason for Consult Consult date: 08/24/16 - Chief Complaint Fever and altered mental status - History of Present Illness 81-year-old male known to the service from his recent hospitalization. He was having difficulties with progressive weakness and congestive heart failure. When he was treated he was transferred to the [facility]. Now presents with altered mental status, fever and increasing weakness. He has been followed the wound center and was showing improvement to his ulceration to the right anterior upper thigh. Now has evidence of the new fever and weakness. Concerns pneumonia, or other source of gram-negative sepsis. Review of Systems ROS unobtainable: due to mental status Past Medical History Past Medical History: Coronary Artery Disease (CAD), Heart Failure, COPD, Diabetes Mellitus, Eye Disorder, GERD/Reflux, Hyperlipidemia, Hypertension, Pneumonia, Prostate Disorder, Skin Disorder Additional Past Medical History / Comment(s): [facility] pt currently has a R inguinal area wound and a wound above his R elbow and raw/red skin perineum and buttocks seen by dr payton, anemia, O2 at 4L/NC ATC, past R foot ulcers- seen in wound clinic by Dr. Quintanilla-healed, bilateral macular degeneration, occasional back pain, constipation, BPH. History of Any Multi-Drug Resistant Organisms: MRSA Year Discovered:: 08/03/16 MDRO Source:: right leg wound Past Surgical History: Appendectomy, Bowel Resection, Coronary Bypass/CABG, Heart Catheterization, Orthopedic Surgery Additional Past Surgical History / Comment(s): 02/2008 CABG-triple bypass, lt hip with cristina and 3 screws, bowel resection d/t kink/blockage/adhesion, multiple colonoscopies with polypectomies, bilateral cataract removal, bilateral eye injections, TURP, Past Anesthesia/Blood Transfusion Reactions: No Reported Reaction Additional Past Anesthesia/Blood Transfusion Reaction / Comm: Pt has recently received blood without reaction. Past Psychological History: No Psychological Hx Reported Additional Psychological History / Comment(s): Pt currently resides [facility]. He periodically gets up in a wheelchair for meals. He is on O2 at 4L/NC ATC. He feeds himself. Smoking Status: Former smoker - Past Family History Mother Additional Family Medical History / Comment(s): bowel obstruction Father Family Medical History: Liver Disease Medications and Allergies Home Medications and Allergies Comment(s): Current Medications Acetaminophen (Tylenol Tab) 650 mg PO Q6HR PRN PRN Reason: Mild Pain or Fever > 100.5 Last Admin: 08/24/16 16:06 Dose: 650 mg Hydrocodone Bitart/Acetaminophen ([place] 5-325) 1 each PO Q6HR PRN PRN Reason: Pain Last Admin: 08/24/16 15:15 Dose: 1 each Albuterol/Ipratropium (Duoneb 0.5 Mg-3 Mg/3 Ml Soln) 3 ml INHALATION RT-QID [facility] Last Admin: 08/24/16 19:39 Dose: Not Given Albuterol/Ipratropium (Duoneb 0.5 Mg-3 Mg/3 Ml Soln) 3 ml INHALATION RT-QID PRN PRN Reason: Shortness Of Breath Or Wheezing Aspirin (Aspirin) 81 mg PO DAILY [facility] Atorvastatin Calcium (Lipitor) 40 mg PO HS [facility] Last Admin: 08/24/16 20:37 Dose: 40 mg Ferrous Sulfate (Feosol) 325 mg PO DAILY [facility] Furosemide (Lasix) 40 mg IV Q12HR [facility] Last Admin: 08/24/16 20:37 Dose: 40 mg Ceftriaxone Sodium 1,000 mg/ (Sodium Chloride) 50 mls @ 100 mls/hr IVPB Q12H [facility] Last Admin: 08/24/16 16:08 Dose: 100 mls/hr Insulin Human Lispro (Humalog) 0 unit SQ ACHS [facility] PRN Reason: Protocol Last Admin: 08/24/16 20:42 Dose: 2 unit Isosorbide Mononitrate (Imdur) 30 mg PO DAILY [facility] Lactic Acid (Ammonium Lactate) 1 applic TOPICAL BID [facility] Last Admin: 08/24/16 20:44 Dose: 1 applic Metoprolol Tartrate (Lopressor) 50 mg PO BID [facility] Last Admin: 08/24/16 20:37 Dose: 50 mg Multi-Ingredient Ointment (Zinc Oxide 20% Oint) 1 applic TOPICAL BID PRN PRN Reason: INCONTINENCE Multivitamins (Theragran) 1 each PO DAILY@1700 [facility] Last Admin: 08/24/16 15:15 Dose: 1 each Naloxone HCl (Narcan) 0.2 mg IV Q2M PRN PRN Reason: Opioid Reversal Ondansetron HCl (Zofran) 4 mg IVP Q6HR PRN PRN Reason: Nausea And Vomiting Oxybutynin Chloride (Ditropan) 5 mg PO BID@0800,1700 [facility] Last Admin: 08/24/16 15:15 Dose: 5 mg Pantoprazole Sodium (Protonix) 40 mg PO DAILY@0600 [facility] Last Admin: 08/24/16 05:24 Dose: 40 mg Home Medications Medication Instructions Recorded Confirmed Type Metoprolol Tartrate 50 mg PO BID 01/25/14 08/23/16 History Ferrous Sulfate [Feosol] 325 mg PO DAILY 04/15/14 08/23/16 History Aspirin 81 mg PO DAILY 06/03/16 08/23/16 History Atorvastatin Calcium [Lipitor] 40 mg PO HS 06/03/16 08/23/16 History Oxybutynin Chloride [Ditropan] 5 mg PO BID@0800,1700 06/03/16 08/23/16 History Pantoprazole Sodium [Protonix] 40 mg PO DAILY@0600 06/03/16 08/23/16 History Psyllium Husk 100% [Metamucil 6 gm PO DAILY 06/03/16 08/23/16 History Packet] Acetaminophen Tab [Tylenol] 650 mg PO Q4H PRN 08/03/16 08/23/16 History Ammonium Lactate Cream [Lac-Hydrin 1 applic TOPICAL BID 08/03/16 08/23/16 History 12% Cream] Bisacodyl [Dulcolax] 10 mg RECTAL DAILY PRN 08/03/16 08/23/16 History Insulin Detemir [Levemir] 25 unit SQ DAILY@199908/03/16 08/23/16 History Ipratropium-Albuterol Nebulize 3 ml INHALATION RT-Q6H PRN 08/03/16 08/23/16 History [Duoneb 0.5 mg-3 mg/3 ml Soln] Magnesium Hydroxide [Milk of 2,400 mg PO DAILY PRN 08/03/16 08/23/16 History Magnesia] Metolazone [Zaroxolyn] 2.5 mg PO Q48H 08/03/16 08/23/16 History Na Phos,M-B/Na Phos,Di-Ba [Fleet 133 ml RECTAL DAILY PRN 08/03/16 08/23/16 History Adult] Zinc Oxide [Desitin] 1 applic TOPICAL BID PRN 08/03/16 08/23/16 History Cholecalciferol [Vitamin D3] 1,000 unit PO DAILY@1700 08/18/16 08/23/16 History HYDROcodone/APAP 5-325MG [[place] 1 tab PO Q6HR PRN 08/18/16 08/23/16 History 5-325] Losartan Potassium 50 mg PO DAILY 08/18/16 08/23/16 History [place]-3 Fatty Acids/Fish Oil [Fish 1 cap PO BID 08/18/16 08/23/16 History Oil 1,000 mg Capsule] Folic Acid/Multivit-Min/Lutein 1 tab PO DAILY@1700 08/23/16 08/23/16 History [Therapeutic-M Tablet] Potassium 198 mg PO BID 08/23/16 08/23/16 History Allergies Allergy/AdvReac Type Severity Reaction Status Date / Time No Known Allergies Allergy Verified 08/23/16 16:24 Physical Exam Vitals: Vital Signs Temp Pulse Pulse Resp BP Pulse Ox 08/24/16 18:03 98 F 103 H 20 128/58 92 L 08/24/16 17:36 103.1 F H 114 H 26 H 157/79 90 L 08/24/16 16:15 98.8 F 20 182/98 92 L 08/24/16 14:37 98.8 F 91 16 169/67 90 L 08/24/16 07:53 90 08/24/16 07:35 82 92 L 08/24/16 07:00 100.5 F H 125 H 18 163/73 92 L 08/23/16 23:00 99.0 F 99 18 130/64 96 Intake and Output 08/24/16 08/24/16 08/24/16 06:59 14:59 22:59 Other: Voiding Method Diaper Diaper Diaper Incontinent Incontinent Incontinent # Voids 1 3 1 # Bowel Movements 1 Weight 80 kg pleasant not in distress HEENT: Anicteric conjunctiva are pink and moist nasal mucosa grossly intact without significant lesions, there is no thrush. dentures Neck: The neck is supple without significant lymphadenopathy or thyromegaly. Lungs: symmetric air entry scattered wheezing. Bibasilar bronchial sounds are heard There is no dullness. Heart: irRegular with an audible S1-S2, no S3 no S4. There is no significant murmur click or rub, PMI was nondisplaced. Abdomen: Positive bowel sounds soft and nontender without palpable masses or organomegaly. There was no guarding or rebound. Extremities: The upper extremities have excellent pulses they are symmetric, no significant petechiae or telangiectasia. No splinter hemorrhages were noted. The lower extremities trace edema, right upper thigh has large full thickness ulcer 8x6x0.2 cm surrounding erythema noted. Neuro: Awake alert oriented to person follows simple commands Results CBC & Chem 7: 08/24/16 16:50 08/24/16 16:50 Labs: Abnormal Lab Results - Last 24 Hours (Table) 08/23/16 08/23/16 08/24/16 Range/Units 16:15 21:36 03:02 RBC (4.30-5.90) m/uL Hgb (13.0-17.5) gm/dL Hct (39.0-53.0) % RDW (11.5-15.5) % Neutrophils # (1.3-7.7) k/uL Lymphocytes # (1.0-4.8) k/uL ABG pCO2 (35-45) mmHg ABG HCO3 (21-25) mmol/L ABG O2 Saturation (94-97) % Sodium (137-145) mmol/L Carbon Dioxide (22-30) mmol/L BUN (9-20) mg/dL Creatinine (0.66-1.25) mg/dL Glucose (74-99) mg/dL POC Glucose (mg/dL) 135 H 151 H (75-99) mg/dL Hemoglobin A1c 6.2 H (4.2-6.1) % Plasma Lactic Acid Gerhard (0.7-2.0) mmol/L Calcium (8.4-10.2) mg/dL AST (17-59) U/L ALT (21-72) U/L Alkaline Phosphatase (38-126) U/L Total Protein (6.3-8.2) g/dL Albumin (3.5-5.0) g/dL 08/24/16 08/24/16 08/24/16 Range/Units 07:13 12:02 16:29 RBC (4.30-5.90) m/uL Hgb (13.0-17.5) gm/dL Hct (39.0-53.0) % RDW (11.5-15.5) % Neutrophils # (1.3-7.7) k/uL Lymphocytes # (1.0-4.8) k/uL ABG pCO2 (35-45) mmHg ABG HCO3 (21-25) mmol/L ABG O2 Saturation (94-97) % Sodium (137-145) mmol/L Carbon Dioxide (22-30) mmol/L BUN (9-20) mg/dL Creatinine (0.66-1.25) mg/dL Glucose (74-99) mg/dL POC Glucose (mg/dL) 134 H 230 H 153 H (75-99) mg/dL Hemoglobin A1c (4.2-6.1) % Plasma Lactic Acid Gerhard (0.7-2.0) mmol/L Calcium (8.4-10.2) mg/dL AST (17-59) U/L ALT (21-72) U/L Alkaline Phosphatase (38-126) U/L Total Protein (6.3-8.2) g/dL Albumin (3.5-5.0) g/dL 08/24/16 08/24/16 08/24/16 Range/Units 16:35 16:50 16:50 RBC 2.87 L (4.30-5.90) m/uL Hgb 7.7 L (13.0-17.5) gm/dL Hct 24.2 L (39.0-53.0) % RDW 18.6 H (11.5-15.5) % Neutrophils # 8.8 H (1.3-7.7) k/uL Lymphocytes # 0.6 L (1.0-4.8) k/uL ABG pCO2 29 L (35-45) mmHg ABG HCO3 19 L (21-25) mmol/L ABG O2 Saturation 98.0 H (94-97) % Sodium 135 L (137-145) mmol/L Carbon Dioxide 19 L (22-30) mmol/L BUN 47 H (9-20) mg/dL Creatinine 1.85 H (0.66-1.25) mg/dL Glucose 167 H (74-99) mg/dL POC Glucose (mg/dL) (75-99) mg/dL Hemoglobin A1c (4.2-6.1) % Plasma Lactic Acid Gerhard (0.7-2.0) mmol/L Calcium 8.2 L (8.4-10.2) mg/dL AST 196 H (17-59) U/L ALT 159 H (21-72) U/L Alkaline Phosphatase 227 H (38-126) U/L Total Protein 5.7 L (6.3-8.2) g/dL Albumin 2.8 L (3.5-5.0) g/dL 08/24/16 08/24/16 Range/Units 16:50 20:42 RBC (4.30-5.90) m/uL Hgb (13.0-17.5) gm/dL Hct (39.0-53.0) % RDW (11.5-15.5) % Neutrophils # (1.3-7.7) k/uL Lymphocytes # (1.0-4.8) k/uL ABG pCO2 (35-45) mmHg ABG HCO3 (21-25) mmol/L ABG O2 Saturation (94-97) % Sodium (137-145) mmol/L Carbon Dioxide (22-30) mmol/L BUN (9-20) mg/dL Creatinine (0.66-1.25) mg/dL Glucose (74-99) mg/dL POC Glucose (mg/dL) 177 H (75-99) mg/dL Hemoglobin A1c (4.2-6.1) % Plasma Lactic Acid Gerhard 3.7 H* (0.7-2.0) mmol/L Calcium (8.4-10.2) mg/dL AST (17-59) U/L ALT (21-72) U/L Alkaline Phosphatase (38-126) U/L Total Protein (6.3-8.2) g/dL Albumin (3.5-5.0) g/dL Microbiology - Last 24 Hours (Table) 08/23/16 16:14 Blood Culture Gram Stain - Preliminary Blood 08/23/16 16:14 Blood Culture - Final Blood 08/23/16 16:14 Urine Culture - Preliminary Urine,Catheterized Laboratory Results WBC 10.2 k/uL (3.8-10.6) 08/24/16 16:50 RBC 2.87 m/uL (4.30-5.90) L 08/24/16 16:50 Hgb 7.7 gm/dL (13.0-17.5) L 08/24/16 16:50 Hct 24.2 % (39.0-53.0) L 08/24/16 16:50 MCV 84.3 fL (80.0-100.0) 08/24/16 16:50 MCH 26.7 pg (25.0-35.0) 08/24/16 16:50 MCHC 31.7 g/dL (31.0-37.0) 08/24/16 16:50 RDW 18.6 % (11.5-15.5) H 08/24/16 16:50 Plt Count 155 k/uL (150-450) 08/24/16 16:50 Neutrophils % 86 % 08/24/16 16:50 Lymphocytes % 6 % 08/24/16 16:50 Monocytes % 6 % 08/24/16 16:50 Eosinophils % 0 % 08/24/16 16:50 Basophils % 0 % 08/24/16 16:50 Neutrophils # 8.8 k/uL (1.3-7.7) H 08/24/16 16:50 Lymphocytes # 0.6 k/uL (1.0-4.8) L 08/24/16 16:50 Monocytes # 0.6 k/uL (0-1.0) 08/24/16 16:50 Eosinophils # 0.0 k/uL (0-0.7) 08/24/16 16:50 Basophils # 0.0 k/uL (0-0.2) 08/24/16 16:50 Hypochromasia Marked 08/24/16 16:50 Poikilocytosis Slight 08/24/16 16:50 Anisocytosis Slight 08/24/16 16:50 Microcytosis Slight 08/23/16 16:14 PT 12.7 sec (9.0-12.0) H 08/23/16 16:14 INR 1.3 (<1.1) 08/23/16 16:14 APTT 25.9 sec (22.0-30.0) 08/23/16 16:14 Sample Site L BRACHIAL 08/24/16 16:35 ABG pH 7.43 (7.35-7.45) 08/24/16 16:35 ABG pCO2 29 mmHg (35-45) L 08/24/16 16:35 ABG pO2 96 mmHg (83-108) 08/24/16 16:35 ABG HCO3 19 mmol/L (21-25) L 08/24/16 16:35 ABG Total CO2 20 mmol/L (19-24) 08/24/16 16:35 ABG O2 Saturation 98.0 % (94-97) H 08/24/16 16:35 ABG Base Excess -4.8 mmol/L 08/24/16 16:35 FiO2 100 % 08/24/16 16:35 Sodium 135 mmol/L (137-145) L 08/24/16 16:50 Potassium 5.0 mmol/L (3.5-5.1) 08/24/16 16:50 Chloride 100 mmol/L (98-107) 08/24/16 16:50 Carbon Dioxide 19 mmol/L (22-30) L 08/24/16 16:50 Anion Gap 16 mmol/L 08/24/16 16:50 BUN 47 mg/dL (9-20) H 08/24/16 16:50 Creatinine 1.85 mg/dL (0.66-1.25) H 08/24/16 16:50 Est GFR (MDRD) Af Amer 43 (>60 ml/min/1.73 sqM) 08/24/16 16:50 Est GFR (MDRD) Non-Af 35 (>60 ml/min/1.73 sqM) 08/24/16 16:50 Glucose 167 mg/dL (74-99) H 08/24/16 16:50 POC Glucose (mg/dL) 177 mg/dL (75-99) H 08/24/16 20:42 POC Glu [employer] Specialist SIDNEY Claudia Branch 08/24/16 20:[address] Glu mg/dL 131 mg/dL 08/23/16 16:15 Hemoglobin A1c 6.2 % (4.2-6.1) H 08/23/16 16:15 Plasma Lactic Acid Gerhard 1.3 mmol/L (0.7-2.0) 08/24/16 19:16 Calcium 8.2 mg/dL (8.4-10.2) L 08/24/16 16:50 Total Bilirubin 0.8 mg/dL (0.2-1.3) 08/24/16 16:50 AST 196 U/L (17-59) H 08/24/16 16:50 ALT 159 U/L (21-72) H 08/24/16 16:50 Alkaline Phosphatase 227 U/L (38-126) H 08/24/16 16:50 NT-Pro-B Natriuret Pep 28865 pg/mL 08/23/16 16:15 Total Protein 5.7 g/dL (6.3-8.2) L 08/24/16 16:50 Albumin 2.8 g/dL (3.5-5.0) L 08/24/16 16:50 Urine Color Yellow 08/23/16 16:14 Urine Appearance Turbid (Clear) 08/23/16 16:14 Urine pH 6.5 (5.0-8.0) 08/23/16 16:14 Ur Specific [place] 1.016 (1.001-1.035) 08/23/16 16:14 Urine Protein 2+ (Negative) H 08/23/16 16:14 Urine Glucose (UA) Negative (Negative) 08/23/16 16:14 Urine Ketones Negative (Negative) 08/23/16 16:14 Urine Blood Moderate (Negative) H 08/23/16 16:14 Urine Nitrite Positive (Negative) 08/23/16 16:14 Urine Bilirubin Negative (Negative) 08/23/16 16:14 Urine Urobilinogen <2.0 mg/dL (<2.0) 08/23/16 16:14 Ur Leukocyte Esterase Large (Negative) H 08/23/16 16:14 Urine RBC 48 /hpf (0-5) H 08/23/16 16:14 Urine WBC >182 /hpf (0-5) H 08/23/16 16:14 Urine WBC Clumps Many /hpf (None) H 08/23/16 16:14 Microbiology 08/23/16 16:14 Blood Blood Culture Gram Stain - Preliminary 08/23/16 16:14 Blood Blood Culture - Final 08/23/16 16:14 Urine,Catheterized Urine Culture - Preliminary Chest x-ray: report reviewed (Congestive heart failure with bibasilar infiltrate ), image reviewed Assessment and Plan (1) Gram negative sepsis Narrative/Plan: 81-year-old male presents to the emergency center from the [facility] home with fever, worsening mental status and increasing fatigue and malaise. Patient has had recent hospitalizations. His underlying congestive heart failure this seems to be worsened by current chest x-ray and concerns pneumonia. The urinalysis is also markedly abnormal this point in time. Constantly concerns to gram-negative pneumonia versus urinary sepsis at this time antibiotic therapy would be altered to Zosyn and Levaquin until we have further data. Follow blood cultures are requested. Continue ongoing supportive care and improve his nutrition as much as possible. Local wound care's medical honey to the right upper thigh ulceration. Moisture control and zinc to the buttocks as needed. Chronic renal failure is stable at this time. The lactic acidosis is improved with hydration. Status: Acute (2) Pneumonia Status: Acute (3) Acute on chronic systolic (congestive) heart failure Status: Acute
[2016-08-24] MEDS ORDERED: LEVOFLOXACIN 500MG-D5W PMX 500 MG in DEXTROSE/WATER 1 100ML.BAG IVPB STA (21:03)
[2016-08-24] MEDS: PIPERACILLIN-TAZOBACTAM 3.375 GM in DEXTROSE/WATER 1 50ML.BAG IVPB SCH (23:34)
[2016-08-25] MEDS: PANTOPRAZOLE 40 MG TABLET PO SCH (06:33)
--- NOTE | 2016-08-25 07:04 | HP ---
DATE OF ADMISSION: Patient is an 81-year-old who is a [facility]. Comes in from [facility] with generalized weakness. The patient is extremely poor historian, although patient denied any cough, running nose, chest pain, nausea, or vomiting. The patient denied any dysuria or increased urinary frequency. The chest x-ray did not show any pneumonic process, but did show congestive heart failure. Patient's analysis showed extremely high WBC count and patient's blood culture later came back positive for Gram negative bacilli and consult for Infectious Disease for urinary tract infection. Patient does not wear oxygen. Patient's oxygen saturations have gone down to 92% on 6 L. The patient became ( ) and the patient is in severe ( ) initially because of pulmonary edema. I started him on Lasix. Later I found that patient's lactic acid is highly elevated. I will repeat the lactic acid, if it comes elevated again then Lasix may be discontinued and patient at that time will be ( ). As of now, the patient may need to be transferred to ICU. Patient's baseline creatinine was 1.1 now elevated to 1.8. The patient is bacteremic, ( ) septic and possible source of infection is urinary tract infection. The patient was recently treated for MRSA right groin infection, that site appears to be okay now. The patient was having dry cough. REVIEW OF SYSTEMS: CONSTITUTIONAL: As described in HPI. HEENT: No recent visual problems or hearing problems. Denied any sore throat. CARDIOVASCULAR: No chest pain, orthopnea, PND, no palpitations, no syncope. PULMONARY: No shortness of breath, no cough, no hemoptysis. GASTROINTESTINAL: No diarrhea, no nausea, no vomiting, no abdominal pain. Normoactive bowel sounds. NEUROLOGICAL: No headaches, no weakness, no numbness. HEMATOLOGICAL: Denies any bleeding or petechiae. GENITOURINARY: Denies any burning micturition, frequency, or urgency. MUSCULOSKELETAL/RHEUMATOLOGICAL: Denies any joint pain, swelling, or any muscle pain. ENDOCRINE: Denies any polyuria or polydipsia. The rest of the 14 point review of systems is negative. Home medications include; 1. Metoprolol. 2. Ferrous sulfate. 3. Aspirin. 4. ( ). 5. Pantoprazole. 6. Psyllium. 7. Ammonium lactate. 8. Levemir. 9. Ipratropium 10. Magnesium oxide. 11. Metolazone. 12. ( ) 13. Cholecalciferol. 14. Acetaminophen. 15. Hydrocodone. 16. Losartan, which is being held at this point of time. Losartan is being held because of acute renal failure. 17. Potassium. 18. Isosorbide mononitrate. 19. Lasix. ALLERGIES: No known drug allergies. PAST MEDICAL HISTORY: Significant for coronary artery disease, congestive heart failure, ( ), diabetes mellitus, gastroesophageal reflux disease, hyperlipidemia, hypertension, pneumonia, benign prostatic hypertrophy . Patient was recently treated for right groin area and right thigh infection with MRSA and cellulitis and breakdown. Patient had an excoriation in that area that appears to be healed very well. ( ) appendectomy, bowel resection, cardiac catheterization and CABG in the past, transurethral resection of the prostate. FAMILY HISTORY: Significant for liver disease. SOCIAL HISTORY: Former smoker. Quit smoking in 2007, denies any alcohol abuse or any drug abuse ( ) . PHYSICAL EXAMINATION: VITAL SIGNS: Temperature 98.0, pulse 90, respiratory rate of 20, blood pressure 120/58, saturating at 91% on 6 L nasal cannula. GENERAL: The patient is alert and oriented x3, but has generalized malaise. He is on ( ) L of oxygen at this point of time, not in respiratory distress. He was on 4 L when I evaluated the patient. HEENT: Pupils are round and equally reacting to light. EOMI. No scleral icterus. No conjunctival pallor. Normocephalic, atraumatic. No pharyngeal erythema. No thyromegaly. CARDIOVASCULAR: S1 and S2 present. No murmurs, rubs, or gallops. PULMONARY: Chest is clear to auscultation, no wheezing or crackles. ABDOMEN: Soft, nontender, nondistended, normoactive bowel sounds. No palpable organomegaly. MUSCULOSKELETAL: No joint swelling or deformity. EXTREMITIES: No cyanosis, clubbing, or pedal edema. NEUROLOGICAL: Gross neurological examination did not reveal any focal deficits. SKIN: No rashes. DERMATOLOGIC: Patient's right thigh area completely healed infection. LABORATORY DATA: Significant ones already discussed above. Hemoglobin is 7.1 without any acute GI bleed. ABG showed pCO2 of 29, pH of 7.43, bicarbonate of 19, anion gap metabolic acidosis, lactic acidosis. As mentioned above, will repeat lactic acid level again. Sodium 133, gone up to 135 and BUN of 47, creatinine 1.85. Plasma lactic acid 3.7. AST and ALT are elevated as well, probably from hepatic congestion. Urine as mentioned above, large leukocyte esterase, greater than 182 WBCs. Blood cultures are gram-negative bacilli. Chest x-ray showed pulmonary edema. BNP is 14,200. ASSESSMENT AND PLAN: 1. Severe sepsis ( ) urinary tract infection. The patient does have bacteremia. Repeat blood cultures today and tomorrow as well and Infectious Disease was already consulted. 2. Patient does have lactic acidosis. We will repeat lactic acid again. If it is ( ) to discontinue the Lasix and patient needs to be started on fluids. The patient may need to be transferred to ICU at that time. As patient may end up needing intubation because of impending respiratory failure secondary to pulmonary edema. 3. Acute respiratory failure, hypoxic in nature secondary to congestive heart failure exacerbation and chronic obstructive pulmonary disease without any acute exacerbation. 4. Congestive heart failure with preserved ejection fraction with exacerbation management with Lasix as mentioned above. If lactic acid comes back positive, patient will be transferred to ICU at that time. Patient will need IV fluids and discontinue Lasix. 5. Iron deficiency anemia with hemoglobin of 7. 6. Chronic kidney disease stage III with acute kidney injury. I cannot rule out acute tubular necrosis, nonoliguric acute tubular necrosis. Lisinopril will be held. 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 7. Deconditioning. 8. Chronic obstructive pulmonary disease without any acute exacerbation. Patient's overall prognosis is poor and his clinical condition is guarded because of the severe sepsis.
[2016-08-25 07:24] LABS: Glucose,Whole Blood 123 mg/dL (75-99)
[2016-08-25] MEDS: INSULIN LISPRO (humaLOG) 300 UNIT/3 ML VIAL SQ SCH ×4 (08:21→21:57)
[2016-08-25] MEDS: IPRATROPIUM-ALBUTEROL 3 ML NEB INHALATION SCH ×4 (08:38→19:27)
[2016-08-25] MEDS: ISOSORBIDE MONONITRATE ER 30 MG TAB.ER.24H PO SCH (08:57)
[2016-08-25] MEDS: METOPROLOL TARTRATE 50 MG TAB PO SCH ×2 (08:58→21:57)
[2016-08-25] MEDS: AMMONIUM LACTATE 12% CREAM 140 GM TUBE TOPICAL SCH ×2 (08:58→21:56)
[2016-08-25] MEDS: ASPIRIN 81 MG CHEW PO SCH (08:58)
[2016-08-25] MEDS: OXYBUTYNIN CHLORIDE 5 MG TAB PO SCH ×2 (08:58→17:42)
[2016-08-25] MEDS: FERROUS SULFATE 325 MG TAB PO SCH (08:58)
[2016-08-25] MEDS: FUROSEMIDE 10 MG/ML 4 ML VIAL IV SCH (08:58)
[2016-08-25] MEDS: PIPERACILLIN-TAZOBACTAM 3.375 GM in DEXTROSE/WATER 1 50ML.BAG IVPB SCH ×2 (09:10→15:47)
[2016-08-25 09:17] LABS: Calcium 8.5 mg/dL (8.4-10.2); Potassium 4.4 mmol/L (3.5-5.1)
[2016-08-25 09:25] LABS: Anisocytosis Slight; CH 25.3; CHCM 31.9; HCT 20.7 % (39.0-53.0); HDW 3.65; Hypochromasia Moderate; MCH 26.8 pg (25.0-35.0); MCHC 33.6 g/dL (31.0-37.0); MCV 79.6 fL (80.0-100.0); Mean Platelet Volume 9.6; Microcytosis Slight; Poikilocytosis Slight; RDW 18.3 % (11.5-15.5); WBC 9.4 k/uL (3.8-10.6)
[2016-08-25 12:37] LABS: Glucose,Whole Blood 201 mg/dL (75-99)
--- NOTE | 2016-08-25 13:33 | P.NPCON ---
History of Present Illness - Reason for Consult acute renal failure - History of Present Illness Reason for consultation: Acute kidney injury History of present illness: Patient is a 81-year-old male seen in renal consultation for acute kidney injury. His baseline creatinine appears to be in the range of 1-1.2 and elevated at 2.1 today. Patient presented to the hospital with fever generalized weakness as well as a productive cough. He was noted to have a lactic acid of 3.7 for which she did receive a fluid bolus. Repeat lactic acid level was 1.3. His blood culture and urine culture positive for gram-negative bacilli. His recent urinalysis from July 2016 was quite benign. He is also maintained on IV Lasix and the dose was decreased to 40 mg once daily starting today. His hemoglobin has been also fluctuating and is 7.0 this morning. Patient is incontinent at times but has been voiding. No hematuria or dysuria. Denies chest pain. Dyspnea is improved since admission. Denies regular use of NSAIDs at home. Denies any family history of renal disease. Hemodynamicallystable. Vital signs are stable. General: The patient appeared well nourished and normally developed. HEENT: Head exam is unremarkable. Neck is without jugular venous distension. LUNGS: Scattered rhonchi at bases. Breath sounds decreased. HEART: Rate and Rhythm are regular. First and second heart sounds normal. No murmurs, rubs or gallops. ABDOMEN: Abdominal exam reveals normal bowel sounds. Non-tender and non- distended. No evidence of peritonitis. EXTREMITITES: No clubbing, cyanosis, or edema. Past Medical History Past Medical History: Coronary Artery Disease (CAD), Heart Failure, COPD, Diabetes Mellitus, Eye Disorder, GERD/Reflux, Hyperlipidemia, Hypertension, Pneumonia, Prostate Disorder, Skin Disorder Additional Past Medical History / Comment(s): [facility] pt currently has a R inguinal area wound and a wound above his R elbow and raw/red skin perineum and buttocks seen by dr payton, anemia, O2 at 4L/NC ATC, past R foot ulcers- seen in wound clinic by Dr. Quintanilla-healed, bilateral macular degeneration, occasional back pain, constipation, BPH. History of Any Multi-Drug Resistant Organisms: MRSA Date of last positivie culture/infection: 08/03/16 MDRO Source:: right leg wound Past Surgical History: Appendectomy, Bowel Resection, Coronary Bypass/CABG, Heart Catheterization, Orthopedic Surgery Additional Past Surgical History / Comment(s): 02/2008 CABG-triple bypass, lt hip with cristina and 3 screws, bowel resection d/t kink/blockage/adhesion, multiple colonoscopies with polypectomies, bilateral cataract removal, bilateral eye injections, TURP, Past Anesthesia/Blood Transfusion Reactions: No Reported Reaction Additional Past Anesthesia/Blood Transfusion Reaction / Comment(s): Pt has recently received blood without reaction. Past Psychological History: No Psychological Hx Reported Additional Psychological History / Comment(s): Pt currently resides at [facility]. He periodically gets up in a wheelchair for meals. He is on O2 at 4L/NC ATC. He feeds himself. Smoking Status: Former smoker - Past Family History Mother Additional Family Medical History / Comment(s): bowel obstruction Father Family Medical History: Liver Disease Medications and Allergies Home Medications Medication Instructions Recorded Confirmed Type Metoprolol Tartrate 50 mg PO BID 01/25/14 08/23/16 History Ferrous Sulfate [Feosol] 325 mg PO DAILY 04/15/14 08/23/16 History Aspirin 81 mg PO DAILY 06/03/16 08/23/16 History Atorvastatin Calcium [Lipitor] 40 mg PO HS 06/03/16 08/23/16 History Oxybutynin Chloride [Ditropan] 5 mg PO BID@0800,1700 06/03/16 08/23/16 History Pantoprazole Sodium [Protonix] 40 mg PO DAILY@0600 06/03/16 08/23/16 History Psyllium Husk 100% [Metamucil 6 gm PO DAILY 06/03/16 08/23/16 History Packet] Acetaminophen Tab [Tylenol] 650 mg PO Q4H PRN 08/03/16 08/23/16 History Ammonium Lactate Cream [Lac-Hydrin 1 applic TOPICAL BID 08/03/16 08/23/16 History 12% Cream] Bisacodyl [Dulcolax] 10 mg RECTAL DAILY PRN 08/03/16 08/23/16 History Insulin Detemir [Levemir] 25 unit SQ DAILY@199908/03/16 08/23/16 History Ipratropium-Albuterol Nebulize 3 ml INHALATION RT-Q6H PRN 08/03/16 08/23/16 History [Duoneb 0.5 mg-3 mg/3 ml Soln] Magnesium Hydroxide [Milk of 2,400 mg PO DAILY PRN 08/03/16 08/23/16 History Magnesia] Metolazone [Zaroxolyn] 2.5 mg PO Q48H 08/03/16 08/23/16 History Na Phos,M-B/Na Phos,Di-Ba [Fleet 133 ml RECTAL DAILY PRN 08/03/16 08/23/16 History Adult] Zinc Oxide [Desitin] 1 applic TOPICAL BID PRN 08/03/16 08/23/16 History Cholecalciferol [Vitamin D3] 1,000 unit PO DAILY@1700 08/18/16 08/23/16 History HYDROcodone/APAP 5-325MG [[place] 1 tab PO Q6HR PRN 08/18/16 08/23/16 History 5-325] Losartan Potassium 50 mg PO DAILY 08/18/16 08/23/16 History [place]-3 Fatty Acids/Fish Oil [Fish 1 cap PO BID 08/18/16 08/23/16 History Oil 1,000 mg Capsule] Folic Acid/Multivit-Min/Lutein 1 tab PO DAILY@1700 08/23/16 08/23/16 History [Therapeutic-M Tablet] Potassium 198 mg PO BID 08/23/16 08/23/16 History Allergies Allergy/AdvReac Type Severity Reaction Status Date / Time No Known Allergies Allergy Verified 08/23/16 16:24 Physical Exam Vitals: Vital Signs Temp Pulse Resp BP Pulse Ox 08/25/16 08:00 80 19 08/25/16 07:00 97 F L 80 19 143/69 93 L 08/24/16 23:00 96.2 F L 72 18 111/55 96 08/24/16 20:05 90 120/58 91 L 08/24/16 18:03 98 F 103 H 20 128/58 92 L 08/24/16 17:36 103.1 F H 114 H 26 H 157/79 90 L 08/24/16 16:15 98.8 F 20 182/98 92 L 08/24/16 14:37 98.8 F 91 16 169/67 90 L Intake and Output 08/24/16 08/25/16 08/25/16 22:59 06:59 14:59 Other: Voiding Method Diaper Diaper Incontinent Incontinent # Voids 1 3 # Bowel Movements 1 Weight 81 kg 81 kg Patient Weight 08/26/16 06:59 Weight 81 kg Results - Lab Results Most recent lab results ABG pH 7.43 (7.35-7.45) 08/24/16 16:35 ABG pCO2 29 mmHg (35-45) L 08/24/16 16:35 ABG pO2 96 mmHg (83-108) 08/24/16 16:35 ABG HCO3 19 mmol/L (21-25) L 08/24/16 16:35 ABG O2 Saturation 98.0 % (94-97) H 08/24/16 16:35 Calcium 8.5 mg/dL (8.4-10.2) 08/25/16 08:18 08/25/16 08:43 08/25/16 08:18 Assessment and Plan Plan: Assessment: #1. Nonoliguric acute kidney injury secondary to ischemic ATN secondary to anemia, hypotension as well as sepsis. Creatinine up at 2.1 today. Recent urinalysis was quite benign. #2. Severe sepsis secondary to gram-negative bacilli bacteremia and UTI. Also concerns for pneumonia. #3. Anemia. Rule out iron deficiency. #4. Moderate pulmonary hypertension with mild to moderate mitral regurgitation. Plan: Hold diuretics for now. Start gentle IV hydration with normal saline to be run at 50 mL an hour. Check iron studies. If hemoglobin drops further, would recommend blood transfusion. Antibiotics per infectious disease recommendations. Repeat electrolytes in the morning. Check renal ultrasound. Thank you for the consultation. I will continue to follow the patient with you during his hospital stay.
[2016-08-25] MEDS: SODIUM CHLORIDE 0.9% 1,000 ML IV SCH (13:44)
[2016-08-25 14:11] LABS: % Iron Saturation 10.4 % (20-50)
--- NOTE | 2016-08-25 14:31 | US ---
EXAMINATION TYPE: US kidneys/renal and bladder DATE OF EXAM: 08/25/2016 COMPARISON: NONE CLINICAL HISTORY: al. Urine retention EXAM MEASUREMENTS: Right Kidney: 11.4 x 7.4 x 6.8 cm Left Kidney: 11.5 x 5.2 x 6.4 cm Right Kidney: hydronephrosis Left Kidney: hydronephrosis Bladder: overly distended with inferior sediment seen Bilateral Jets seen: not seen There is bilateral hydronephrosis, greater on the right than the left. The bladder is distended. Neit her ureteral jets were seen. IMPRESSION: BILATERAL HYDRONEPHROSIS.
[2016-08-25 17:32] LABS: Glucose,Whole Blood 134 mg/dL (75-99)
[2016-08-25] MEDS: MULTIVITAMINS, THERA 1 EACH TAB PO SCH (17:42)
[2016-08-25 20:49] LABS: Glucose,Whole Blood 189 mg/dL (75-99)
[2016-08-25] MEDS: ATORVASTATIN 40 MG TAB PO SCH (21:57)
[2016-08-25] MEDS: LEVOFLOXACIN 250 MG TAB PO SCH (21:57)
--- NOTE | 2016-08-25 22:57 | PN ---
81 -year-old admitted for severe sepsis, urinary tract infection, bacteremia secondary to urinary tract infection, blood cultures showing gram- negative bacilli. My suspicion is extremely low for pneumonia, although patient Levofloxacin ( ) for possibility of pneumonia. The patient has complex hemodynamics with elevated along with the patient had pulmonary edema yesterday. Lactic acidosis fortunately improved and the patient's kidney function was ( ) with IV Lasix. Nephrology evaluated the patient and the patient's Lasix was discontinued. the patient was started on gentle hydration. The patient still has crackles. Part of the crackles are secondary although no significant jugular venous distention. ( ) are secondary to pulmonary fibrosis and the patient had a component of pulmonary edema with prominence of significant bronchovascular markings and a thickened ( ). The patient is on 6 liters of oxygen at this point in time. Fine crackles consistent with pulmonary fibrosis. Although patient overall feels much better. REVIEW OF SYSTEMS: CARDIOVASCULAR: No chest pain, no orthopnea, no PND, no palpitations. PULMONARY: Denied any shortness of breath. No cough or hemoptysis. GASTROINTESTINAL: No diarrhea, nausea or vomiting. No abdominal pain. Normoactive bowel sounds. NEUROLOGIC: No headaches, no weakness, no numbness. Medications were reviewed. Medication changes: The patient was started on Zosyn and levofloxacin, Venlafaxine ( ). PHYSICAL EXAMINATION: GENERAL: The patient is alert and oriented times three. Looks much better than yesterday. HEENT: Pupils are round and equally reacting to light. EOMI. No scleral icterus. No conjunctival pallor. Normocephalic, atraumatic. No pharyngeal erythema. No thyromegaly. CARDIOVASCULAR: S1 and S2 present. No murmurs, rubs, or gallops. PULMONARY: ( ) to fine crackles are appreciated with fairly good air entry into bilateral lung lanier. ABDOMEN: Soft, nontender, nondistended, normoactive bowel sounds. No palpable organomegaly. MUSCULOSKELETAL: No joint swelling or deformity. EXTREMITIES: No cyanosis, clubbing, or pedal edema. NEUROLOGICAL: Gross neurological examination did not reveal any focal deficits. SKIN: No rashes. LABORATORY DATA: Comprehensive metabolic profile was not repeated although patient's basic metabolic profile showed elevated creatinine 2.0, BUN of 49, sodium 135. Abdominal ultrasound was ordered to assess the kidneys. ASSESSMENT AND PLAN: 1. Severe sepsis ( ) secondary to that, continue with above mentioned antibiotics. 2. Lactic acidosis, resolved. 3. Congestive heart failure, chronic with preserved ejection fraction with acute exacerbation, which appears to have improved. 4. Acute respiratory failure on acute chronic hypoxic respiratory failure secondary to congestive heart failure exacerbation. The patient still is requiring 6 L oxygen. 5. The patient also has chronic obstructive pulmonary disease. 6. The patient has pulmonary fibrosis. 7. The patient does use 2 to 4 liters of oxygen at the rehab facility. 8. Iron deficiency anemia with hemoglobin of 7. 9. Chronic kidney disease. Stage III. 10. Nonoliguric acute tubular necrosis from sepsis leading to acute renal failure. 11. Deconditioning. 12. Chronic obstructive pulmonary disease without any exacerbation. PLAN: Continue with present antibiotics. Continue with gentle hydration. Reassess the kidney function. Monitor hemoglobin. Patient's overall prognosis is poor.
[2016-08-26] MEDS: PIPERACILLIN-TAZOBACTAM 3.375 GM in DEXTROSE/WATER 1 50ML.BAG IVPB SCH ×4 (00:29→23:51)
[2016-08-26] MEDS: PANTOPRAZOLE 40 MG TABLET PO SCH (06:27)
[2016-08-26 07:38] LABS: Glucose,Whole Blood 188 mg/dL (75-99)
[2016-08-26] MEDS: IPRATROPIUM-ALBUTEROL 3 ML NEB INHALATION SCH ×4 (08:20→19:52)
[2016-08-26] MEDS: INSULIN LISPRO (humaLOG) 300 UNIT/3 ML VIAL SQ SCH ×4 (08:24→22:00)
[2016-08-26] MEDS: FERROUS SULFATE 325 MG TAB PO SCH (08:24)
[2016-08-26] MEDS: ASPIRIN 81 MG CHEW PO SCH (08:24)
[2016-08-26] MEDS: AMMONIUM LACTATE 12% CREAM 140 GM TUBE TOPICAL SCH ×2 (08:24→20:26)
[2016-08-26] MEDS: OXYBUTYNIN CHLORIDE 5 MG TAB PO SCH (08:24)
[2016-08-26] MEDS: METOPROLOL TARTRATE 50 MG TAB PO SCH ×2 (08:25→20:27)
[2016-08-26] MEDS: ISOSORBIDE MONONITRATE ER 30 MG TAB.ER.24H PO SCH (08:25)
[2016-08-26] MEDS ORDERED: FUROSEMIDE 10 MG/ML 4 ML VIAL IV SCH (09:00)
[2016-08-26 10:25] LABS: Calcium 8.4 mg/dL (8.4-10.2); Potassium 4.4 mmol/L (3.5-5.1); Total Bilirubin 0.4 mg/dL (0.2-1.3)
[2016-08-26] MEDS: SODIUM CHLORIDE 0.9% 1,000 ML IV SCH (10:53)
[2016-08-26 11:28] LABS: Glucose,Whole Blood 178 mg/dL (75-99)
[2016-08-26] MEDS ORDERED: SODIUM FERRIC GLUCONAT-SUCROSE 125 MG in SODIUM CHLORIDE 0.9% 100 ML IVPB SCH (12:00)
[2016-08-26 12:05] LABS: Anisocytosis Slight; CH 25.1; CHCM 31.3; HCT 21.5 % (39.0-53.0); HDW 3.62; Hypochromasia Moderate; MCH 26.2 pg (25.0-35.0); MCHC 32.5 g/dL (31.0-37.0); MCV 80.6 fL (80.0-100.0); Mean Platelet Volume 8.4; Microcytosis Slight; Poikilocytosis Slight; RBC 2.66 m/uL (4.30-5.90); RDW 18.1 % (11.5-15.5); WBC 8.1 k/uL (3.8-10.6)
--- NOTE | 2016-08-26 12:49 | P.PN ---
Subjective Patient is seen in follow-up for acute kidney injury. Renal function is relatively stable with creatinine at 2 today. Patient is noted to have Pseudomonas UTI and bacteremia and is currently maintained on IV antibiotics. He is resting in bed. Denies chest pain or shortness of breath. He has been voiding. Oral intake has been fair. Patient states he doesn't feel very hungry. Vital signs are stable. General: The patient appeared well nourished and normally developed. HEENT: Head exam is unremarkable. Neck is without jugular venous distension. LUNGS: No rhonchi or wheezes. Breath sounds decreased. HEART: Rate and Rhythm are regular. First and second heart sounds normal. No murmurs, rubs or gallops. ABDOMEN: Abdominal exam reveals normal bowel sounds. Non-tender and non- distended. No evidence of peritonitis. EXTREMITITES: No clubbing, cyanosis, or edema. Objective - Vital Signs Vital signs: Vital Signs Temp 96.9 F L 08/26/16 07:00 Pulse 82 08/26/16 07:00 Resp 16 08/26/16 07:00 BP 147/67 08/26/16 07:00 Pulse Ox 99 08/26/16 07:00 Intake & Output 08/25/16 08/26/16 08/26/16 18:59 06:59 18:59 Weight 81 kg 81.5 kg Other: Voiding Method Diaper Incontinent Incontinent Incontinent # Voids 2 3 - Labs CBC & Chem 7: 08/26/16 11:21 08/26/16 09:26 Labs: Abnormal Lab Results - Last 24 Hours (Table) 08/24/16 08/25/16 08/25/16 Range/Units 16:50 08:18 17:26 RBC (4.30-5.90) m/uL Hgb (13.0-17.5) gm/dL Hct (39.0-53.0) % RDW (11.5-15.5) % Plt Count (150-450) k/uL Sodium (137-145) mmol/L BUN (9-20) mg/dL Creatinine (0.66-1.25) mg/dL Glucose (74-99) mg/dL POC Glucose (mg/dL) 134 H (75-99) mg/dL Iron 18 L (49-181) ug/dL TIBC 173 L (261-462) ug/dL % Saturation 10.4 L (20-50) % Ferritin 962 H (18-464) ng/mL AST (17-59) U/L ALT (21-72) U/L Alkaline Phosphatase (38-126) U/L Total Protein (6.3-8.2) g/dL Albumin (3.5-5.0) g/dL 08/25/16 08/26/16 08/26/16 Range/Units 20:47 07:33 09:26 RBC (4.30-5.90) m/uL Hgb (13.0-17.5) gm/dL Hct (39.0-53.0) % RDW (11.5-15.5) % Plt Count (150-450) k/uL Sodium 135 L (137-145) mmol/L BUN 49 H (9-20) mg/dL Creatinine 2.00 H (0.66-1.25) mg/dL Glucose 191 H (74-99) mg/dL POC Glucose (mg/dL) 189 H 188 H (75-99) mg/dL Iron (49-181) ug/dL TIBC (261-462) ug/dL % Saturation (20-50) % Ferritin (18-464) ng/mL AST 97 H (17-59) U/L ALT 208 H (21-72) U/L Alkaline Phosphatase 180 H (38-126) U/L Total Protein 5.0 L (6.3-8.2) g/dL Albumin 2.4 L (3.5-5.0) g/dL 08/26/16 08/26/16 Range/Units 11:21 11:26 RBC 2.66 L (4.30-5.90) m/uL Hgb 7.0 L* (13.0-17.5) gm/dL Hct 21.5 L (39.0-53.0) % RDW 18.1 H (11.5-15.5) % Plt Count 124 L (150-450) k/uL Sodium (137-145) mmol/L BUN (9-20) mg/dL Creatinine (0.66-1.25) mg/dL Glucose (74-99) mg/dL POC Glucose (mg/dL) 178 H (75-99) mg/dL Iron (49-181) ug/dL TIBC (261-462) ug/dL % Saturation (20-50) % Ferritin (18-464) ng/mL AST (17-59) U/L ALT (21-72) U/L Alkaline Phosphatase (38-126) U/L Total Protein (6.3-8.2) g/dL Albumin (3.5-5.0) g/dL Microbiology - Last 24 Hours (Table) 08/25/16 08:18 Blood Culture - Preliminary Blood No Growth after 24 hours 08/25/16 08:24 Blood Culture - Preliminary Blood No Growth after 24 hours 08/23/16 16:14 Urine Culture - Final Urine,Catheterized Pseudomonas aeruginosa 08/23/16 16:14 Blood Culture Gram Stain - Final Blood Blood Culture - Final Pseudomonas aeruginosa Assessment and Plan Plan: Assessment: #1. Nonoliguric acute kidney injury secondary to ischemic ATN secondary to anemia, hypotension as well as sepsis. Creatinine peaked at 2.1 this admission and is down to 2.0 today. Recent urinalysis was quite benign. Ultrasound revealed bilateral hydronephrosis. #2. Severe sepsis secondary to Pseudomonas bacteremia and UTI. Also concerns for pneumonia. #3. Anemia. Iron deficiency noted. Hemoglobin still at 7.0. #4. Moderate pulmonary hypertension with mild to moderate mitral regurgitation. Plan: Hold diuretics for now. Continue normal saline to be run at 50 mL an hour. Consider blood transfusion today. I will hold off on IV iron due to bacteremia. Antibiotics per infectious disease recommendations. Repeat electrolytes in the morning. Obtain urology recommendations regarding the bilateral hydronephrosis.
--- NOTE | 2016-08-26 14:25 | P.GSCN ---
History of Present Illness Consult date: 08/26/16 Reason for Consult: Hydronephrosis Requesting physician: Bart Chan History of present illness: The patient is an 81-year-old male who was seen Dr. Mi in the past. He has been hospitalized on more than one occasion this year, most recently earlier this month. His daughter states that when he presented to the emergency room on August 03, he was straight catheterized and a large volume of urine was drained from his bladder. He is now admitted and has been diagnosed with sepsis of urinary origin. His serum creatinine level is elevated, and ultrasound shows bilateral hydronephrosis. I'm consulted for this reason. The patient is a vague historian, but states that he has experienced urinary incontinence for months if not years. Review of Systems - Constitutional Reports chills, Reports fever, Reports poor appetite - Gastrointestinal Denies nausea, Denies vomiting - Genitourinary Reports incontinence, Denies dysuria, Denies hematuria Past Medical History Past Medical History: Coronary Artery Disease (CAD), Heart Failure, COPD, Diabetes Mellitus, Eye Disorder, GERD/Reflux, Hyperlipidemia, Hypertension, Pneumonia, Prostate Disorder, Skin Disorder Additional Past Medical History / Comment(s): Dautghters state pt currently has a R inguinal area wound and a wound above his R elbow and raw/red skin perineum and buttocks seen by dr payton, anemia, O2 at 4L/NC ATC, past R foot ulcers- seen in wound clinic by Dr. Quintanilla-healed, bilateral macular degeneration, occasional back pain, constipation, BPH. History of Any Multi-Drug Resistant Organisms: MRSA Year Discovered:: 08/03/16 MDRO Source:: right leg wound Past Surgical History: Appendectomy, Bowel Resection, Coronary Bypass/CABG, Heart Catheterization, Orthopedic Surgery Additional Past Surgical History / Comment(s): 02/2008 CABG-triple bypass, lt hip with cristina and 3 screws, bowel resection d/t kink/blockage/adhesion, multiple colonoscopies with polypectomies, bilateral cataract removal, bilateral eye injections, TURP, Past Anesthesia/Blood Transfusion Reactions: No Reported Reaction Additional Past Anesthesia/Blood Transfusion Reaction / Comm: Pt has recently received blood without reaction. Past Psychological History: No Psychological Hx Reported Additional Psychological History / Comment(s): Pt currently resides at [facility]. He periodically gets up in a wheelchair for meals. He is on O2 at 4L/NC ATC. He feeds himself. Smoking Status: Former smoker - Past Family History Mother Additional Family Medical History / Comment(s): bowel obstruction Father Family Medical History: Liver Disease Medications and Allergies Home Medications Medication Instructions Recorded Confirmed Type Metoprolol Tartrate 50 mg PO BID 01/25/14 08/23/16 History Ferrous Sulfate [Feosol] 325 mg PO DAILY 04/15/14 08/23/16 History Aspirin 81 mg PO DAILY 06/03/16 08/23/16 History Atorvastatin Calcium [Lipitor] 40 mg PO HS 06/03/16 08/23/16 History Oxybutynin Chloride [Ditropan] 5 mg PO BID@0800,1700 06/03/16 08/23/16 History Pantoprazole Sodium [Protonix] 40 mg PO DAILY@0600 06/03/16 08/23/16 History Psyllium Husk 100% [Metamucil 6 gm PO DAILY 06/03/16 08/23/16 History Packet] Acetaminophen Tab [Tylenol] 650 mg PO Q4H PRN 08/03/16 08/23/16 History Ammonium Lactate Cream [Lac-Hydrin 1 applic TOPICAL BID 08/03/16 08/23/16 History 12% Cream] Bisacodyl [Dulcolax] 10 mg RECTAL DAILY PRN 08/03/16 08/23/16 History Insulin Detemir [Levemir] 25 unit SQ DAILY@199908/03/16 08/23/16 History Ipratropium-Albuterol Nebulize 3 ml INHALATION RT-Q6H PRN 08/03/16 08/23/16 History [Duoneb 0.5 mg-3 mg/3 ml Soln] Magnesium Hydroxide [Milk of 2,400 mg PO DAILY PRN 08/03/16 08/23/16 History Magnesia] Metolazone [Zaroxolyn] 2.5 mg PO Q48H 08/03/16 08/23/16 History Na Phos,M-B/Na Phos,Di-Ba [Fleet 133 ml RECTAL DAILY PRN 08/03/16 08/23/16 History Adult] Zinc Oxide [Desitin] 1 applic TOPICAL BID PRN 08/03/16 08/23/16 History Cholecalciferol [Vitamin D3] 1,000 unit PO DAILY@1700 08/18/16 08/23/16 History HYDROcodone/APAP 5-325MG [[place] 1 tab PO Q6HR PRN 08/18/16 08/23/16 History 5-325] Losartan Potassium 50 mg PO DAILY 08/18/16 08/23/16 History [place]-3 Fatty Acids/Fish Oil [Fish 1 cap PO BID 08/18/16 08/23/16 History Oil 1,000 mg Capsule] Folic Acid/Multivit-Min/Lutein 1 tab PO DAILY@1700 08/23/16 08/23/16 History [Therapeutic-M Tablet] Potassium 198 mg PO BID 08/23/16 08/23/16 History Allergies Allergy/AdvReac Type Severity Reaction Status Date / Time No Known Allergies Allergy Verified 08/23/16 16:24 Surgical - Exam Vital Signs Temp Pulse Resp BP Pulse Ox 101.8 F H 111 H 23 125/56 80 L 08/23/16 16:00 08/23/16 16:00 08/23/16 16:00 08/23/16 16:00 08/23/16 16:00 - General well developed, well nourished, no distress - Respiratory normal respiratory effort - Abdomen Suprapubic distention is noted Abdomen: soft, non tender, no guarding, no rigid, no rebound - Genitourinary normal penis with no external lesions, testicles present, testicles non-tender - Rectum Rectum: normal sphincter tone, no masses, other (Prostate mildly enlarged and smooth) Results - Labs 08/26/16 11:21 08/26/16 09:26 Abnormal Lab Results - Last 24 Hours (Table) 08/24/16 08/25/16 08/25/16 Range/Units 16:50 08:18 17:26 RBC (4.30-5.90) m/uL Hgb (13.0-17.5) gm/dL Hct (39.0-53.0) % RDW (11.5-15.5) % Plt Count (150-450) k/uL Sodium (137-145) mmol/L BUN (9-20) mg/dL Creatinine (0.66-1.25) mg/dL Glucose (74-99) mg/dL POC Glucose (mg/dL) 134 H (75-99) mg/dL Iron 18 L (49-181) ug/dL TIBC 173 L (261-462) ug/dL % Saturation 10.4 L (20-50) % Ferritin 962 H (18-464) ng/mL AST (17-59) U/L ALT (21-72) U/L Alkaline Phosphatase (38-126) U/L Total Protein (6.3-8.2) g/dL Albumin (3.5-5.0) g/dL 08/25/16 08/26/16 08/26/16 Range/Units 20:47 07:33 09:26 RBC (4.30-5.90) m/uL Hgb (13.0-17.5) gm/dL Hct (39.0-53.0) % RDW (11.5-15.5) % Plt Count (150-450) k/uL Sodium 135 L (137-145) mmol/L BUN 49 H (9-20) mg/dL Creatinine 2.00 H (0.66-1.25) mg/dL Glucose 191 H (74-99) mg/dL POC Glucose (mg/dL) 189 H 188 H (75-99) mg/dL Iron (49-181) ug/dL TIBC (261-462) ug/dL % Saturation (20-50) % Ferritin (18-464) ng/mL AST 97 H (17-59) U/L ALT 208 H (21-72) U/L Alkaline Phosphatase 180 H (38-126) U/L Total Protein 5.0 L (6.3-8.2) g/dL Albumin 2.4 L (3.5-5.0) g/dL 08/26/16 08/26/16 Range/Units 11:21 11:26 RBC 2.66 L (4.30-5.90) m/uL Hgb 7.0 L* (13.0-17.5) gm/dL Hct 21.5 L (39.0-53.0) % RDW 18.1 H (11.5-15.5) % Plt Count 124 L (150-450) k/uL Sodium (137-145) mmol/L BUN (9-20) mg/dL Creatinine (0.66-1.25) mg/dL Glucose (74-99) mg/dL POC Glucose (mg/dL) 178 H (75-99) mg/dL Iron (49-181) ug/dL TIBC (261-462) ug/dL % Saturation (20-50) % Ferritin (18-464) ng/mL AST (17-59) U/L ALT (21-72) U/L Alkaline Phosphatase (38-126) U/L Total Protein (6.3-8.2) g/dL Albumin (3.5-5.0) g/dL Microbiology - Last 24 Hours (Table) 08/25/16 08:18 Blood Culture - Preliminary Blood No Growth after 24 hours 08/25/16 08:24 Blood Culture - Preliminary Blood No Growth after 24 hours 08/23/16 16:14 Urine Culture - Final Urine,Catheterized Pseudomonas aeruginosa 08/23/16 16:14 Blood Culture Gram Stain - Final Blood Blood Culture - Final Pseudomonas aeruginosa Diabetes panel 08/26/16 Range/Units 09:26 Sodium 135 L (137-145) mmol/L Potassium 4.4 (3.5-5.1) mmol/L Chloride 99 (98-107) mmol/L Carbon Dioxide 23 (22-30) mmol/L BUN 49 H (9-20) mg/dL Creatinine 2.00 H (0.66-1.25) mg/dL Glucose 191 H (74-99) mg/dL Calcium 8.4 (8.4-10.2) mg/dL AST 97 H (17-59) U/L ALT 208 H (21-72) U/L Alkaline Phosphatase 180 H (38-126) U/L Total Protein 5.0 L (6.3-8.2) g/dL Albumin 2.4 L (3.5-5.0) g/dL Calcium panel 08/26/16 Range/Units 09:26 Calcium 8.4 (8.4-10.2) mg/dL Albumin 2.4 L (3.5-5.0) g/dL Pituitary panel 08/26/16 Range/Units 09:26 Sodium 135 L (137-145) mmol/L Potassium 4.4 (3.5-5.1) mmol/L Chloride 99 (98-107) mmol/L Carbon Dioxide 23 (22-30) mmol/L BUN 49 H (9-20) mg/dL Creatinine 2.00 H (0.66-1.25) mg/dL Glucose 191 H (74-99) mg/dL Calcium 8.4 (8.4-10.2) mg/dL Adrenal panel 08/26/16 Range/Units 09:26 Sodium 135 L (137-145) mmol/L Potassium 4.4 (3.5-5.1) mmol/L Chloride 99 (98-107) mmol/L Carbon Dioxide 23 (22-30) mmol/L BUN 49 H (9-20) mg/dL Creatinine 2.00 H (0.66-1.25) mg/dL Glucose 191 H (74-99) mg/dL Calcium 8.4 (8.4-10.2) mg/dL Total Bilirubin 0.4 (0.2-1.3) mg/dL AST 97 H (17-59) U/L ALT 208 H (21-72) U/L Alkaline Phosphatase 180 H (38-126) U/L Total Protein 5.0 L (6.3-8.2) g/dL Albumin 2.4 L (3.5-5.0) g/dL Assessment and Plan (1) Urinary tract infection Status: Acute (2) Bilateral hydronephrosis Status: Acute Plan: I had a lengthy discussion with the patient and his daughter. Urine and blood cultures both show Pseudomonas aeruginosa. He is currently receiving Zosyn and Levaquin. The Pseudomonas is resistant to Levaquin, and it is my feeling that this could be discontinued. I suspect that the hydronephrosis is due to urinary retention, as the ultrasound showed bilateral hydronephrosis with bladder distention. In view of this, a Carias catheter will be placed. I have taken the liberty of discontinuing oxybutynin chloride, as this can impair bladder emptying. Time with Patient: Greater than 30
[2016-08-26 17:15] LABS: Glucose,Whole Blood 207 mg/dL (75-99)
[2016-08-26] MEDS: MULTIVITAMINS, THERA 1 EACH TAB PO SCH (17:21)
[2016-08-26] MEDS: HYDROcodone/APAP 5-325MG 1 EACH TAB PO PRN (17:21)
[2016-08-26] MEDS: ATORVASTATIN 40 MG TAB PO SCH (20:26)
[2016-08-26] MEDS: LEVOFLOXACIN 250 MG TAB PO SCH (20:27)
[2016-08-26 21:29] LABS: Glucose,Whole Blood 300 mg/dL (75-99)
--- NOTE | 2016-08-26 23:29 | P.PN ---
Subjective Principal diagnosis: sepsis 81-year-old male known to the service from his recent hospitalization. He was having difficulties with progressive weakness and congestive heart failure. When he was treated he was transferred to the [facility]. Now presents with altered mental status, fever and increasing weakness. He has been followed the wound center and was showing improvement to his ulceration to the right anterior upper thigh. Now has evidence of the new fever and weakness. Concerns pneumonia, or other source of gram-negative sepsis. Has worsened renal failure and US reveals bilat hydronephrosis, was seen by urology and Quijano is placed Multiple positive blood cultures are found. Objective - Vital Signs Vital signs: Vital Signs Temp 98.8 F 08/26/16 20:00 Pulse 91 08/26/16 20:00 Resp 18 08/26/16 20:00 BP 134/71 08/26/16 20:00 Pulse Ox 94 L 08/26/16 20:00 Intake & Output 08/26/16 08/26/16 08/27/16 06:59 18:59 06:59 Output Total 1200 Balance -1200 Weight 81.5 kg Output: Urine 1200 Other: Voiding Method Incontinent Indwelling Catheter # Voids 3 3 - Exam HEENT: Anicteric conjunctiva are pink and moist nasal mucosa grossly intact without significant lesions, there is no thrush. dentures Neck: The neck is supple without significant lymphadenopathy or thyromegaly. Lungs: symmetric air entry scattered wheezing. Bibasilar bronchial sounds are heard There is no dullness. Heart: irRegular with an audible S1-S2, no S3 no S4. There is no significant murmur click or rub, PMI was nondisplaced. Abdomen: Positive bowel sounds soft and nontender without palpable masses or organomegaly. There was no guarding or rebound. Extremities: The upper extremities have excellent pulses they are symmetric, no significant petechiae or telangiectasia. No splinter hemorrhages were noted. The lower extremities trace edema, right upper thigh has minimal ulcer showing marked improvement Neuro: Awake alert oriented to person follows simple commands - Labs CBC & Chem 7: 08/26/16 11:21 08/26/16 09:26 Labs: Abnormal Lab Results - Last 24 Hours (Table) 08/26/16 08/26/16 08/26/16 Range/Units 07:33 09:26 11:21 RBC 2.66 L (4.30-5.90) m/uL Hgb 7.0 L* (13.0-17.5) gm/dL Hct 21.5 L (39.0-53.0) % RDW 18.1 H (11.5-15.5) % Plt Count 124 L (150-450) k/uL Sodium 135 L (137-145) mmol/L BUN 49 H (9-20) mg/dL Creatinine 2.00 H (0.66-1.25) mg/dL Glucose 191 H (74-99) mg/dL POC Glucose (mg/dL) 188 H (75-99) mg/dL AST 97 H (17-59) U/L ALT 208 H (21-72) U/L Alkaline Phosphatase 180 H (38-126) U/L Total Protein 5.0 L (6.3-8.2) g/dL Albumin 2.4 L (3.5-5.0) g/dL 08/26/16 08/26/16 08/26/16 Range/Units 11:26 17:03 21:15 RBC (4.30-5.90) m/uL Hgb (13.0-17.5) gm/dL Hct (39.0-53.0) % RDW (11.5-15.5) % Plt Count (150-450) k/uL Sodium (137-145) mmol/L BUN (9-20) mg/dL Creatinine (0.66-1.25) mg/dL Glucose (74-99) mg/dL POC Glucose (mg/dL) 178 H 207 H 300 H (75-99) mg/dL AST (17-59) U/L ALT (21-72) U/L Alkaline Phosphatase (38-126) U/L Total Protein (6.3-8.2) g/dL Albumin (3.5-5.0) g/dL Microbiology - Last 24 Hours (Table) 08/25/16 08:18 Blood Culture Gram Stain - Preliminary Blood 08/25/16 08:24 Blood Culture Gram Stain - Preliminary Blood 08/25/16 08:24 Blood Culture - Final Blood 08/25/16 08:18 Blood Culture - Final Blood 08/23/16 16:14 Urine Culture - Final Urine,Catheterized Pseudomonas aeruginosa 08/23/16 16:14 Blood Culture Gram Stain - Final Blood Blood Culture - Final Pseudomonas aeruginosa Laboratory Results WBC 8.1 k/uL (3.8-10.6) 08/26/16 11:21 RBC 2.66 m/uL (4.30-5.90) L 08/26/16 11:21 Hgb 7.0 gm/dL (13.0-17.5) L* 08/26/16 11:21 Hct 21.5 % (39.0-53.0) L 08/26/16 11:21 MCV 80.6 fL (80.0-100.0) 08/26/16 11:21 MCH 26.2 pg (25.0-35.0) 08/26/16 11:21 MCHC 32.5 g/dL (31.0-37.0) 08/26/16 11:21 RDW 18.1 % (11.5-15.5) H 08/26/16 11:21 Plt Count 124 k/uL (150-450) L 08/26/16 11:21 Neutrophils % 86 % 08/24/16 16:50 Lymphocytes % 6 % 08/24/16 16:50 Monocytes % 6 % 08/24/16 16:50 Eosinophils % 0 % 08/24/16 16:50 Basophils % 0 % 08/24/16 16:50 Neutrophils # 8.8 k/uL (1.3-7.7) H 08/24/16 16:50 Lymphocytes # 0.6 k/uL (1.0-4.8) L 08/24/16 16:50 Monocytes # 0.6 k/uL (0-1.0) 08/24/16 16:50 Eosinophils # 0.0 k/uL (0-0.7) 08/24/16 16:50 Basophils # 0.0 k/uL (0-0.2) 08/24/16 16:50 Hypochromasia Moderate 08/26/16 11:21 Poikilocytosis Slight 08/26/16 11:21 Anisocytosis Slight 08/26/16 11:21 Microcytosis Slight 08/26/16 11:21 PT 12.7 sec (9.0-12.0) H 08/23/16 16:14 INR 1.3 (<1.1) 08/23/16 16:14 APTT 25.9 sec (22.0-30.0) 08/23/16 16:14 Sample Site L BRACHIAL 08/24/16 16:35 ABG pH 7.43 (7.35-7.45) 08/24/16 16:35 ABG pCO2 29 mmHg (35-45) L 08/24/16 16:35 ABG pO2 96 mmHg (83-108) 08/24/16 16:35 ABG HCO3 19 mmol/L (21-25) L 08/24/16 16:35 ABG Total CO2 20 mmol/L (19-24) 08/24/16 16:35 ABG O2 Saturation 98.0 % (94-97) H 08/24/16 16:35 ABG Base Excess -4.8 mmol/L 08/24/16 16:35 FiO2 100 % 08/24/16 16:35 Sodium 135 mmol/L (137-145) L 08/26/16 09:26 Potassium 4.4 mmol/L (3.5-5.1) 08/26/16 09:26 Chloride 99 mmol/L (98-107) 08/26/16 09:26 Carbon Dioxide 23 mmol/L (22-30) 08/26/16 09:26 Anion Gap 13 mmol/L 08/26/16 09:26 BUN 49 mg/dL (9-20) H 08/26/16 09:26 Creatinine 2.00 mg/dL (0.66-1.25) H 08/26/16 09:26 Est GFR (MDRD) Af Amer 39 (>60 ml/min/1.73 sqM) 08/26/16 09:26 Est GFR (MDRD) Non-Af 32 (>60 ml/min/1.73 sqM) 08/26/16 09:26 Glucose 191 mg/dL (74-99) H 08/26/16 09:26 POC Glucose (mg/dL) 300 mg/dL (75-99) H 08/26/16 21:15 POC Glu Manager Shift Farzaneh Sultana 08/26/16 21:[address] Glu mg/dL 131 mg/dL 08/23/16 16:15 Hemoglobin A1c 6.2 % (4.2-6.1) H 08/23/16 16:15 Plasma Lactic Acid Gerhard 1.3 mmol/L (0.7-2.0) 08/24/16 19:16 Calcium 8.4 mg/dL (8.4-10.2) 08/26/16 09:26 Iron 18 ug/dL (49-181) L 08/25/16 08:18 TIBC 173 ug/dL (261-462) L 08/25/16 08:18 % Saturation 10.4 % (20-50) L 08/25/16 08:18 Ferritin ng/mL (18-464) 08/25/16 08:18 Total Bilirubin 0.4 mg/dL (0.2-1.3) 08/26/16 09:26 AST 97 U/L (17-59) H 08/26/16 09:26 ALT 208 U/L (21-72) H 08/26/16 09:26 Alkaline Phosphatase 180 U/L (38-126) H 08/26/16 09:26 NT-Pro-B Natriuret Pep 92705 pg/mL 08/23/16 16:15 Total Protein 5.0 g/dL (6.3-8.2) L 08/26/16 09:26 Albumin 2.4 g/dL (3.5-5.0) L 08/26/16 09:26 Urine Color Yellow 08/23/16 16:14 Urine Appearance Turbid (Clear) 08/23/16 16:14 Urine pH 6.5 (5.0-8.0) 08/23/16 16:14 Ur Specific [place] 1.016 (1.001-1.035) 08/23/16 16:14 Urine Protein 2+ (Negative) H 08/23/16 16:14 Urine Glucose (UA) Negative (Negative) 08/23/16 16:14 Urine Ketones Negative (Negative) 08/23/16 16:14 Urine Blood Moderate (Negative) H 08/23/16 16:14 Urine Nitrite Positive (Negative) 08/23/16 16:14 Urine Bilirubin Negative (Negative) 08/23/16 16:14 Urine Urobilinogen <2.0 mg/dL (<2.0) 08/23/16 16:14 Ur Leukocyte Esterase Large (Negative) H 08/23/16 16:14 Urine RBC 48 /hpf (0-5) H 08/23/16 16:14 Urine WBC >182 /hpf (0-5) H 08/23/16 16:14 Urine WBC Clumps Many /hpf (None) H 08/23/16 16:14 US bilat hydro Assessment and Plan (1) Gram negative sepsis Narrative/Plan: 81-year-old male presents to the emergency center from the [facility] home with fever, worsening mental status and increasing fatigue and malaise. Patient has had recent hospitalizations. His underlying congestive heart failure this seems to be worsened by current chest x-ray and concerns pneumonia. The urinalysis is also markedly abnormal this point in time. Constantly concerns to gram-negative pneumonia versus urinary sepsis at this time antibiotic therapy would be altered to Zosyn and Levaquin until we have further data. Follow blood cultures are requested. Continue ongoing supportive care and improve his nutrition as much as possible. Local wound care's medical honey to the right upper thigh ulceration. Moisture control and zinc to the buttocks as needed. Chronic renal failure is noted and has chronic obstruction as current etiology, expect improvement with quijano The lactic acidosis is improved with hydration. Multiple culturew with Pseudomaonas have been isolated susceptible to zosyn, Levaquin also for pneumonia, which may be fluid overload , if chest improves with resolution of the urinary obstruction then discontinue. Once bactermia clears will need IV access and plan at least 2 weeks of IV antibiotic therapy, possibly zosyn or fortaz. Folow up blood cultures ordered. Status: Acute (2) Pneumonia Status: Acute (3) Acute on chronic systolic (congestive) heart failure Status: Acute
[2016-08-27] MEDS: SODIUM CHLORIDE 0.9% 1,000 ML IV SCH (05:53)
[2016-08-27] MEDS: PANTOPRAZOLE 40 MG TABLET PO SCH (06:20)
[2016-08-27 07:19] LABS: Glucose,Whole Blood 181 mg/dL (75-99)
--- NOTE | 2016-08-27 07:23 | PN ---
DATE OF SERVICE: 08/26/2016 INTERVAL HISTORY: Mr. Caba is an 81-year-old male with known history of CHF with diastolic dysfunction admitted to the hospital with severe sepsis secondary to urinary tract infection as well as septicemic with gram-negative bacilli turned out to be Pseudomonas aeruginosa. Patient had ultrasound of the abdomen and kidneys done, showed bilateral hydronephrosis. The patient was seen by urology today and started on Carias catheter placement. Nephrology is following this patient. Currently on antibiotics in the form of Zosyn Levaquin. ID is following this patient. Lasix has been held due to worsening renal function and started on gentle hydration. Hemoglobin 7.0 today. REVIEW OF SYSTEMS: CONSTITUTIONAL: No fever. RESPIRATORY: No cough or sputum production. CARDIOVASCULAR: No chest pain or shortness of breath. ABDOMEN: No nausea, vomiting, abdominal pain. GENITOURINARY: Negative. ENDOCRINE: Negative. PSYCHIATRIC: Negative. All other fourteen point review of systems negative except as above. Current medications include Tylenol, aspirin, atorvastatin, ferrous sulfate, [place] 5, DuoNeb, Imdur, Levofloxacin, metoprolol, multivitamins, naltrexone, Zofran, Protonix, Zosyn, normal saline at 50 mL/h, zinc oxide ointment. PHYSICAL EXAMINATION: An 81-year-old male lying in bed, awake, alert, oriented x 3, appears to be in no apparent distress. VITALS: Blood pressure is 127/66, pulse is 81, respirations 16, temperature afebrile, pulse ox 95% on 6-L nasal cannula. ( ) normocephalic. Neck is supple. No JVD. CVS: S1, S2 heard. No murmurs or gallop. LUNGS: Bilateral air entry is present. Minimal basilar crackles positive. Nonlabored breathing. ABDOMEN: Soft, nontender. Bowel sounds present. CHECKMAN: Alert and oriented x3. No focal deficit. EXTREMITIES: No edema. Pulses palpable bilaterally. No clubbing or cyanosis. PSYCHIATRIC: Cooperative. LABORATORY DATA: WBC 8.5, hemoglobin 7.0, platelets 124. Sodium 135, potassium 4.4, bicarbonate 23, BUN 14, creatinine 2.0, albumin 2.4. ASSESSMENT: 1. Sepsis secondary to urinary tract infection. 2. Urinary tract infection due to Pseudomonas. 3. Pseudomonas aeruginosa ( ). 4. Bilateral hydronephrosis. 5. Acute on chronic congestive heart failure with diastolic dysfunction, improved now. 6. Acute on chronic ( ) secondary to congestive heart failure exacerbation. 7. Chronic obstructive pulmonary disease not in exacerbation. 8. Nonoliguric acute kidney injury, most likely prerenal, fairly stable with creatinine level of 2.0 today. 9. ( ). 10. ( ) home oxygen-dependent due to pulmonary fibrosis and chronic obstructive pulmonary disease. 11. Iron deficiency anemia, hemoglobin 7. 12. Chronic kidney disease stage III. 13. ( ) possibly acute tubular necrosis. 14. Deconditioning/medical debility. DISCUSSION AND PLAN: The patient will be continued on Zosyn. ID is following this patient. Oxybutynin has been discontinued. Will continue with Urology. ( ) on board. Further recommendations based on the clinical course.
[2016-08-27] MEDS: IPRATROPIUM-ALBUTEROL 3 ML NEB INHALATION SCH ×4 (08:34→19:06)
[2016-08-27] MEDS: FERROUS SULFATE 325 MG TAB PO SCH (08:37)
[2016-08-27] MEDS: ISOSORBIDE MONONITRATE ER 30 MG TAB.ER.24H PO SCH (08:37)
[2016-08-27] MEDS: AMMONIUM LACTATE 12% CREAM 140 GM TUBE TOPICAL SCH ×2 (08:38→20:49)
[2016-08-27] MEDS: PIPERACILLIN-TAZOBACTAM 3.375 GM in DEXTROSE/WATER 1 50ML.BAG IVPB SCH ×3 (08:38→17:05)
[2016-08-27] MEDS: METOPROLOL TARTRATE 50 MG TAB PO SCH ×2 (08:38→20:50)
[2016-08-27] MEDS: ASPIRIN 81 MG CHEW PO SCH (08:38)
[2016-08-27] MEDS: INSULIN LISPRO (humaLOG) 300 UNIT/3 ML VIAL SQ SCH ×4 (08:43→22:12)
[2016-08-27 10:55] LABS: Anisocytosis Slight; CHCM 30.6; HCT 21.9 % (39.0-53.0); HDW 3.54; Hypochromasia Marked; MCH 25.2 pg (25.0-35.0); MCHC 30.8 g/dL (31.0-37.0); MCV 81.9 fL (80.0-100.0); Mean Platelet Volume 9.3; Microcytosis Slight; Poikilocytosis Slight; RBC 2.67 m/uL (4.30-5.90); WBC 13.5 k/uL (3.8-10.6)
[2016-08-27 10:58] LABS: HGB 6.7 gm/dL (13.0-17.5)
--- NOTE | 2016-08-27 11:02 | P.PN ---
Subjective Patient is seen in follow-up for acute kidney injury. Renal function is relatively stable with creatinine at 2 as of yesterday. Patient is noted to have Pseudomonas UTI and bacteremia with repeat cultures showing coagulase- negative staph bacteremia and is currently maintained on IV antibiotics. He is resting in bed. Denies chest pain or shortness of breath. He was noted to have bilateral hydronephrosis and is being followed by urology. Carias catheter was placed. Oral intake has been fair. Patient states he doesn't feel very hungry but is drinking water. Vital signs are stable. General: The patient appeared well nourished and normally developed. HEENT: Head exam is unremarkable. Neck is without jugular venous distension. LUNGS: No rhonchi or wheezes. Breath sounds decreased. HEART: Rate and Rhythm are regular. First and second heart sounds normal. No murmurs, rubs or gallops. ABDOMEN: Abdominal exam reveals normal bowel sounds. Non-tender and non- distended. No evidence of peritonitis. EXTREMITITES: No clubbing, cyanosis, or edema. Objective - Vital Signs Vital signs: Vital Signs Temp 98.8 F 08/27/16 07:00 Pulse 91 08/27/16 07:00 Resp 18 08/27/16 07:00 BP 145/69 08/27/16 07:00 Pulse Ox 92 L 08/27/16 07:00 Intake & Output 08/26/16 08/27/16 08/27/16 18:59 06:59 18:59 Output Total 1200 850 Balance -1200 -850 Weight 82.5 kg Output: Urine 1200 850 Other: Voiding Method Indwelling Catheter Indwelling Catheter # Voids 3 - Labs CBC & Chem 7: 08/27/16 10:12 08/26/16 09:26 Labs: Abnormal Lab Results - Last 24 Hours (Table) 08/26/16 08/26/16 08/26/16 Range/Units 11:21 11:26 17:03 WBC (3.8-10.6) k/uL RBC 2.66 L (4.30-5.90) m/uL Hgb 7.0 L* (13.0-17.5) gm/dL Hct 21.5 L (39.0-53.0) % MCHC (31.0-37.0) g/dL RDW 18.1 H (11.5-15.5) % Plt Count 124 L (150-450) k/uL POC Glucose (mg/dL) 178 H 207 H (75-99) mg/dL 08/26/16 08/27/16 08/27/16 Range/Units 21:15 07:14 10:12 WBC 13.5 H (3.8-10.6) k/uL RBC 2.67 L (4.30-5.90) m/uL Hgb 6.7 L* (13.0-17.5) gm/dL Hct 21.9 L (39.0-53.0) % MCHC 30.8 L (31.0-37.0) g/dL RDW 18.0 H (11.5-15.5) % Plt Count 140 L (150-450) k/uL POC Glucose (mg/dL) 300 H 181 H (75-99) mg/dL Microbiology - Last 24 Hours (Table) 08/25/16 08:24 Blood Culture Gram Stain - Preliminary Blood Blood Culture - Preliminary Coagulase Negative Staph 08/25/16 08:18 Blood Culture Gram Stain - Preliminary Blood Blood Culture - Preliminary Coagulase Negative Staph 08/25/16 08:24 Blood Culture - Final Blood 08/25/16 08:18 Blood Culture - Final Blood Assessment and Plan Plan: Assessment: #1. Nonoliguric acute kidney injury secondary to ischemic ATN secondary to anemia, hypotension as well as sepsis. Also component of obstructive uropathy. Creatinine peaked at 2.1 this admission and was down to 2.0 as of yesterday. Recent urinalysis was quite benign. Ultrasound revealed bilateral hydronephrosis. #2. Severe sepsis secondary to Pseudomonas bacteremia and UTI. Also concerns for pneumonia. #3. Anemia. Iron deficiency noted. Hemoglobin down to 6.7 today. #4. Moderate pulmonary hypertension with mild to moderate mitral regurgitation. Plan: Hold diuretics for now. Continue normal saline to be run at 50 mL an hour. Consider blood transfusion today. I will hold off on IV iron due to bacteremia. Antibiotics per infectious disease recommendations. Repeat electrolytes in the morning. Maintain Carias catheter. Continue to monitor renal function and urine output.
[2016-08-27 11:04] LABS: Calcium 8.1 mg/dL (8.4-10.2); Potassium 3.5 mmol/L (3.5-5.1)
[2016-08-27 11:50] LABS: Glucose,Whole Blood 177 mg/dL (75-99)
--- NOTE | 2016-08-27 12:06 | P.PN ---
Progress Note - Text A Carias catheter was placed yesterday afternoon, with a return of 1200 mL of urine. Hematuria was noted later in the day, but this has resolved. The hemoglobin level today is 6.7. The WBC count is increased to 13.5. He denies complaints and is afebrile. The creatinine level is slightly improved at 1.92. I would suggest that the catheter remain in place for at least 1 week to allow bladder recompensation, as it appears that the urinary retention is long- standing. If the patient is discharged home in the meantime, he may be discharged home with the Carias catheter and follow-up with Dr. Sheikh.
[2016-08-27] MEDS: MULTIVITAMINS, THERA 1 EACH TAB PO SCH (17:03)
[2016-08-27 17:04] LABS: Glucose,Whole Blood 133 mg/dL (75-99)
[2016-08-27] MEDS: LEVOFLOXACIN 250 MG TAB PO SCH (20:49)
[2016-08-27] MEDS: ATORVASTATIN 40 MG TAB PO SCH (20:50)
[2016-08-27 21:50] LABS: Glucose,Whole Blood 183 mg/dL (75-99)
[2016-08-28] MEDS: SODIUM CHLORIDE 0.9% 1,000 ML IV SCH (01:30)
[2016-08-28 07:24] LABS: Glucose,Whole Blood 197 mg/dL (75-99)
[2016-08-28] MEDS: IPRATROPIUM-ALBUTEROL 3 ML NEB INHALATION SCH ×4 (08:24→19:47)
[2016-08-28] MEDS: PANTOPRAZOLE 40 MG TABLET PO SCH (08:29)
[2016-08-28 08:47] LABS: Potassium 3.3 mmol/L (3.5-5.1)
[2016-08-28] MEDS ORDERED: PANTOPRAZOLE 40 MG TABLET PO ONE (09:00)
[2016-08-28] MEDS: PIPERACILLIN-TAZOBACTAM 3.375 GM in DEXTROSE/WATER 1 50ML.BAG IVPB SCH ×2 (09:07→17:00)
[2016-08-28] MEDS: INSULIN LISPRO (humaLOG) 300 UNIT/3 ML VIAL SQ SCH ×4 (09:09→21:17)
[2016-08-28] MEDS: METOPROLOL TARTRATE 50 MG TAB PO SCH ×2 (09:09→21:11)
[2016-08-28] MEDS: ISOSORBIDE MONONITRATE ER 30 MG TAB.ER.24H PO SCH (09:09)
[2016-08-28] MEDS: ASPIRIN 81 MG CHEW PO SCH (09:09)
[2016-08-28] MEDS: FERROUS SULFATE 325 MG TAB PO SCH (09:10)
[2016-08-28] MEDS: AMMONIUM LACTATE 12% CREAM 140 GM TUBE TOPICAL SCH ×2 (09:12→21:22)
[2016-08-28 09:48] LABS: Anisocytosis Slight; CH 25.2; CHCM 30.4; HCT 21.8 % (39.0-53.0); HDW 3.46; Hypochromasia Marked; MCH 25.4 pg (25.0-35.0); MCHC 30.6 g/dL (31.0-37.0); MCV 83.1 fL (80.0-100.0); Mean Platelet Volume 9.2; Microcytosis Slight; Poikilocytosis Slight; RBC 2.63 m/uL (4.30-5.90); RDW 18.6 % (11.5-15.5); WBC 19.7 k/uL (3.8-10.6)
[2016-08-28 10:15] LABS: HGB 6.7 gm/dL (13.0-17.5)
[2016-08-28] MEDS ORDERED: POTASSIUM CHLORIDE ER 20 MEQ TAB.ER PO STA (10:32)
[2016-08-28] MEDS ORDERED: FUROSEMIDE 10 MG/ML 4 ML VIAL IV ONE (11:00)
--- NOTE | 2016-08-28 11:26 | P.PN ---
Subjective Patient is seen in follow-up for acute kidney injury. Renal function is mildly worse with creatinine at 2.08 today. Patient is noted to have Pseudomonas UTI and bacteremia with repeat cultures showing coagulase-negative staph bacteremia and is currently maintained on IV antibiotics. He is resting in bed. Denies chest pain or shortness of breath. He was noted to have bilateral hydronephrosis and is being followed by urology. Carias catheter was placed. Oral intake has been fair. Hemoglobin is still low at 6.7. Vital signs are stable. General: The patient appeared well nourished and normally developed. HEENT: Head exam is unremarkable. Neck is without jugular venous distension. LUNGS: No rhonchi or wheezes. Breath sounds decreased. HEART: Rate and Rhythm are regular. First and second heart sounds normal. No murmurs, rubs or gallops. ABDOMEN: Abdominal exam reveals normal bowel sounds. Non-tender and non- distended. No evidence of peritonitis. EXTREMITITES: No clubbing, cyanosis, or edema. Objective - Vital Signs Vital signs: Vital Signs Temp 98.3 F 08/28/16 07:00 Pulse 93 08/28/16 07:00 Resp 18 08/28/16 07:00 BP 155/72 08/28/16 07:00 Pulse Ox 92 L 08/28/16 07:00 Intake & Output 08/27/16 08/28/16 08/28/16 18:59 06:59 18:59 Output Total 800 925 Balance -800 -925 Weight 82 kg Output: Urine 800 925 Other: Voiding Method Indwelling Catheter Indwelling Catheter - Labs CBC & Chem 7: 08/28/16 07:40 08/28/16 07:40 Labs: Abnormal Lab Results - Last 24 Hours (Table) 08/27/16 08/27/16 08/27/16 Range/Units 11:47 17:02 21:10 WBC (3.8-10.6) k/uL RBC (4.30-5.90) m/uL Hgb (13.0-17.5) gm/dL Hct (39.0-53.0) % MCHC (31.0-37.0) g/dL RDW (11.5-15.5) % Plt Count (150-450) k/uL Sodium (137-145) mmol/L Potassium (3.5-5.1) mmol/L Chloride (98-107) mmol/L BUN (9-20) mg/dL Creatinine (0.66-1.25) mg/dL Glucose (74-99) mg/dL POC Glucose (mg/dL) 177 H 133 H 183 H (75-99) mg/dL Calcium (8.4-10.2) mg/dL 08/28/16 08/28/16 08/28/16 Range/Units 07:18 07:40 07:40 WBC 19.7 H (3.8-10.6) k/uL RBC 2.63 L (4.30-5.90) m/uL Hgb 6.7 L* (13.0-17.5) gm/dL Hct 21.8 L (39.0-53.0) % MCHC 30.6 L (31.0-37.0) g/dL RDW 18.6 H (11.5-15.5) % Plt Count 139 L (150-450) k/uL Sodium 135 L (137-145) mmol/L Potassium 3.3 L (3.5-5.1) mmol/L Chloride 97 L (98-107) mmol/L BUN 43 H (9-20) mg/dL Creatinine 2.08 H (0.66-1.25) mg/dL Glucose 176 H (74-99) mg/dL POC Glucose (mg/dL) 197 H (75-99) mg/dL Calcium 8.0 L (8.4-10.2) mg/dL Microbiology - Last 24 Hours (Table) 08/26/16 18:09 Blood Culture - Preliminary Blood No Growth after 24 hours 08/26/16 17:58 Blood Culture - Preliminary Blood No Growth after 24 hours 08/25/16 08:24 Blood Culture Gram Stain - Preliminary Blood Blood Culture - Preliminary Coagulase Negative Staph 08/25/16 08:18 Blood Culture Gram Stain - Preliminary Blood Blood Culture - Preliminary Coagulase Negative Staph Assessment and Plan Plan: Assessment: #1. Nonoliguric acute kidney injury secondary to ischemic ATN secondary to anemia, hypotension as well as sepsis. Also component of obstructive uropathy. Creatinine peaked at 2.1 this admission and S2 0.08 today. Recent urinalysis was quite benign. Ultrasound revealed bilateral hydronephrosis. #2. Severe sepsis secondary to Pseudomonas bacteremia and UTI. Also concerns for pneumonia. #3. Anemia. Iron deficiency noted. Hemoglobin still at 6.7 today. #4. Moderate pulmonary hypertension with mild to moderate mitral regurgitation. #5. Hypokalemia related to poor nutritional status. Rule out magnesium deficiency. Plan: Hold diuretics for now. Continue normal saline to be run at 50 mL an hour. Transfuse 1 unit of packed red blood cells today with 1 dose of Lasix 40 mg IV after the transfusion completed. I will hold off on IV iron due to bacteremia. Antibiotics per infectious disease recommendations. Repeat electrolytes in the morning. Maintain Carias catheter. Continue to monitor renal function and urine output. Replace potassium. 40 mEq today.
[2016-08-28 11:51] LABS: Glucose,Whole Blood 208 mg/dL (75-99)
--- NOTE | 2016-08-28 12:21 | PN ---
DATE OF SERVICE: 08/27/2016 Mr. Caba is an 81 -year-old male with known history of CHF with diastolic dysfunction, was admitted to the hospital with severe sepsis secondary to urinary tract infection as well as ( ) secondary to pseudomonas aeruginosa currently on antibiotics in the form of Zosyn. ID is following this patient. Otherwise patient had ultrasound of the abdomen and kidneys was done, showed bilateral hydronephrosis. This patient was seen by urology and patient was placed on a Carias catheter on 08/26/2016. Patient did have hematuria last night which is clearing up at this time. Otherwise, Lasix has been held due to worsening renal function. Continued on ( ). Hemoglobin dropped down to 6.7 today compared to 7.0 yesterday. REVIEW OF SYSTEMS: CONSTITUTIONAL: No fever. No chills. RESPIRATORY: No cough or sputum production. CARDIOVASCULAR: No chest pain or short of breath. Patient does have generalized weakness. ABDOMEN: No nausea, vomiting or abdominal pain. GENITOURINARY: Patient does have hematuria. No dysuria. ENDOCRINE: Negative. PSYCHIATRIC: Negative. All other fourteen-point review of systems negative except as above. All other 14 point review of systems negative except as above. CURRENT MEDICATIONS: Reviewed. PHYSICAL EXAMINATION: 81-year-old male lying in the bed comfortably, awake, alert and oriented times three. The patient feels generalized weakness. VITALS: Blood pressure is 138/60, pulse is 82, respirations 16, temperature afebrile. Pulse ox 93% on 4 liters nasal cannula. HEENT: Atraumatic, normocephalic. Neck is supple. No JVD. CVS: S1, S2 heard. No murmurs, no gallop. LUNGS: Bilateral air entry is present. No wheezing. No crackles. Nonlabored breathing. ABDOMEN: Soft, nontender. Bowel sounds present. Carias catheter in place and hematuria is clearing up. EXTREMITIES: No edema. Pulses palpable bilaterally. No clubbing or cyanosis. PSYCHIATRIC: Cooperative. LABORATORY DATA: WBC 13.5, hemoglobin 6.7, platelets 140, sodium 136, potassium 3.5, chloride 98, bicarb is 24. BUN 45, creatinine 1.92. Calcium 8.1. IMPRESSION: 1. Sepsis secondary to urinary tract infection with Pseudomonas. 2. ( ) urinary tract infection and bacteremia. 3. Bilateral hydronephrosis, currently on Carias catheter. 4. Acute on chronic congestive heart failure with diastolic function improved now. 5. Chronic obstructive pulmonary disease, not in exacerbation. 6. Nonoliguric acute kidney injury most likely prerenal, stable creatinine at this time. 7. Home oxygen-dependent due to pulmonary fibrosis and chronic obstructive pulmonary disease. 8. Chronic respiratory failure secondary to pulmonary fibrosis and chronic obstructive pulmonary disease, hypoxic. 9. Iron deficiency anemia. Hemoglobin 7, dropped down to 6.7 today. 10. Chronic kidney disease stage III. 11. Acute kidney injury, possibly acute tubular necrosis. 12. Deconditioned and medical debility. DISCUSSION AND PLAN: Patient will be continued on Zosyn. ID is following the patient. Continue the current management. ( ) Carias catheter. Follow up renal function and transfuse PRBC as needed and continue the current management and further based on clinical course. Prognosis is guarded.
[2016-08-28] MEDS ORDERED: ACETAMINOPHEN TAB 325 MG TAB ONE (16:33)
[2016-08-28 17:06] LABS: Glucose,Whole Blood 140 mg/dL (75-99)
[2016-08-28] MEDS: MULTIVITAMINS, THERA 1 EACH TAB PO SCH (17:37)
[2016-08-28 20:51] LABS: Glucose,Whole Blood 212 mg/dL (75-99)
[2016-08-28] MEDS: ATORVASTATIN 40 MG TAB PO SCH (21:13)
[2016-08-28] MEDS: LEVOFLOXACIN 250 MG TAB PO SCH (21:13)
[2016-08-29] MEDS: PIPERACILLIN-TAZOBACTAM 3.375 GM in DEXTROSE/WATER 1 50ML.BAG IVPB SCH ×4 (00:18→23:24)
[2016-08-29] MEDS: PANTOPRAZOLE 40 MG TABLET PO SCH (06:56)
[2016-08-29] MEDS: SODIUM CHLORIDE 0.9% 1,000 ML IV SCH ×2 (07:00→17:41)
[2016-08-29 07:29] LABS: Glucose,Whole Blood 163 mg/dL (75-99)
[2016-08-29 07:52] LABS: Anisocytosis Slight; CHCM 31.4; HCT 28.2 % (39.0-53.0); HDW 4.06; HGB 8.8 gm/dL (13.0-17.5); Hypochromasia Marked; MCH 25.8 pg (25.0-35.0); MCV 83.1 fL (80.0-100.0); Mean Platelet Volume 9.5; Microcytosis Slight; Poikilocytosis Moderate; RDW 18.7 % (11.5-15.5); WBC (Perox) 29.46
[2016-08-29 08:03] LABS: Calcium 8.2 mg/dL (8.4-10.2); Magnesium 1.5 mg/dL (1.6-2.3); Potassium 3.6 mmol/L (3.5-5.1)
[2016-08-29] MEDS: METOPROLOL TARTRATE 50 MG TAB PO SCH ×2 (08:14→20:39)
[2016-08-29] MEDS: ASPIRIN 81 MG CHEW PO SCH (08:14)
[2016-08-29] MEDS: AMMONIUM LACTATE 12% CREAM 140 GM TUBE TOPICAL SCH ×2 (08:14→20:39)
[2016-08-29] MEDS: INSULIN LISPRO (humaLOG) 300 UNIT/3 ML VIAL SQ SCH ×4 (08:14→20:40)
[2016-08-29] MEDS: ISOSORBIDE MONONITRATE ER 30 MG TAB.ER.24H PO SCH (08:14)
[2016-08-29 08:16] LABS: WBC 28.6 k/uL (3.8-10.6)
[2016-08-29] MEDS: FERROUS SULFATE 325 MG TAB PO SCH (08:28)
[2016-08-29] MEDS: IPRATROPIUM-ALBUTEROL 3 ML NEB INHALATION SCH ×4 (08:44→20:46)
[2016-08-29 11:24] LABS: Add Differential Manual Differential
[2016-08-29 11:25] LABS: Nucleated Red Blood Cells 0 /100 WBC (0-0); Polychromasia Present; Total Cells Counted 100
--- NOTE | 2016-08-29 11:50 | PN ---
DATE OF SERVICE: 08/28/2016 INTERVAL HISTORY: Mr. Caba is an 81-year-old male with known history of CHF with diastolic dysfunction. Was admitted to the hospital with severe sepsis and urinary tract infection and the blood cultures growing pseudomonas aeruginosa along with urine cultures. Currently on antibiotics in the form of Zosyn and levofloxacin as per ID recommendations. Patient had ultrasound of the kidneys, showed bilateral hydronephrosis. Patient was subsequently placed on Carias catheter on 08/26/2016. Patient did have ( ) last night was cleared; otherwise, hemoglobin dropped to 6.7. Patient is now getting 1 unit of PRBC blood transfusion today. Nephrology is following this patient. Otherwise, the patient feels better today, denied any abdominal pain. No nausea or vomiting. No acute overnight issues. All other review of systems negative except as above. CURRENT MEDICATIONS: Reviewed. PHYSICAL EXAMINATION: An 81-year-old male lying in bed, comfortably, awake and alert x3. Appears to be in no apparent distress. VITALS: Blood pressure is 154/73, pulse is 99, respirations 22, temperature afebrile, pulse ox 97% on 4 L nasal cannula. HEENT: Atraumatic, normocephalic. Neck is supple. No JVD. CVS EXAM: S1, S2 heard. No murmurs, no gallop, no rub. LUNGS: Bilateral air entry is present, diminished breath sounds bilateral basally. Nonlabored breathing. ABDOMEN: Soft, nontender. Bowel sounds are present. SIDE TRIMMER: Alert and oriented x3. No focal deficits. EXTREMITIES: No edema. Pulses palpable bilaterally. No clubbing or cyanosis. PSYCHIATRIC: Cooperative. Carias catheter in place. LABORATORY DATA: WBC 19.7, hemoglobin 6.7, platelets 139, sodium 135, potassium 3.3, chloride 97, bicarb 23, BUN 43, creatinine 2.08, calcium 8.0. IMPRESSION: 1. Sepsis secondary to urinary tract infection with pseudomonas aeruginosa. 2. Pseudomonas urinary tract infection as well as septicemia secondary to Pseudomonas. 3. Bilateral hydronephrosis, currently on Carias catheter seen by Urology. 4. Acute on chronic congestive heart failure with diastolic dysfunction, improved now. 5. Nonoliguric kidney injury, most likely prerenal, creatinine is 2.08 today. 6. Iron deficiency anemia. Hemoglobin dropped to 6.7. Patient underwent 1 unit of PRBC today. 7. Chronic obstructive pulmonary disease, not in exacerbation. 8. Home oxygen-dependent due to pulmonary fibrosis and chronic obstructive pulmonary disease. 9. Chronic respiratory failure secondary to pulmonary fibrosis and chronic obstructive pulmonary disease. 10. Chronic kidney disease stage III. 11. Deconditioning and medical debility. DISCUSSION AND PLAN: Patient will be continued on antibiotics in the form of Zosyn and levofloxacin as per ID recommendations and continue with the Carias catheter and patient was found to have worsening leukocytosis today and will be undergoing 1 unit of PRBC and monitor renal function and H&H and prognosis guarded. Further recommendations based on the clinical course. Patient does have multiple medical problems and comorbid conditions. MTDD
[2016-08-29 12:35] LABS: Glucose,Whole Blood 173 mg/dL (75-99)
--- NOTE | 2016-08-29 12:46 | P.PN ---
Progress Note - Text The patient is afebrile. His urine draining from his Carias catheter remains clear. The patient says that he had been wetting the bed and was in diapers for several months prior to this admission. It is likely that the patient has had a distended bladder for some period of time. Although the patient's creatinine improved initially after his catheter was placed his BUN/creatinine today is 46/2.24. In view of this, it is unclear how much of his renal failure is related to obstructive uropathy. Impression: Chronic bladder overdistention and probable secondary bilateral hydronephrosis. Recommendation: The patient's catheter should be left in place for at least 1 week prior to a voiding trial. If the patient returns to a care home it may be possible for this to be done at that facility if they have a bladder scan or can do an in and out cath to check a postvoid residual. Renal ultrasound will need to be repeated in 1-2 months to ensure that the hydronephrosis has improved with adequate bladder drainage.
[2016-08-29] MEDS ORDERED: POTASSIUM CHLORIDE ER 20 MEQ TAB.ER PO STA (12:53)
--- NOTE | 2016-08-29 12:53 | P.PN ---
Subjective Patient is seen in follow-up for acute kidney injury. Renal function is worse with creatinine at 2.24 today. Patient is noted to have Pseudomonas UTI and bacteremia with repeat cultures showing staph hominis bacteremia and is currently maintained on IV antibiotics. He is resting in bed. Denies chest pain or shortness of breath. He was noted to have bilateral hydronephrosis and is being followed by urology. Carias catheter was placed. Oral intake has been fair. Hemoglobin was low at 6.7 as of August 28 and he did receive a blood transfusion. Hemoglobin 8.8 this morning. Vital signs are stable. General: The patient appeared well nourished and normally developed. HEENT: Head exam is unremarkable. Neck is without jugular venous distension. LUNGS: No rhonchi or wheezes. Breath sounds decreased. HEART: Rate and Rhythm are regular. First and second heart sounds normal. No murmurs, rubs or gallops. ABDOMEN: Abdominal exam reveals normal bowel sounds. Non-tender and non- distended. No evidence of peritonitis. EXTREMITITES: No clubbing, cyanosis, or edema. Objective - Vital Signs Vital signs: Vital Signs Temp 98.0 F 08/29/16 07:00 Pulse 91 08/29/16 07:00 Resp 16 08/29/16 07:00 BP 151/73 08/29/16 07:00 Pulse Ox 93 L 08/29/16 07:00 Intake & Output 08/28/16 08/29/16 08/29/16 18:59 06:59 18:59 Intake Total 310 970 Output Total 1750 Balance 310 -780 Weight 83 kg Intake: Intake, IV Titration 450 Amount Piperacillin-Tazobactam 3 50 .375 gm In Dextrose/Water 1 50ml.bag @ 12.5 mls/hr IVPB Q8HR [facility] Rx#: [id number] Sodium Chloride 0.9% 1, 400 000 ml @ 50 mls/hr IV . Q20H [facility] Rx#:[id number] Oral 520 Blood Product 310 Rc As-1 Unit 310 [id number] Output: Urine 1750 Other: Voiding Method Indwelling Catheter Indwelling Catheter Indwelling Catheter # Voids 3 # Bowel Movements 1 - Labs CBC & Chem 7: 08/29/16 06:49 08/29/16 06:49 Labs: Abnormal Lab Results - Last 24 Hours (Table) 08/28/16 08/28/16 08/28/16 Range/Units 11:26 16:58 20:44 WBC (3.8-10.6) k/uL RBC (4.30-5.90) m/uL Hgb (13.0-17.5) gm/dL Hct (39.0-53.0) % RDW (11.5-15.5) % Neutrophils # (Manual) (1.3-7.7) k/uL Lymphocytes # (Manual) (1.0-4.8) k/uL Monocytes # (Manual) (0-1.0) k/uL Chloride (98-107) mmol/L BUN (9-20) mg/dL Creatinine (0.66-1.25) mg/dL Glucose (74-99) mg/dL POC Glucose (mg/dL) 140 H 212 H (75-99) mg/dL Calcium (8.4-10.2) mg/dL Magnesium (1.6-2.3) mg/dL Crossmatch See Detail 08/29/16 08/29/16 08/29/16 Range/Units 06:49 06:49 07:25 WBC 28.6 H* (3.8-10.6) k/uL RBC 3.40 L (4.30-5.90) m/uL Hgb 8.8 L D (13.0-17.5) gm/dL Hct 28.2 L (39.0-53.0) % RDW 18.7 H (11.5-15.5) % Neutrophils # (Manual) 26.6 H (1.3-7.7) k/uL Lymphocytes # (Manual) 0.3 L (1.0-4.8) k/uL Monocytes # (Manual) 1.7 H (0-1.0) k/uL Chloride 97 L (98-107) mmol/L BUN 46 H (9-20) mg/dL Creatinine 2.24 H (0.66-1.25) mg/dL Glucose 140 H (74-99) mg/dL POC Glucose (mg/dL) 163 H (75-99) mg/dL Calcium 8.2 L (8.4-10.2) mg/dL Magnesium 1.5 L (1.6-2.3) mg/dL Crossmatch 08/29/16 Range/Units 12:20 WBC (3.8-10.6) k/uL RBC (4.30-5.90) m/uL Hgb (13.0-17.5) gm/dL Hct (39.0-53.0) % RDW (11.5-15.5) % Neutrophils # (Manual) (1.3-7.7) k/uL Lymphocytes # (Manual) (1.0-4.8) k/uL Monocytes # (Manual) (0-1.0) k/uL Chloride (98-107) mmol/L BUN (9-20) mg/dL Creatinine (0.66-1.25) mg/dL Glucose (74-99) mg/dL POC Glucose (mg/dL) 173 H (75-99) mg/dL Calcium (8.4-10.2) mg/dL Magnesium (1.6-2.3) mg/dL Crossmatch Microbiology - Last 24 Hours (Table) 08/25/16 08:24 Blood Culture Gram Stain - Final Blood Blood Culture - Final Staph hominis sub sp. hominis 08/25/16 08:18 Blood Culture Gram Stain - Final Blood Blood Culture - Final Staph hominis sub sp. hominis 08/26/16 18:09 Blood Culture - Preliminary Blood No Growth after 48 hours 08/26/16 17:58 Blood Culture - Preliminary Blood No Growth after 48 hours Assessment and Plan Plan: Assessment: #1. Nonoliguric acute kidney injury secondary to ischemic ATN secondary to anemia, hypotension as well as sepsis. Also component of obstructive uropathy. Creatinine 2.24 today. Recent urinalysis was quite benign. Ultrasound revealed bilateral hydronephrosis. Baseline creatinine is the range of 1-1.2. #2. Severe sepsis secondary to Pseudomonas/staph hominis bacteremia and UTI. Also concerns for pneumonia. #3. Anemia. Iron deficiency noted. Status post blood transfusion on August 28. #4. Moderate pulmonary hypertension with mild to moderate mitral regurgitation. #5. Hypokalemia related to poor nutritional status. Magnesium level also on the lower side. Plan: Hold diuretics for now. Continue normal saline to be run at 50 mL an hour. I will hold off on IV iron due to bacteremia. Antibiotics per infectious disease recommendations. Repeat electrolytes in the morning. Maintain Carias catheter. Continue to monitor renal function and urine output. Replace potassium. 40 mEq today. Replace magnesium. 2 g IV today.
[2016-08-29] MEDS: MAGNESIUM SULFATE-D5W PMX 1 GM in DEXTROSE/WATER 1 100ML.BAG IVPB SCH ×2 (14:20→15:53)
--- NOTE | 2016-08-29 15:12 | XR ---
EXAMINATION TYPE: XR chest 1V DATE OF EXAM: 08/29/2016 COMPARISON: 08/24/2016 HISTORY: 81 year-old male shortness of breath TECHNIQUE: Single frontal view of the chest is obtained. FINDINGS: Median sternotomy wires post-CABG clips the mediastinum. Heart is borderline enlarged with continued interstitial opacities, similar to slightly increased. No tabitha consolidation or pleural effusion. IMPRESSION: Correlate for CHF and developing interstitial pulmonary edema. Atypical pneumonias can be excluded cl inically.
[2016-08-29 17:22] LABS: Glucose,Whole Blood 228 mg/dL (75-99)
[2016-08-29] MEDS: MULTIVITAMINS, THERA 1 EACH TAB PO SCH (17:41)
[2016-08-29] MEDS: ACETAMINOPHEN TAB 325 MG TAB PO PRN (18:27)
[2016-08-29 20:38] LABS: Glucose,Whole Blood 216 mg/dL (75-99)
[2016-08-29] MEDS: ATORVASTATIN 40 MG TAB PO SCH (20:39)
[2016-08-29] MEDS: LEVOFLOXACIN 250 MG TAB PO SCH (21:07)
--- NOTE | 2016-08-29 21:20 | P.PN ---
Subjective Principal diagnosis: sepsis 81-year-old male known to the service from his recent hospitalization. He was having difficulties with progressive weakness and congestive heart failure. When he was treated he was transferred to the [facility]. Now presents with altered mental status, fever and increasing weakness. He has been followed the wound center and was showing improvement to his ulceration to the right anterior upper thigh. Now has evidence of the new fever and weakness. Concerns pneumonia, or other source of gram-negative sepsis. Has worsened renal failure and US reveals bilat hydronephrosis, was seen by urology and Quijano is placed Multiple positive blood cultures are found. Patient is slightly more interactive today. Is denying new difficulties such as pain. Took in some lunch but not breakfast or dinner. Objective - Vital Signs Vital signs: Vital Signs Temp 99.5 F 08/29/16 18:31 Pulse 91 08/29/16 20:36 Resp 18 08/29/16 15:00 BP 135/63 08/29/16 20:36 Pulse Ox 96 08/29/16 20:36 Intake & Output 08/29/16 08/29/16 08/30/16 06:59 18:59 06:59 Intake Total 970 Output Total 1750 550 Balance -780 -550 Weight 83 kg Intake: Intake, IV Titration 450 Amount Piperacillin-Tazobactam 3 50 .375 gm In Dextrose/Water 1 50ml.bag @ 12.5 mls/hr IVPB Q8HR JENA Rx#: [id number] Sodium Chloride 0.9% 1, 400 000 ml @ 50 mls/hr IV . Q20H JENA Rx#:[id number] Oral 520 Output: Urine 1750 550 Other: Voiding Method Indwelling Catheter Indwelling Catheter # Voids 3 # Bowel Movements 1 - Exam HEENT: Anicteric conjunctiva are pink and moist nasal mucosa grossly intact without significant lesions, there is no thrush. dentures Neck: The neck is supple without significant lymphadenopathy or thyromegaly. Lungs: symmetric air entry scattered wheezing. Bibasilar bronchial sounds are heard There is no dullness. Heart: irRegular with an audible S1-S2, no S3 no S4. There is no significant murmur click or rub, PMI was nondisplaced. Abdomen: Positive bowel sounds soft and nontender without palpable masses or organomegaly. There was no guarding or rebound. Extremities: The upper extremities have excellent pulses they are symmetric, no significant petechiae or telangiectasia. No splinter hemorrhages were noted. The lower extremities trace edema, right upper thigh has minimal ulcer showing marked improvement Neuro: Awake alert oriented to person follows simple commands - Labs CBC & Chem 7: 08/29/16 06:49 08/29/16 06:49 Labs: Abnormal Lab Results - Last 24 Hours (Table) 08/29/16 08/29/16 08/29/16 Range/Units 06:49 06:49 07:25 WBC 28.6 H* (3.8-10.6) k/uL RBC 3.40 L (4.30-5.90) m/uL Hgb 8.8 L D (13.0-17.5) gm/dL Hct 28.2 L (39.0-53.0) % RDW 18.7 H (11.5-15.5) % Neutrophils # (Manual) 26.6 H (1.3-7.7) k/uL Lymphocytes # (Manual) 0.3 L (1.0-4.8) k/uL Monocytes # (Manual) 1.7 H (0-1.0) k/uL Chloride 97 L (98-107) mmol/L BUN 46 H (9-20) mg/dL Creatinine 2.24 H (0.66-1.25) mg/dL Glucose 140 H (74-99) mg/dL POC Glucose (mg/dL) 163 H (75-99) mg/dL Calcium 8.2 L (8.4-10.2) mg/dL Magnesium 1.5 L (1.6-2.3) mg/dL 08/29/16 08/29/16 08/29/16 Range/Units 12:20 17:18 20:29 WBC (3.8-10.6) k/uL RBC (4.30-5.90) m/uL Hgb (13.0-17.5) gm/dL Hct (39.0-53.0) % RDW (11.5-15.5) % Neutrophils # (Manual) (1.3-7.7) k/uL Lymphocytes # (Manual) (1.0-4.8) k/uL Monocytes # (Manual) (0-1.0) k/uL Chloride (98-107) mmol/L BUN (9-20) mg/dL Creatinine (0.66-1.25) mg/dL Glucose (74-99) mg/dL POC Glucose (mg/dL) 173 H 228 H 216 H (75-99) mg/dL Calcium (8.4-10.2) mg/dL Magnesium (1.6-2.3) mg/dL Microbiology - Last 24 Hours (Table) 08/26/16 18:09 Blood Culture - Preliminary Blood No Growth after 72 hours 08/26/16 17:58 Blood Culture - Preliminary Blood No Growth after 72 hours 08/25/16 08:24 Blood Culture Gram Stain - Final Blood Blood Culture - Final Staph hominis sub sp. hominis 08/25/16 08:18 Blood Culture Gram Stain - Final Blood Blood Culture - Final Staph hominis sub sp. hominis Laboratory Results WBC 28.6 k/uL (3.8-10.6) H* 08/29/16 06:49 RBC 3.40 m/uL (4.30-5.90) L 08/29/16 06:49 Hgb 8.8 gm/dL (13.0-17.5) L D 08/29/16 06:49 Hct 28.2 % (39.0-53.0) L 08/29/16 06:49 MCV 83.1 fL (80.0-100.0) 08/29/16 06:49 MCH 25.8 pg (25.0-35.0) 08/29/16 06:49 MCHC 31.0 g/dL (31.0-37.0) 08/29/16 06:49 RDW 18.7 % (11.5-15.5) H 08/29/16 06:49 Plt Count 187 k/uL (150-450) 08/29/16 06:49 Neutrophils % 86 % 08/24/16 16:50 Neutrophils % (Manual) 93.0 % 08/29/16 06:49 Lymphocytes % 6 % 08/24/16 16:50 Lymphocytes % (Manual) 1.0 % 08/29/16 06:49 Monocytes % 6 % 08/24/16 16:50 Monocytes % (Manual) 6.0 % 08/29/16 06:49 Eosinophils % 0 % 08/24/16 16:50 Basophils % 0 % 08/24/16 16:50 Neutrophils # 8.8 k/uL (1.3-7.7) H 08/24/16 16:50 Neutrophils # (Manual) 26.6 k/uL (1.3-7.7) H 08/29/16 06:49 Lymphocytes # 0.6 k/uL (1.0-4.8) L 08/24/16 16:50 Lymphocytes # (Manual) 0.3 k/uL (1.0-4.8) L 08/29/16 06:49 Monocytes # 0.6 k/uL (0-1.0) 08/24/16 16:50 Monocytes # (Manual) 1.7 k/uL (0-1.0) H 08/29/16 06:49 Eosinophils # 0.0 k/uL (0-0.7) 08/24/16 16:50 Basophils # 0.0 k/uL (0-0.2) 08/24/16 16:50 Nucleated RBCs 0 /100 WBC (0-0) 08/29/16 06:49 Dimorphic RBCs Present 08/29/16 06:49 Polychromasia Present 08/29/16 06:49 Hypochromasia Marked 08/29/16 06:49 Poikilocytosis Moderate 08/29/16 06:49 Anisocytosis Slight 08/29/16 06:49 Microcytosis Slight 08/29/16 06:49 Fragmented RBCs Present 08/29/16 06:49 PT 12.7 sec (9.0-12.0) H 08/23/16 16:14 INR 1.3 (<1.1) 08/23/16 16:14 APTT 25.9 sec (22.0-30.0) 08/23/16 16:14 Sample Site L BRACHIAL 08/24/16 16:35 ABG pH 7.43 (7.35-7.45) 08/24/16 16:35 ABG pCO2 29 mmHg (35-45) L 08/24/16 16:35 ABG pO2 96 mmHg (83-108) 08/24/16 16:35 ABG HCO3 19 mmol/L (21-25) L 08/24/16 16:35 ABG Total CO2 20 mmol/L (19-24) 08/24/16 16:35 ABG O2 Saturation 98.0 % (94-97) H 08/24/16 16:35 ABG Base Excess -4.8 mmol/L 08/24/16 16:35 FiO2 100 % 08/24/16 16:35 Sodium 137 mmol/L (137-145) 08/29/16 06:49 Potassium 3.6 mmol/L (3.5-5.1) 08/29/16 06:49 Chloride 97 mmol/L (98-107) L 08/29/16 06:49 Carbon Dioxide 23 mmol/L (22-30) 08/29/16 06:49 Anion Gap 17 mmol/L 08/29/16 06:49 BUN 46 mg/dL (9-20) H 08/29/16 06:49 Creatinine 2.24 mg/dL (0.66-1.25) H 08/29/16 06:49 Est GFR (MDRD) Af Amer 34 (>60 ml/min/1.73 sqM) 08/29/16 06:49 Est GFR (MDRD) Non-Af 28 (>60 ml/min/1.73 sqM) 08/29/16 06:49 Glucose 140 mg/dL (74-99) H 08/29/16 06:49 POC Glucose (mg/dL) 216 mg/dL (75-99) H 08/29/16 20:29 POC Glu [employer] Executive Director ID Valentina Hess 08/29/16 20:[address] Glu mg/dL 131 mg/dL 08/23/16 16:15 Hemoglobin A1c 6.2 % (4.2-6.1) H 08/23/16 16:15 Plasma Lactic Acid Gerhard 1.3 mmol/L (0.7-2.0) 08/24/16 19:16 Calcium 8.2 mg/dL (8.4-10.2) L 08/29/16 06:49 Magnesium 1.5 mg/dL (1.6-2.3) L 08/29/16 06:49 Iron 18 ug/dL (49-181) L 08/25/16 08:18 TIBC 173 ug/dL (261-462) L 08/25/16 08:18 % Saturation 10.4 % (20-50) L 08/25/16 08:18 Ferritin ng/mL (18-464) 08/25/16 08:18 Total Bilirubin 0.4 mg/dL (0.2-1.3) 08/26/16 09:26 AST 97 U/L (17-59) H 08/26/16 09:26 ALT 208 U/L (21-72) H 08/26/16 09:26 Alkaline Phosphatase 180 U/L (38-126) H 08/26/16 09:26 NT-Pro-B Natriuret Pep 42366 pg/mL 08/23/16 16:15 Total Protein 5.0 g/dL (6.3-8.2) L 08/26/16 09:26 Albumin 2.4 g/dL (3.5-5.0) L 08/26/16 09:26 Urine Color Yellow 08/23/16 16:14 Urine Appearance Turbid (Clear) 08/23/16 16:14 Urine pH 6.5 (5.0-8.0) 08/23/16 16:14 Ur Specific [place] 1.016 (1.001-1.035) 08/23/16 16:14 Urine Protein 2+ (Negative) H 08/23/16 16:14 Urine Glucose (UA) Negative (Negative) 08/23/16 16:14 Urine Ketones Negative (Negative) 08/23/16 16:14 Urine Blood Moderate (Negative) H 08/23/16 16:14 Urine Nitrite Positive (Negative) 08/23/16 16:14 Urine Bilirubin Negative (Negative) 08/23/16 16:14 Urine Urobilinogen <2.0 mg/dL (<2.0) 08/23/16 16:14 Ur Leukocyte Esterase Large (Negative) H 08/23/16 16:14 Urine RBC 48 /hpf (0-5) H 08/23/16 16:14 Urine WBC >182 /hpf (0-5) H 08/23/16 16:14 Urine WBC Clumps Many /hpf (None) H 08/23/16 16:14 Blood Type O Positive 08/28/16 11:26 Blood Type Recheck No 08/28/16 11:26 Antibody Screen NEGATIVE 08/28/16 11:26 Crossmatch See Detail 08/28/16 11:26 Spec Expiration Date 08/31/2016 - 232508/28/16 11:26 Microbiology 08/26/16 18:09 Blood Blood Culture - Preliminary No Growth after 72 hours 08/26/16 17:58 Blood Blood Culture - Preliminary No Growth after 72 hours 08/25/16 08:24 Blood Blood Culture Gram Stain - Final 08/25/16 08:24 Blood Blood Culture - Final Staph hominis sub sp. hominis 08/25/16 08:18 Blood Blood Culture Gram Stain - Final 08/25/16 08:18 Blood Blood Culture - Final Staph hominis sub sp. hominis 08/25/16 08:24 Blood Blood Culture - Final 08/25/16 08:18 Blood Blood Culture - Final 08/23/16 16:14 Urine,Catheterized Urine Culture - Final Pseudomonas aeruginosa 08/23/16 16:14 Blood Blood Culture Gram Stain - Final 08/23/16 16:14 Blood Blood Culture - Final Pseudomonas aeruginosa 08/23/16 16:14 Blood Blood Culture - Final Assessment and Plan (1) Gram negative sepsis Narrative/Plan: 81-year-old male presents to the emergency center from the [facility] home with fever, worsening mental status and increasing fatigue and malaise. Patient has had recent hospitalizations. His underlying congestive heart failure this seems to be worsened by current chest x-ray and concerns pneumonia. The urinalysis is also markedly abnormal this point in time. Constantly concerns to gram-negative pneumonia versus urinary sepsis at this time antibiotic therapy would be altered to Zosyn and Levaquin until we have further data. Follow blood cultures are requested. Continue ongoing supportive care and improve his nutrition as much as possible. Local wound care's medical honey to the right upper thigh ulceration. Moisture control and zinc to the buttocks as needed. Chronic renal failure is noted and has chronic obstruction as current etiology, expect improvement with quijano The lactic acidosis is improved with hydration. Multiple culturew with Pseudomaonas have been isolated susceptible to zosyn, Levaquin also for pneumonia, which may be fluid overload , if chest improves with resolution of the urinary obstruction then discontinue. Once bactermia clears will need IV access and plan at least 2 weeks of IV antibiotic therapy, probably fortaz. Folow up blood cultures ordered and are negative so far. However is had some increasing leukocytosis. Renal function is also worsened despite Quijano catheter placement. May need further urological evaluation if leukocytosis continues to elevate without other obvious source. Chest x-ray showing some CHF doubt pneumonia. Status: Acute (2) Pneumonia Status: Acute (3) Acute on chronic systolic (congestive) heart failure Status: Acute
[2016-08-30] MEDS: PANTOPRAZOLE 40 MG TABLET PO SCH (06:27)
[2016-08-30] MEDS: ACETAMINOPHEN TAB 325 MG TAB PO PRN (07:24)
[2016-08-30] MEDS: FERROUS SULFATE 325 MG TAB PO SCH (07:25)
[2016-08-30] MEDS: PIPERACILLIN-TAZOBACTAM 3.375 GM in DEXTROSE/WATER 1 50ML.BAG IVPB SCH ×2 (07:25→15:04)
[2016-08-30] MEDS: ISOSORBIDE MONONITRATE ER 30 MG TAB.ER.24H PO SCH (07:25)
[2016-08-30] MEDS: ASPIRIN 81 MG CHEW PO SCH (07:25)
[2016-08-30] MEDS: INSULIN LISPRO (humaLOG) 300 UNIT/3 ML VIAL SQ SCH ×4 (07:25→21:40)
[2016-08-30] MEDS: AMMONIUM LACTATE 12% CREAM 140 GM TUBE TOPICAL SCH ×2 (07:25→21:39)
[2016-08-30] MEDS: METOPROLOL TARTRATE 50 MG TAB PO SCH ×2 (07:25→21:39)
[2016-08-30] MEDS: IPRATROPIUM-ALBUTEROL 3 ML NEB INHALATION SCH ×4 (07:34→19:37)
[2016-08-30 07:38] LABS: Glucose,Whole Blood 159 mg/dL (75-99)
[2016-08-30 08:12] LABS: Anisocytosis Slight; Basophils % (A) 0 %; CH 25.6; Eosinophils % (A) 0 %; HCT 27.8 % (39.0-53.0); HDW 3.95; HGB 9.1 gm/dL (13.0-17.5); Hypochromasia Marked; Luc # (Auto) 0.62; Luc % (Auto) 2; Lymphocytes # (A) 0.4 k/uL (1.0-4.8); Lymphocytes % (A) 2 %; MCH 27.2 pg (25.0-35.0); MCHC 32.9 g/dL (31.0-37.0); MCV 82.9 fL (80.0-100.0); Mean Platelet Volume 8.8; Microcytosis Slight; Monocytes # (A) 0.7 k/uL (0-1.0); Monocytes % (A) 3 %; Neutrophils # (A) 25.9 k/uL (1.3-7.7); Neutrophils % (A) 93 %; Poikilocytosis Slight; RBC 3.35 m/uL (4.30-5.90); RDW 18.8 % (11.5-15.5); WBC (Perox) 29.33
[2016-08-30 08:25] LABS: Calcium 8.2 mg/dL (8.4-10.2); Potassium 3.5 mmol/L (3.5-5.1)
[2016-08-30 08:27] LABS: WBC 27.8 k/uL (3.8-10.6)
[2016-08-30] MEDS ORDERED: FUROSEMIDE 10 MG/ML 4 ML VIAL IV STA (11:19)
[2016-08-30] MEDS ORDERED: POTASSIUM CHLORIDE ER 20 MEQ TAB.ER PO STA (11:32)
--- NOTE | 2016-08-30 11:32 | P.PN ---
Subjective Patient is seen in follow-up for acute kidney injury. Renal function is worse with creatinine at 2.30 today. Patient is noted to have Pseudomonas UTI and bacteremia with repeat cultures showing staph hominis bacteremia and is currently maintained on IV antibiotics. He is resting in bed. Denies chest pain or shortness of breath. He was noted to have bilateral hydronephrosis and is being followed by urology. Carias catheter was placed. Oral intake has been fair. Hemoglobin was low at 6.7 as of August 28 and he did receive a blood transfusion. Hemoglobin 9.1 this morning. Vital signs are stable. General: The patient appeared well nourished and normally developed. HEENT: Head exam is unremarkable. Neck is without jugular venous distension. LUNGS: . scattered rhonchi. Breath sounds decreased. HEART: Rate and Rhythm are regular. First and second heart sounds normal. No murmurs, rubs or gallops. ABDOMEN: Abdominal exam reveals normal bowel sounds. Non-tender and non- distended. No evidence of peritonitis. EXTREMITITES: No clubbing, cyanosis, or edema. Objective - Vital Signs Vital signs: Vital Signs Temp 98.2 F 08/30/16 07:00 Pulse 94 08/30/16 07:00 Resp 14 08/30/16 07:00 BP 155/78 08/30/16 07:00 Pulse Ox 93 L 08/30/16 07:00 Intake & Output 08/29/16 08/30/16 08/30/16 18:59 06:59 18:59 Intake Total 940 Output Total 550 600 Balance -550 340 Weight 83 kg Intake: Oral 940 Output: Urine 550 600 Other: Voiding Method Indwelling Catheter Indwelling Catheter Indwelling Catheter # Bowel Movements 1 2 - Labs CBC & Chem 7: 08/30/16 07:37 08/30/16 07:37 Labs: Abnormal Lab Results - Last 24 Hours (Table) 08/29/16 08/29/16 08/29/16 Range/Units 12:20 17:18 20:29 WBC (3.8-10.6) k/uL RBC (4.30-5.90) m/uL Hgb (13.0-17.5) gm/dL Hct (39.0-53.0) % RDW (11.5-15.5) % Neutrophils # (1.3-7.7) k/uL Lymphocytes # (1.0-4.8) k/uL Sodium (137-145) mmol/L Carbon Dioxide (22-30) mmol/L BUN (9-20) mg/dL Creatinine (0.66-1.25) mg/dL Glucose (74-99) mg/dL POC Glucose (mg/dL) 173 H 228 H 216 H (75-99) mg/dL Calcium (8.4-10.2) mg/dL 08/30/16 08/30/16 08/30/16 Range/Units 07:13 07:37 07:37 WBC 27.8 H* (3.8-10.6) k/uL RBC 3.35 L (4.30-5.90) m/uL Hgb 9.1 L (13.0-17.5) gm/dL Hct 27.8 L (39.0-53.0) % RDW 18.8 H (11.5-15.5) % Neutrophils # 25.9 H (1.3-7.7) k/uL Lymphocytes # 0.4 L (1.0-4.8) k/uL Sodium 135 L (137-145) mmol/L Carbon Dioxide 21 L (22-30) mmol/L BUN 47 H (9-20) mg/dL Creatinine 2.30 H (0.66-1.25) mg/dL Glucose 157 H (74-99) mg/dL POC Glucose (mg/dL) 159 H (75-99) mg/dL Calcium 8.2 L (8.4-10.2) mg/dL Microbiology - Last 24 Hours (Table) 08/26/16 18:09 Blood Culture - Preliminary Blood No Growth after 72 hours 08/26/16 17:58 Blood Culture - Preliminary Blood No Growth after 72 hours 08/25/16 08:24 Blood Culture Gram Stain - Final Blood Blood Culture - Final Staph hominis sub sp. hominis 08/25/16 08:18 Blood Culture Gram Stain - Final Blood Blood Culture - Final Staph hominis sub sp. hominis Assessment and Plan Plan: Assessment: #1. Nonoliguric acute kidney injury secondary to ischemic ATN secondary to anemia, hypotension as well as sepsis. Also component of obstructive uropathy. Creatinine 2.3 today. Recent urinalysis was quite benign. Ultrasound revealed bilateral hydronephrosis. Baseline creatinine is the range of 1-1.2. #2. Severe sepsis secondary to Pseudomonas/staph hominis bacteremia and UTI. Also concerns for pneumonia. #3. Anemia. Iron deficiency noted. Status post blood transfusion on August 28. #4. Moderate pulmonary hypertension with mild to moderate mitral regurgitation. #5. Hypokalemia related to poor nutritional status. Magnesium level also on the lower side. #6. Vascular congestion noted on chest x-ray. Plan: Lasix 40 mg IV once today. Hep-Lock IV fluids. I will hold off on IV iron due to bacteremia. Antibiotics per infectious disease recommendations. Repeat electrolytes in the morning. Maintain Carias catheter. Continue to monitor renal function and urine output. Replace potassium. 40 mEq today.
[2016-08-30 12:01] LABS: Glucose,Whole Blood 183 mg/dL (75-99)
[2016-08-30] MEDS: MULTIVITAMINS, THERA 1 EACH TAB PO SCH (15:05)
[2016-08-30 17:21] LABS: Glucose,Whole Blood 214 mg/dL (75-99)
[2016-08-30 20:58] LABS: Glucose,Whole Blood 125 mg/dL (75-99)
[2016-08-30] MEDS: ATORVASTATIN 40 MG TAB PO SCH (21:40)
[2016-08-31] MEDS: PIPERACILLIN-TAZOBACTAM 3.375 GM in DEXTROSE/WATER 1 50ML.BAG IVPB SCH ×2 (00:31→08:01)
[2016-08-31] MEDS: PANTOPRAZOLE 40 MG TABLET PO SCH (06:32)
[2016-08-31] MEDS: IPRATROPIUM-ALBUTEROL 3 ML NEB INHALATION SCH ×4 (07:25→19:52)
[2016-08-31 07:30] LABS: Glucose,Whole Blood 193 mg/dL (75-99)
[2016-08-31] MEDS: AMMONIUM LACTATE 12% CREAM 140 GM TUBE TOPICAL SCH ×2 (08:01→21:11)
[2016-08-31] MEDS: INSULIN LISPRO (humaLOG) 300 UNIT/3 ML VIAL SQ SCH ×4 (08:01→21:11)
[2016-08-31 08:50] LABS: Calcium 8.1 mg/dL (8.4-10.2); Magnesium 1.9 mg/dL (1.6-2.3)
[2016-08-31 08:52] LABS: Potassium 4.9 mmol/L (3.5-5.1)
[2016-08-31 09:08] VITALS: BMI 24.3
[2016-08-31] MEDS: METOPROLOL TARTRATE 50 MG TAB PO SCH ×2 (09:08→21:11)
[2016-08-31] MEDS: ASPIRIN 81 MG CHEW PO SCH (09:08)
[2016-08-31] MEDS: FERROUS SULFATE 325 MG TAB PO SCH (09:08)
[2016-08-31] MEDS: ISOSORBIDE MONONITRATE ER 30 MG TAB.ER.24H PO SCH (09:08)
--- NOTE | 2016-08-31 10:32 | P.PN ---
Subjective Patient is seen in follow-up for acute kidney injury. Renal function is stable with creatinine at 2.27 today. Patient is noted to have Pseudomonas UTI and bacteremia with repeat cultures showing staph hominis bacteremia and is currently maintained on IV antibiotics. He is resting in bed. Denies chest pain or shortness of breath. He was noted to have bilateral hydronephrosis and is being followed by urology. Carias catheter was placed. Oral intake has been fair as he doesn't feel very hungry. Hemoglobin was low at 6.7 as of August 28 and he did receive a blood transfusion. Hemoglobin 9.1 as of yesterday. Vital signs are stable. General: The patient appeared well nourished and normally developed. HEENT: Head exam is unremarkable. Neck is without jugular venous distension. LUNGS: Scattered rhonchi. Breath sounds decreased. HEART: Rate and Rhythm are regular. First and second heart sounds normal. No murmurs, rubs or gallops. ABDOMEN: Abdominal exam reveals normal bowel sounds. Non-tender and non- distended. No evidence of peritonitis. EXTREMITITES: No clubbing, cyanosis, or edema. Objective - Vital Signs Vital signs: Vital Signs Temp 99.5 F 08/31/16 07:00 Pulse 82 08/31/16 08:00 Resp 20 08/31/16 08:00 BP 152/77 08/31/16 07:00 Pulse Ox 92 L 08/31/16 07:00 Intake & Output 08/30/16 08/31/16 08/31/16 18:59 06:59 18:59 Intake Total 250 Output Total 575 875 Balance -575 -625 Weight 81.5 kg 81.5 kg Intake: Oral 250 Output: Urine 575 875 Other: Voiding Method Indwelling Catheter Indwelling Catheter Indwelling Catheter # Bowel Movements 1 1 - Labs CBC & Chem 7: 08/30/16 07:37 08/31/16 07:45 Labs: Abnormal Lab Results - Last 24 Hours (Table) 08/30/16 08/30/16 08/30/16 Range/Units 11:53 17:07 20:48 Sodium (137-145) mmol/L Chloride (98-107) mmol/L Carbon Dioxide (22-30) mmol/L BUN (9-20) mg/dL Creatinine (0.66-1.25) mg/dL Glucose (74-99) mg/dL POC Glucose (mg/dL) 183 H 214 H 125 H (75-99) mg/dL Calcium (8.4-10.2) mg/dL 08/31/16 08/31/16 Range/Units 07:23 07:45 Sodium 131 L (137-145) mmol/L Chloride 97 L (98-107) mmol/L Carbon Dioxide 20 L (22-30) mmol/L BUN 51 H (9-20) mg/dL Creatinine 2.27 H (0.66-1.25) mg/dL Glucose 164 H (74-99) mg/dL POC Glucose (mg/dL) 193 H (75-99) mg/dL Calcium 8.1 L (8.4-10.2) mg/dL Microbiology - Last 24 Hours (Table) 08/26/16 18:09 Blood Culture - Preliminary Blood No Growth after 96 hours 08/26/16 17:58 Blood Culture - Preliminary Blood No Growth after 96 hours Assessment and Plan Plan: Assessment: #1. Nonoliguric acute kidney injury secondary to ischemic ATN secondary to anemia, hypotension as well as sepsis. Also component of obstructive uropathy. Creatinine 2.27 today. Recent urinalysis was quite benign. Ultrasound revealed bilateral hydronephrosis. Baseline creatinine is the range of 1-1.2. #2. Severe sepsis secondary to Pseudomonas/staph hominis bacteremia and UTI. Also concerns for pneumonia. #3. Anemia. Iron deficiency noted. Status post blood transfusion on August 28. #4. Moderate pulmonary hypertension with mild to moderate mitral regurgitation. #5. Hypokalemia related to poor nutritional status. Magnesium level also on the lower side. Improved. #6. Vascular congestion noted on chest x-ray status post IV Lasix on August 30. #7. Hyponatremia, worsened with diuresis. Sodium level 131 today. Plan: Hold diuretics today. Remains off IV fluids. I will hold off on IV iron due to bacteremia. Antibiotics per infectious disease recommendations. Repeat electrolytes in the morning. Maintain Carias catheter. Continue to monitor renal function and urine output. Encouraged oral intake. 1.2 L fluid restriction.
[2016-08-31 12:01] LABS: Glucose,Whole Blood 189 mg/dL (75-99)
[2016-08-31] MEDS ORDERED: IV FLUID CONTINUATION 1,000 ML IV ONE (14:27)
[2016-08-31] MEDS ORDERED: LIDOCAINE 2% INJ 20 MG/ML (20 ML MDV) ONE (14:35)
[2016-08-31] MEDS ORDERED: LIDOCAINE 2% INJ 20 MG/ML SQ ONE (14:55)
--- NOTE | 2016-08-31 15:51 | IR ---
EXAMINATION TYPE: IR cvc insert >=5 years DATE OF EXAM: 08/31/2016 COMPARISON: NONE CLINICAL HISTORY: Infection Needs long-term intravenous access for antibiotics. PROCEDURE: After informed consent, the skin overlying the left brachial vein was localized with ultrasound and n oted to be compressible and patent. An ultrasound image was obtained and submitted on the patient's chart. The overlying skin was prepped and draped and Lidocaine was used for local anesthesia. A ski n eulalia was made with a scalpel. Access was gained to the vein under ultrasound guidance with a 21 ga uge needle and a 0.018 inch wire was advanced. Access site was dilated with Peel-Away sheath and cat heter tailored to the appropriate length and advanced such that the distal tip is at the cavoatrial j unction. Spot image was obtained verifying placement. Catheter was fixed to the skin with suture an d a sterile dressing was placed following hemostasis. Catheter was aspirated and flushed with saline . Patient was discharged in stable condition without complication. Maximal barrier technique is util ized. Ultrasound image is documented on the chart. Ultrasound used with sterile technique. Fluoro time and fluoroscopic images submitted to document procedure: 0.3 minutes fluoroscopy time, in traoperative C-arm image documents the procedure IMPRESSION: STATUS POST ULTRASOUND AND FLUOROSCOPIC GUIDED PICC LINE PLACEMENT, READY FOR USE. THIS PROCEDURE WAS PERFORMED BY THE UNDERSIGNED.
[2016-08-31 17:09] LABS: Glucose,Whole Blood 162 mg/dL (75-99)
[2016-08-31] MEDS: MULTIVITAMINS, THERA 1 EACH TAB PO SCH (17:33)
--- NOTE | 2016-08-31 20:00 | P.PN ---
Subjective Principal diagnosis: sepsis 81-year-old male known to the service from his recent hospitalization. He was having difficulties with progressive weakness and congestive heart failure. When he was treated he was transferred to the [facility]. Now presents with altered mental status, fever and increasing weakness. He has been followed the wound center and was showing improvement to his ulceration to the right anterior upper thigh. Now has evidence of the new fever and weakness. Concerns pneumonia, or other source of gram-negative sepsis. Has worsened renal failure and US reveals bilat hydronephrosis, was seen by urology and Quijano is placed Multiple positive blood cultures are found. Patient is slightly more interactive today. Is denying new difficulties such as pain. Nursing staff relates he ate some dinner. Patiently relates he was cold and found placement of a blanket to give him comfort. Objective - Vital Signs Vital signs: Vital Signs Temp 97.1 F L 08/31/16 15:00 Pulse 75 08/31/16 16:00 Resp 20 08/31/16 16:00 BP 131/66 08/31/16 15:00 Pulse Ox 91 L 08/31/16 15:00 Intake & Output 08/31/16 08/31/16 09/01/16 06:59 18:59 06:59 Intake Total 250 130 Output Total 875 Balance -625 130 Weight 81.5 kg 81.5 kg Intake: IV 130 NORMAL SALINE AT 10ML/HR 30 Piperacillin-Tazobactam 3 50 .375 gm In Dextrose/Water 1 50ml.bag @ 12.5 mls/hr IVPB Q8HR JENA Rx#: [id number] cefTAZidime 1 gm In 50 Sodium Chloride 0.9% 50 ml @ 100 mls/hr IVPB Q12HR JENA Rx#:[id number] Oral 250 Output: Urine 875 Other: Voiding Method Indwelling Catheter Indwelling Catheter # Bowel Movements 1 - Exam HEENT: Anicteric conjunctiva are pink and moist nasal mucosa grossly intact without significant lesions, there is no thrush. dentures Neck: The neck is supple without significant lymphadenopathy or thyromegaly. Lungs: symmetric air entry scattered wheezing. Bibasilar bronchial sounds are heard There is no dullness. Heart: irRegular with an audible S1-S2, no S3 no S4. There is no significant murmur click or rub, PMI was nondisplaced. Abdomen: Positive bowel sounds soft and nontender without palpable masses or organomegaly. There was no guarding or rebound. Extremities: The upper extremities have excellent pulses they are symmetric, no significant petechiae or telangiectasia. No splinter hemorrhages were noted. The lower extremities trace edema, right upper thigh has minimal ulcer showing marked improvement Neuro: Awake alert oriented to person follows simple commands - Labs CBC & Chem 7: 08/30/16 07:37 08/31/16 07:45 Labs: Abnormal Lab Results - Last 24 Hours (Table) 08/30/16 08/31/16 08/31/16 Range/Units 20:48 07:23 07:45 Sodium 131 L (137-145) mmol/L Chloride 97 L (98-107) mmol/L Carbon Dioxide 20 L (22-30) mmol/L BUN 51 H (9-20) mg/dL Creatinine 2.27 H (0.66-1.25) mg/dL Glucose 164 H (74-99) mg/dL POC Glucose (mg/dL) 125 H 193 H (75-99) mg/dL Calcium 8.1 L (8.4-10.2) mg/dL 08/31/16 08/31/16 Range/Units 11:50 17:08 Sodium (137-145) mmol/L Chloride (98-107) mmol/L Carbon Dioxide (22-30) mmol/L BUN (9-20) mg/dL Creatinine (0.66-1.25) mg/dL Glucose (74-99) mg/dL POC Glucose (mg/dL) 189 H 162 H (75-99) mg/dL Calcium (8.4-10.2) mg/dL Microbiology - Last 24 Hours (Table) 08/26/16 18:09 Blood Culture - Preliminary Blood No Growth after 96 hours 08/26/16 17:58 Blood Culture - Preliminary Blood No Growth after 96 hours Laboratory Results WBC 27.8 k/uL (3.8-10.6) H* 08/30/16 07:37 RBC 3.35 m/uL (4.30-5.90) L 08/30/16 07:37 Hgb 9.1 gm/dL (13.0-17.5) L 08/30/16 07:37 Hct 27.8 % (39.0-53.0) L 08/30/16 07:37 MCV 82.9 fL (80.0-100.0) 08/30/16 07:37 MCH 27.2 pg (25.0-35.0) 08/30/16 07:37 MCHC 32.9 g/dL (31.0-37.0) 08/30/16 07:37 RDW 18.8 % (11.5-15.5) H 08/30/16 07:37 Plt Count 202 k/uL (150-450) 08/30/16 07:37 Neutrophils % 93 % 08/30/16 07:37 Neutrophils % (Manual) 93.0 % 08/29/16 06:49 Lymphocytes % 2 % 08/30/16 07:37 Lymphocytes % (Manual) 1.0 % 08/29/16 06:49 Monocytes % 3 % 08/30/16 07:37 Monocytes % (Manual) 6.0 % 08/29/16 06:49 Eosinophils % 0 % 08/30/16 07:37 Basophils % 0 % 08/30/16 07:37 Neutrophils # 25.9 k/uL (1.3-7.7) H 08/30/16 07:37 Neutrophils # (Manual) 26.6 k/uL (1.3-7.7) H 08/29/16 06:49 Lymphocytes # 0.4 k/uL (1.0-4.8) L 08/30/16 07:37 Lymphocytes # (Manual) 0.3 k/uL (1.0-4.8) L 08/29/16 06:49 Monocytes # 0.7 k/uL (0-1.0) 08/30/16 07:37 Monocytes # (Manual) 1.7 k/uL (0-1.0) H 08/29/16 06:49 Eosinophils # 0.0 k/uL (0-0.7) 08/30/16 07:37 Basophils # 0.0 k/uL (0-0.2) 08/30/16 07:37 Nucleated RBCs 0 /100 WBC (0-0) 08/29/16 06:49 Dimorphic RBCs Present 08/29/16 06:49 Polychromasia Present 08/29/16 06:49 Hypochromasia Marked 08/30/16 07:37 Poikilocytosis Slight 08/30/16 07:37 Anisocytosis Slight 08/30/16 07:37 Microcytosis Slight 08/30/16 07:37 Fragmented RBCs Present 08/29/16 06:49 PT 12.7 sec (9.0-12.0) H 08/23/16 16:14 INR 1.3 (<1.1) 08/23/16 16:14 APTT 25.9 sec (22.0-30.0) 08/23/16 16:14 Sample Site L BRACHIAL 08/24/16 16:35 ABG pH 7.43 (7.35-7.45) 08/24/16 16:35 ABG pCO2 29 mmHg (35-45) L 08/24/16 16:35 ABG pO2 96 mmHg (83-108) 08/24/16 16:35 ABG HCO3 19 mmol/L (21-25) L 08/24/16 16:35 ABG Total CO2 20 mmol/L (19-24) 08/24/16 16:35 ABG O2 Saturation 98.0 % (94-97) H 08/24/16 16:35 ABG Base Excess -4.8 mmol/L 08/24/16 16:35 FiO2 100 % 08/24/16 16:35 Sodium 131 mmol/L (137-145) L 08/31/16 07:45 Potassium 4.9 mmol/L (3.5-5.1) 08/31/16 07:45 Chloride 97 mmol/L (98-107) L 08/31/16 07:45 Carbon Dioxide 20 mmol/L (22-30) L 08/31/16 07:45 Anion Gap 14 mmol/L 08/31/16 07:45 BUN 51 mg/dL (9-20) H 08/31/16 07:45 Creatinine 2.27 mg/dL (0.66-1.25) H 08/31/16 07:45 Est GFR (MDRD) Af Amer 34 (>60 ml/min/1.73 sqM) 08/31/16 07:45 Est GFR (MDRD) Non-Af 28 (>60 ml/min/1.73 sqM) 08/31/16 07:45 Glucose 164 mg/dL (74-99) H 08/31/16 07:45 POC Glucose (mg/dL) 162 mg/dL (75-99) H 08/31/16 17:08 POC Glu Sight Mounter ID Trinh Wesley 08/31/16 17:[address] Glu mg/dL 131 mg/dL 08/23/16 16:15 Hemoglobin A1c 6.2 % (4.2-6.1) H 08/23/16 16:15 Plasma Lactic Acid Gerhard 1.3 mmol/L (0.7-2.0) 08/29/16 22:08 Calcium 8.1 mg/dL (8.4-10.2) L 08/31/16 07:45 Magnesium 1.9 mg/dL (1.6-2.3) 08/31/16 07:45 Iron 18 ug/dL (49-181) L 08/25/16 08:18 TIBC 173 ug/dL (261-462) L 08/25/16 08:18 % Saturation 10.4 % (20-50) L 08/25/16 08:18 Ferritin ng/mL (18-464) 08/25/16 08:18 Total Bilirubin 0.4 mg/dL (0.2-1.3) 08/26/16 09:26 AST 97 U/L (17-59) H 08/26/16 09:26 ALT 208 U/L (21-72) H 08/26/16 09:26 Alkaline Phosphatase 180 U/L (38-126) H 08/26/16 09:26 NT-Pro-B Natriuret Pep 49490 pg/mL 08/23/16 16:15 Total Protein 5.0 g/dL (6.3-8.2) L 08/26/16 09:26 Albumin 2.4 g/dL (3.5-5.0) L 08/26/16 09:26 Urine Color Yellow 08/23/16 16:14 Urine Appearance Turbid (Clear) 08/23/16 16:14 Urine pH 6.5 (5.0-8.0) 08/23/16 16:14 Ur Specific Maple 1.016 (1.001-1.035) 08/23/16 16:14 Urine Protein 2+ (Negative) H 08/23/16 16:14 Urine Glucose (UA) Negative (Negative) 08/23/16 16:14 Urine Ketones Negative (Negative) 08/23/16 16:14 Urine Blood Moderate (Negative) H 08/23/16 16:14 Urine Nitrite Positive (Negative) 08/23/16 16:14 Urine Bilirubin Negative (Negative) 08/23/16 16:14 Urine Urobilinogen <2.0 mg/dL (<2.0) 08/23/16 16:14 Ur Leukocyte Esterase Large (Negative) H 08/23/16 16:14 Urine RBC 48 /hpf (0-5) H 08/23/16 16:14 Urine WBC >182 /hpf (0-5) H 08/23/16 16:14 Urine WBC Clumps Many /hpf (None) H 08/23/16 16:14 Blood Type O Positive 08/28/16 11:26 Blood Type Recheck No 08/28/16 11:26 Antibody Screen NEGATIVE 08/28/16 11:26 Crossmatch See Detail 08/28/16 11:26 Spec Expiration Date 08/31/2016232508/28/16 11:26 Microbiology 08/26/16 18:09 Blood Blood Culture - Preliminary No Growth after 96 hours 08/26/16 17:58 Blood Blood Culture - Preliminary No Growth after 96 hours 08/25/16 08:24 Blood Blood Culture Gram Stain - Final 08/25/16 08:24 Blood Blood Culture - Final Staph hominis sub sp. hominis 08/25/16 08:18 Blood Blood Culture Gram Stain - Final 08/25/16 08:18 Blood Blood Culture - Final Staph hominis sub sp. hominis 08/25/16 08:24 Blood Blood Culture - Final 08/25/16 08:18 Blood Blood Culture - Final 08/23/16 16:14 Urine,Catheterized Urine Culture - Final Pseudomonas aeruginosa 08/23/16 16:14 Blood Blood Culture Gram Stain - Final 08/23/16 16:14 Blood Blood Culture - Final Pseudomonas aeruginosa 08/23/16 16:14 Blood Blood Culture - Final Assessment and Plan (1) Gram negative sepsis Narrative/Plan: 81-year-old male presents to the emergency center from the [facility] home with fever, worsening mental status and increasing fatigue and malaise. Patient has had recent hospitalizations. His underlying congestive heart failure this seems to be worsened by current chest x-ray and concerns pneumonia. The urinalysis is also markedly abnormal this point in time. Constantly concerns to gram-negative pneumonia versus urinary sepsis at this time antibiotic therapy would be altered to Zosyn and Levaquin until we have further data. Follow blood cultures are requested. Continue ongoing supportive care and improve his nutrition as much as possible. Moisture control and zinc to the buttocks as needed. Chronic renal failure is noted and has chronic obstruction as current etiology, expect improvement with quijano The lactic acidosis is improved with hydration. Multiple culturew with Pseudomaonas have been isolated susceptible to zosyn, and fortaz Levaquin was also for pneumonia, which may be fluid overload , if chest improves with resolution of the urinary obstruction then discontinue. As bactermia has cleared PICC IV access and plan at least 2 weeks of IV antibiotic therapy, fortaz. Folow up blood cultures ordered and are negative. However is had some increasing leukocytosis. Renal function is also worsened despite Quijano catheter placement. Patient did receive a blood transfusion before his leukocytosis markedly increased. May be related. Clinically improved. Ulceration right upper thigh has healed. Chest x-ray showing some CHF doubt pneumonia. Status: Acute (2) Pneumonia Status: Acute (3) Acute on chronic systolic (congestive) heart failure Status: Acute
[2016-08-31 20:40] LABS: Glucose,Whole Blood 157 mg/dL (75-99)
[2016-08-31] MEDS: ATORVASTATIN 40 MG TAB PO SCH (21:11)
[2016-09-01] MEDS: PANTOPRAZOLE 40 MG TABLET PO SCH (06:24)
[2016-09-01] MEDS: IPRATROPIUM-ALBUTEROL 3 ML NEB INHALATION SCH ×4 (07:24→19:47)
[2016-09-01 07:41] LABS: Glucose,Whole Blood 206 mg/dL (75-99)
[2016-09-01 08:19] LABS: Anisocytosis Slight; Basophils % (A) 0 %; CH 25.5; CHCM 31.3; Eosinophils % (A) 0 %; HCT 24.8 % (39.0-53.0); HDW 3.83; Hypochromasia Marked; Luc # (Auto) 0.45; Luc % (Auto) 2; Lymphocytes # (A) 0.6 k/uL (1.0-4.8); Lymphocytes % (A) 2 %; MCH 26.3 pg (25.0-35.0); MCHC 32.3 g/dL (31.0-37.0); MCV 81.6 fL (80.0-100.0); Microcytosis Slight; Monocytes # (A) 0.7 k/uL (0-1.0); Monocytes % (A) 3 %; Neutrophils # (A) 21.8 k/uL (1.3-7.7); Neutrophils % (A) 92 %; Poikilocytosis Slight; RBC 3.03 m/uL (4.30-5.90); RDW 18.7 % (11.5-15.5); WBC 23.6 k/uL (3.8-10.6); WBC (Perox) 24.16
[2016-09-01 08:33] LABS: Calcium 7.4 mg/dL (8.4-10.2); Potassium 3.7 mmol/L (3.5-5.1)
[2016-09-01] MEDS: ASPIRIN 81 MG CHEW PO SCH (08:48)
[2016-09-01] MEDS: FERROUS SULFATE 325 MG TAB PO SCH (08:48)
[2016-09-01] MEDS: METOPROLOL TARTRATE 50 MG TAB PO SCH ×2 (08:49→21:47)
[2016-09-01] MEDS: ISOSORBIDE MONONITRATE ER 30 MG TAB.ER.24H PO SCH (08:49)
[2016-09-01] MEDS: INSULIN LISPRO (humaLOG) 300 UNIT/3 ML VIAL SQ SCH ×4 (08:50→21:47)
[2016-09-01] MEDS: AMMONIUM LACTATE 12% CREAM 140 GM TUBE TOPICAL SCH ×2 (09:14→21:47)
--- NOTE | 2016-09-01 11:13 | P.PN ---
Subjective Patient is seen in follow-up for acute kidney injury. Renal function is worse with creatinine at 2.81 today. Patient is noted to have Pseudomonas UTI and bacteremia with repeat cultures showing staph hominis bacteremia and is currently maintained on IV antibiotics. He is resting in bed. Denies chest pain or shortness of breath. He was noted to have bilateral hydronephrosis and is being followed by urology. Carias catheter was placed. Oral intake has been fair as he doesn't feel very hungry. Hemoglobin was low at 6.7 as of August 28 and he did receive a blood transfusion. Hemoglobin 8.0 today. Currently sitting up in bed. Vital signs are stable. General: The patient appeared well nourished and normally developed. HEENT: Head exam is unremarkable. Neck is without jugular venous distension. LUNGS: Scattered rhonchi. Breath sounds decreased. HEART: Rate and Rhythm are regular. First and second heart sounds normal. No murmurs, rubs or gallops. ABDOMEN: Abdominal exam reveals normal bowel sounds. Non-tender and non- distended. No evidence of peritonitis. EXTREMITITES: No clubbing, cyanosis, or edema. Objective - Vital Signs Vital signs: Vital Signs Temp 97.4 F L 09/01/16 07:47 Pulse 94 09/01/16 07:47 Resp 25 H 09/01/16 07:47 BP 149/81 09/01/16 07:47 Pulse Ox 95 09/01/16 07:47 Intake & Output 08/31/16 09/01/16 09/01/16 18:59 06:59 18:59 Intake Total 130 130 Output Total 450 Balance 130 -320 Weight 81.5 kg 83.5 kg Intake: IV 130 130 NORMAL SALINE AT 10ML/HR 30 80 Piperacillin-Tazobactam 3 50 .375 gm In Dextrose/Water 1 50ml.bag @ 12.5 mls/hr IVPB Q8HR JENA Rx#: [id number] cefTAZidime 1 gm In 50 50 Sodium Chloride 0.9% 50 ml @ 100 mls/hr IVPB Q12HR JENA Rx#:[id number] Output: Urine 450 Other: Voiding Method Indwelling Catheter Indwelling Catheter # Bowel Movements 1 1 - Labs CBC & Chem 7: 09/01/16 07:53 09/01/16 07:53 Labs: Abnormal Lab Results - Last 24 Hours (Table) 08/31/16 08/31/16 08/31/16 Range/Units 11:50 17:08 20:39 WBC (3.8-10.6) k/uL RBC (4.30-5.90) m/uL Hgb (13.0-17.5) gm/dL Hct (39.0-53.0) % RDW (11.5-15.5) % Neutrophils # (1.3-7.7) k/uL Lymphocytes # (1.0-4.8) k/uL Sodium (137-145) mmol/L Chloride (98-107) mmol/L BUN (9-20) mg/dL Creatinine (0.66-1.25) mg/dL Glucose (74-99) mg/dL POC Glucose (mg/dL) 189 H 162 H 157 H (75-99) mg/dL Calcium (8.4-10.2) mg/dL 09/01/16 09/01/16 09/01/16 Range/Units 07:35 07:53 07:53 WBC 23.6 H (3.8-10.6) k/uL RBC 3.03 L (4.30-5.90) m/uL Hgb 8.0 L (13.0-17.5) gm/dL Hct 24.8 L (39.0-53.0) % RDW 18.7 H (11.5-15.5) % Neutrophils # 21.8 H (1.3-7.7) k/uL Lymphocytes # 0.6 L (1.0-4.8) k/uL Sodium 133 L (137-145) mmol/L Chloride 95 L (98-107) mmol/L BUN 51 H (9-20) mg/dL Creatinine 2.81 H (0.66-1.25) mg/dL Glucose 179 H (74-99) mg/dL POC Glucose (mg/dL) 206 H (75-99) mg/dL Calcium 7.4 L (8.4-10.2) mg/dL Microbiology - Last 24 Hours (Table) 08/26/16 18:09 Blood Culture - Preliminary Blood No Growth after 120 hours 08/26/16 17:58 Blood Culture - Preliminary Blood No Growth after 120 hours Assessment and Plan Plan: Assessment: #1. Nonoliguric acute kidney injury secondary to ischemic ATN secondary to anemia, hypotension as well as sepsis. Also component of obstructive uropathy. Creatinine 2.8 today. Recent urinalysis was quite benign. Ultrasound revealed bilateral hydronephrosis. Baseline creatinine is the range of 1-1.2. #2. Severe sepsis secondary to Pseudomonas/staph hominis bacteremia and UTI. Also concerns for pneumonia. #3. Anemia. Iron deficiency noted. Status post blood transfusion on August 28. #4. Moderate pulmonary hypertension with mild to moderate mitral regurgitation. #5. Hypokalemia related to poor nutritional status. Magnesium level also on the lower side. Improved. #6. Vascular congestion noted on chest x-ray status post IV Lasix on August 30. #7. Hyponatremia, worsened with diuresis. Improved. Sodium level 133 today. Plan: Hold diuretics today. Resume IV fluids at 60 mL an hour. I will hold off on IV iron due to bacteremia. Antibiotics per infectious disease recommendations. Repeat electrolytes in the morning. Maintain Carias catheter. Continue to monitor renal function and urine output. Encouraged oral intake. Maintain 1.2 L fluid restriction.
[2016-09-01] MEDS: SODIUM CHLORIDE 0.9% 1,000 ML IV SCH (11:24)
[2016-09-01 11:55] LABS: Glucose,Whole Blood 168 mg/dL (75-99)
[2016-09-01 16:57] LABS: Glucose,Whole Blood 233 mg/dL (75-99)
[2016-09-01] MEDS: MULTIVITAMINS, THERA 1 EACH TAB PO SCH (17:42)
[2016-09-01 21:10] LABS: Glucose,Whole Blood 226 mg/dL (75-99)
[2016-09-01] MEDS: ATORVASTATIN 40 MG TAB PO SCH (21:47)
--- NOTE | 2016-09-01 22:52 | P.PN ---
Subjective Principal diagnosis: sepsis 81-year-old male known to the service from his recent hospitalization. He was having difficulties with progressive weakness and congestive heart failure. When he was treated he was transferred to the [facility]. Now presents with altered mental status, fever and increasing weakness. He has been followed the wound center and was showing improvement to his ulceration to the right anterior upper thigh. Now has evidence of the new fever and weakness. Concerns pneumonia, or other source of gram-negative sepsis. Has worsened renal failure and US reveals bilat hydronephrosis, was seen by urology and Quijano is placed Multiple positive blood cultures are found. Patient is slightly more interactive today. Is denying new difficulties such as pain. Nursing staff relates he ate some dinner. Patient more comfortable today Objective - Vital Signs Vital signs: Vital Signs Temp 97.8 F 09/01/16 15:00 Pulse 83 09/01/16 15:00 Resp 16 09/01/16 15:00 BP 137/66 09/01/16 15:00 Pulse Ox 94 L 09/01/16 15:00 Intake & Output 09/01/16 09/01/16 09/02/16 06:59 18:59 06:59 Intake Total 130 Output Total 450 351 Balance -320 -351 Weight 83.5 kg Intake: IV 130 NORMAL SALINE AT 10ML/HR 80 cefTAZidime 1 gm In 50 Sodium Chloride 0.9% 50 ml @ 100 mls/hr IVPB Q12HR [facility] Rx#:[id number] Output: Urine 450 350 Stool 1 Other: Voiding Method Indwelling Catheter Indwelling Catheter # Bowel Movements 1 1 - Exam HEENT: Anicteric conjunctiva are pink and moist nasal mucosa grossly intact without significant lesions, there is no thrush. dentures Neck: The neck is supple without significant lymphadenopathy or thyromegaly. Lungs: symmetric air entry scattered wheezing. Bibasilar bronchial sounds are heard There is no dullness. Heart: irRegular with an audible S1-S2, no S3 no S4. There is no significant murmur click or rub, PMI was nondisplaced. Abdomen: Positive bowel sounds soft and nontender without palpable masses or organomegaly. There was no guarding or rebound. Extremities: The upper extremities have excellent pulses they are symmetric, no significant petechiae or telangiectasia. No splinter hemorrhages were noted. The lower extremities trace edema, right upper thigh has minimal ulcer showing marked improvement Neuro: Awake alert oriented to person follows simple commands - Labs CBC & Chem 7: 09/01/16 07:53 09/01/16 07:53 Labs: Abnormal Lab Results - Last 24 Hours (Table) 09/01/16 09/01/16 09/01/16 Range/Units 07:35 07:53 07:53 WBC 23.6 H (3.8-10.6) k/uL RBC 3.03 L (4.30-5.90) m/uL Hgb 8.0 L (13.0-17.5) gm/dL Hct 24.8 L (39.0-53.0) % RDW 18.7 H (11.5-15.5) % Neutrophils # 21.8 H (1.3-7.7) k/uL Lymphocytes # 0.6 L (1.0-4.8) k/uL Sodium 133 L (137-145) mmol/L Chloride 95 L (98-107) mmol/L BUN 51 H (9-20) mg/dL Creatinine 2.81 H (0.66-1.25) mg/dL Glucose 179 H (74-99) mg/dL POC Glucose (mg/dL) 206 H (75-99) mg/dL Calcium 7.4 L (8.4-10.2) mg/dL 09/01/16 09/01/16 09/01/16 Range/Units 11:53 16:55 20:57 WBC (3.8-10.6) k/uL RBC (4.30-5.90) m/uL Hgb (13.0-17.5) gm/dL Hct (39.0-53.0) % RDW (11.5-15.5) % Neutrophils # (1.3-7.7) k/uL Lymphocytes # (1.0-4.8) k/uL Sodium (137-145) mmol/L Chloride (98-107) mmol/L BUN (9-20) mg/dL Creatinine (0.66-1.25) mg/dL Glucose (74-99) mg/dL POC Glucose (mg/dL) 168 H 233 H 226 H (75-99) mg/dL Calcium (8.4-10.2) mg/dL Microbiology - Last 24 Hours (Table) 08/26/16 18:09 Blood Culture - Final Blood No Growth after 144 hours 08/26/16 17:58 Blood Culture - Final Blood No Growth after 144 hours Laboratory Results WBC 23.6 k/uL (3.8-10.6) H 09/01/16 07:53 RBC 3.03 m/uL (4.30-5.90) L 09/01/16 07:53 Hgb 8.0 gm/dL (13.0-17.5) L 09/01/16 07:53 Hct 24.8 % (39.0-53.0) L 09/01/16 07:53 MCV 81.6 fL (80.0-100.0) 09/01/16 07:53 MCH 26.3 pg (25.0-35.0) 09/01/16 07:53 MCHC 32.3 g/dL (31.0-37.0) 09/01/16 07:53 RDW 18.7 % (11.5-15.5) H 09/01/16 07:53 Plt Count 190 k/uL (150-450) 09/01/16 07:53 Neutrophils % 92 % 09/01/16 07:53 Neutrophils % (Manual) 93.0 % 08/29/16 06:49 Lymphocytes % 2 % 09/01/16 07:53 Lymphocytes % (Manual) 1.0 % 08/29/16 06:49 Monocytes % 3 % 09/01/16 07:53 Monocytes % (Manual) 6.0 % 08/29/16 06:49 Eosinophils % 0 % 09/01/16 07:53 Basophils % 0 % 09/01/16 07:53 Neutrophils # 21.8 k/uL (1.3-7.7) H 09/01/16 07:53 Neutrophils # (Manual) 26.6 k/uL (1.3-7.7) H 08/29/16 06:49 Lymphocytes # 0.6 k/uL (1.0-4.8) L 09/01/16 07:53 Lymphocytes # (Manual) 0.3 k/uL (1.0-4.8) L 08/29/16 06:49 Monocytes # 0.7 k/uL (0-1.0) 09/01/16 07:53 Monocytes # (Manual) 1.7 k/uL (0-1.0) H 08/29/16 06:49 Eosinophils # 0.0 k/uL (0-0.7) 09/01/16 07:53 Basophils # 0.0 k/uL (0-0.2) 09/01/16 07:53 Nucleated RBCs 0 /100 WBC (0-0) 08/29/16 06:49 Dimorphic RBCs Present 08/29/16 06:49 Polychromasia Present 08/29/16 06:49 Hypochromasia Marked 09/01/16 07:53 Poikilocytosis Slight 09/01/16 07:53 Anisocytosis Slight 09/01/16 07:53 Microcytosis Slight 09/01/16 07:53 Fragmented RBCs Present 08/29/16 06:49 PT 12.7 sec (9.0-12.0) H 08/23/16 16:14 INR 1.3 (<1.1) 08/23/16 16:14 APTT 25.9 sec (22.0-30.0) 08/23/16 16:14 Sample Site L BRACHIAL 08/24/16 16:35 ABG pH 7.43 (7.35-7.45) 08/24/16 16:35 ABG pCO2 29 mmHg (35-45) L 08/24/16 16:35 ABG pO2 96 mmHg (83-108) 08/24/16 16:35 ABG HCO3 19 mmol/L (21-25) L 08/24/16 16:35 ABG Total CO2 20 mmol/L (19-24) 08/24/16 16:35 ABG O2 Saturation 98.0 % (94-97) H 08/24/16 16:35 ABG Base Excess -4.8 mmol/L 08/24/16 16:35 FiO2 100 % 08/24/16 16:35 Sodium 133 mmol/L (137-145) L 09/01/16 07:53 Potassium 3.7 mmol/L (3.5-5.1) 09/01/16 07:53 Chloride 95 mmol/L (98-107) L 09/01/16 07:53 Carbon Dioxide 22 mmol/L (22-30) 09/01/16 07:53 Anion Gap 16 mmol/L 09/01/16 07:53 BUN 51 mg/dL (9-20) H 09/01/16 07:53 Creatinine 2.81 mg/dL (0.66-1.25) H 09/01/16 07:53 Est GFR (MDRD) Af Amer 26 (>60 ml/min/1.73 sqM) 09/01/16 07:53 Est GFR (MDRD) Non-Af 22 (>60 ml/min/1.73 sqM) 09/01/16 07:53 Glucose 179 mg/dL (74-99) H 09/01/16 07:53 POC Glucose (mg/dL) 226 mg/dL (75-99) H 09/01/16 20:57 POC Glu Tours Captain Claudia Christopher 09/01/16 20:[address] Glu mg/dL 131 mg/dL 08/23/16 16:15 Hemoglobin A1c 6.2 % (4.2-6.1) H 08/23/16 16:15 Plasma Lactic Acid Gerhard 1.2 mmol/L (0.7-2.0) 09/01/16 13:48 Calcium 7.4 mg/dL (8.4-10.2) L 09/01/16 07:53 Magnesium 1.9 mg/dL (1.6-2.3) 08/31/16 07:45 Iron 18 ug/dL (49-181) L 08/25/16 08:18 TIBC 173 ug/dL (261-462) L 08/25/16 08:18 % Saturation 10.4 % (20-50) L 08/25/16 08:18 Ferritin ng/mL (18-464) 08/25/16 08:18 Total Bilirubin 0.4 mg/dL (0.2-1.3) 08/26/16 09:26 AST 97 U/L (17-59) H 08/26/16 09:26 ALT 208 U/L (21-72) H 08/26/16 09:26 Alkaline Phosphatase 180 U/L (38-126) H 08/26/16 09:26 NT-Pro-B Natriuret Pep 65634 pg/mL 08/23/16 16:15 Total Protein 5.0 g/dL (6.3-8.2) L 08/26/16 09:26 Albumin 2.4 g/dL (3.5-5.0) L 08/26/16 09:26 Urine Color Yellow 08/23/16 16:14 Urine Appearance Turbid (Clear) 08/23/16 16:14 Urine pH 6.5 (5.0-8.0) 08/23/16 16:14 Ur Specific [place] 1.016 (1.001-1.035) 08/23/16 16:14 Urine Protein 2+ (Negative) H 08/23/16 16:14 Urine Glucose (UA) Negative (Negative) 08/23/16 16:14 Urine Ketones Negative (Negative) 08/23/16 16:14 Urine Blood Moderate (Negative) H 08/23/16 16:14 Urine Nitrite Positive (Negative) 08/23/16 16:14 Urine Bilirubin Negative (Negative) 08/23/16 16:14 Urine Urobilinogen <2.0 mg/dL (<2.0) 08/23/16 16:14 Ur Leukocyte Esterase Large (Negative) H 08/23/16 16:14 Urine RBC 48 /hpf (0-5) H 08/23/16 16:14 Urine WBC >182 /hpf (0-5) H 08/23/16 16:14 Urine WBC Clumps Many /hpf (None) H 08/23/16 16:14 Blood Type O Positive 08/28/16 11:26 Blood Type Recheck No 08/28/16 11:26 Antibody Screen NEGATIVE 08/28/16 11:26 Crossmatch See Detail 08/28/16 11:26 Spec Expiration Date 08/31/2016232508/28/16 11:26 Microbiology 08/26/16 18:09 Blood Blood Culture - Final No Growth after 144 hours 08/26/16 17:58 Blood Blood Culture - Final No Growth after 144 hours 08/25/16 08:24 Blood Blood Culture Gram Stain - Final 08/25/16 08:24 Blood Blood Culture - Final Staph hominis sub sp. hominis 08/25/16 08:18 Blood Blood Culture Gram Stain - Final 08/25/16 08:18 Blood Blood Culture - Final Staph hominis sub sp. hominis 08/25/16 08:24 Blood Blood Culture - Final 08/25/16 08:18 Blood Blood Culture - Final 08/23/16 16:14 Urine,Catheterized Urine Culture - Final Pseudomonas aeruginosa 08/23/16 16:14 Blood Blood Culture Gram Stain - Final 08/23/16 16:14 Blood Blood Culture - Final Pseudomonas aeruginosa 08/23/16 16:14 Blood Blood Culture - Final Assessment and Plan (1) Gram negative sepsis Narrative/Plan: 81-year-old male presents to the emergency center from the [facility] home with fever, worsening mental status and increasing fatigue and malaise. Patient has had recent hospitalizations. His underlying congestive heart failure this seems to be worsened by current chest x-ray and concerns pneumonia. The urinalysis is also markedly abnormal this point in time. Constantly concerns to gram-negative pneumonia versus urinary sepsis at this time antibiotic therapy would be altered to Zosyn and Levaquin until we have further data. Follow blood cultures are requested. Continue ongoing supportive care and improve his nutrition as much as possible. Moisture control and zinc to the buttocks as needed. Chronic renal failure is noted and has chronic obstruction as current etiology, expect improvement with quijano The lactic acidosis is improved with hydration. Multiple culturew with Pseudomaonas have been isolated susceptible to zosyn, and fortaz Levaquin was also for pneumonia, which may be fluid overload , if chest improves with resolution of the urinary obstruction then discontinue. As bactermia has cleared PICC IV access and plan at least 2 weeks of IV antibiotic therapy, fortaz. Folow up blood cultures ordered and are negative. However is had some increasing leukocytosis. Renal function is also worsened despite Quijano catheter placement. Patient did receive a blood transfusion before his leukocytosis markedly increased. May be related. Clinically improved.and wbc is improved Ulceration right upper thigh has healed. Chest x-ray showing some CHF doubt pneumonia. Status: Acute (2) Pneumonia Status: Acute (3) Acute on chronic systolic (congestive) heart failure Status: Acute
[2016-09-02] MEDS: PANTOPRAZOLE 40 MG TABLET PO SCH (06:20)
[2016-09-02 06:40] LABS: Anisocytosis Slight; CH 25.5; CHCM 31.2; HCT 23.5 % (39.0-53.0); HDW 3.82; HGB 7.6 gm/dL (13.0-17.5); Hypochromasia Marked; MCH 26.5 pg (25.0-35.0); MCHC 32.4 g/dL (31.0-37.0); MCV 81.9 fL (80.0-100.0); Microcytosis Slight; Poikilocytosis Slight; RBC 2.87 m/uL (4.30-5.90); RDW 18.7 % (11.5-15.5)
[2016-09-02 07:01] LABS: Calcium 7.7 mg/dL (8.4-10.2); Potassium 3.3 mmol/L (3.5-5.1)
[2016-09-02 07:03] LABS: WBC 26.9 k/uL (3.8-10.6)
[2016-09-02 07:22] LABS: Glucose,Whole Blood 221 mg/dL (75-99)
[2016-09-02] MEDS: IPRATROPIUM-ALBUTEROL 3 ML NEB INHALATION SCH ×4 (07:38→19:51)
[2016-09-02] MEDS: INSULIN LISPRO (humaLOG) 300 UNIT/3 ML VIAL SQ SCH ×4 (08:37→21:33)
[2016-09-02] MEDS: SODIUM CHLORIDE 0.9% 1,000 ML IV SCH (08:38)
[2016-09-02] MEDS: METOPROLOL TARTRATE 50 MG TAB PO SCH ×2 (08:39→21:33)
[2016-09-02] MEDS: ISOSORBIDE MONONITRATE ER 30 MG TAB.ER.24H PO SCH (08:39)
[2016-09-02] MEDS: AMMONIUM LACTATE 12% CREAM 140 GM TUBE TOPICAL SCH ×3 (08:39→21:34)
[2016-09-02] MEDS: MULTIVITAMINS, THERA 1 EACH TAB PO SCH (08:40)
[2016-09-02] MEDS: ASPIRIN 81 MG CHEW PO SCH (08:40)
[2016-09-02] MEDS: FERROUS SULFATE 325 MG TAB PO SCH (08:40)
[2016-09-02] MEDS ORDERED: POTASSIUM CHLORIDE ER 20 MEQ TAB.ER PO STA (08:48)
--- NOTE | 2016-09-02 09:29 | P.PN ---
Subjective Patient is seen in follow-up for acute kidney injury. Renal function got worse yesterday with creatinine at 2.81 and is slightly improved to 2.76 today. Patient is noted to have Pseudomonas UTI and bacteremia with repeat cultures showing staph hominis bacteremia and is currently maintained on IV antibiotics. He is resting in bed. Denies chest pain or shortness of breath. He was noted to have bilateral hydronephrosis and is being followed by urology. Carias catheter was placed. Oral intake has been fair as he doesn't feel very hungry. Hemoglobin was low at 6.7 as of August 28 and he did receive a blood transfusion. Hemoglobin is again trending down and is 7.6 today. Currently sitting up in bed. Vital signs are stable. General: The patient appeared well nourished and normally developed. HEENT: Head exam is unremarkable. Neck is without jugular venous distension. LUNGS: Scattered rhonchi. Breath sounds decreased. HEART: Rate and Rhythm are regular. First and second heart sounds normal. No murmurs, rubs or gallops. ABDOMEN: Abdominal exam reveals normal bowel sounds. Non-tender and non- distended. No evidence of peritonitis. EXTREMITITES: No clubbing, cyanosis, or edema. Objective - Vital Signs Vital signs: Vital Signs Temp 97.1 F L 09/02/16 07:48 Pulse 83 09/02/16 07:48 Resp 23 09/02/16 07:48 BP 165/87 09/02/16 07:48 Pulse Ox 98 09/02/16 07:48 Intake & Output 09/01/16 09/02/16 09/02/16 18:59 06:59 18:59 Output Total 351 501 150 Balance -351 -501 -150 Weight 77.5 kg Output: Urine 350 500 150 Stool 1 1 Other: Voiding Method Indwelling Catheter # Bowel Movements 1 - Labs CBC & Chem 7: 09/02/16 06:27 09/02/16 06:27 Labs: Abnormal Lab Results - Last 24 Hours (Table) 09/01/16 09/01/16 09/01/16 Range/Units 11:53 16:55 20:57 WBC (3.8-10.6) k/uL RBC (4.30-5.90) m/uL Hgb (13.0-17.5) gm/dL Hct (39.0-53.0) % RDW (11.5-15.5) % Sodium (137-145) mmol/L Potassium (3.5-5.1) mmol/L Chloride (98-107) mmol/L BUN (9-20) mg/dL Creatinine (0.66-1.25) mg/dL Glucose (74-99) mg/dL POC Glucose (mg/dL) 168 H 233 H 226 H (75-99) mg/dL Calcium (8.4-10.2) mg/dL 09/02/16 09/02/16 09/02/16 Range/Units 06:27 06:27 07:21 WBC 26.9 H* (3.8-10.6) k/uL RBC 2.87 L (4.30-5.90) m/uL Hgb 7.6 L (13.0-17.5) gm/dL Hct 23.5 L (39.0-53.0) % RDW 18.7 H (11.5-15.5) % Sodium 132 L (137-145) mmol/L Potassium 3.3 L (3.5-5.1) mmol/L Chloride 97 L (98-107) mmol/L BUN 53 H (9-20) mg/dL Creatinine 2.76 H (0.66-1.25) mg/dL Glucose 210 H (74-99) mg/dL POC Glucose (mg/dL) 221 H (75-99) mg/dL Calcium 7.7 L (8.4-10.2) mg/dL Microbiology - Last 24 Hours (Table) 08/26/16 18:09 Blood Culture - Final Blood No Growth after 144 hours 08/26/16 17:58 Blood Culture - Final Blood No Growth after 144 hours Assessment and Plan Plan: Assessment: #1. Nonoliguric acute kidney injury secondary to ischemic ATN secondary to anemia, hypotension as well as sepsis. Also component of obstructive uropathy. Creatinine a little improved to 2.76 today. Recent urinalysis was quite benign. Ultrasound revealed bilateral hydronephrosis. Baseline creatinine is the range of 1-1.2. #2. Severe sepsis secondary to Pseudomonas/staph hominis bacteremia and UTI. Also concerns for pneumonia. #3. Anemia. Iron deficiency noted. Status post blood transfusion on August 28. #4. Moderate pulmonary hypertension with mild to moderate mitral regurgitation. #5. Hypokalemia related to poor nutritional status. Rule out magnesium deficiency. #6. Vascular congestion noted on chest x-ray status post IV Lasix on August 30. #7. Hyponatremia, worsened with diuresis. Stable. Plan: Continue to hold diuretics. Continue normal saline at 50 mL an hour. I will hold off on IV iron due to bacteremia. Antibiotics per infectious disease recommendations. Repeat electrolytes in the morning. Maintain Carias catheter. Continue to monitor renal function and urine output. Encouraged oral intake. Maintain 1.2 L fluid restriction. Replace potassium. 40 mEq today. Check magnesium level.
--- NOTE | 2016-09-02 12:08 | PN ---
DATE OF SERVICE: 08/30/2016 INTERVAL HISTORY: Mr. Caba is an 81-year-old male with known history of CHF with diastolic dysfunction, was initially admitted to the hospital with severe sepsis secondary to urinary tract infection and bacteremia with pseudomonas aeruginosa. Patient is also positive for pseudomonas in the urine cultures. Apparently, antibiotics are Zosyn as well as levofloxacin as prior to condition for possible pneumonia as well. Patient was found to have ultrasound evidence of bilateral hydronephrosis and Carias catheter has been inserted on 08/26/2016. Patient is having significant leukocytosis and otherwise ( ) had a chest x- ray yesterday that showed pulmonary contusion and IV fluids are on hold and Lasix dose x1 was given today. Nephrology is following the patient. The patient also was given 1 unit of PRBC. Otherwise, patient denied any complaints of chest pain, no worsening short of breath. No nausea, vomiting, abdominal pain. No fever, no chills. No diarrhea or abdominal pain. Able to tolerate p.o. diet. Complete review of systems negative except as above. Current medications reviewed. PHYSICAL EXAMINATION: An 81-year-old male lying in the bed, awake, alert, oriented x3 in no apparent distress. VITALS: Blood pressure is 136/70, pulse is 73, respirations 16, temperature is afebrile. Pulse ox is 99% on 5 L nasal cannula. HEENT: Atraumatic, normocephalic. Neck is supple, no JVD. CVS EXAM: S1, S2. No murmurs, no gallops. LUNGS: Bilateral air entry is present. Mild crackles at the base, nonlabored breathing. ABDOMEN: Soft, nontender, bowel sounds are heard. Carias catheter in place. INSTITUTIONAL AIDE: Awake, alert oriented x3. No focal deficits. EXTREMITIES: No edema. Pulses palpable bilaterally. No clubbing or cyanosis. PSYCHIATRIC: Cooperative. LABORATORY DATA: WBC is 27.8, hemoglobin is 9.1, platelets 202, sodium 135, potassium 3.6, chloride 98, bicarb is 21, BUN 47, creatinine 2.3, calcium 8.2. ASSESSMENT: 1. Sepsis secondary to pseudomonas urinary tract infection. 2. Septicemia secondary to pseudomonas aeruginosa. 3. Bilateral hydronephrosis, currently on a Carias catheter until follow with Neurology Clinic. 4. Leukocytosis. 5. Acute on chronic congestive heart failure with diastolic dysfunction, improved now. 6. Diastolic dysfunction. Chest x-ray still showing congestive heart failure. Patient was given an extra dose of Lasix today. 7. Acute kidney injury, most likely prerenal with worsening creatinine today. 8. Iron deficiency anemia. Patient was given 1 unit of PRBC, not in exacerbation. 9. Home oxygen dependent following pulmonary fibrosis and chronic obstructive pulmonary disease. 10. Chronic respiratory failure, possibly ( ). 11. Chronic kidney disease stage III. 12. Deconditioning and vertical debility. DISCUSSION AND PLAN: Patient will be continued on antibiotics in the form of Zosyn and levofloxacin as per ID recommendation. Continue with the folic acid. Will continue to monitor renal function as well as ( ). Continue to the monitor the respiratory status and ( ) p.r.n. Prognosis is guarded and continue the current management and further recommendations based on the clinical course. MTDD
[2016-09-02 12:37] LABS: Glucose,Whole Blood 184 mg/dL (75-99)
[2016-09-02 17:21] LABS: Glucose,Whole Blood 278 mg/dL (75-99)
[2016-09-02 21:18] LABS: Glucose,Whole Blood 292 mg/dL (75-99)
[2016-09-02] MEDS: ATORVASTATIN 40 MG TAB PO SCH (21:33)
[2016-09-03] MEDS: SODIUM CHLORIDE 0.9% 1,000 ML IV SCH (04:36)
[2016-09-03] MEDS: PANTOPRAZOLE 40 MG TABLET PO SCH (06:26)
[2016-09-03 07:37] LABS: Glucose,Whole Blood 325 mg/dL (75-99)
[2016-09-03] MEDS: IPRATROPIUM-ALBUTEROL 3 ML NEB INHALATION SCH ×4 (08:22→20:58)
[2016-09-03] MEDS: INSULIN LISPRO (humaLOG) 300 UNIT/3 ML VIAL SQ SCH ×4 (08:38→21:21)
--- NOTE | 2016-09-03 08:46 | P.PN ---
Subjective Patient is seen for follow-up for acute kidney injury. He is being treated for urinary tract infection. Patient to the had Pseudomonas bacteremia and staph hominis bacteremia as well. He is maintained on IV ceftazidime IV fluids are running at 50 mL an hour. No labs from today. Serum creatinine was at 2.76 from yesterday which was down from 2.8. Patient has an indwelling Carias catheter with urine output about 1550 for the last 24 hours. Objective - Vital Signs Vital signs: Vital Signs Temp 97.4 F L 09/03/16 07:00 Pulse 85 09/03/16 07:00 Resp 20 09/03/16 07:00 BP 159/82 09/03/16 07:00 Pulse Ox 95 09/03/16 07:00 Intake & Output 09/02/16 09/03/16 09/03/16 18:59 06:59 18:59 Intake Total 500 200 Output Total 550 1000 Balance -550 -500 200 Intake: Oral 500 200 Output: Urine 550 1000 Uretheral (Carias) 1000 Other: Voiding Method Indwelling Catheter Indwelling Catheter # Bowel Movements 0 - Exam Patient is sitting up in bed comfortable not in any acute distress. Blood pressure is 1 5982 Heart rate 85/m he is afebrile Examination of the heart S1 and S2 Exertion lungs bilateral breath sounds are heard Abdomen is soft nontender obese Examination lower extremities shows edema 1+ bilaterally. Chronic skin changes are noted bilaterally. ENVIRONMENTAL COMPLIANCE SPECIALIST exam is grossly intact patient is moving all 4 extremities. - Labs CBC & Chem 7: 09/02/16 06:27 09/02/16 06:27 Labs: Abnormal Lab Results - Last 24 Hours (Table) 09/02/16 09/02/16 09/02/16 Range/Units 12:32 17:20 21:08 POC Glucose (mg/dL) 184 H 278 H 292 H (75-99) mg/dL 09/03/16 Range/Units 07:25 POC Glucose (mg/dL) 325 H (75-99) mg/dL Assessment and Plan Plan: Assessment 1. Acute kidney injury secondary to ATN and obstructive uropathy, slowly improving repeat labs from today. Baseline creatinine about 1-1.2 mg/dL. 2. Severe sepsis with Pseudomonas and staph hominis bacteremia and urinary tract infections maintained on IV antibiotics being followed by ID 3. Anemia with iron deficiency status post packed RBCs transfusion 4. With moderate pulmonary hypertension 5. Hyponatremia currently stable, labs from today are pending. 6. Hypokalemia status post replacement will follow-up on labs from today. Plan May continue with IV fluids, encourage increase oral intake. Follow-up on labs from today.
[2016-09-03] MEDS: FERROUS SULFATE 325 MG TAB PO SCH (10:48)
[2016-09-03] MEDS: ISOSORBIDE MONONITRATE ER 30 MG TAB.ER.24H PO SCH (10:48)
[2016-09-03] MEDS: ASPIRIN 81 MG CHEW PO SCH (10:48)
[2016-09-03] MEDS: METOPROLOL TARTRATE 50 MG TAB PO SCH ×2 (10:48→21:21)
[2016-09-03] MEDS: MULTIVITAMINS, THERA 1 EACH TAB PO SCH (10:49)
[2016-09-03] MEDS: AMMONIUM LACTATE 12% CREAM 140 GM TUBE TOPICAL SCH ×2 (10:49→21:28)
[2016-09-03 11:16] LABS: Anisocytosis Slight; Basophils # (A) 0.1 k/uL (0-0.2); Basophils % (A) 0 %; CH 25.9; CHCM 31.9; Eosinophils % (A) 0 %; HCT 25.9 % (39.0-53.0); HDW 3.82; HGB 8.3 gm/dL (13.0-17.5); Hypochromasia Moderate; Luc # (Auto) 0.47; Luc % (Auto) 2; Lymphocytes # (A) 0.4 k/uL (1.0-4.8); Lymphocytes % (A) 2 %; MCV 81.4 fL (80.0-100.0); Mean Platelet Volume 8.9; Microcytosis Slight; Monocytes # (A) 1.1 k/uL (0-1.0); Monocytes % (A) 4 %; Neutrophils # (A) 22.8 k/uL (1.3-7.7); Neutrophils % (A) 92 %; Poikilocytosis Slight; RBC 3.18 m/uL (4.30-5.90); RDW 18.8 % (11.5-15.5); WBC 24.8 k/uL (3.8-10.6); WBC (Perox) 25.64
[2016-09-03 11:34] LABS: Calcium 7.9 mg/dL (8.4-10.2); Magnesium 1.9 mg/dL (1.6-2.3); Potassium 3.9 mmol/L (3.5-5.1)
[2016-09-03 11:57] LABS: Glucose,Whole Blood 219 mg/dL (75-99)
--- NOTE | 2016-09-03 12:27 | PN ---
DATE OF SERVICE: 08/31/2016 INTERVAL HISTORY: Mr. Caba is an 81-year-old male with known history of CHF with diastolic dysfunction who was initially admitted to the hospital secondary to sepsis due to urinary tract infection and blood cultures as well as urine cultures growing Pseudomonas aeruginosa. Patient otherwise is being treated with Zosyn per ID recommendations and patient had PICC line today. Repeat cultures have been negative. Bacteremia has resolved. Otherwise the patient was found to have acute kidney injury following diuresis. Lasix has been held at this time. The patient was also found to have bilateral hydronephrosis and obstructive nephropathy. Apparently placed on Carias catheter with monitored outpatient follow up with Urology. Otherwise the patient states he is symptomatically much improved today. Denied any complaints of nausea, vomiting or abdominal pain. The patient continues to be on the Carias catheter. No complaints of shortness of breath. No nausea, vomiting or abdominal pain. GENITOURINARY: Negative. ENDOCRINE: Negative. PSYCHIATRIC: Negative. SKIN: Negative. All other fourteen point review of systems negative except as above. Current medications reviewed. PHYSICAL EXAMINATION: An 81-year-old male lying in bed, awake, alert, oriented x3, appears to be in no apparent distress. VITALS: Blood pressure 131/66, pulse 75, respirations 20, temperature afebrile, pulse ox 95% on room air. HEENT: Atraumatic, normocephalic. Neck is supple. No JVD. CVS: S1, S2 heard. No murmurs, no gallop. LUNGS: Bilateral air entry is present. No wheeze. Patient does have ( ) basally. Nonlabored breathing. ABDOMEN: Soft, nontender. Bowel sounds present. PAPER INSPECTOR: Awake, alert, oriented x3. No focal deficits. EXTREMITIES: No edema. Pulses palpable bilaterally. No clubbing or cyanosis. PSYCHIATRIC: Cooperative. LABORATORY DATA: Sodium 131, potassium 4.9, chloride 97, bicarb is 20, BUN 51, creatinine 2.27. Calcium 8.1. IMPRESSION: 1. Sepsis secondary to urinary tract infection with Pseudomonas aeruginosa. 2. Bacteremia secondary to Pseudomonas aeruginosa, resolved now. 3. Bilateral hydronephrosis currently on Carias catheter and follow up with Urology Clinic.. 4. Acute on chronic congestive heart failure with diastolic dysfunction improved now. 5. Nonoliguric acute kidney injury most likely prerenal. 6. Iron deficiency anemia, status post 1 unit of PRBC, was on iron supplementation. 7. Chronic obstructive pulmonary disease, not in exacerbation. 8. Home oxygen dependent respiratory failure due to pulmonary fibrosis and chronic obstructive pulmonary disease. 9. Chronic kidney disease stage III. 10. Deconditioning and medical debility. DISCUSSION AND PLAN: The patient will be continued on IV antibiotics. PICC line was obtained. Antibiotics for 2 weeks as per ID recommendations and continue to follow renal function and hemoglobin level. Patient still has significant leukocytosis. Otherwise clinically improved now. I will continue the current management and further recommendations based on the clinical course. MTDD
--- NOTE | 2016-09-03 14:34 | P.PN ---
Subjective Mr. Caba is an 81-year-old male with the PMH of oronary Artery Disease (CAD), Heart Failure, COPD, Diabetes Mellitus, Eye Disorder, GERD/Reflux , Hyperlipidemia, Hypertension, Pneumonia, Prostate Disorder, Skin Disorder admitted with the c/o fever and generalized weakness. He has multiple hospital admissions. He was having difficulties with progressive weakness and congestive heart failure. When he was treated he was transferred to the [facility]. Now presents with altered mental status, fever and increasing weakness. He has been followed the wound center and was showing improvement to his ulceration to the right anterior upper thigh. Now has evidence of the new fever and weakness. Concerns pneumonia, or other source of gram-negative sepsis. He is being treated for urinary tract infection. Patient to the had Pseudomonas bacteremia and staph hominis bacteremia as well. He is maintained on IV ceftazidime. Review of systems \Cardiac no chest pain or difficulty in breathing Respiratory - no cough GI- no abdominal pain nausea or vomiting STONE HAND no headaches or blurring of vision Psychiatric- patient appears to be depressed due to ongoing medical issues Objective - Vital Signs Vital signs: Vital Signs Temp 97.4 F L 09/02/16 15:00 Pulse 81 09/02/16 15:00 Resp 20 09/02/16 15:00 BP 160/84 09/02/16 15:00 Pulse Ox 98 09/02/16 15:36 Intake & Output 09/02/16 09/02/16 09/03/16 06:59 18:59 06:59 Output Total 501 550 Balance -501 -550 Weight 77.5 kg Output: Urine 500 550 Stool 1 Other: Voiding Method Indwelling Catheter # Bowel Movements 0 - Exam HEENT: Anicteric conjunctiva are pink and moist nasal mucosa grossly intact without significant lesions, there is no thrush. dentures Neck: The neck is supple without significant lymphadenopathy or thyromegaly. Lungs: symmetric air entry scattered wheezing. Bibasilar bronchial sounds are heard There is no dullness. Heart: irRegular with an audible S1-S2, no S3 no S4. There is no significant murmur click or rub, PMI was nondisplaced. Abdomen: Positive bowel sounds soft and nontender without palpable masses or organomegaly. There was no guarding or rebound. Extremities: The upper extremities have excellent pulses they are symmetric, no significant petechiae or telangiectasia. No splinter hemorrhages were noted. The lower extremities trace edema, right upper thigh has minimal ulcer showing marked improvement Neuro: Awake alert oriented to person follows simple commands - Labs CBC & Chem 7: 09/03/16 11:05 09/03/16 11:05 Labs: Abnormal Lab Results - Last 24 Hours (Table) 09/02/16 09/02/16 09/02/16 Range/Units 06:27 06:27 07:21 WBC 26.9 H* (3.8-10.6) k/uL RBC 2.87 L (4.30-5.90) m/uL Hgb 7.6 L (13.0-17.5) gm/dL Hct 23.5 L (39.0-53.0) % RDW 18.7 H (11.5-15.5) % Sodium 132 L (137-145) mmol/L Potassium 3.3 L (3.5-5.1) mmol/L Chloride 97 L (98-107) mmol/L BUN 53 H (9-20) mg/dL Creatinine 2.76 H (0.66-1.25) mg/dL Glucose 210 H (74-99) mg/dL POC Glucose (mg/dL) 221 H (75-99) mg/dL Calcium 7.7 L (8.4-10.2) mg/dL 09/02/16 09/02/16 09/02/16 Range/Units 12:32 17:20 21:08 WBC (3.8-10.6) k/uL RBC (4.30-5.90) m/uL Hgb (13.0-17.5) gm/dL Hct (39.0-53.0) % RDW (11.5-15.5) % Sodium (137-145) mmol/L Potassium (3.5-5.1) mmol/L Chloride (98-107) mmol/L BUN (9-20) mg/dL Creatinine (0.66-1.25) mg/dL Glucose (74-99) mg/dL POC Glucose (mg/dL) 184 H 278 H 292 H (75-99) mg/dL Calcium (8.4-10.2) mg/dL Microbiology - Last 24 Hours (Table) 08/26/16 18:09 Blood Culture - Final Blood No Growth after 144 hours 08/26/16 17:58 Blood Culture - Final Blood No Growth after 144 hours Assessment and Plan Plan: Assessment Sepsis secondary to urinary tract infection with Pseudomonas aeruginosa Bacteremia secondary to Pseudomonas aeruginosa Bilateral hydronephrosis Acute and chronic congestive heart failure- diastolic congestive heart failure Non-oliguric acute kidney injury- pre renal Iron deficiency anemia status post 1 unit of PRBCs Chronic obstructive pulmonary disease not in exacerbation Chronic respiratory failure hypoxic Pulmonary fibrosis Deconditioning- chronic Plan continue with IV antibiotics as per ID Dr. Teague recommendations PICC line in place. Patient still has significant leukocytosis. We'll continue with the current medical management and further recommendations to follow the clinical course of the patient. Called the patient's daughter Rayna - discussed with her in detail the treatment care plan. We'll continue the antibiotics for now. Possible AFC placement in 1-2 days.
--- NOTE | 2016-09-03 16:21 | P.PN ---
Subjective Principal diagnosis: sepsis 81-year-old male known to the service from his recent hospitalization. He was having difficulties with progressive weakness and congestive heart failure. When he was treated he was transferred to the [facility]. Now presents with altered mental status, fever and increasing weakness. He has been followed the wound center and was showing improvement to his ulceration to the right anterior upper thigh. Now has evidence of the new fever and weakness. Concerns pneumonia, or other source of gram-negative sepsis. Has worsened renal failure and US reveals bilat hydronephrosis, was seen by urology and Quijano is placed Multiple positive blood cultures are found. Patient is slightly more interactive today. Is denying new difficulties such as pain. Nursing staff relates he ate some dinner. Patient more comfortable today Objective - Vital Signs Vital signs: Vital Signs Temp 98.6 F 09/03/16 14:53 Pulse 87 09/03/16 14:53 Resp 20 09/03/16 14:53 BP 156/69 09/03/16 14:53 Pulse Ox 96 09/03/16 14:53 Intake & Output 09/02/16 09/03/16 09/03/16 18:59 06:59 18:59 Intake Total 500 720 Output Total 550 1000 701 Balance -550 -500 19 Intake: Oral 500 720 Output: Urine 550 1000 700 Uretheral (Quijano) 1000 Stool 1 Other: Voiding Method Indwelling Catheter Indwelling Catheter Indwelling Catheter # Bowel Movements 0 - Exam HEENT: Anicteric conjunctiva are pink and moist nasal mucosa grossly intact without significant lesions, there is no thrush. dentures Neck: The neck is supple without significant lymphadenopathy or thyromegaly. Lungs: symmetric air entry scattered wheezing. Bibasilar bronchial sounds are heard There is no dullness. Heart: irRegular with an audible S1-S2, no S3 no S4. There is no significant murmur click or rub, PMI was nondisplaced. Abdomen: Positive bowel sounds soft and nontender without palpable masses or organomegaly. There was no guarding or rebound. Extremities: The upper extremities have excellent pulses they are symmetric, no significant petechiae or telangiectasia. No splinter hemorrhages were noted. The lower extremities trace edema, right upper thigh has minimal ulcer showing marked improvement Neuro: Awake alert oriented to person follows simple commands - Labs CBC & Chem 7: 09/03/16 11:05 09/03/16 11:05 Labs: Abnormal Lab Results - Last 24 Hours (Table) 09/02/16 09/02/16 09/03/16 Range/Units 17:20 21:08 07:25 WBC (3.8-10.6) k/uL RBC (4.30-5.90) m/uL Hgb (13.0-17.5) gm/dL Hct (39.0-53.0) % RDW (11.5-15.5) % Neutrophils # (1.3-7.7) k/uL Lymphocytes # (1.0-4.8) k/uL Monocytes # (0-1.0) k/uL Sodium (137-145) mmol/L BUN (9-20) mg/dL Creatinine (0.66-1.25) mg/dL Glucose (74-99) mg/dL POC Glucose (mg/dL) 278 H 292 H 325 H (75-99) mg/dL Calcium (8.4-10.2) mg/dL 09/03/16 09/03/16 09/03/16 Range/Units 11:05 11:05 11:50 WBC 24.8 H (3.8-10.6) k/uL RBC 3.18 L (4.30-5.90) m/uL Hgb 8.3 L (13.0-17.5) gm/dL Hct 25.9 L (39.0-53.0) % RDW 18.8 H (11.5-15.5) % Neutrophils # 22.8 H (1.3-7.7) k/uL Lymphocytes # 0.4 L (1.0-4.8) k/uL Monocytes # 1.1 H (0-1.0) k/uL Sodium 134 L (137-145) mmol/L BUN 52 H (9-20) mg/dL Creatinine 2.60 H (0.66-1.25) mg/dL Glucose 216 H (74-99) mg/dL POC Glucose (mg/dL) 219 H (75-99) mg/dL Calcium 7.9 L (8.4-10.2) mg/dL Laboratory Results WBC 24.8 k/uL (3.8-10.6) H 09/03/16 11:05 RBC 3.18 m/uL (4.30-5.90) L 09/03/16 11:05 Hgb 8.3 gm/dL (13.0-17.5) L 09/03/16 11:05 Hct 25.9 % (39.0-53.0) L 09/03/16 11:05 MCV 81.4 fL (80.0-100.0) 09/03/16 11:05 MCH 26.0 pg (25.0-35.0) 09/03/16 11:05 MCHC 32.0 g/dL (31.0-37.0) 09/03/16 11:05 RDW 18.8 % (11.5-15.5) H 09/03/16 11:05 Plt Count 230 k/uL (150-450) 09/03/16 11:05 Neutrophils % 92 % 09/03/16 11:05 Neutrophils % (Manual) 93.0 % 08/29/16 06:49 Lymphocytes % 2 % 09/03/16 11:05 Lymphocytes % (Manual) 1.0 % 08/29/16 06:49 Monocytes % 4 % 09/03/16 11:05 Monocytes % (Manual) 6.0 % 08/29/16 06:49 Eosinophils % 0 % 09/03/16 11:05 Basophils % 0 % 09/03/16 11:05 Neutrophils # 22.8 k/uL (1.3-7.7) H 09/03/16 11:05 Neutrophils # (Manual) 26.6 k/uL (1.3-7.7) H 08/29/16 06:49 Lymphocytes # 0.4 k/uL (1.0-4.8) L 09/03/16 11:05 Lymphocytes # (Manual) 0.3 k/uL (1.0-4.8) L 08/29/16 06:49 Monocytes # 1.1 k/uL (0-1.0) H 09/03/16 11:05 Monocytes # (Manual) 1.7 k/uL (0-1.0) H 08/29/16 06:49 Eosinophils # 0.0 k/uL (0-0.7) 09/03/16 11:05 Basophils # 0.1 k/uL (0-0.2) 09/03/16 11:05 Nucleated RBCs 0 /100 WBC (0-0) 08/29/16 06:49 Dimorphic RBCs Present 08/29/16 06:49 Polychromasia Present 08/29/16 06:49 Hypochromasia Moderate 09/03/16 11:05 Poikilocytosis Slight 09/03/16 11:05 Anisocytosis Slight 09/03/16 11:05 Microcytosis Slight 09/03/16 11:05 Fragmented RBCs Present 08/29/16 06:49 PT 12.7 sec (9.0-12.0) H 08/23/16 16:14 INR 1.3 (<1.1) 08/23/16 16:14 APTT 25.9 sec (22.0-30.0) 08/23/16 16:14 Sample Site L BRACHIAL 08/24/16 16:35 ABG pH 7.43 (7.35-7.45) 08/24/16 16:35 ABG pCO2 29 mmHg (35-45) L 08/24/16 16:35 ABG pO2 96 mmHg (83-108) 08/24/16 16:35 ABG HCO3 19 mmol/L (21-25) L 08/24/16 16:35 ABG Total CO2 20 mmol/L (19-24) 08/24/16 16:35 ABG O2 Saturation 98.0 % (94-97) H 08/24/16 16:35 ABG Base Excess -4.8 mmol/L 08/24/16 16:35 FiO2 100 % 08/24/16 16:35 Sodium 134 mmol/L (137-145) L 09/03/16 11:05 Potassium 3.9 mmol/L (3.5-5.1) 09/03/16 11:05 Chloride 99 mmol/L (98-107) 09/03/16 11:05 Carbon Dioxide 23 mmol/L (22-30) 09/03/16 11:05 Anion Gap 12 mmol/L 09/03/16 11:05 BUN 52 mg/dL (9-20) H 09/03/16 11:05 Creatinine 2.60 mg/dL (0.66-1.25) H 09/03/16 11:05 Est GFR (MDRD) Af Amer 29 (>60 ml/min/1.73 sqM) 09/03/16 11:05 Est GFR (MDRD) Non-Af 24 (>60 ml/min/1.73 sqM) 09/03/16 11:05 Glucose 216 mg/dL (74-99) H 09/03/16 11:05 POC Glucose (mg/dL) 219 mg/dL (75-99) H 09/03/16 11:50 POC Glu Clinical Assessment Manager Jacinda Lamb 09/03/16 11:[address] Glu mg/dL 131 mg/dL 08/23/16 16:15 Hemoglobin A1c 6.2 % (4.2-6.1) H 08/23/16 16:15 Plasma Lactic Acid Gerhard 1.2 mmol/L (0.7-2.0) 09/01/16 13:48 Calcium 7.9 mg/dL (8.4-10.2) L 09/03/16 11:05 Magnesium 1.9 mg/dL (1.6-2.3) 09/03/16 11:05 Iron 18 ug/dL (49-181) L 08/25/16 08:18 TIBC 173 ug/dL (261-462) L 08/25/16 08:18 % Saturation 10.4 % (20-50) L 08/25/16 08:18 Ferritin ng/mL (18-464) 08/25/16 08:18 Total Bilirubin 0.4 mg/dL (0.2-1.3) 08/26/16 09:26 AST 97 U/L (17-59) H 08/26/16 09:26 ALT 208 U/L (21-72) H 08/26/16 09:26 Alkaline Phosphatase 180 U/L (38-126) H 08/26/16 09:26 NT-Pro-B Natriuret Pep 56878 pg/mL 08/23/16 16:15 Total Protein 5.0 g/dL (6.3-8.2) L 08/26/16 09:26 Albumin 2.4 g/dL (3.5-5.0) L 08/26/16 09:26 Urine Color Yellow 08/23/16 16:14 Urine Appearance Turbid (Clear) 08/23/16 16:14 Urine pH 6.5 (5.0-8.0) 08/23/16 16:14 Ur Specific [place] 1.016 (1.001-1.035) 08/23/16 16:14 Urine Protein 2+ (Negative) H 08/23/16 16:14 Urine Glucose (UA) Negative (Negative) 08/23/16 16:14 Urine Ketones Negative (Negative) 08/23/16 16:14 Urine Blood Moderate (Negative) H 08/23/16 16:14 Urine Nitrite Positive (Negative) 08/23/16 16:14 Urine Bilirubin Negative (Negative) 08/23/16 16:14 Urine Urobilinogen <2.0 mg/dL (<2.0) 08/23/16 16:14 Ur Leukocyte Esterase Large (Negative) H 08/23/16 16:14 Urine RBC 48 /hpf (0-5) H 08/23/16 16:14 Urine WBC >182 /hpf (0-5) H 08/23/16 16:14 Urine WBC Clumps Many /hpf (None) H 08/23/16 16:14 Blood Type O Positive 08/28/16 11:26 Blood Type Recheck No 08/28/16 11:26 Antibody Screen NEGATIVE 08/28/16 11:26 Crossmatch See Detail 08/28/16 11:26 Spec Expiration Date 08/31/2016 1502 08/28/16 11:26 Microbiology 08/26/16 18:09 Blood Blood Culture - Final No Growth after 144 hours 08/26/16 17:58 Blood Blood Culture - Final No Growth after 144 hours 08/25/16 08:24 Blood Blood Culture Gram Stain - Final 08/25/16 08:24 Blood Blood Culture - Final Staph hominis sub sp. hominis 08/25/16 08:18 Blood Blood Culture Gram Stain - Final 08/25/16 08:18 Blood Blood Culture - Final Staph hominis sub sp. hominis 08/25/16 08:24 Blood Blood Culture - Final 08/25/16 08:18 Blood Blood Culture - Final 08/23/16 16:14 Urine,Catheterized Urine Culture - Final Pseudomonas aeruginosa 08/23/16 16:14 Blood Blood Culture Gram Stain - Final 08/23/16 16:14 Blood Blood Culture - Final Pseudomonas aeruginosa 08/23/16 16:14 Blood Blood Culture - Final Assessment and Plan (1) Gram negative sepsis Narrative/Plan: 81-year-old male presents to the emergency center from the [facility] home with fever, worsening mental status and increasing fatigue and malaise. Patient has had recent hospitalizations. His underlying congestive heart failure this seems to be worsened by current chest x-ray and concerns pneumonia. The urinalysis is also markedly abnormal this point in time. Constantly concerns to gram-negative pneumonia versus urinary sepsis at this time antibiotic therapy would be altered to Zosyn and Levaquin until we have further data. Follow blood cultures are requested. Continue ongoing supportive care and improve his nutrition as much as possible. Moisture control and zinc to the buttocks as needed. Chronic renal failure is noted and has chronic obstruction as current etiology, expect improvement with quijano The lactic acidosis is improved with hydration. Multiple culturew with Pseudomaonas have been isolated susceptible to zosyn, and fortaz Levaquin was also for pneumonia, which may be fluid overload , if chest improves with resolution of the urinary obstruction then discontinue. As bactermia has cleared PICC IV access and plan at least 2 weeks of IV antibiotic therapy, fortaz. Folow up blood cultures are negative. However is had some increasing leukocytosis. Renal function is also worsened despite Quijano catheter placement. Patient did receive a blood transfusion before his leukocytosis markedly increased. May be related. Clinically improved.and wbc is improved Ulceration right upper thigh has healed. Chest x-ray showing some CHF doubt pneumonia. Patient is stating with his daughter present that he is tired and does not want more therapy. They're discussing potential transfer back to [facility] and hospice. Unclear if they will continue his antibiotic therapy to complete the treatment of his current pseudomonas aeruginosa bacteremia. Related to his urinary obstruction. If he is to going to hospice would not remove his Quijano catheter. Status: Acute (2) Pneumonia Status: Acute (3) Acute on chronic systolic (congestive) heart failure Status: Acute
[2016-09-03 17:21] LABS: Glucose,Whole Blood 208 mg/dL (75-99)
[2016-09-03 20:48] LABS: Glucose,Whole Blood 224 mg/dL (75-99)
[2016-09-03] MEDS: ATORVASTATIN 40 MG TAB PO SCH (21:21)
[2016-09-04] MEDS: SODIUM CHLORIDE 0.9% 1,000 ML IV SCH ×2 (02:59→20:42)
[2016-09-04] MEDS: PANTOPRAZOLE 40 MG TABLET PO SCH (06:17)
[2016-09-04] MEDS: IPRATROPIUM-ALBUTEROL 3 ML NEB INHALATION SCH ×4 (06:56→20:03)
[2016-09-04 07:20] LABS: Glucose,Whole Blood 231 mg/dL (75-99)
[2016-09-04] MEDS: INSULIN LISPRO (humaLOG) 300 UNIT/3 ML VIAL SQ SCH ×4 (07:29→20:42)
[2016-09-04] MEDS: METOPROLOL TARTRATE 50 MG TAB PO SCH ×2 (07:30→20:42)
[2016-09-04] MEDS: FERROUS SULFATE 325 MG TAB PO SCH (07:30)
[2016-09-04] MEDS: ASPIRIN 81 MG CHEW PO SCH (07:30)
[2016-09-04] MEDS: ISOSORBIDE MONONITRATE ER 30 MG TAB.ER.24H PO SCH (07:30)
[2016-09-04] MEDS: AMMONIUM LACTATE 12% CREAM 140 GM TUBE TOPICAL SCH ×2 (07:33→20:42)
[2016-09-04 07:38] LABS: Anisocytosis Slight; Basophils % (A) 0 %; CH 25.6; CHCM 31.5; Eosinophils # (A) 0.1 k/uL (0-0.7); Eosinophils % (A) 0 %; HCT 25.2 % (39.0-53.0); HDW 3.78; HGB 7.9 gm/dL (13.0-17.5); Hypochromasia Moderate; Luc # (Auto) 0.46; Luc % (Auto) 2; Lymphocytes # (A) 0.7 k/uL (1.0-4.8); Lymphocytes % (A) 3 %; MCH 25.6 pg (25.0-35.0); MCHC 31.4 g/dL (31.0-37.0); MCV 81.6 fL (80.0-100.0); Mean Platelet Volume 8.9; Microcytosis Slight; Monocytes # (A) 0.8 k/uL (0-1.0); Monocytes % (A) 4 %; Neutrophils # (A) 18.2 k/uL (1.3-7.7); Neutrophils % (A) 90 %; Poikilocytosis Slight; RBC 3.08 m/uL (4.30-5.90); RDW 18.5 % (11.5-15.5); WBC 20.3 k/uL (3.8-10.6); WBC (Perox) 21.03
[2016-09-04 07:49] LABS: Calcium 7.7 mg/dL (8.4-10.2); Potassium 3.8 mmol/L (3.5-5.1)
--- NOTE | 2016-09-04 08:37 | P.PN ---
Subjective Patient is seen for follow-up for acute kidney injury. He is being treated for urinary tract infection. Patient to the had Pseudomonas bacteremia and staph hominis bacteremia as well. He is maintained on IV ceftazidime IV fluids were running at 50 mL an hour. This was discontinued yesterday Serum creatinine is down to 2.49 mg/dL today Patient has an indwelling Carias catheter with urine output about 1550 for the last 24 hours. Objective - Vital Signs Vital signs: Vital Signs Temp 97.7 F 09/04/16 07:00 Pulse 94 09/04/16 07:00 Resp 18 09/04/16 07:00 BP 179/89 09/04/16 07:00 Pulse Ox 98 09/04/16 07:00 Intake & Output 09/03/16 09/04/16 09/04/16 18:59 06:59 18:59 Intake Total 720 400 Output Total 701 1900 Balance 19 -1500 Intake: Oral 720 400 Output: Urine 700 1900 Uretheral (Carias) 800 Stool 1 Other: Voiding Method Indwelling Catheter Indwelling Catheter - Exam Patient is sitting up in bed comfortable not in any acute distress. Blood pressure was elevated at 179/89 heart rate 94/m. Patient is afebrile Heart rate 85/m he is afebrile Examination of the heart S1 and S2 Exertion lungs bilateral breath sounds are heard Abdomen is soft nontender obese Examination lower extremities shows edema 1+ bilaterally. Chronic skin changes are noted bilaterally. ENROLLMENT MANAGEMENT COORDINATOR exam is grossly intact patient is moving all 4 extremities. - Labs CBC & Chem 7: 09/04/16 06:45 09/04/16 06:45 Labs: Abnormal Lab Results - Last 24 Hours (Table) 09/03/16 09/03/16 09/03/16 Range/Units 11:05 11:05 11:50 WBC 24.8 H (3.8-10.6) k/uL RBC 3.18 L (4.30-5.90) m/uL Hgb 8.3 L (13.0-17.5) gm/dL Hct 25.9 L (39.0-53.0) % RDW 18.8 H (11.5-15.5) % Neutrophils # 22.8 H (1.3-7.7) k/uL Lymphocytes # 0.4 L (1.0-4.8) k/uL Monocytes # 1.1 H (0-1.0) k/uL Sodium 134 L (137-145) mmol/L BUN 52 H (9-20) mg/dL Creatinine 2.60 H (0.66-1.25) mg/dL Glucose 216 H (74-99) mg/dL POC Glucose (mg/dL) 219 H (75-99) mg/dL Calcium 7.9 L (8.4-10.2) mg/dL 09/03/16 09/03/16 09/04/16 Range/Units 17:20 20:39 06:45 WBC 20.3 H (3.8-10.6) k/uL RBC 3.08 L (4.30-5.90) m/uL Hgb 7.9 L (13.0-17.5) gm/dL Hct 25.2 L (39.0-53.0) % RDW 18.5 H (11.5-15.5) % Neutrophils # 18.2 H (1.3-7.7) k/uL Lymphocytes # 0.7 L (1.0-4.8) k/uL Monocytes # (0-1.0) k/uL Sodium (137-145) mmol/L BUN (9-20) mg/dL Creatinine (0.66-1.25) mg/dL Glucose (74-99) mg/dL POC Glucose (mg/dL) 208 H 224 H (75-99) mg/dL Calcium (8.4-10.2) mg/dL 09/04/16 09/04/16 Range/Units 06:45 07:17 WBC (3.8-10.6) k/uL RBC (4.30-5.90) m/uL Hgb (13.0-17.5) gm/dL Hct (39.0-53.0) % RDW (11.5-15.5) % Neutrophils # (1.3-7.7) k/uL Lymphocytes # (1.0-4.8) k/uL Monocytes # (0-1.0) k/uL Sodium 134 L (137-145) mmol/L BUN 51 H (9-20) mg/dL Creatinine 2.49 H (0.66-1.25) mg/dL Glucose 210 H (74-99) mg/dL POC Glucose (mg/dL) 231 H (75-99) mg/dL Calcium 7.7 L (8.4-10.2) mg/dL Assessment and Plan Plan: Assessment 1. Acute kidney injury secondary to ATN and obstructive uropathy, slowly improving repeat labs from today. Baseline creatinine about 1-1.2 mg/dL. 2. Severe sepsis with Pseudomonas and staph hominis bacteremia and urinary tract infections maintained on IV antibiotics being followed by ID 3. Anemia with iron deficiency status post packed RBCs transfusion. No active bleeding noted. Hemoglobin at 7.9 g/dL today 4. With moderate pulmonary hypertension 5. Hyponatremia currently stable, labs from today are pending. 6. Hypokalemia status post replacement. Plan Continue to encourage increase oral intake
--- NOTE | 2016-09-04 11:37 | PN ---
INTERVAL HISTORY: Mr. Caba is an 81-year-old male with known history of CHF with diastolic dysfunction, moderate pulmonary hypertension; was admitted to the hospital with severe sepsis, urinary tract infection and pseudomonas bacteremia. The patient is currently on ceftazidime as per the recommendations. The patient had declined today. Otherwise, the patient is also having acute worsening renal function. Lasix has been stopped and the patient is currently getting IV fluids at 50 mL per hour. Nephrology and ID are following this patient. Otherwise, the patient is symptomatically much improved now. Denied any complaint of chest pain or shortness of breath. No nausea, vomiting, abdominal pain. No acute issues. REVIEW OF SYSTEMS: 14 point review of systems negative except as above. Current medications reviewed. PHYSICAL EXAMINATION: 81-year-old male lying in bed comfortably. Alert and oriented x3. Appears to be in no apparent distress. VITAL SIGNS: Blood pressure 137/60, pulse 83, respirations 16, temperature afebrile, pulse ox 94% on 5 liters nasal cannula. HEENT: Atraumatic, normocephalic. NECK: Supple. No JVD. CVS: S1, S2 heard. No murmurs, no gallops. LUNGS: Bilateral air entry is present. Decreased air entry bibasilarly. Nonlabored breathing. ABDOMEN: Soft, nontender. Bowel sounds are present. FISH AND WILDLIFE SCIENTIFIC AID: Alert and oriented x3. No focal deficits. Cranial nerves grossly intact. EXTREMITIES: No edema. Pulses palpable. No cyanosis. PSYCHIATRIC: Cooperative. LABORATORY DATA: WBC 23.6, hemoglobin 8.0, platelets 190. Sodium 133, potassium 3.7, chloride 95, bicarb 32. BUN 41, creatinine 2.8. Blood sugar is 179. Calcium is 7.4. Lactic acid 1.2. IMPRESSION: 1. Sepsis secondary to pseudomonas urinary tract infections. 2. Pseudomonas aeruginosa bacteremia. 3. Nonoliguric acute kidney injury due to acute tubular necrosis which is due to hypotension, anemia as well as sepsis. 4. Acute on chronic congestive heart failure with diastolic, improved now. 5. Moderate pulmonary hypertension. 6. Iron deficiency anemia. Patient underwent 1 unit of PRBC two days ago. Hemoglobin has been fairly stable. 7. Chronic obstructive pulmonary disease, not in exacerbation. 8. Bilateral hydronephrosis due to obstructive uropathy, currently on Carias catheter and follow up ( ) with Carias catheter upon discharge. 9. Home oxygen dependent pulmonary fibrosis and chronic obstructive pulmonary disease. 10. Chronic hypoxic respiratory failure secondary to pulmonary fibrosis and chronic obstructive pulmonary disease. 11. Chronic kidney disease stage 3. 12. Deconditioning and medical debility. PLAN: The patient will be continued on antibiotics in the form of ceftazidime and continue ot monitor leukocytosis. Will monitor renal function. Continue the gentle hydration. Replace electrolytes. Continue the Carias catheter and follow with the urology clinic. Will continue the current management. Further recommendations based on clinical course. The patient had ( ) done yesterday on 08/31/16 and probably will transfer to extended care facility once renal function improves. MTDD
[2016-09-04 11:53] LABS: Glucose,Whole Blood 257 mg/dL (75-99)
[2016-09-04 16:58] LABS: Glucose,Whole Blood 316 mg/dL (75-99)
[2016-09-04] MEDS: MULTIVITAMINS, THERA 1 EACH TAB PO SCH (17:11)
[2016-09-04 20:37] LABS: Glucose,Whole Blood 187 mg/dL (75-99)
[2016-09-04] MEDS: ATORVASTATIN 40 MG TAB PO SCH (20:42)
[2016-09-04 22:49] VITALS: RESP 18
--- NOTE | 2016-09-05 00:20 | P.PN ---
Subjective Mr. Caba is an 81-year-old male with the PMH of oronary Artery Disease (CAD), Heart Failure, COPD, Diabetes Mellitus, Eye Disorder, GERD/Reflux , Hyperlipidemia, Hypertension, Pneumonia, Prostate Disorder, Skin Disorder admitted with the c/o fever and generalized weakness. He has multiple hospital admissions. He was having difficulties with progressive weakness and congestive heart failure. When he was treated he was transferred to the [facility]. Now presents with altered mental status, fever and increasing weakness. He has been followed the wound center and was showing improvement to his ulceration to the right anterior upper thigh. Now has evidence of the new fever and weakness. Concerns pneumonia, or other source of gram-negative sepsis. He is being treated for urinary tract infection. Patient to the had Pseudomonas bacteremia and staph hominis bacteremia as well. He is maintained on IV ceftazidime. On 09/03/2016 - Patient seems to be very depressed. He thinks that he is dying. He states that he is fed up with the multiple hospitalizations. He said that he wants to go peacefully. Patient's daughter at the bedside , who also feels that the patient wants to be discharged and go home. On 09/04/16 - He had his family members visiting him today. No active complains. Review of systems Cardiac no chest pain or difficulty in breathing Respiratory - no cough GI- no abdominal pain nausea or vomiting [employer] no headaches or blurring of vision Psychiatric- patient appears to be depressed due to ongoing medical issues Objective - Vital Signs Vital signs: Vital Signs Temp 97.7 F 09/04/16 07:00 Pulse 94 09/04/16 07:00 Resp 18 09/04/16 07:00 BP 179/89 09/04/16 07:00 Pulse Ox 98 09/04/16 07:00 Intake & Output 09/03/16 09/04/16 09/04/16 18:59 06:59 18:59 Intake Total 720 400 Output Total 701 1900 Balance 19 -1500 Intake: Oral 720 400 Output: Urine 700 1900 Uretheral (Carias) 800 Stool 1 Other: Voiding Method Indwelling Catheter Indwelling Catheter Indwelling Catheter - Exam HEENT: Anicteric conjunctiva are pink and moist nasal mucosa grossly intact without significant lesions, there is no thrush. dentures Neck: The neck is supple without significant lymphadenopathy or thyromegaly. Lungs: symmetric air entry scattered wheezing. Bibasilar bronchial sounds are heard There is no dullness. Heart: irRegular with an audible S1-S2, no S3 no S4. There is no significant murmur click or rub, PMI was nondisplaced. Abdomen: Positive bowel sounds soft and nontender without palpable masses or organomegaly. There was no guarding or rebound. Extremities: The upper extremities have excellent pulses they are symmetric, no significant petechiae or telangiectasia. No splinter hemorrhages were noted. The lower extremities trace edema, right upper thigh has minimal ulcer showing marked improvement Neuro: Awake alert oriented to person follows simple commands - Labs CBC & Chem 7: 09/04/16 06:45 09/04/16 06:45 Labs: Abnormal Lab Results - Last 24 Hours (Table) 09/03/16 09/03/16 09/04/16 Range/Units 17:20 20:39 06:45 WBC 20.3 H (3.8-10.6) k/uL RBC 3.08 L (4.30-5.90) m/uL Hgb 7.9 L (13.0-17.5) gm/dL Hct 25.2 L (39.0-53.0) % RDW 18.5 H (11.5-15.5) % Neutrophils # 18.2 H (1.3-7.7) k/uL Lymphocytes # 0.7 L (1.0-4.8) k/uL Sodium (137-145) mmol/L BUN (9-20) mg/dL Creatinine (0.66-1.25) mg/dL Glucose (74-99) mg/dL POC Glucose (mg/dL) 208 H 224 H (75-99) mg/dL Calcium (8.4-10.2) mg/dL 09/04/16 09/04/16 09/04/16 Range/Units 06:45 07:17 11:52 WBC (3.8-10.6) k/uL RBC (4.30-5.90) m/uL Hgb (13.0-17.5) gm/dL Hct (39.0-53.0) % RDW (11.5-15.5) % Neutrophils # (1.3-7.7) k/uL Lymphocytes # (1.0-4.8) k/uL Sodium 134 L (137-145) mmol/L BUN 51 H (9-20) mg/dL Creatinine 2.49 H (0.66-1.25) mg/dL Glucose 210 H (74-99) mg/dL POC Glucose (mg/dL) 231 H 257 H (75-99) mg/dL Calcium 7.7 L (8.4-10.2) mg/dL Assessment and Plan Plan: Assessment Sepsis secondary to urinary tract infection with Pseudomonas aeruginosa Bacteremia secondary to Pseudomonas aeruginosa Bilateral hydronephrosis Acute and chronic congestive heart failure- diastolic congestive heart failure Non-oliguric acute kidney injury- pre renal Iron deficiency anemia status post 1 unit of PRBCs Chronic obstructive pulmonary disease not in exacerbation Chronic respiratory failure hypoxic Pulmonary fibrosis Deconditioning- chronic Plan continue with IV antibiotics as per [facility] recommendations PICC line in place. Patient still has significant leukocytosis. We'll continue with the current medical management and further recommendations to follow the clinical course of the patient. We'll continue the antibiotics for now. Attempts made to send the patient back to the [facility] home. Told by the facility that they cannot take him until Monday. We are to continue with the current medical management for now. Pt's daughter ,Rayna, aware of the treatment plan.
[2016-09-05] MEDS: PANTOPRAZOLE 40 MG TABLET PO SCH (06:47)
[2016-09-05] MEDS: IPRATROPIUM-ALBUTEROL 3 ML NEB INHALATION SCH ×2 (07:17→11:21)
[2016-09-05 07:24] LABS: Glucose,Whole Blood 217 mg/dL (75-99)
[2016-09-05 08:40] VITALS: BP 161/74; PULSE 82; TEMP 96.8
[2016-09-05] MEDS: AMMONIUM LACTATE 12% CREAM 140 GM TUBE TOPICAL SCH (08:44)
[2016-09-05] MEDS: INSULIN LISPRO (humaLOG) 300 UNIT/3 ML VIAL SQ SCH ×2 (08:44→12:28)
[2016-09-05] MEDS: MULTIVITAMINS, THERA 1 EACH TAB PO SCH (08:44)
[2016-09-05] MEDS: FERROUS SULFATE 325 MG TAB PO SCH (08:44)
[2016-09-05] MEDS: ISOSORBIDE MONONITRATE ER 30 MG TAB.ER.24H PO SCH (08:44)
[2016-09-05] MEDS: METOPROLOL TARTRATE 50 MG TAB PO SCH (08:44)
[2016-09-05] MEDS: ASPIRIN 81 MG CHEW PO SCH (08:44)
--- NOTE | 2016-09-05 09:44 | P.PN ---
Subjective Patient is seen in follow-up for acute kidney injury. Creatinine was down to 2.49 as of yesterday. Patient is noted to have Pseudomonas UTI and bacteremia with repeat cultures showing staph hominis bacteremia and is currently maintained on IV antibiotics. He is resting in bed. Denies chest pain or shortness of breath. He was noted to have bilateral hydronephrosis and is being followed by urology. Carias catheter was placed. Oral intake has been fair. Hemoglobin was low at 6.7 as of August 28 and he did receive a blood transfusion. Hemoglobin 7.9 as of yesterday. Currently sitting up in bed. Vital signs are stable. General: The patient appeared well nourished and normally developed. HEENT: Head exam is unremarkable. Neck is without jugular venous distension. LUNGS: Scattered rhonchi. Breath sounds decreased. HEART: Rate and Rhythm are regular. First and second heart sounds normal. No murmurs, rubs or gallops. ABDOMEN: Abdominal exam reveals normal bowel sounds. Non-tender and non- distended. No evidence of peritonitis. EXTREMITITES: No clubbing, cyanosis, or edema. Objective - Vital Signs Vital signs: Vital Signs Temp 96.8 F L 09/05/16 07:00 Pulse 82 09/05/16 07:00 Resp 18 09/05/16 07:00 BP 161/74 09/05/16 07:00 Pulse Ox 98 09/05/16 07:00 Intake & Output 09/04/16 09/05/16 09/05/16 18:59 06:59 18:59 Output Total 1500 400 Balance -1500 -400 Output: Urine 1500 400 Other: Voiding Method Indwelling Catheter Indwelling Catheter # Voids 1 1,200 # Bowel Movements 1 - Labs CBC & Chem 7: 09/04/16 06:45 09/04/16 06:45 Labs: Abnormal Lab Results - Last 24 Hours (Table) 09/04/16 09/04/16 09/04/16 Range/Units 11:52 16:57 20:36 POC Glucose (mg/dL) 257 H 316 H 187 H (75-99) mg/dL 09/05/16 Range/Units 07:21 POC Glucose (mg/dL) 217 H (75-99) mg/dL Assessment and Plan Plan: Assessment: #1. Nonoliguric acute kidney injury secondary to ischemic ATN secondary to anemia, hypotension as well as sepsis. Also component of obstructive uropathy. Creatinine down to 2.49 as of yesterday. Recent urinalysis was quite benign. Ultrasound revealed bilateral hydronephrosis. Baseline creatinine is the range of 1-1.2. #2. Severe sepsis secondary to Pseudomonas/staph hominis bacteremia and UTI. Also concerns for pneumonia. #3. Anemia. Iron deficiency noted. Status post blood transfusion on August 28. #4. Moderate pulmonary hypertension with mild to moderate mitral regurgitation. #5. Hypokalemia related to poor nutritional status. Magnesium replete. #6. Vascular congestion noted on chest x-ray status post IV Lasix on August 30. #7. Hyponatremia, worsened with diuresis. Stable. Plan: Continue to hold diuretics. Hep-Lock IV fluids. I will hold off on IV iron due to bacteremia. Antibiotics per infectious disease recommendations. Repeat electrolytes in the morning. Maintain Carias catheter. Continue to monitor renal function and urine output. Encouraged oral intake.
[2016-09-05 12:18] LABS: Glucose,Whole Blood 186 mg/dL (75-99)
== END 2016-09-05 14:08 | disposition home health service (06) | DRG 871 ==
LOC: EC 15:57 → 4MS4W 18:59
PROVIDERS: ADMIT Internal Medicine; ATTEND Internal Medicine
PROC: B548ZZA Ultrasonography of Superior Vena Cava, Guidance (ICD-10-PCS; principal; 2016-08-31 14:30)
PROC: B5181ZA Fluoroscopy of Superior Vena Cava using Low Osmolar Contrast, Guidance (ICD-10-PCS; principal; 2016-08-31 14:30)
PROC: 02HV33Z Insertion of Infusion Device into Superior Vena Cava, Percutaneous Approach (ICD-10-PCS; principal; 2016-08-31 14:30)
DX: A41.52 Sepsis due to Pseudomonas (principal); I50.43 Acute on chronic combined systolic (congestive) and diastolic (congestive) heart failure; J96.21 Acute and chronic respiratory failure with hypoxia; N17.0 Acute kidney failure with tubular necrosis; J18.9 Pneumonia, unspecified organism; E87.2 Acidosis; J44.0 Chronic obstructive pulmonary disease with (acute) lower respiratory infection; I13.0 Hypertensive heart and chronic kidney disease with heart failure and stage 1 through stage 4 chronic kidney disease, or unspecified chronic kidney disease; E87.1 Hypo-osmolality and hyponatremia; L97.119 Non-pressure chronic ulcer of right thigh with unspecified severity; N13.30 Unspecified hydronephrosis; N13.8 Other obstructive and reflux uropathy; N39.0 Urinary tract infection, site not specified; E11.22 Type 2 diabetes mellitus with diabetic chronic kidney disease; E11.622 Type 2 diabetes mellitus with other skin ulcer; D50.9 Iron deficiency anemia, unspecified; B95.7 Other staphylococcus as the cause of diseases classified elsewhere; E78.5 Hyperlipidemia, unspecified; E87.6 Hypokalemia; H35.30 Unspecified macular degeneration; I25.10 Atherosclerotic heart disease of native coronary artery without angina pectoris; I27.2 Other secondary pulmonary hypertension; I34.0 Nonrheumatic mitral (valve) insufficiency; J84.10 Pulmonary fibrosis, unspecified; K21.9 Gastro-esophageal reflux disease without esophagitis; N18.3 Chronic kidney disease, stage 3 (moderate); N40.0 Benign prostatic hyperplasia without lower urinary tract symptoms; R32 Unspecified urinary incontinence; R65.20 Severe sepsis without septic shock; Z79.4 Long term (current) use of insulin; Z79.82 Long term (current) use of aspirin; Z79.899 Other long term (current) drug therapy; Z87.891 Personal history of nicotine dependence; Z95.1 Presence of aortocoronary bypass graft; Z99.81 Dependence on supplemental oxygen
CPT/HCPCS: 36415; 36569; 36600; 51702; 71010; 71020; 76770; 76937; 77001; 80048; 80053; 81001; 82728; 82805; 83036; 83540; 83550; 83605; 83735; 83880; 85025; 85027; 85610; 85730; 86850; 86900; 86901; 86920; 87040; 87077; 87086; 87186; 93005; 94640; 94760; 96361; 96365; 99212; 99291